=== PATIENT | female | born 1940 | race Caucasian/White ===

== ENCOUNTER → 2018-05-31 13:59 | Outpatient (REF) | payer MEDICARE, MEDICAID, SELFPAY ==
[2018-05-31 20:41] LABS: Abs Immature Grans 0.01 k/cumm (0.0-0.09); Absolute Basophil Count 0.02 k/cumm (0.0-0.2); Absolute Eosinophil Count 0.14 k/cumm (0.0-0.7); Absolute Lymphocyte Count 2.11 k/cumm (1.2-3.4); Absolute Monocyte Count 0.51 k/cumm (0.11-0.7); Absolute Neutrophil Count 3.63 k/cumm (1.2-6.7); Basophils % 0.3; Eosinophils % 2.2; HCT 39.8 % (36.0-46.0); HGB 13.5 g/dL (12.0-15.5); Immature Grans % 0.2; Lymphocytes % 32.9; Mean Corp. HGB Concentration 33.9 g/dL (32.0-36.0); Mean Corpuscular Hemoglobin 32.9 pg (27.0-33.0); Mean Corpuscular Volume 97.1 fL (80-95); Monocytes % 7.9; Neutrophils % 56.5; Platelet Count 193 x1000/uL (130-400); RBC Distribution Width 12.3 % (11.7-14.6); White Blood Cell Count 6.42 k/cumm (4.4-10.8)
[2018-05-31 20:43] LABS: Anion Gap 7.7 mmol/L (3-11); BUN 17 mg/dL (7-18); CO2 30.3 mmol/L (21.0-32.0); CREATININE 1.03 mg/dL (0.55-1.02); Calcium 9.6 mg/dL (8.5-10.1); Chloride 103 mmol/L (98-107); Estimated GFR 51.56 (mL/min/1.73m2); Glucose 108 mg/dL (70-100); Magnesium 2.5 mg/dL (1.8-2.4); Potassium 3.8 mmol/L (3.5-5.1); Sodium 141 mmol/L (136-145)
== END ==
LOC: NCHCN 13:59
PROVIDERS: Visit Provider Nurse Practitioner Family
DX: H92.03 Otalgia, bilateral (principal); R42 Dizziness and giddiness
CPT/HCPCS: 80048; 83735; 85025

== ENCOUNTER 2018-06-06 12:45 | Outpatient (RCR) | payer MEDICARE, MEDICAID, SELFPAY ==
--- NOTE | 2018-01-27 14:40 | PTIDS_ITS ---
DATE: 01/27/18 REFERRING PROVIDER: Gill Murphy MD DIAGNOSIS: R hip joint pain Patient did not return for a follow up appointment(s). Patient called to cancel remaining appointment(s). Reason: Return to physician recommended. ___X__ Patient had achieved an improvement in condition up to their prior level of function. Patient was instructed in a customized home exercise program to continue independently at home. The patient was given the option to call and schedule an appointment any time within a 3-week period if they experience a return of symptoms. Patient did not schedule follow up within this time frame. COMMENTS: ___X__ Discharge from PT at this time. ___X__ Medicare: Unable to assign G-Codes due to the lack of a formal follow up visit. Patient did not schedule further visits after their last attended appointment and therefore a final assessment could not be performed.
--- NOTE | 2018-06-06 08:33 | IE_ITS ---
Date: 06/06/18 Referring: Gill Murphy MD M.D. Diagnosis: Dizziness and ear pain P.T. Diagnosis: Difficulty changing positions SUBJECTIVE: History of Present Illness: Pt describes herself as a retired female who lives locally in the area. She states that about 2 weeks ago she started to notice some dizziness, and ear pain on the (L). The dizziness would be present any time she would roll over in bed, get out of bed or change body position such as bending over. She also feels significantly light headed most of the time , and the dizziness appears with positional changes. The pain in the (L) ear did resolve a little bit but still has a fullness quality to it. Pt denies any recent head trauma. Denies any recent congestion, however pt states that at her druze with one of her best friends, she notices that some of the people in her life do have a similar symptom quality as of (R) now. She states that she has been moving very slow to try to control her symptoms. Symptom Ratin/10 mostly dizziness but also a constant lightheadedness. Prior Level of Function: Unrestricted Current Level of Function: Difficulty with changing positions, difficulty with performing household tasks and activities. Previous Treatment: Nothing. Social: She lives in [place] with her son. Comorbidities: High BP, Hypothyroid, Breast cancer with mastectomy on the (L) Quality of Life: __X__ Good Standardized Measures: Pt failed to properly complete a Dizziness Handicap Index this will be completed at a subsequent visit. OBJECTIVE: Posture: In standing pt demonstrates an increase in her symptom rating in the standing position, but demonstrates only a mild forward head position and widened base of support. Gait: No evidence of any severe antalgia or ataxia. Palpation: She is slightly tender to palpation through the lower lateral neck on the (L) side, and somewhat more discriminatory than the other side. Vitals: BP in the sitting position 130/60 HR 81, BP in the standing position 107/56 HR of 86, In the supine position BP 111/78 and it is also worthy to note that in the supine position pt has almost a complete relief of her symptoms. ROM: Cervical extension, side bending and rotation all limited to 50% of available motion, not particularly symptom provoking. Multisegmental trunk flexion of symptom provoking, and pt only travels about 75% of the motion with a non uniform spinal curve when coming back to a standing erect position. She does have a strong symptom presentation of dizziness. Strength: Mid Delt 5/5 Biceps 5/5 Triceps 5/5 Wrist extension and flexion 5/5 Car Inspector strength is strong and symmetrical (B) Hip flexion 4+/5 (B) Quads 5/5 Hamstrings 5/5 Dorsiflexion 5/5 Plantarflexion 5/5 Neuro: Pt intact to light touch and sensation through UE/LE dermatomes, motor control appears intact through associated myotomes, and pt demonstrates appropriate proprioception and kinesthetic awareness. Special Tests: VOR visual motion sensitivity intact at 60 bpm with no sign of ocular drift. But mild symptom provocation. Smooth pursuit and saccades no sign of ocular drift and WNL. Finger to nose coordination testing, fine finger digit touching and musa to heel test WNL in terms of coordination. Supine roll test is negative, Dikes Halpike testing (B) is negative. Treatment: Tx today included the initial evaluation along with assessment of functional abilities as well as training in a formal exercise program. Pt demonstrated verbal acknowledgement and technique demonstration. IE: [id number] Direct treatment time: 60 minutes Total treatment time: 60 minutes ASSESSMENT: Patient is a 78-year-old female with a hx of good physical health, referred for PT services with the diagnosis of dizziness and ear pain. Patient presents with clinical signs and symptoms consistent with a possible mechanical vestibular issue but more likely an organic issue causing her symptoms, as demonstrated by the following impairment level findings: Negative Dikes Halpike , negative supine roll test, mild symptom provocation with positional movements of the head against gravity but a complete symptom resolution when in the supine position. Impairments are contributing to the following functional limitations: Difficulty with bending over, difficulty with positional changes, difficulty with activities around the home. Patient is assessed as: ____ Low 34007 __X__ Moderate 59321 ____ High 26199 complexity, based on the following: History: Hypothyroidism, mastectomy, hypertension Examination: Positional changes of the head and trunk increasing her symptoms , mildly positive orthostatic HTN particularly sitting from standing with increased in symptomatology. Presentation: . X Evolving Decision-Making: X Moderate complexity Based on the fact that pt has not completed her normal activities and stretching regimen. Which she prefers to do to keep her lower back and hip in check. She is also having some difficulty walking around. __X__ Patient requires skilled PT intervention to remediate the above functional limitations to return to: __X__ Premorbid level of function Prognosis: __X__ Good as evidence suggests improvement of functional abilities with compliance to a detailed HEP tailored to her dx and following through with PT intervention. G-Codes: Patient's primary functional limitation is in the category of: __X__ Changing and maintaining body position: [id number] justified by pt' s inability to perform any normal daily tasks involving positional changes of the head and neck against gravity without becoming symptomatic. Projected goal: __X__ Changing and maintaining body position: [id number] to return to premorbid level of function. STG: __2__ weeks. 1. Pt will be (I) in HEP both verbally and with ideal technique demonstration. LTG: __6__ weeks. 1. Pt will be able to maintain normal activities of daily living without any functional complaint of symptoms. PLAN: Patient to be seen 1 x per week, for 6 weeks, adjusting frequency of visits per patient symptoms and response to treatment. Treatment to include: X NRE- For vestibular habituation type training, in the event that pt experiences some remaining balance and equilibrium deficits she could use some vestibular re-training to improve her response to the vestibular stimuli. Pt must also refer back to her primary care as there is some question if this is more of a viral issue particularly involving some of her close friends having similar symptoms including ear pain and pt having a much better symptomatic response when in the supine position which is contrary to what we would expect if this was a true vestibular mechanically oriented process. Pt will be monitored for response to HEP and pt status will be updated accordingly. Plan may be modified as symptoms dictate. Thank you for this referral. Please do not hesitate to contact me with any questions or concerns regarding this patient's plan of care. Gill Murphy MD please sign below if you are in agreement with this pt's plan of care, cc: Gill Murphy MD
== END 2018-06-24 23:59 | disposition home or self-care (01) ==
LOC: PT 12:45
DX: R42 Dizziness and giddiness (principal); H92.03 Otalgia, bilateral
CPT/HCPCS: 97162

== ENCOUNTER → 2018-06-13 13:53 | Outpatient (REF) | payer MEDICARE, MEDICAID, SELFPAY ==
[2018-06-13 21:43] LABS: Magnesium 2.1 mg/dL (1.8-2.4)
== END ==
LOC: NCHCN 13:53
PROVIDERS: PCP Nurse Practitioner Family; Visit Provider Nurse Practitioner Family
DX: E83.41 Hypermagnesemia (principal)
CPT/HCPCS: 83735

== ENCOUNTER 2018-09-13 10:30 | Emergency (ER) | payer MEDICARE, MEDICAID, SELFPAY ==
[2018-09-13 10:39] VITALS: BP 149/89; PULSE 83; RESP 18; TEMP 36.7; O2SAT 96
--- NOTE | 2018-09-13 11:04 | DI.RAD_ITS ---
SYMPTOM/DIAGNOSIS: PRODUCTIVE COUGH PA AND LATERAL CHEST: The lungs are free of infiltrate. There is no pleural effusion. The heart is not enlarged. There is some unfolding and ectasia of the thoracic aorta and I could not exclude an aneurysm involving the proximal thoracic aortic segment. IMPRESSION: No evidence of acute cardiopulmonary disease.
[2018-09-13] MEDS: Doxycycline Hyclate 100 MG CAP PO (11:10)
[2018-09-13 11:14] VITALS: PULSE 75; RESP 24; RESP 4; O2SAT 99
[2018-09-13] MEDS: Albuterol/Ipratropium 3 ML UPD VIAL UPD ×2 (11:14→11:44)
--- NOTE | 2018-09-13 11:14 | ED.GENADUL_ITS ---
Discharge Plan Disposition Patient Disposition: HOME Discharge Details Chief Complaint: RespSymp Clinical Impression: Bronchitis, COPD exacerbation Primary Care Provider: Savannah Coats ED Provider: Jose C Avila Home Meds and New Rx's Prescriptions: New doxycycline hyclate 100 mg tablet 100 mg PO BID Qty: 13 RF: 0 Continue aspirin 325 MG tablet 325 mg PO DAILY RF: 0 verapamil 120 MG tablet 120 mg PO DIRECTED RF: 0 simvastatin [Zocor] 20 MG tablet 20 mg PO HS RF: 0 ginkgo biloba 60 MG tablet 60 mg PO DAILY RF: 0 acetaminophen [Tylenol Extra Strength] 500 MG tablet 500 mg PO HS RF: 0 levothyroxine [Synthroid] 100 MCG tablet 100 mcg PO DAILY RF: 0 losartan-hydrochlorothiazide 1 EACH tablet 1 tab PO DAILY RF: 0 vitamin B complex 1 EACH capsule 1 ea PO DAILY RF: 0 multivitamin [Chewable-Albert] 1 TAB tablet,chewable 1 tab PO DAILY RF: 0 Discontinued magnesium oxide 250 MG tablet 250 mg PO DAILY RF: 0 calcium carb-D3-mag ox-zinc ox [Pradeep Mag Zinc Plus D3] 1 EACH tablet 2 ea PO HS RF: 0 Discharge Instructions Instructions: COPD (Chronic Obstructive Pulmonary Disease) (ED) Additional Instructions: Please use your albuterol inhaler as prescribed: Take 2 puffs every 4 hours as needed for wheeze or shortness of breath. Please take the antibiotic as prescribed. Rest over the next few days and until feeling better. Please contact your primary care physician to arrange follow-up. Return to the ER for any worsening or new concerning symptoms. Referrals: Savannah Coats [Primary Care Provider] - Discharge Data Discharge Date/Time-TO BE ENTERED AT DEPARTURE: 09/13/18 13:31 Medical Decision Making 11:10 -- 78-year-old female former smoker with history of mild COPD, here with respiratory symptoms including sinus congestion and intermittent cough for the past 2 weeks, worsening productive cough over the past 24 hours with associated shortness of breath. Patient saturating well no respiratory distress. She does have a productive sounding cough on exam. Plan to check chest x-ray to assess for consolidation. Patient does have some mild wheezing will benefit from a DuoNeb treatment. 13:00 -- Patient reassessed: wheeze improved. cxr reviewed and interpreted by radiology: tortuous aorta, no acute cardiopulm dz. Disposition decision was made weighing the risks and benefits of hospitalization versus outpatient treatment, the risk for further decompensation , and the patient's wishes. The patient was stable and requested discharge. Prior to discharge, my usual and customary return precautions were reviewed with the patient - this included follow-up instructions and reason to return to the emergency department if condition worsens, does not improve as expected, or other new concerns arise. -- I called and spoke with PCP Dr. Sheppard about ED presentation, course and discharge plan. Will see patient in follow-up. HPI General Mode of arrival: ambulatory . Date/Time Provider Initiated Documentation: 09/13/18 10:46 . Limitations to Documentation: no limitations . Information obtained by: patient . HPI Narrative: 78-year-old female with history of mild COPD, former smoker, hypertension, hypothyroidism, hyperlipidemia, presents with chief component of cough. Patient notes for the past 2 weeks she has had upper respiratory tract infection symptoms including sinus congestion, rhinorrhea, intermittent cough. Over the past 24-48 hours she has had worsening cough. Cough was severe last night. Productive. She had associated shortness of breath that was worse when she was lying on her left side. No associated fever. Related Data Home Medications Medication Instructions Recorded Confirmed aspirin 325 mg PO DAILY tab-cap 06/14/14 09/13/18 ginkgo biloba 60 mg PO DAILY 06/14/14 09/13/18 simvastatin [Zocor] 20 mg PO HS 06/14/14 09/13/18 verapamil 120 mg PO DIRECTED 06/14/14 09/13/18 acetaminophen [Tylenol Extra 500 mg PO HS 04/06/18 09/13/18 Strength] levothyroxine [Synthroid] 100 mcg PO DAILY 04/06/18 09/13/18 losartan-hydrochlorothiazide 1 tab PO DAILY 04/06/18 09/13/18 multivitamin [Chewable-Albert] 1 tab PO DAILY 04/06/18 09/13/18 vitamin B complex 1 ea PO DAILY 04/06/18 09/13/18 doxycycline hyclate 100 mg PO BID #13 tab 09/13/18 Previous Rx's Medication Instructions Recorded doxycycline hyclate 100 mg PO BID #13 tab 09/13/18 Allergies Allergy/AdvReac Type Severity Reaction Status Date / Time anastrozole [From Arimidex] Allergy Unknown Unverified 04/11/18 08:25 tamoxifen [Tamoxifen] Allergy Unknown Unverified 04/11/18 08:25 lisinopril AdvReac COUGH Unverified 04/11/18 08:25 propoxyphene HCl AdvReac VOMITING Unverified 04/11/18 08:25 [From Darvon] General Stated Complaint: RespSymp ARJUN: 3 Review of Systems Review of Systems All systems reviewed & are unremarkable except as noted in HPI and below Cardiovascular Denies chest pain and Reports dyspnea Respiratory Reports as per HPI, Reports cough and Reports dyspnea PFSH Medical History COPD (chronic obstructive pulmonary disease) (Chronic) HTN (hypertension) (Chronic) Hyperlipemia (Chronic) Hypothyroid (Chronic) Social History Smoking/Tobacco Use Status: Former Tobacco Use Exam Const General: cooperative and no acute distress HENMT Head: normocephalic and atraumatic Mouth: moist mucous membranes Eyes Conjunctivae: normal conjunctivae Sclera: normal sclerae EOM: EOM intact bilaterally Neck Neck: no lymphadenopathy, trachea midline and supple Resp Auscultation: clear to auscultation bilaterally, no rales, rhonchi and wheezes expiratory wheezes and scattered wheezes Cardio Jugular venous pressure: no JVD Rate: regular rate and not tachycardic Rhythm: regular rhythm Heart Sounds: murmur systolic III/ GI Palpation: soft, not firm, no guarding, no masses, not rigid and nontender Skin General skin exam: no rashes or lesions noted Neuro General: alert, awake, oriented x3 and tone normal Extrem General: no edema Psych Appearance: grossly normal Mental Status: mental status grossly normal Speech and Movement: speech and movement normal Course Vital Signs Temperature 36.7 C 09/13/18 10:39 Pulse 83 09/13/18 10:39 Respiratory Rate 18 09/13/18 10:39 Blood Pressure 149/89 H 09/13/18 10:39 Pulse Oximetry 96 09/13/18 10:39 Temperature 36.7 C 09/13/18 10:39 Temperature Source Temporal Artery Scan 09/13/18 10:39 Pulse 83 09/13/18 10:39 Respiratory Rate 18 09/13/18 10:39 Respiratory Effort 09/13/18 10:46 Blood Pressure 149/89 H 09/13/18 10:39 Blood Pressure Position Sitting 09/13/18 10:39 Pulse Oximetry 96 09/13/18 10:39 Oxygen Delivery Method Room Air 09/13/18 10:39 Oxygen Flow Rate 0 09/13/18 10:39 Pain Level 3 09/13/18 10:39
[2018-09-13 11:23] VITALS: PULSE 76; RESP 24; RESP 4; RESP 5; O2SAT 100
[2018-09-13 13:30] VITALS: BP 112/80; PULSE 80; RESP 18; TEMP 36.8; O2SAT 99
== END 2018-09-13 13:31 | disposition home or self-care (01) ==
PROVIDERS: Emergency Provider Student in an Organized Health Care Education/Training Program; PCP Nurse Practitioner Family
DX: J44.0 Chronic obstructive pulmonary disease with (acute) lower respiratory infection (principal); J20.9 Acute bronchitis, unspecified; Z87.891 Personal history of nicotine dependence; I10 Essential (primary) hypertension
CPT/HCPCS: 94640; 99283; 71046; J7620

== ENCOUNTER 2018-09-18 09:32 | Inpatient (IN) | payer MEDICARE, MEDICAID, SELFPAY ==
[2018-09-18] VITALS (35 sets, daily range): BP systolic 116–166; BP diastolic 53–79; PULSE 78–94; RESP 2–29; TEMP 36.7–37.4; O2SAT 87–98
[2018-09-18] MEDS: Albuterol/Ipratropium 3 ML UPD VIAL (09:54)
--- NOTE | 2018-09-18 10:02 | W.ED.GENAD ---
Discharge Plan Disposition Patient Disposition: [facility] INPATIENT Condition: Improving Discharge Details Chief Complaint: RespSymp Clinical Impression: Community acquired pneumonia Reason For Visit: COPD PNEUMONIA Admit Date/Time: 09/18/18 12:30 Admit Provider: Hai Delgado Attending Provider: Hai Delgado Primary Care Provider: Savannah Coats ED Provider: Terry Pedroza Discharge Instructions Activity:: NO Strenuous Activity. Equipment/Supplies:: No Equipment Needed Diet:: Heart Healthy Discharge Orders Discharge Orders: Discharge Order (Routine); Ordered 09/21/18 Ordered By: Hai Delgado Discharge Data Discharge Date/Time-TO BE ENTERED AT DEPARTURE: 09/18/18 13:14 Medical Decision Making Patient presenting the emergency department for chief complaint of shortness of breath. Patient states that she has had cold-like symptoms that started 3-4 weeks ago and seems to have worsened over the past week which caused her to be seen 5 days ago in the emergency department and was evaluated and placed up on doxycycline. Patient states that she has continued to worsen even though taking antibiotics and using her inhaler and today had worsening of her shortness of breath. Physical exam shows diffuse scattered wheezing even after balance staff staker initiated protocol to give initial DuoNeb prior to my examination. Also of notation is patient is hypoxic on arrival with saturation of 88%. Patient was placed on oxygen by balance staff staker and has O2 saturation in the mid 90s and states some improvement. Physical exam is otherwise unremarkable. Patient does state fever at home but no fever is noted here. Concern for COPD exacerbation versus pneumonia so plan to check labs including blood cultures, EKG, and chest x-ray. Pending results patient given additional DuoNeb and Solu-Medrol. After review of lab which showed no leukocytosis and some decrease of renal function otherwise stable and review of chest x-ray shows findings suggestive of a right basilar ammonia patient was reassessed. Patient still shows some hypoxia on room air. Given the patient has been on antibiotics shows worsening chest x-ray and now hypoxia I do feel the patient requires admission. Pending speaking with the hospitalist patient started on Levaquin. Hospitalist was in agreement to admit the patient to inpatient services. Patient was also in agreement with plan HPI General Mode of arrival: ambulatory. Date/Time Provider Initiated Documentation: 09/18/18 09:39. Limitations to Documentation: no limitations. Information obtained by: patient, family, RN notes reviewed and old records reviewed. History of Present Illness 78 year old F presents to the emergency department with the chief complaint of Shortness of Breath, described as severe, Quality is described as other (Denies any pain), Patient started experiencing this week(s) (3, with worsening over the past couple days) and it has been constant. No relieving factors improve symptom(s), No exacerbating factors reported . Related Data Home Medications Medication Instructions Recorded Confirmed aspirin 325 mg PO DAILY tab-cap 06/14/14 09/18/18 ginkgo biloba 60 mg PO DAILY 06/14/14 09/18/18 simvastatin [Zocor] 20 mg PO HS 06/14/14 09/18/18 verapamil 120 mg PO DIRECTED 06/14/14 09/18/18 acetaminophen [Tylenol Extra 500 mg PO HS 04/06/18 09/18/18 Strength] levothyroxine [Synthroid] 100 mcg PO DAILY 04/06/18 09/18/18 multivitamin [Chewable-Albert] 1 tab PO DAILY 04/06/18 09/18/18 vitamin B complex 1 ea PO DAILY 04/06/18 09/18/18 cyanocobalamin (vitamin B-12) 1,000 mcg PO DAILY 09/18/18 09/18/18 [Vitamin B-12] losartan 50 mg PO DAILY 09/18/18 09/18/18 magnesium 250 mg PO DAILY 09/18/18 09/18/18 albuterol sulfate [ProAir HFA] 2 puff IH Q4H PRN 30 Days #8.5 gm 09/21/18 benzonatate 200 mg PO TID #21 cap 09/21/18 dextromethorphan-guaifenesin 10 ml PO Q4H PRN PRN #118 ml 09/21/18 prednisone 10 mg PO DAILY #27 tab 09/21/18 Previous Rx's Medication Instructions Recorded albuterol sulfate [ProAir HFA] 2 puff IH Q4H PRN 30 Days #8.5 gm 09/21/18 benzonatate 200 mg PO TID #21 cap 09/21/18 dextromethorphan-guaifenesin 10 ml PO Q4H PRN PRN #118 ml 09/21/18 prednisone 10 mg PO DAILY #27 tab 09/21/18 Allergies Allergy/AdvReac Type Severity Reaction Status Date / Time anastrozole [From Arimidex] Allergy Unknown Unverified 09/18/18 09:49 tamoxifen [Tamoxifen] Allergy Unknown Unverified 09/18/18 09:49 lisinopril AdvReac COUGH Unverified 09/18/18 09:49 propoxyphene HCl AdvReac VOMITING Unverified 09/18/18 09:49 [From Darvon] General Stated Complaint: RespSymp ARJUN: 3 Review of Systems Constitutional Reports fatigue, Reports fever(s) and Reports malaise ENT Denies hoarseness, Denies nasal congestion, Denies sinus pressure and Denies sore throat Cardiovascular Denies syncope, Denies rapid heart rate, Denies irregular heart rhythm, Reports dyspnea and Reports dyspnea on exertion Respiratory Reports change in phlegm color, Reports chest congestion, Reports cough, Denies hemoptysis, Reports excessive phlegm production, Reports dyspnea and Reports dyspnea on exertion Gastrointestinal Denies abdominal pain, Denies diarrhea and Denies nausea Integumentary/Breasts Denies rash Neurologic Denies syncope Endocrine Reports fatigue [facility] Medical History COPD (chronic obstructive pulmonary disease) (Chronic) HTN (hypertension) (Chronic) Hyperlipemia (Chronic) Hypothyroid (Chronic) Social History Smoking/Tobacco Use Status: Former Tobacco Use Exam Const General: cooperative, comfortable and no acute distress Orientation: alert, awake and oriented x3 HENMT Head: normal to inspection Ears: hearing grossly normal bilaterally and TM's normal bilaterally General nose exam: external nose normal Mouth: oral mucosae normal Throat: posterior oropharynx normal, tonsils normal and uvula midline Eyes General: appearance normal, both eyes and all related structures Conjunctivae: conjunctivae normal Sclera: sclerae normal Neck Neck: normal visual inspection, full ROM, no lymphadenopathy, meningismus present and no JVD Resp Effort & Inspection: normal respiratory effort, able to speak in complete sentences, no audible wheezes, cough Quality of cough: actively coughing and not labored Auscultation: lung sounds not diminished and wheezes expiratory wheezes and scattered wheezes Cardio Rate: regular rate Rhythm: regular rhythm Heart Sounds: S1 normal and S2 normal Skin General skin exam: no rashes or lesions noted and dry skin Rashes: no rashes Neuro General: alert, awake, oriented x3 and gait normal Course Vital Signs Temperature 36.7 C 09/18/18 09:47 Pulse 87 09/18/18 09:47 Respiratory Rate 24 09/18/18 09:47 Blood Pressure 138/79 09/18/18 09:47 Pulse Oximetry 88 L 09/18/18 09:47 Temperature 36.7 C 09/18/18 09:47 Temperature Source Temporal Artery Scan 09/18/18 09:47 Pulse 87 09/18/18 09:47 Respiratory Rate 24 09/18/18 09:47 Respiratory Effort Labored 09/18/18 09:52 Respiratory Depth Normal 09/18/18 09:52 Blood Pressure 138/79 09/18/18 09:47 Blood Pressure Position Sitting 09/18/18 09:47 Pulse Oximetry 88 L 09/18/18 09:54 Oxygen Delivery Method Room Air 09/18/18 09:54 Oxygen Flow Rate 0 09/18/18 09:54 Pain Level 0 09/18/18 09:47 Comment 09/18/18 09:47
--- NOTE | 2018-09-18 10:16 | DI.RAD_ITS ---
SYMPTOM/DIAGNOSIS: SOB PA AND LATERAL CHEST: Comparison is made with 13 September 2018. Heart size is normal. The aorta is again noted to be tortuous. The ascending aorta is again noted to be enlarged. The lungs appear clear. No thoracic compression fractures are identified. IMPRESSION: No acute abnormality.
[2018-09-18] MEDS: Albuterol/Ipratropium 3 ML UPD VIAL UPD (10:17)
--- NOTE | 2018-09-18 10:22 | ED.GENADUL_ITS ---
Discharge Plan Disposition Patient Disposition: [facility] INPATIENT Condition: Improving Discharge Details Chief Complaint: RespSymp Clinical Impression: Community acquired pneumonia Reason For Visit: COPD PNEUMONIA Admit Date/Time: 09/18/18 12:30 Admit Provider: Hai Delgado Attending Provider: Hai Delgado Primary Care Provider: Savannah Coats ED Provider: Terry Pedroza Discharge Instructions Activity:: NO Strenuous Activity. Equipment/Supplies:: No Equipment Needed Diet:: Heart Healthy Discharge Orders Discharge Orders: Discharge Order (Routine); Ordered 09/21/18 Ordered By: Hai Delgado Discharge Data Discharge Date/Time-TO BE ENTERED AT DEPARTURE: 09/18/18 13:14 Medical Decision Making Patient presenting the emergency department for chief complaint of shortness of breath. Patient states that she has had cold-like symptoms that started 3-4 weeks ago and seems to have worsened over the past week which caused her to be seen 5 days ago in the emergency department and was evaluated and placed up on doxycycline. Patient states that she has continued to worsen even though taking antibiotics and using her inhaler and today had worsening of her shortness of breath. Physical exam shows diffuse scattered wheezing even after clinical staff pharmacist initiated protocol to give initial DuoNeb prior to my examination. Also of notation is patient is hypoxic on arrival with saturation of 88%. Patient was placed on oxygen by clinical staff pharmacist and has O2 saturation in the mid 90s and states some improvement. Physical exam is otherwise unremarkable. Patient does state fever at home but no fever is noted here. Concern for COPD exacerbation versus pneumonia so plan to check labs including blood cultures, EKG, and chest x-ray. Pending results patient given additional DuoNeb and Solu- Medrol. After review of lab which showed no leukocytosis and some decrease of renal function otherwise stable and review of chest x-ray shows findings suggestive of a right basilar ammonia patient was reassessed. Patient still shows some hypoxia on room air. Given the patient has been on antibiotics shows worsening chest x-ray and now hypoxia I do feel the patient requires admission. Pending speaking with the hospitalist patient started on Levaquin. Hospitalist was in agreement to admit the patient to inpatient services. Patient was also in agreement with plan HPI General Mode of arrival: ambulatory . Date/Time Provider Initiated Documentation: 09/18/18 09:39 . Limitations to Documentation: no limitations . Information obtained by: patient, family, RN notes reviewed and old records reviewed . History of Present Illness 78 year old F presents to the emergency department with the chief complaint of Shortness of Breath, described as severe, Quality is described as other ( Denies any pain), Patient started experiencing this week(s) (3, with worsening over the past couple days) and it has been constant. No relieving factors improve symptom(s), No exacerbating factors reported . Related Data Home Medications Medication Instructions Recorded Confirmed aspirin 325 mg PO DAILY tab-cap 06/14/14 09/18/18 ginkgo biloba 60 mg PO DAILY 06/14/14 09/18/18 simvastatin [Zocor] 20 mg PO HS 06/14/14 09/18/18 verapamil 120 mg PO DIRECTED 06/14/14 09/18/18 acetaminophen [Tylenol Extra 500 mg PO HS 04/06/18 09/18/18 Strength] levothyroxine [Synthroid] 100 mcg PO DAILY 04/06/18 09/18/18 multivitamin [Chewable-Albert] 1 tab PO DAILY 04/06/18 09/18/18 vitamin B complex 1 ea PO DAILY 04/06/18 09/18/18 cyanocobalamin (vitamin B-12) 1,000 mcg PO DAILY 09/18/18 09/18/18 [Vitamin B-12] losartan 50 mg PO DAILY 09/18/18 09/18/18 magnesium 250 mg PO DAILY 09/18/18 09/18/18 albuterol sulfate [ProAir HFA] 2 puff IH Q4H PRN 30 Days #8.5 gm 09/21/18 benzonatate 200 mg PO TID #21 cap 09/21/18 dextromethorphan-guaifenesin 10 ml PO Q4H PRN PRN #118 ml 09/21/18 prednisone 10 mg PO DAILY #27 tab 09/21/18 Previous Rx's Medication Instructions Recorded albuterol sulfate [ProAir HFA] 2 puff IH Q4H PRN 30 Days #8.5 gm 09/21/18 benzonatate 200 mg PO TID #21 cap 09/21/18 dextromethorphan-guaifenesin 10 ml PO Q4H PRN PRN #118 ml 09/21/18 prednisone 10 mg PO DAILY #27 tab 09/21/18 Allergies Allergy/AdvReac Type Severity Reaction Status Date / Time anastrozole [From Arimidex] Allergy Unknown Unverified 09/18/18 09:49 tamoxifen [Tamoxifen] Allergy Unknown Unverified 09/18/18 09:49 lisinopril AdvReac COUGH Unverified 09/18/18 09:49 propoxyphene HCl AdvReac VOMITING Unverified 09/18/18 09:49 [From Darvon] General Stated Complaint: RespSymp ARJUN: 3 Review of Systems Constitutional Reports fatigue, Reports fever(s) and Reports malaise ENT Denies hoarseness, Denies nasal congestion, Denies sinus pressure and Denies sore throat Cardiovascular Denies syncope, Denies rapid heart rate, Denies irregular heart rhythm, Reports dyspnea and Reports dyspnea on exertion Respiratory Reports change in phlegm color, Reports chest congestion, Reports cough, Denies hemoptysis, Reports excessive phlegm production, Reports dyspnea and Reports dyspnea on exertion Gastrointestinal Denies abdominal pain, Denies diarrhea and Denies nausea Integumentary/Breasts Denies rash Neurologic Denies syncope Endocrine Reports fatigue [facility] Medical History COPD (chronic obstructive pulmonary disease) (Chronic) HTN (hypertension) (Chronic) Hyperlipemia (Chronic) Hypothyroid (Chronic) Social History Smoking/Tobacco Use Status: Former Tobacco Use Exam Const General: cooperative, comfortable and no acute distress Orientation: alert, awake and oriented x3 HENMT Head: normal to inspection Ears: hearing grossly normal bilaterally and TM's normal bilaterally General nose exam: external nose normal Mouth: oral mucosae normal Throat: posterior oropharynx normal, tonsils normal and uvula midline Eyes General: appearance normal, both eyes and all related structures Conjunctivae: conjunctivae normal Sclera: sclerae normal Neck Neck: normal visual inspection, full ROM, no lymphadenopathy, meningismus present and no JVD Resp Effort & Inspection: normal respiratory effort, able to speak in complete sentences, no audible wheezes, cough Quality of cough: actively coughing and not labored Auscultation: lung sounds not diminished and wheezes expiratory wheezes and scattered wheezes Cardio Rate: regular rate Rhythm: regular rhythm Heart Sounds: S1 normal and S2 normal Skin General skin exam: no rashes or lesions noted and dry skin Rashes: no rashes Neuro General: alert, awake, oriented x3 and gait normal Course Vital Signs Temperature 36.7 C 09/18/18 09:47 Pulse 87 09/18/18 09:47 Respiratory Rate 24 09/18/18 09:47 Blood Pressure 138/79 09/18/18 09:47 Pulse Oximetry 88 L 09/18/18 09:47 Temperature 36.7 C 09/18/18 09:47 Temperature Source Temporal Artery Scan 09/18/18 09:47 Pulse 87 09/18/18 09:47 Respiratory Rate 24 09/18/18 09:47 Respiratory Effort Labored 09/18/18 09:52 Respiratory Depth Normal 09/18/18 09:52 Blood Pressure 138/79 09/18/18 09:47 Blood Pressure Position Sitting 09/18/18 09:47 Pulse Oximetry 88 L 09/18/18 09:54 Oxygen Delivery Method Room Air 09/18/18 09:54 Oxygen Flow Rate 0 09/18/18 09:54 Pain Level 0 09/18/18 09:47 Comment 09/18/18 09:47
[2018-09-18] MEDS: methylPREDNISolone SUCC 125 MG VIAL IVP (10:35)
[2018-09-18 11:00] LABS: Abs Immature Grans 0.01 k/cumm (0.0-0.09); Absolute Basophil Count 0.04 k/cumm (0.0-0.2); Absolute Eosinophil Count 0.67 k/cumm (0.0-0.7); Absolute Lymphocyte Count 2.89 k/cumm (1.2-3.4); Absolute Monocyte Count 0.62 k/cumm (0.11-0.7); Absolute Neutrophil Count 3.89 k/cumm (1.2-6.7); Basophils % 0.5; Eosinophils % 8.3; HCT 41.3 % (36.0-46.0); HGB 13.9 g/dL (12.0-15.5); Immature Grans % 0.1; Lymphocytes % 35.6; Mean Corp. HGB Concentration 33.7 g/dL (32.0-36.0); Mean Corpuscular Hemoglobin 32.9 pg (27.0-33.0); Mean Corpuscular Volume 97.9 fL (80-95); Mean Platelet Volume 10.4 fL (8.0-11.0); Monocytes % 7.6; Neutrophils % 47.9; Platelet Count 209 x1000/uL (130-400); RBC 4.22 m/cumm (4.00-5.20); RBC Distribution Width 12.6 % (11.7-14.6); White Blood Cell Count 8.12 k/cumm (4.4-10.8)
[2018-09-18] MEDS: LEVOFLOXACIN 750 MG/150 ML BAG 150 MG IVPB (11:14)
--- NOTE | 2018-09-18 11:23 | DI.VRAD_ITS ---
EXAM: XR Chest, 2 Views EXAM DATE/TIME: 09/18/2018 10:17 AM CLINICAL HISTORY: 78 years old, female; Signs and symptoms; Cough TECHNIQUE: XR of the chest, 2 views. COMPARISON: CR XR CHEST 2V PA LATERAL 09/13/2018 12:22 PM FINDINGS: Lungs: There may be some infiltrate developing at the right base medially. The lungs are otherwise clear. Pleural space: Unremarkable. No pleural effusion. No pneumothorax. Heart/Mediastinum: The cardiomediastinal silhouette is fairly stable in appearance. Bones/joints: Degenerative changes again involve the spine and shoulders. IMPRESSION: Potential developing medial right basilar infiltrate as compared with 09/13/18. Recommend followup. Dictated and Authenticated by: Magdiel Solano MD. Ordering:YOHANA DUFFY MD
[2018-09-18 11:43] LABS: ALT 26 U/L (12-78); AST 21 U/L (15-37); Albumin 3.3 g/dL (3.4-5.0); Alkaline Phosphatase 66 U/L (46-116); Anion Gap 10.1 mmol/L (3-11); BUN 12 mg/dL (7-18); Bilirubin, Total 0.4 mg/dL (0.2-1.0); CO2 26.9 mmol/L (21.0-32.0); CREATININE 1.11 mg/dL (0.55-1.02); Calcium 9.3 mg/dL (8.5-10.1); Chloride 104 mmol/L (98-107); Estimated GFR 47.29 (mL/min/1.73m2); Glucose 116 mg/dL (70-100); Magnesium 1.9 mg/dL (1.8-2.4); Potassium 3.6 mmol/L (3.5-5.1); Sodium 141 mmol/L (136-145); Total Protein 7.2 g/dL (6.4-8.2)
[2018-09-18 11:44] LABS: Troponin I < 0.02 ng/mL (0.00-0.06)
--- NOTE | 2018-09-18 13:11 | NUR.NOTE ---
Report given to Gill on [facility].
[2018-09-18] MEDS: methylPREDNISolone SUCC 40 MG VIAL IVP ×2 (15:34→22:04)
[2018-09-18] MEDS: Heparin 5,000 UNITS/ML VIAL 5000 UNITS SC ×2 (15:34→22:04)
[2018-09-18] MEDS: Normal Saline Flush 10 ML SYR IVP ×2 (15:35→22:04)
[2018-09-18] MEDS: Normal Saline 1,000 ML 100 ML IV (15:54)
--- NOTE | 2018-09-18 16:56 | HPE_ITS ---
Date of service: 09/18/18 Time of Service: 16:51 Assessment and Plan (1) Pneumonia: Current visit: Yes Status: Acute CXR with potential infiltrate that is subtle on imaging - patient has also received a course of Doxycycline over the last 5 days. Unsure if current imaging results are of a treated pneumonia or a new process that occured despite antibiotic therapy. For now will hold off on HCAP coverage as patient is afebrile, without a leukocytosis, and non-toxic appearing, but will initiate Levofloxacin that is renally dosed. Treat concurrent COPD exacerbation with IV Steroids and standing nebs. Continue supplemental oxygen as needed, and monitor symptoms closely. (2) COPD (chronic obstructive pulmonary disease): Current visit: Yes Status: Chronic With Acute exacerbation likely on the basis of illness. Treatment as above. (3) FEMI (acute kidney injury): Current visit: Yes Status: Acute In setting of acute illness, with patient appearing dry by exam. Hydrate gently, avoid nephrotoxins, renally dose medications when appropriate, and monitor creatinine in the morning. (4) Dyslipidemia: Current visit: Yes Status: Chronic Continue statin therapy. (5) Hypertension: Current visit: Yes Status: Chronic Currently on CCB therapy with Verapamil, as well as ARB. (6) Hypothyroidism: Current visit: Yes Status: Chronic Continue replacement therapy. (7) DVT prophylaxis: Current visit: Yes Status: Acute Heparin SC given FEMI. (8) Advance directive discussed with patient: Current visit: Yes Status: Acute Full Code. History of Present Illness Chief Complaint: Dyspnea Narrative: Very pleasant 78 year old woman with a past medical history significant for COPD presents to [facility] Emergency Department with complaint of dyspnea. Mrs. Pollack has a history of COPD, mild by PFTs in 2016. She also has a prior history of HTN, Dyslipidemia, hypothyroidism, and Aortic Stenosis. The patient is and now lives with her son locally. She reports that he became ill and was diagnosed with pnemonia that was treated successfully as an outpatient. She then states onset of a 'head cold' approximately 2 weeks later, that eventually 'moved to my chest'. This prompted an initial evaluation in the emergency department on 09/13, with a CXR that was unremarkable. The patient was prescribed Doxycycline and she returned home. However, despite antibiotic therapy she states that her symptoms persisted. This morning her cough and dyspnea worsened, and she was brought in to the ED by her son. Initial work-up included a normal CBC, HR, and temperature. She was however noted to be mildly hypoxic, and repeat CXR showed a potential developing right basilar infiltrate as compared to her prior imaging. She was referred for admission for further evaluation and treatment. Review of Systems Review of Systems All systems reviewed & are unremarkable except as noted in HPI and below PFSH Medical History COPD (chronic obstructive pulmonary disease) (Chronic) HTN (hypertension) (Chronic) Hyperlipemia (Chronic) Hypothyroid (Chronic) Social History Smoking/Tobacco Use Status: Former Tobacco Use Meds Home Medications Medication Instructions Recorded Confirmed Type aspirin 325 mg PO DAILY tab-cap 06/14/14 09/18/18 History ginkgo biloba 60 mg PO DAILY 06/14/14 09/18/18 History simvastatin [Zocor] 20 mg PO HS 06/14/14 09/18/18 History verapamil 120 mg PO DIRECTED 06/14/14 09/18/18 History acetaminophen [Tylenol Extra 500 mg PO HS 04/06/18 09/18/18 History Strength] levothyroxine [Synthroid] 100 mcg PO DAILY 04/06/18 09/18/18 History multivitamin [Chewable-Albert] 1 tab PO DAILY 04/06/18 09/18/18 History vitamin B complex 1 ea PO DAILY 04/06/18 09/18/18 History doxycycline hyclate 100 mg PO BID #13 tab 09/13/18 09/18/18 Rx cyanocobalamin (vitamin B-12) 1,000 mcg PO DAILY 09/18/18 09/18/18 History [Vitamin B-12] losartan 50 mg PO DAILY 09/18/18 09/18/18 History magnesium 250 mg PO DAILY 09/18/18 09/18/18 History Allergies Allergy/AdvReac Type Severity Reaction Status Date / Time anastrozole [From Arimidex] Allergy Unknown Unverified 09/18/18 09:49 tamoxifen [Tamoxifen] Allergy Unknown Unverified 09/18/18 09:49 lisinopril AdvReac COUGH Unverified 09/18/18 09:49 propoxyphene HCl AdvReac VOMITING Unverified 09/18/18 09:49 [From [facility]] Exam Narrative Exam Narrative: General: Patient appears comfortable, AAOX3, NAD Neck: Supple CV: Regular, nontachycardic, S1S2, No rubs, murmurs, or gallops. Pulmonary: Mild diffuse wheezing Abdomen: + Bowel Sounds, soft, nontender, nondistended Vascular: No lower extremity edema Neurologic: CN II-XII grossly intact. No focal deficits. Psych: Normal mood and affect. Results Imaging Chest x-ray: report reviewed Additional studies: EXAM: XR Chest, 2 Views EXAM DATE/TIME: 09/18/2018 10:17 AM CLINICAL HISTORY: 78 years old, female; Signs and symptoms; Cough TECHNIQUE: XR of the chest, 2 views. COMPARISON: CR XR CHEST 2V PA LATERAL 09/13/2018 12:22 PM FINDINGS: Lungs: There may be some infiltrate developing at the right base medially. The lungs are otherwise clear. Pleural space: Unremarkable. No pleural effusion. No pneumothorax. Heart/Mediastinum: The cardiomediastinal silhouette is fairly stable in appearance. Bones/joints: Degenerative changes again involve the spine and shoulders. IMPRESSION: Potential developing medial right basilar infiltrate as compared with 09/13/18. Recommend followup. Labs : 09/18/18 10:35 09/18/18 11:15 Laboratory Results - last 24 hr 09/18/18 09/18/18 09/18/18 10:35 10:35 11:15 WBC 8.12 RBC 4.22 Hgb 13.9 Hct 41.3 MCV 97.9 H MCH 32.9 MCHC 33.7 RDW 12.6 Plt Count 209 MPV 10.4 Immature Gran % 0.1 Neutrophils % 47.9 Lymphocytes % 35.6 Monocytes % 7.6 Eosinophils % 8.3 Basophils % 0.5 Absolute Neutrophils 3.89 Absolute Lymphocytes 2.89 Absolute Monocytes 0.62 Absolute Eosinophils 0.67 Absolute Basophils 0.04 Sodium Cancelled 141 Potassium Cancelled 3.6 Chloride Cancelled 104 Carbon Dioxide Cancelled 26.9 Anion Gap Cancelled 10.1 BUN Cancelled 12 Creatinine Cancelled 1.11 H Estimated GFR/1.73 m2 Cancelled 47.29 Glucose Cancelled 116 H Calcium Cancelled 9.3 Magnesium Cancelled 1.9 Total Bilirubin Cancelled 0.4 AST Cancelled 21 ALT Cancelled 26 Alkaline Phosphatase Cancelled 66 Troponin I Cancelled < 0.02 Total Protein Cancelled 7.2 Albumin Cancelled 3.3 L Last Vital Signs Temp 37.2 C 09/18/18 15:52 Pulse 92 H 09/18/18 15:52 Resp 20 09/18/18 15:52 BP 116/74 09/18/18 15:52 Pulse Ox 93 L 09/18/18 15:52
[2018-09-18] MEDS: Verapamil 80 MG TAB 120 MG PO (20:43)
[2018-09-18] MEDS: Simvastatin 20 MG TAB PO (22:05)
[2018-09-19] VITALS (9 sets, daily range): BP systolic 123–145; BP diastolic 69–87; PULSE 73–91; RESP 18–21; TEMP 36.4–37; O2SAT 88–94
[2018-09-19] MEDS: Normal Saline 1,000 ML 100 ML IV ×3 (01:33→21:15)
[2018-09-19] MEDS: Levothyroxine 100 MCG TAB PO (05:35)
[2018-09-19] MEDS: Heparin 5,000 UNITS/ML VIAL 5000 UNITS SC ×3 (05:36→21:15)
[2018-09-19] MEDS: methylPREDNISolone SUCC 40 MG VIAL IVP ×3 (05:36→21:15)
[2018-09-19 07:23] LABS: Abs Immature Grans 0.04 k/cumm (0.0-0.09); Absolute Basophil Count 0.01 k/cumm (0.0-0.2); Absolute Lymphocyte Count 1.06 k/cumm (1.2-3.4); Absolute Neutrophil Count 12.68 k/cumm (1.2-6.7); Basophils % 0.1; HCT 37.1 % (36.0-46.0); HGB 12.5 g/dL (12.0-15.5); Immature Grans % 0.3; Lymphocytes % 7.5; Mean Corp. HGB Concentration 33.7 g/dL (32.0-36.0); Mean Corpuscular Hemoglobin 32.8 pg (27.0-33.0); Mean Corpuscular Volume 97.4 fL (80-95); Mean Platelet Volume 10.9 fL (8.0-11.0); Monocytes % 2.3; Neutrophils % 89.8; Platelet Count 210 x1000/uL (130-400); RBC 3.81 m/cumm (4.00-5.20); RBC Distribution Width 12.4 % (11.7-14.6); White Blood Cell Count 14.12 k/cumm (4.4-10.8)
[2018-09-19 07:24] LABS: Absolute Monocyte Count 0.32 k/cumm (0.11-0.7)
[2018-09-19 07:44] LABS: Anion Gap 8.9 mmol/L (3-11); BUN 19 mg/dL (7-18); CO2 24.1 mmol/L (21.0-32.0); CREATININE 1.05 mg/dL (0.55-1.02); Calcium 8.8 mg/dL (8.5-10.1); Chloride 107 mmol/L (98-107); Estimated GFR 50.43 (mL/min/1.73m2); Glucose 138 mg/dL (70-100); Magnesium 1.9 mg/dL (1.8-2.4); Potassium 4.1 mmol/L (3.5-5.1); Sodium 140 mmol/L (136-145)
[2018-09-19] MEDS: Multivitamin TAB 1 TAB PO (08:00)
[2018-09-19] MEDS: Aspirin 325 MG TAB PO (08:00)
[2018-09-19] MEDS: Cyanocobalamin 500 MCG TAB 1000 MCG PO (08:00)
[2018-09-19] MEDS: Verapamil 80 MG TAB 240 MG PO (11:28)
--- NOTE | 2018-09-19 13:54 | PGE_ITS ---
Date of Service Date of service: 09/19/18 Time of Service: 13:47 Assessment and Plan (1) Pneumonia: Current visit: Yes Status: Acute CXR with potential infiltrate that is subtle on imaging - patient has also received a course of Doxycycline over the the 5 days prior to her admission. Unsure if current imaging results are of a treated pneumonia or a new process that occured despite antibiotic therapy. For now will hold off on HCAP coverage as patient is afebrile, without a leukocytosis, and non-toxic appearing, and continue renally dosed Levofloxacin day #2. Treat concurrent COPD exacerbation with IV Steroids and standing nebs. Continue supplemental oxygen as needed, and monitor symptoms closely. (2) COPD (chronic obstructive pulmonary disease): Current visit: Yes Status: Chronic With Acute exacerbation likely on the basis of illness. Treatment as above. Appears to be improving. (3) FEMI (acute kidney injury): Current visit: Yes Status: Acute In setting of acute illness, with patient appearing dry by exam. Continue gentle hydration, avoid nephrotoxins, renally dose medications when appropriate , and monitor creatinine. (4) Dyslipidemia: Current visit: Yes Status: Chronic Continue statin therapy. (5) Hypertension: Current visit: Yes Status: Chronic Currently on CCB therapy with Verapamil, as well as ARB. (6) Hypothyroidism: Current visit: Yes Status: Chronic Continue replacement therapy. (7) DVT prophylaxis: Current visit: Yes Status: Acute Heparin SC given FEMI. (8) Advance directive discussed with patient: Current visit: Yes Status: Acute Full Code. Subjective Interval history since last seen: Very pleasant 78 year old woman with a past medical history significant for COPD admitted on 09/18 from [facility] Emergency Department with complaint of dyspnea. Mrs. Pollack has a history of COPD, mild by PFTs in 2016. She also has a prior history of HTN, Dyslipidemia, hypothyroidism, and Aortic Stenosis. The patient is and now lives with her son locally. She reported that he became ill and was diagnosed with pnemonia that was treated successfully as an outpatient. She then reported onset of a 'head cold' approximately 2 weeks later that eventually 'moved to my chest'. This prompted an initial evaluation in the emergency department on 09/13, with a CXR that was unremarkable. The patient was prescribed Doxycycline and she returned home. However, despite antibiotic therapy she stated that her symptoms persisted. On the morning of admission her cough and dyspnea worsened, and she was brought in to the ED by her son. Initial work-up included a normal CBC, HR, and temperature. She was however noted to be mildly hypoxic, and repeat CXR showed a potential developing right basilar infiltrate as compared to her prior imaging. She was referred for admission for further evaluation and treatment. Following admission her antibiotic regimen was changed, and she was initiated on IV Steroids and nebs. This morning she reports improvement in her symptoms overall, and is now not requiring oxygen at rest. No overnight events reported. She remains afebrile. Exam Narrative Exam Narrative: General: Patient appears comfortable, AAOX3, NAD Neck: Supple CV: Regular, nontachycardic, S1S2, 3/6 RUSB murmur Pulmonary: Mild diffuse wheezing on previous exam now resolved Abdomen: + Bowel Sounds, soft, nontender, nondistended Vascular: No lower extremity edema Psych: Normal mood and affect. Objective Objective Clinical Data: Abnormal lab results 09/19/18 09/19/18 Range/Units 06:32 06:32 WBC 14.12 H D (4.4-10.8) k/cumm RBC 3.81 L (4.00-5.20) m/cumm MCV 97.4 H (80-95) fL Absolute Neutrophils 12.68 H (1.2-6.7) k/cumm Absolute Lymphocytes 1.06 L (1.2-3.4) k/cumm BUN 19 H D (7-18) mg/dL Creatinine 1.05 H (0.55-1.02) mg/dL Glucose 138 H (70-100) mg/dL Vital Signs Temperature 37.0 C 09/19/18 11:25 Temperature Source Tympanic 09/19/18 11:25 Pulse 90 09/19/18 11:25 Pulse Rhythm Regular 09/19/18 07:55 Pulse 83 09/18/18 13:01 Respiratory Rate 20 09/19/18 11:30 Respiratory Effort 09/19/18 07:55 Respiratory Depth Normal 09/19/18 07:55 Respiratory Pattern Normal 09/19/18 07:55 Blood Pressure 142/87 H 09/19/18 11:25 Blood Pressure Mean 74 09/18/18 13:01 Blood Pressure Position Sitting 09/18/18 09:47 Pulse Oximetry 93 L 09/19/18 11:30 Oxygen Delivery Method Nasal Cannula 09/19/18 11:30 Oxygen Flow Rate 2 09/19/18 11:30 Pain Level 0 09/19/18 11:25 Comment 09/19/18 11:30 Intake & Output 09/18/18 09/19/18 09/19/18 23:59 11:59 23:59 Intake Total 710 / 710 1665 / 1665 250 / 250 Output Total 300 / 300 1350 / 1350 Balance 410 / 410 315 / 315 250 / 250 Weight 71.6 kg Intake: IV 160 / 160 965 / 965 Oral 550 / 550 700 / 700 250 / 250 Output: Urine 300 / 300 1350 / 1350 Other: Urine Color Yellow Light Mindy Urine Appearance Clear Clear Urine Odor None Comment pt voided in the tiolet Voiding Methods Toilet Toilet Laboratory Results WBC 14.12 k/cumm (4.4-10.8) H D 09/19/18 06:32 RBC 3.81 m/cumm (4.00-5.20) L 09/19/18 06:32 Hgb 12.5 g/dL (12.0-15.5) 09/19/18 06:32 Hct 37.1 % (36.0-46.0) 09/19/18 06:32 MCV 97.4 fL (80-95) H 09/19/18 06:32 MCH 32.8 pg (27.0-33.0) 09/19/18 06:32 MCHC 33.7 g/dL (32.0-36.0) 09/19/18 06:32 RDW 12.4 % (11.7-14.6) 09/19/18 06:32 Plt Count 210 x1000/uL (130-400) 09/19/18 06:32 MPV 10.9 fL (8.0-11.0) 09/19/18 06:32 Immature Gran % 0.3 09/19/18 06:32 Neutrophils % 89.8 09/19/18 06:32 Lymphocytes % 7.5 09/19/18 06:32 Monocytes % 2.3 09/19/18 06:32 Eosinophils % 0.0 09/19/18 06:32 Basophils % 0.1 09/19/18 06:32 Absolute Neutrophils 12.68 k/cumm (1.2-6.7) H 09/19/18 06:32 Absolute Lymphocytes 1.06 k/cumm (1.2-3.4) L 09/19/18 06:32 Absolute Monocytes 0.32 k/cumm (0.11-0.7) 09/19/18 06:32 Absolute Eosinophils 0.00 k/cumm (0.0-0.7) 09/19/18 06:32 Absolute Basophils 0.01 k/cumm (0.0-0.2) 09/19/18 06:32 Sodium 140 mmol/L (136-145) 09/19/18 06:32 Potassium 4.1 mmol/L (3.5-5.1) 09/19/18 06:32 Chloride 107 mmol/L (98-107) 09/19/18 06:32 Carbon Dioxide 24.1 mmol/L (21.0-32.0) 09/19/18 06:32 Anion Gap 8.9 mmol/L (3-11) 09/19/18 06:32 BUN 19 mg/dL (7-18) H D 09/19/18 06:32 Creatinine 1.05 mg/dL (0.55-1.02) H 09/19/18 06:32 Estimated GFR/1.73 m2 50.43 (mL/min/1.73m2) 09/19/18 06:32 Glucose 138 mg/dL (70-100) H 09/19/18 06:32 Calcium 8.8 mg/dL (8.5-10.1) 09/19/18 06:32 Magnesium 1.9 mg/dL (1.8-2.4) 09/19/18 06:32 Total Bilirubin 0.4 mg/dL (0.2-1.0) 09/18/18 11:15 AST 21 U/L (15-37) 09/18/18 11:15 ALT 26 U/L (12-78) 09/18/18 11:15 Alkaline Phosphatase 66 U/L (46-116) 09/18/18 11:15 Troponin I < 0.02 ng/mL (0.00-0.06) 09/18/18 11:15 Total Protein 7.2 g/dL (6.4-8.2) 09/18/18 11:15 Albumin 3.3 g/dL (3.4-5.0) L 09/18/18 11:15
--- NOTE | 2018-09-19 14:47 | PDOC.CMIN ---
- If Service Date Differs Date of service: 09/19/18 Time of Service: 14:47 Care Management Initial Assess REASON FOR HOSPITALIZATION:: COPD, Pneumonia PAST MEDICAL HISTORY/PAST SURGICAL HISTORY:: COPD (chronic obstructive pulmonary disease) (Chronic). HTN (hypertension) (Chronic). Hyperlipemia (Chronic). Hypothyroid (Chronic) PREVIOUS FUNCTIONAL STATUS/SOCIAL/FAMILY SUPPORTS:: Roxanne resides with her son Lopez and his family in [place], she previously resided with her whom . After her Roxanne resided alone for some time and then moved in with her son. Roxanne is independent at baseline, and is able to manage ADL's. CURRENT FUNCTIONAL STATUS:: Currently Roxanne is lying in bed this morning, pleasant and open to discussion. ADVANCE DIRECTIVES:: On file - Lopez Pollack is agent, Aleja Gomez is alternate Has patient been provided with information about the portal?: Yes Did the patient sign up for the portal?: No CODE STATUS:: Full Code INSURANCE COVERAGE / FINANCIAL ISSUES:: Medicare, Medicaid CURRENT HOME/COMMUNITY SERVICES/EQUIPMENT:: NO services or medical equipment currently used in the home. PRIMARY CARE PHYSICIAN:: Savannah Coats POTENTIAL DISCHARGE NEEDS:: F/U appointment with PCP PATIENT/FAMILY EDUCATION NEEDS:: Review DC instructions, any limitations, and ongoing DC planning discussion. Discuss 'Ask Me Three' ANTICIPATED BARRIERS TO DISCHARGE:: None identified at this time. TRANSPORTATION:: Via private vehicle with family PLAN:: Roxanne will return home with no anticipated services. She will F/U with PCP and plan of care as prescribed. Family to transport when ready.
[2018-09-19] MEDS: Normal Saline Flush 10 ML SYR IVP ×2 (14:56→21:13)
--- NOTE | 2018-09-19 15:25 | CHAPLAIN ---
Roxanne was sitting up in her chair when I visited. She is a member of the [employer] in [place], and her camp guard is aware that she is here. (He is currently doing research in [facility], but was informed by email that Roxanne was here.) Her bahai seems to be very supportive of her.
[2018-09-19] MEDS: Verapamil 80 MG TAB 120 MG PO (19:48)
[2018-09-19] MEDS: Simvastatin 20 MG TAB PO (21:24)
[2018-09-20] VITALS (7 sets, daily range): BP systolic 143–159; BP diastolic 73–87; PULSE 66–72; RESP 1–20; TEMP 36.5–37; O2SAT 89–96
[2018-09-20] MEDS: Levothyroxine 100 MCG TAB PO (05:20)
[2018-09-20] MEDS: Normal Saline Flush 10 ML SYR IVP ×2 (05:20→19:36)
[2018-09-20] MEDS: Heparin 5,000 UNITS/ML VIAL 5000 UNITS SC ×3 (05:21→21:41)
[2018-09-20] MEDS: methylPREDNISolone SUCC 40 MG VIAL IVP (05:26)
[2018-09-20] MEDS: Normal Saline 1,000 ML 100 ML IV (05:26)
[2018-09-20 07:22] LABS: Abs Immature Grans 0.05 k/cumm (0.0-0.09); Absolute Lymphocyte Count 1.03 k/cumm (1.2-3.4); Basophils % 0.1; HCT 35.9 % (36.0-46.0); HGB 11.8 g/dL (12.0-15.5); Immature Grans % 0.3; Lymphocytes % 5.7; Mean Corp. HGB Concentration 32.9 g/dL (32.0-36.0); Mean Corpuscular Hemoglobin 32.6 pg (27.0-33.0); Mean Corpuscular Volume 99.2 fL (80-95); Mean Platelet Volume 10.6 fL (8.0-11.0); Monocytes % 2.8; Neutrophils % 91.1; Platelet Count 186 x1000/uL (130-400); RBC 3.62 m/cumm (4.00-5.20); RBC Distribution Width 12.8 % (11.7-14.6); White Blood Cell Count 18.13 k/cumm (4.4-10.8)
[2018-09-20 07:25] LABS: Absolute Basophil Count 0.02 k/cumm (0.0-0.2); Absolute Monocyte Count 0.51 k/cumm (0.11-0.7); Absolute Neutrophil Count 16.52 k/cumm (1.2-6.7)
[2018-09-20 07:33] LABS: Anion Gap 8.3 mmol/L (3-11); BUN 22 mg/dL (7-18); CO2 24.7 mmol/L (21.0-32.0); CREATININE 0.98 mg/dL (0.55-1.02); Calcium 8.8 mg/dL (8.5-10.1); Chloride 108 mmol/L (98-107); Estimated GFR 54.61 (mL/min/1.73m2); Glucose 131 mg/dL (70-100); Sodium 141 mmol/L (136-145)
[2018-09-20] MEDS: Multivitamin TAB 1 TAB PO (08:22)
[2018-09-20] MEDS: Aspirin 325 MG TAB PO (08:22)
[2018-09-20] MEDS: Cyanocobalamin 500 MCG TAB 1000 MCG PO (08:22)
[2018-09-20] MEDS: Albuterol/Ipratropium 3 ML UPD VIAL UPD (10:53)
[2018-09-20] MEDS: Verapamil 80 MG TAB 240 MG PO (12:33)
[2018-09-20] MEDS: LEVOFLOXACIN 750 MG/150 ML BAG 150 MG IVPB (12:34)
--- NOTE | 2018-09-20 13:12 | DI.RAD_ITS ---
SYMPTOMS/DIAGNOSIS: WORSENING COUGH, RECENT DIAGNOSIS OF PNEUMONIA PA AND LATERAL CHEST: Comparison is made with August,. The heart size is normal. The aorta is tortuous. Mitral valve calcifications are seen. The lungs appear clear. No infiltrate is identified. IMPRESSION: No acute abnormality.
--- NOTE | 2018-09-20 14:33 | CMPROGNOTE_ITS ---
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 Roxanne reports that she slept well overnight, though is hopeful to return home in the next 1-2 days. Roxanne required oxygen overnight, and RT is working with her to wean her off from this. No change in current plan. A: 78 y/o female admitted 09/18/18 for COPD, Pneumonia P: Roxanne will return home with no anticipated services. She will F/U with PCP and plan of care as prescribed.
[2018-09-20] MEDS: Benzonatate 200 MG CAP PO ×2 (14:41→19:35)
--- NOTE | 2018-09-20 16:03 | W.PM.PROGNOT ---
Date of Service Date of service: 09/20/18 Time of Service: 16:03 Assessment and Plan (1) Pneumonia: Current visit: Yes Status: Acute CXR with potential infiltrate that is subtle on imaging as per [facility], not confirmed by local radiology read - patient has also received a course of Doxycycline over the the 5 days prior to her admission. Patient was afebrile, without a leukocytosis, and non-toxic appearing, and her CXR was officially read as without abnormality, again on repeat today. Leukocytosis in the setting of IV Steroids. Will discontinue renally dosed Levofloxacin day #3. Treat concurrent COPD exacerbation with weaning Steroids and standing nebs. Continue supplemental oxygen as needed, and monitor symptoms closely. Rapid flu checked and negative. (2) COPD (chronic obstructive pulmonary disease): Current visit: Yes Status: Chronic With Acute exacerbation likely on the basis of illness. Treatment as above. Appears to be improving. (3) FEMI (acute kidney injury): Current visit: Yes Status: Acute In setting of acute illness, with patient appeared dry by exam. Creatinine normalized this morning - IVF's will be discontinued. (4) Dyslipidemia: Current visit: Yes Status: Chronic Continue statin therapy. (5) Hypertension: Current visit: Yes Status: Chronic Currently on CCB therapy with Verapamil, as well as ARB. (6) Hypothyroidism: Current visit: Yes Status: Chronic Continue replacement therapy. (7) DVT prophylaxis: Current visit: Yes Status: Acute Heparin SC given FEMI. (8) Advance directive discussed with patient: Current visit: Yes Status: Acute Full Code. Subjective Interval history since last seen: Very pleasant 78 year old woman with a past medical history significant for COPD admitted on 09/18 from [facility] Emergency Department with complaint of dyspnea. Mrs. Pollack has a history of COPD, mild by PFTs in 2016. She also has a prior history of HTN, Dyslipidemia, hypothyroidism, and Aortic Stenosis. The patient is and now lives with her son locally. She reported that he became ill and was diagnosed with pnemonia that was treated successfully as an outpatient. She then reported onset of a 'head cold' approximately 2 weeks later that eventually 'moved to my chest'. This prompted an initial evaluation in the emergency department on 09/13, with a CXR that was unremarkable. The patient was prescribed Doxycycline and she returned home. However, despite antibiotic therapy she stated that her symptoms persisted. On the morning of admission her cough and dyspnea worsened, and she was brought in to the ED by her son. Initial work-up included a normal CBC, HR, and temperature. She was however noted to be mildly hypoxic, and repeat CXR showed a potential developing right basilar infiltrate as compared to her prior imaging. She was referred for admission for further evaluation and treatment. Following admission her antibiotic regimen was changed, and she was initiated on IV Steroids and nebs. Yesterday morning she reported improvement in her symptoms overall, and was not requiring oxygen at rest. However, this morning she remarks that her cough has worsened acutely causing her to subjectively feel worse from a respiratory standpoint. Her exam was reassuring, and a repeat CXR showed no infiltrates or acute abnormalities. No overnight events reported. She remains afebrile. Exam Narrative Exam Narrative: General: Patient appears comfortable, AAOX3, NAD Neck: Supple CV: Regular, nontachycardic, S1S2, 3/6 RUSB murmur Pulmonary: Mild diffuse wheezing on previous exam now resolved. No crackles or rhonchi. Abdomen: + Bowel Sounds, soft, nontender, nondistended Vascular: No lower extremity edema Psych: Normal mood and affect. Objective Objective Clinical Data: Abnormal lab results 09/20/18 09/20/18 Range/Units 06:40 06:40 WBC 18.13 H (4.4-10.8) k/cumm RBC 3.62 L (4.00-5.20) m/cumm Hgb 11.8 L (12.0-15.5) g/dL Hct 35.9 L (36.0-46.0) % MCV 99.2 H (80-95) fL Absolute Neutrophils 16.52 H (1.2-6.7) k/cumm Absolute Lymphocytes 1.03 L (1.2-3.4) k/cumm Chloride 108 H (98-107) mmol/L BUN 22 H (7-18) mg/dL Glucose 131 H (70-100) mg/dL Vital Signs Temperature 36.5 C 09/20/18 15:46 Temperature Source Tympanic 09/20/18 15:46 Pulse 72 09/20/18 15:46 Pulse Rhythm Regular 09/20/18 07:50 Pulse 83 09/18/18 13:01 Respiratory Rate 18 09/20/18 15:46 Respiratory Effort 09/20/18 07:50 Respiratory Depth Normal 09/20/18 07:50 Respiratory Pattern Normal 09/20/18 07:50 Blood Pressure 143/77 H 09/20/18 15:46 Blood Pressure Mean 74 09/18/18 13:01 Blood Pressure Position Sitting 09/18/18 09:47 Pulse Oximetry 93 L 09/20/18 15:46 Oxygen Delivery Method Room Air 09/20/18 15:46 Oxygen Flow Rate 0 09/20/18 15:46 Pain Level 0 09/20/18 08:22 Comment 09/19/18 11:30 Intake & Output 09/19/18 09/20/18 09/20/18 23:59 11:59 23:59 Intake Total 2370.000 / 2370.000 1300 / 1300 865 / 865 Output Total 2074 400 / 400 Balance 2370.000 / 2370.000 -775 / -775 465 / 465 Intake: IV 2000.000 / 2000.000 1000 / 1000 865 / 865 Oral 370 / 370 300 / 300 Output: Urine 2074 400 / 400 Other: Urine Color Pale Yellow Yellow Urine Appearance Clear Clear Clear Urine Odor Normal Voiding Methods Toilet Toilet Laboratory Results WBC 18.13 k/cumm (4.4-10.8) H 09/20/18 06:40 RBC 3.62 m/cumm (4.00-5.20) L 09/20/18 06:40 Hgb 11.8 g/dL (12.0-15.5) L 09/20/18 06:40 Hct 35.9 % (36.0-46.0) L 09/20/18 06:40 MCV 99.2 fL (80-95) H 09/20/18 06:40 MCH 32.6 pg (27.0-33.0) 09/20/18 06:40 MCHC 32.9 g/dL (32.0-36.0) 09/20/18 06:40 RDW 12.8 % (11.7-14.6) 09/20/18 06:40 Plt Count 186 x1000/uL (130-400) 09/20/18 06:40 MPV 10.6 fL (8.0-11.0) 09/20/18 06:40 Immature Gran % 0.3 09/20/18 06:40 Neutrophils % 91.1 09/20/18 06:40 Lymphocytes % 5.7 09/20/18 06:40 Monocytes % 2.8 09/20/18 06:40 Eosinophils % 0.0 09/20/18 06:40 Basophils % 0.1 09/20/18 06:40 Absolute Neutrophils 16.52 k/cumm (1.2-6.7) H 09/20/18 06:40 Absolute Lymphocytes 1.03 k/cumm (1.2-3.4) L 09/20/18 06:40 Absolute Monocytes 0.51 k/cumm (0.11-0.7) 09/20/18 06:40 Absolute Eosinophils 0.00 k/cumm (0.0-0.7) 09/20/18 06:40 Absolute Basophils 0.02 k/cumm (0.0-0.2) 09/20/18 06:40 Sodium 141 mmol/L (136-145) 09/20/18 06:40 Potassium 4.0 mmol/L (3.5-5.1) 09/20/18 06:40 Chloride 108 mmol/L (98-107) H 09/20/18 06:40 Carbon Dioxide 24.7 mmol/L (21.0-32.0) 09/20/18 06:40 Anion Gap 8.3 mmol/L (3-11) 09/20/18 06:40 BUN 22 mg/dL (7-18) H 09/20/18 06:40 Creatinine 0.98 mg/dL (0.55-1.02) 09/20/18 06:40 Estimated GFR/1.73 m2 54.61 (mL/min/1.73m2) 09/20/18 06:40 Glucose 131 mg/dL (70-100) H 09/20/18 06:40 Calcium 8.8 mg/dL (8.5-10.1) 09/20/18 06:40 Magnesium 2.0 mg/dL (1.8-2.4) 09/20/18 06:40 Total Bilirubin 0.4 mg/dL (0.2-1.0) 09/18/18 11:15 AST 21 U/L (15-37) 09/18/18 11:15 ALT 26 U/L (12-78) 09/18/18 11:15 Alkaline Phosphatase 66 U/L (46-116) 09/18/18 11:15 Troponin I < 0.02 ng/mL (0.00-0.06) 09/18/18 11:15 Total Protein 7.2 g/dL (6.4-8.2) 09/18/18 11:15 Albumin 3.3 g/dL (3.4-5.0) L 09/18/18 11:15
--- NOTE | 2018-09-20 16:46 | PHARADMIT ---
Admission Pharmacy Clinical Review COPD PNEUMONIA Code Status Full Code Current Weight Wgt-71.6 kg Renally Cleared and Narrow Therapeutic Index Meds CrCl~ 34.5 mL/min Meds-OK QTc Value / Action Taken QTc-454 na BP Control, Fever BP-143/77 TMax-37C Electrolytes reviewed Na-141 K+4.0 Mag-2.0 DVT Prophylaxis Heparin,ASA Opiate Usage / Scheduled Bowel Regimen Ordered No Yes Plt/SCr for Heparin / Enoxaparin Plts-186 SCr-0.98 INR for Warfarin na H/H stable, WBC/Bands H&H- 11.8/35.9 WBC- 18.13 Antibiotic appropriateness Levaquin, DCd Cultures and Sensitivities Flu-neg Blod-No Growth Surgical ABX d/c within 24 hr NA DM control / Insulin Dosing BG-131 Heart Failure (Check EF%) (ISAAC's, B-Block, Diuretics) Verapamil IV to PO Switch No Home Meds Reviewed Yes Home Meds Not Ordered Doxycycline, Losartan, Comments
[2018-09-20] MEDS: predniSONE 20 MG TAB 40 MG PO (19:35)
[2018-09-20] MEDS: Verapamil 80 MG TAB 120 MG PO (19:36)
[2018-09-20] MEDS: Simvastatin 20 MG TAB PO (21:41)
[2018-09-20] MEDS: Acetaminophen 325 MG TAB PO (22:01)
[2018-09-20] MEDS: Mylanta Suspension 30 ML CUP PO (22:01)
--- NOTE | 2018-09-20 22:43 | NUR.NOTE ---
Pt stated she started having a tight pain around her chest and her lower back. Described the pain as if an elastic band around her chest. The sort supervisor was informed advised to give PRN tylenol and mylanta. Same given patient was advised to use bed alarm if same occured again. RN will round on patient as per protocol
[2018-09-21] MEDS: Levothyroxine 100 MCG TAB PO (06:16)
[2018-09-21] MEDS: Heparin 5,000 UNITS/ML VIAL 5000 UNITS SC ×2 (06:16→13:16)
[2018-09-21 07:18] LABS: Absolute Lymphocyte Count 0.94 k/cumm (1.2-3.4); HGB 12.2 g/dL (12.0-15.5); Immature Grans % 0.7; Lymphocytes % 6.8; Mean Corpuscular Hemoglobin 32.8 pg (27.0-33.0); Mean Corpuscular Volume 99.5 fL (80-95); Mean Platelet Volume 10.6 fL (8.0-11.0); Monocytes % 5.1; Neutrophils % 87.4; Platelet Count 189 x1000/uL (130-400); RBC 3.72 m/cumm (4.00-5.20); RBC Distribution Width 12.9 % (11.7-14.6); White Blood Cell Count 13.76 k/cumm (4.4-10.8)
[2018-09-21 07:24] LABS: Absolute Neutrophil Count 12.03 k/cumm (1.2-6.7)
[2018-09-21 07:28] LABS: Anion Gap 7.2 mmol/L (3-11); BUN 19 mg/dL (7-18); CO2 27.8 mmol/L (21.0-32.0); CREATININE 0.88 mg/dL (0.55-1.02); Calcium 8.6 mg/dL (8.5-10.1); Chloride 107 mmol/L (98-107); Glucose 109 mg/dL (70-100); Magnesium 2.5 mg/dL (1.8-2.4); Sodium 142 mmol/L (136-145)
[2018-09-21 07:30] VITALS: O2SAT 92
[2018-09-21 07:34] VITALS: BP 175/90; PULSE 69; RESP 20; TEMP 37.2; O2SAT 91
[2018-09-21] MEDS: Multivitamin TAB 1 TAB PO (07:41)
[2018-09-21] MEDS: Benzonatate 200 MG CAP PO ×2 (07:42→13:09)
[2018-09-21] MEDS: predniSONE 20 MG TAB 40 MG PO (07:42)
[2018-09-21] MEDS: Cyanocobalamin 500 MCG TAB 1000 MCG PO (07:42)
[2018-09-21] MEDS: Aspirin 325 MG TAB PO (07:42)
[2018-09-21 11:00] VITALS: O2SAT 92
--- NOTE | 2018-09-21 11:33 | DSE_ITS ---
Date of service: 09/21/18 Time of Service: 11:23 DS: Diagnosis Discharge Diagnosis (1) COPD (chronic obstructive pulmonary disease): Status: Chronic (2) FEMI (acute kidney injury): Status: Acute Discharge Plan Disposition Patient Disposition: HOME Condition: Improving Discharge Details Reason For Visit: COPD PNEUMONIA Admit Date/Time: 09/18/18 12:30 Admit Provider: Hai Delgado Attending Provider: Hai Delgado Primary Care Provider: Savannah Coats Hospital Course Hospital Course: CC: Dyspnea, Cough HPI: Very pleasant 78 year old woman with a past medical history significant for COPD admitted on 09/18 from [facility] Emergency Department with complaint of dyspnea. Mrs. Pollack has a history of COPD, mild by PFTs in 2016. She also has a prior history of HTN, Dyslipidemia, hypothyroidism, and Aortic Stenosis. The patient is and now lives with her son locally. She reported that he became ill and was diagnosed with pnemonia that was treated successfully as an outpatient. She then reported onset of a 'head cold' approximately 2 weeks later that eventually 'moved to my chest'. This prompted an initial evaluation in the emergency department on 09/13 with a CXR that was unremarkable. The patient was prescribed Doxycycline and she returned home. However, despite antibiotic therapy she stated that her symptoms persisted. On the morning of admission her cough and dyspnea worsened, and she was brought in to the ED by her son. Initial work-up included a normal CBC, HR, and temperature. She was however noted to be mildly hypoxic, and repeat CXR showed a potential developing right basilar infiltrate as compared to her prior imaging. She was referred for admission for further evaluation and treatment. Following admission her antibiotic regimen was changed, and she was initiated on IV Steroids and nebs. Her initial CXR that was at first read by [facility] with potential infiltrate was then over read by local radiology as without acute abnormality, and a repeat CXR yesterday based on worsening cough revealed no infiltrate or acute changes as well. Her antibiotics were discontinued, and today she continues to report improvement overall. She is now not requiring oxygen at rest or with ambulation as tested this morning. No overnight events reported. She remains afebrile. Hospital Course: (1) Dyspnea: Initial read on admission CXR by [facility] with potential infiltrate that was subtle on imaging, not confirmed by local radiology read or by repeat CXR the day prior to discharge. The patient had also received a course of Doxycycline over the the 5 days prior to her admission, as well as 3 days of levofloxacin. Antibiotics were discontinued yesterday. Patient was afebrile, without a leukocytosis, and non-toxic appearing. Leukocytosis in the setting of Steroids, improved with weaning. Symptoms of dyspnea likely on basis of Mild COPD Exacerbation. Rapid flu also checked and negative. (2) COPD (chronic obstructive pulmonary disease): With Acute exacerbation likely on the basis of illness. Treatment as above. Improved. Will be discharged with a prednisone taper and rescue inhaler. (3) FEMI (acute kidney injury): In setting of acute illness and dehydration. Creatinine normalized with gentle hydration. (4) Dyslipidemia: Maintained on statin therapy. (5) Hypertension: Currently on CCB therapy with Verapamil. Has been hypertensive with ARB on hold (secondary to FEMI). This will be reinitiated at time of discharge. (6) Hypothyroidism: Continue replacement therapy. (7) Advance directive: Full Code. Home Meds and New Rx's Prescriptions: New benzonatate 200 mg Capsule 200 mg PO TID Qty: 21 RF: 0 dextromethorphan-guaifenesin 10-100 mg/5 mL Syrup 10 ml PO Q4H PRN PRN (Reason: cough) Qty: 118 RF: 0 prednisone 10 mg tablet 10 mg PO DAILY Qty: 27 RF: 0 albuterol sulfate [ProAir HFA] 90 mcg/actuation HFA aerosol inhaler 2 puff IH Q4H PRN (Reason: shortness of breath) 30 Days Qty: 8.5 RF: 0 Continue aspirin 325 MG tablet 325 mg PO DAILY RF: 0 verapamil 120 MG tablet 120 mg PO DIRECTED RF: 0 simvastatin [Zocor] 20 MG tablet 20 mg PO HS RF: 0 ginkgo biloba 60 MG tablet 60 mg PO DAILY RF: 0 acetaminophen [Tylenol Extra Strength] 500 MG tablet 500 mg PO HS RF: 0 levothyroxine [Synthroid] 100 MCG tablet 100 mcg PO DAILY RF: 0 vitamin B complex 1 EACH capsule 1 ea PO DAILY RF: 0 multivitamin [Chewable-Albert] 1 TAB tablet,chewable 1 tab PO DAILY RF: 0 losartan 50 mg Tablet 50 mg PO DAILY RF: 0 magnesium 250 mg Tablet 250 mg PO DAILY RF: 0 cyanocobalamin (vitamin B-12) [Vitamin B-12] 1,000 mcg Tablet 1,000 mcg PO DAILY RF: 0 Discontinued doxycycline hyclate 100 mg tablet 100 mg PO BID Qty: 13 RF: 0 Discharge Instructions Instructions: COPD (Chronic Obstructive Pulmonary Disease) (DC) Additional Instructions: Please see your primary care provider as scheduled tomorrow. Please finish your medications, especially the prednisone. Use the prescribed inhaler liberally. Stand Alone Forms: Nursing Discharge Form Referrals: Cherelle Dewey [ NON-[facility] STAFF PHYSICIAN] - 10/05/18 2:45 pm Activity:: NO Strenuous Activity. Equipment/Supplies:: No Equipment Needed Diet:: Heart Healthy Discharge Orders Discharge Orders: Discharge Order (Routine); Ordered 09/21/18 Ordered By: Hai Delgado Exam Narrative Exam Narrative: General: Patient appears comfortable, AAOX3, NAD Neck: Supple CV: Regular, nontachycardic, S1S2, 3/6 RUSB murmur Pulmonary: Mild diffuse wheezing on previous exam now resolved. No crackles or rhonchi. Abdomen: + Bowel Sounds, soft, nontender, nondistended Vascular: No lower extremity edema Psych: Normal mood and affect. DS: Data Vitals/I&O Vitals and I&O: Vital Signs Temperature 37.2 C 09/21/18 07:34 Temperature Source Tympanic 09/21/18 07:34 Pulse 69 09/21/18 07:34 Pulse Rhythm Regular 09/21/18 07:40 Pulse 83 09/18/18 13:01 Respiratory Rate 20 09/21/18 07:34 Respiratory Effort 09/21/18 07:40 Respiratory Depth Normal 09/21/18 07:40 Respiratory Pattern Normal 09/21/18 07:40 Blood Pressure 175/90 H 09/21/18 07:34 Blood Pressure Mean 74 09/18/18 13:01 Blood Pressure Position Sitting 09/18/18 09:47 Pulse Oximetry 91 L 09/21/18 07:34 Oxygen Delivery Method Room Air 09/21/18 07:34 Oxygen Flow Rate 0 09/21/18 07:34 Pain Level 3 09/21/18 07:42 Comment 09/19/18 11:30 Intake & Output 09/20/18 09/20/18 09/21/18 11:59 23:59 11:59 Intake Total 1300 / 1300 1115 / 1115 700 / 700 Output Total 2074 1100 / 1100 1525 / 1525 Balance -775 / -775 15 / 15 -825 / -825 Intake: IV 1000 / 1000 875 / 875 Oral 300 / 300 240 / 240 700 / 700 Output: Urine 2074 1100 / 1100 1525 / 1525 Other: Urine Color Pale Yellow Yellow Yellow Urine Appearance Clear Clear Clear Urine Odor Normal Normal Normal Stool Size Moderate Stool Characteristics Hard Voiding Methods Toilet Toilet Toilet Completed studies during hospitalization [Text1]: Exam(s) 09/18/18 a RAD:XR chest 2V PA & lateral SYMPTOM/DIAGNOSIS: PRODUCTIVE COUGH PA AND LATERAL CHEST: The lungs are free of infiltrate. There is no pleural effusion. The heart is not enlarged. There is some unfolding and ectasia of the thoracic aorta and I could not exclude an aneurysm involving the proximal thoracic aortic segment. IMPRESSION: No evidence of acute cardiopulmonary disease. Exam(s) 09/18/18 a RAD:XR chest 2V PA & lateral SYMPTOM/DIAGNOSIS: SOB PA AND LATERAL CHEST: Comparison is made with 13 September 2018. Heart size is normal. The aorta is again noted to be tortuous. The ascending aorta is again noted to be enlarged. The lungs appear clear. No thoracic compression fractures are identified. IMPRESSION: No acute abnormality. Exam(s) 09/20/18 a RAD:XR chest 2V PA & lateral SYMPTOMS/DIAGNOSIS: WORSENING COUGH, RECENT DIAGNOSIS OF PNEUMONIA PA AND LATERAL CHEST: Comparison is made with August,. The heart size is normal. The aorta is tortuous. Mitral valve calcifications are seen. The lungs appear clear. No infiltrate is identified. IMPRESSION: No acute abnormality. Labs on day of discharge: Labs from last 24 hours 09/21/18 09/21/18 06:55 06:55 WBC 13.76 H RBC 3.72 L Hgb 12.2 Hct 37.0 MCV 99.5 H MCH 32.8 MCHC 33.0 RDW 12.9 Plt Count 189 MPV 10.6 Immature Gran % 0.7 Neutrophils % 87.4 Lymphocytes % 6.8 Monocytes % 5.1 Eosinophils % 0.0 Basophils % 0.0 Absolute Neutrophils 12.03 H Absolute Lymphocytes 0.94 L Absolute Monocytes 0.70 Absolute Eosinophils 0.00 Absolute Basophils 0.00 Sodium 142 Potassium 4.0 Chloride 107 Carbon Dioxide 27.8 Anion Gap 7.2 BUN 19 H Creatinine 0.88 Estimated GFR/1.73 m2 >= 60.00 Glucose 109 H Calcium 8.6 Magnesium 2.5 H Preliminary micro results at discharge 09/18/18 10:35 Blood Culture - Preliminary Blood NO GROWTH 48 HOURS 09/18/18 10:43 Blood Culture - Preliminary Blood NO GROWTH 48 HOURS [facility] Medical History COPD (chronic obstructive pulmonary disease) (Chronic) HTN (hypertension) (Chronic) Hyperlipemia (Chronic) Hypothyroid (Chronic) Social History Smoking/Tobacco Use Status: Former Tobacco Use
[2018-09-21] MEDS: Verapamil 80 MG TAB 240 MG PO (13:09)
--- NOTE | 2018-09-21 13:42 | PDOC.CMDIS ---
- If Service Date Differs Date of service: 09/21/18 Time of Service: 13:42 LACE Index Scoring Tool - Questions: Length of Stay (in days): 3 Acuity (Admit via E.D.?): Yes Comorbidities: Chronic Pulmonary Disease E.D. Visits: 2 - Answers: Total Score: 10 Risk of Readmission: High Risk Care Management Discharge Reason for Hospitalization: COPD, Pneumonia Discharge Plan: Roxanne will return home with no services. She will F/U with PCP and plan of care as prescribed. Family to transport. Patient/Family Education Needs: Review DC instructions, any limitations, and discuss 'Ask Me Three'
== END 2018-09-21 15:03 | disposition home or self-care (01) | DRG 191 ==
LOC: ER 12:54 → MS 13:15
PROVIDERS: Admitting Provider Internal Medicine; Emergency Provider Nurse Practitioner Family; PCP Nurse Practitioner Family; Visit Provider Internal Medicine
DX: J44.9 Chronic obstructive pulmonary disease, unspecified (principal); J44.0 Chronic obstructive pulmonary disease with (acute) lower respiratory infection; N17.9 Acute kidney failure, unspecified; J18.9 Pneumonia, unspecified organism; R09.02 Hypoxemia; I10 Essential (primary) hypertension; E03.9 Hypothyroidism, unspecified; E78.5 Hyperlipidemia, unspecified
CPT/HCPCS: 36415; 80048; 80053; 87040; 87449; 93005; 94640; 96365; 96366; 96375; 99223; 99232; 99239; 99285; 71046; 83735; 84484; 85025; 93010; 99284; J1644; J1956; J2930; J7512; J7620

== ENCOUNTER 2018-10-14 11:56 | Outpatient (CLI) | payer MEDICARE, MEDICAID, SELFPAY ==
--- NOTE | 2018-10-14 12:28 | DI.RAD_ITS ---
SYMPTOMS/DIAGNOSIS: PNEUMONIA, J18.9 PA AND LATERAL CHEST: Comparison is made with August,. The heart size is normal. Mitral valve calcification is noted. The aorta is tortuous. The lungs appear clear. IMPRESSION: No acute abnormality.
== END 2018-10-14 12:16 ==
PROVIDERS: PCP Nurse Practitioner Family; Visit Provider Nurse Practitioner
DX: J18.9 Pneumonia, unspecified organism (principal)
CPT/HCPCS: 71046

== ENCOUNTER 2018-11-04 01:11 | Outpatient (CLI) | payer MEDICARE, MEDICAID, SELFPAY ==
--- NOTE | 2018-11-04 | PFT_ITS ---
PULMONARY FUNCTION TEST REPORT Patient identification - Roxanne Pollack DATE OF - 36 DATE OF SERVICE - November 04, 2018 REQUESTING PROVIDER - Flash Sheppard M.D. INTERPRETATION OF STUDY Spirometry shows mild obstructive airways disease with almost significant bronchodilator response. LUNG VOLUMES - Lung volumes show no evidence of restriction. DIFFUSION CAPACITY- Normal. AIRWAY RESISTANCE - Elevated. IMPRESSION Mild obstructive airways disease with significant bronchodilator response barely meeting criteria for ATS. Clinical correlation recommended. Addendum - For comparison purposes, this study was compared to previous one from 02/05/16 and the patient has insignificant and total of 90 cc decline in FVC. FEV1 has declined by 120 cc. Lulu Mcwilliams M.D. GRANT/kinza T - 11/07/2018
[2018-11-04] MEDS: Inhaler, Assist Device 1 EACH MC (08:43)
[2018-11-04] MEDS: Albuterol HFA 18 GM 200 PUFF INH IH (08:47)
== END 2018-11-04 01:31 ==
PROVIDERS: PCP Nurse Practitioner Family; Visit Provider Nurse Practitioner
DX: J44.9 Chronic obstructive pulmonary disease, unspecified (principal)
CPT/HCPCS: 94060; 94150; 94726; 94729

== ENCOUNTER 2019-02-14 11:30 | Outpatient (REF) | payer MEDICARE, MEDICAID, SELFPAY ==
[2019-02-14 21:30] LABS: HCT 40.3 % (36.0-46.0); HGB 13.4 g/dL (12.0-15.5); Mean Corp. HGB Concentration 33.3 g/dL (32.0-36.0); Mean Corpuscular Hemoglobin 31.8 pg (27.0-33.0); Mean Corpuscular Volume 95.5 fL (80-95); Mean Platelet Volume 11.7 fL (8.0-11.0); Platelet Count 131 x1000/uL (130-400); RBC 4.22 m/cumm (4.00-5.20); RBC Distribution Width 13.2 % (11.7-14.6); White Blood Cell Count 5.19 k/cumm (4.4-10.8)
[2019-02-14 21:59] LABS: ALT 28 U/L (12-78); AST 24 U/L (15-37); Albumin 3.6 g/dL (3.4-5.0); Alkaline Phosphatase 53 U/L (46-116); Anion Gap 7.8 mmol/L (3-11); BUN 16 mg/dL (7-18); Bilirubin, Total 0.3 mg/dL (0.2-1.0); CO2 27.2 mmol/L (21.0-32.0); CREATININE 0.92 mg/dL (0.55-1.02); Calcium 9.6 mg/dL (8.5-10.1); Chloride 105 mmol/L (98-107); Estimated GFR 58.59 (mL/min/1.73m2); Glucose 83 mg/dL (70-100); NT-proBNP 284 pg/mL; Potassium 4.2 mmol/L (3.5-5.1); Sodium 140 mmol/L (136-145); TSH 2.76 uIU/mL (0.358-3.74); Total Protein 6.7 g/dL (6.4-8.2)
[2019-02-14 23:06] LABS: Vitamin B12 > 2000 pg/mL (193-986)
== END 2019-02-14 11:50 ==
LOC: NCHCN 11:30
PROVIDERS: PCP Nurse Practitioner Family; Visit Provider Internal Medicine
DX: R06.02 Shortness of breath (principal); J44.9 Chronic obstructive pulmonary disease, unspecified; R51 Headache; R60.0 Localized edema; I10 Essential (primary) hypertension; E03.9 Hypothyroidism, unspecified; M17.9 Osteoarthritis of knee, unspecified
CPT/HCPCS: 80053; 85027; 82607; 83880; 84443

== ENCOUNTER 2019-02-16 01:38 | Outpatient (CLI) | payer MEDICARE, MEDICAID, SELFPAY ==
--- NOTE | 2019-02-16 10:52 | DI.CT_ITS ---
SYMPTOMS/DIAGNOSIS: HEADACHE, R51, MEMORY IMPAIRMENT, R41.[address]: A noncontrast enhanced examination was performed. Atrophic changes consistent with age are demonstrated. There is no evidence of an intra or extra-axial hemorrhage or mass. The toussaint/white matter differentiation is maintained. There is a small radiolucency in the right basilar ganglia raising the possibility of an old lacunar infarct. The ventricles are unremarkable. There is no evidence of a skull fracture. The sinuses are normal. There is no evidence of a mastoid effusion. There is some sclerosis of the left mastoid air cells possibly representing the residua of mastoiditis. SUMMARY: No acute intracranial abnormality is demonstrated. There is evidence of atrophy and small vessel disease with a question regarding an old right basal ganglia lacunar infarct.
== END 2019-02-16 01:58 ==
PROVIDERS: PCP Nurse Practitioner Family; Visit Provider Internal Medicine
DX: R51 Headache (principal); R41.3 Other amnesia; G31.1 Senile degeneration of brain, not elsewhere classified
CPT/HCPCS: 70450

== ENCOUNTER 2019-10-03 01:06 | Outpatient (CLI) | payer MEDICARE, MEDICAID, SELFPAY ==
--- NOTE | 2019-10-03 14:25 | DI.CT_ITS ---
EXAM: CT HEAD WO CLINICAL HISTORY: PERSISTENT FRONTAL HEADACHE, R51, H/O HEAD INJURY 2 MOS AGO, Z87.828 TECHNIQUE: noncontrast COMPARISON: CT HEAD WO from 02/16/2019 FINDINGS: No intracranial hemorrhage, mass or acute infarct is seen. Atrophy and white matter changes of small vessel disease are again noted. 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 The orbits, sinu ses and mastoid air cells are unremarkable. IMPRESSION: Stable atrophy and white matter changes of small vessel disease. No acute abnormality.
== END 2019-10-03 01:26 ==
PROVIDERS: PCP Internal Medicine; Visit Provider Internal Medicine
DX: R51 Headache (principal); G31.89 Other specified degenerative diseases of nervous system; R90.82 White matter disease, unspecified
CPT/HCPCS: 70450

== ENCOUNTER 2019-11-13 13:12 | Outpatient (REF) | payer MEDICARE, MEDICAID, SELFPAY ==
[2019-11-13 22:14] LABS: Abs Immature Grans 0.02 k/cumm (0.0-0.09); Absolute Basophil Count 0.02 k/cumm (0.0-0.2); Absolute Eosinophil Count 0.24 k/cumm (0.0-0.7); Absolute Lymphocyte Count 1.76 k/cumm (1.2-3.4); Absolute Monocyte Count 0.42 k/cumm (0.11-0.7); Absolute Neutrophil Count 3.18 k/cumm (1.2-6.7); Basophils % 0.4; Eosinophils % 4.3; HCT 41.2 % (36.0-46.0); HGB 13.8 g/dL (12.0-15.5); Immature Grans % 0.4 %; Lymphocytes % 31.2; Mean Corp. HGB Concentration 33.5 g/dL (32.0-36.0); Mean Corpuscular Hemoglobin 33.4 pg (27.0-33.0); Mean Corpuscular Volume 99.8 fL (80-95); Mean Platelet Volume 10.8 fL (8.0-11.0); Monocytes % 7.4; Neutrophils % 56.3; Platelet Count 245 x1000/uL (130-400); RBC 4.13 m/cumm (4.00-5.20); RBC Distribution Width 12.6 % (11.7-14.6); White Blood Cell Count 5.64 k/cumm (4.4-10.8)
[2019-11-13 22:37] LABS: ALT 25 U/L (14-59); AST 19 U/L (15-37); Albumin 3.6 g/dL (3.4-5.0); Alkaline Phosphatase 60 U/L (46-116); Anion Gap 10.7 mmol/L (3-11); BUN 13 mg/dL (7-18); Bilirubin, Total 0.5 mg/dL (0.2-1.0); CO2 28.3 mmol/L (21.0-32.0); CREATININE 0.97 mg/dL (0.55-1.02); Calcium 9.5 mg/dL (8.5-10.1); Chloride 104 mmol/L (98-107); Estimated GFR 55.12 (mL/min/1.73m2); Glucose 93 mg/dL (74-106); Potassium 4.3 mmol/L (3.5-5.1); Sodium 143 mmol/L (136-145); TSH 3.55 uIU/mL (0.36-3.74); Total Protein 6.8 g/dL (6.4-8.2)
== END 2019-11-13 13:32 ==
LOC: NCHCN 13:12
PROVIDERS: PCP Internal Medicine; Visit Provider Internal Medicine
DX: R42 Dizziness and giddiness (principal); E03.9 Hypothyroidism, unspecified; I10 Essential (primary) hypertension
CPT/HCPCS: 80053; 84443; 85025

== ENCOUNTER → 2019-11-21 13:16 | Outpatient (BNVA) | payer MEDICARE, MEDICAID, SELFPAY | PROVIDERS: PCP Internal Medicine; Referring Provider Internal Medicine; Visit Provider Nurse Practitioner Adult Health | DX: R51 Headache (principal); R41.89 Other symptoms and signs involving cognitive functions and awareness; R42 Dizziness and giddiness; I10 Essential (primary) hypertension; J44.9 Chronic obstructive pulmonary disease, unspecified | CPT/HCPCS: 99205; 99215 ==

== ENCOUNTER 2019-11-24 01:32 | Outpatient (CLI) | payer MEDICARE, MEDICAID, SELFPAY ==
--- NOTE | 2019-11-24 09:35 | DI.MRI_ITS ---
EXAM: MR BRAIN WO CLINICAL HISTORY: new onset headaches, memory problems R51 HEADACHE, R41.89 SYMPTOMS INVOLVINg cogni tive functions TECHNIQUE: Multiplanar multisequence MRI was performed. COMPARISON: No exams were available for comparison FINDINGS: There is moderate generalized cerebral atrophy and there are areas of abnormal signal seen in periven tricular white matter on T2 weighted and FLAIR imaging consistent with microvascular ischemic changes . Minimal bilateral lacunar infarcts noted. No other significant signal abnormality identified in t he brain. The orbital and temporal bone structures appear intact as does the pituitary. There is no rmal flow void in the [id number] vasculature. Diffusion-weighted imaging shows no evidence of infarction. Susceptibility weighted imaging shows no evidence of intracranial hemorrhage. IMPRESSION: No evidence of acute intracranial process.
== END 2019-11-24 01:52 ==
PROVIDERS: PCP Internal Medicine; Visit Provider Nurse Practitioner Adult Health
DX: R51 Headache (principal); R41.89 Other symptoms and signs involving cognitive functions and awareness; G31.89 Other specified degenerative diseases of nervous system
CPT/HCPCS: 70551

== ENCOUNTER → 2019-12-18 10:43 | Outpatient (BNVA) | payer MEDICARE, MEDICAID, SELFPAY | PROVIDERS: PCP Internal Medicine; Referring Provider Internal Medicine; Visit Provider Nurse Practitioner Adult Health | DX: R51 Headache (principal); R42 Dizziness and giddiness; R41.89 Other symptoms and signs involving cognitive functions and awareness | CPT/HCPCS: 99213 ==

== ENCOUNTER 2020-01-08 12:57 | Outpatient (REF) | payer MEDICARE, MEDICAID, SELFPAY ==
[2020-01-08 21:10] LABS: Hemoglobin A1C 5.8 % (3.8-5.6)
[2020-01-10 13:13] LABS: Albumin 58.2 % (55.8-66.1); Total Protein 6.7 g/dL (6.3-8.2)
== END 2020-01-08 13:17 ==
LOC: NCHCN 12:57
PROVIDERS: PCP Internal Medicine; Visit Provider Internal Medicine
DX: R11.2 Nausea with vomiting, unspecified (principal); I35.0 Nonrheumatic aortic (valve) stenosis; R42 Dizziness and giddiness; G62.9 Polyneuropathy, unspecified; R73.09 Other abnormal glucose
CPT/HCPCS: 83036; 84165

== ENCOUNTER 2020-01-18 01:03 | Outpatient (CLI) | payer MEDICARE, MEDICAID, SELFPAY ==
--- NOTE | 2020-01-18 13:26 | DI.US_ITS ---
APPROVED REPORT EXAM: Comprehensive 2D, Doppler, and color-flow Echocardiogram Patient Location: Out-Patient Migration Specialist: Soledad Bourne RDCS (AE) Indications: Aortic Stenosis Conclusion Concentric left ventricular hypertrophy. Estimated ejection fraction is 60%. There are no segmental wall motion abnormalities Left atrium is mildly dilated. Right atrium is normal size. The right ventricle is normal in size a nd systolic function The aortic valve is calcified. There is moderate to severe aortic stenosis with a peak gradient of 5 2, mean of 28 and a calculated aortic valve area of 0.94 to 1.1 cm???. There is mild aortic regurgit ation There is mitral annular calcification. Mitral leaflets are thickened. There is trace mitral regurgi tation There is mild tricuspid regurgitation. Estimated right ventricular systolic pressure is normal Wall motion Left Ventricle The left ventricle is normal size. The left ventricular systolic function is normal. The left ventric ular ejection fraction is within the normal range. Borderline concentric left ventricular hypertrophy . There is normal LV segmental wall motion. Transmitral Doppler flow pattern suggests impaired LV rel axation. There is no ventricular septal defect visualized. LVEF is 60%. Right Ventricle The right ventricle is normal size. The right ventricular systolic function is normal. Atria Left atrium is mildly dilated. The right atrium size is normal. The interatrial septum is intact with no evidence for an atrial septal defect. Aortic Valve Aortic valve leaflets are moderately thickened. Aortic valve is calcified. Aortic valve is probably t rileaflet. Moderate to severe aortic stenosis. Peak gradient is 52, mean 28 mmHg. Calculated aortic v alve area is 0.94 to 1.1 cm??? Mild aortic regurgitation. Mitral Valve There is mitral annular calcification. Mitral valve leaflets are thickened. No evidence of mitral trell ve stenosis. Trace to mild mitral regurgitation. Tricuspid Valve The tricuspid valve is normal in structure. There is no tricuspid valve stenosis. Mild tricuspid regu rgitation. Pulmonic Valve Pulmonic valve is not well visualized. There is no pulmonic valvular stenosis. There is no pulmonic v alvular regurgitation. Great Vessels The aortic root is normal in size. The ascending aorta is normal in size. IVC is normal in size and c ollapses >50% with inspiration. Pericardium There is no pericardial effusion. There is no pleural effusion. 2D Dimensions IVSD d PLAX 1.08 cm F: 0.6-1.0 LV Vol A2C d MOD 62.0 mL LVPW d PLAX 1.08 cm F: 0.6 - 1.0 LV Vol A4C d MOD 76.7 mL LVID d PLAX 4.33 cm F: 3.8 - 5.2 LA vol/ BSA A2C s A-L 33.7 mL/m2 LVDs 3.20 cm F: 2.2 - 3.5 LA vol/ BSA A4C s A-L 38.6 mL/m2 Ao Root d 3.17 cm F: 2.7 - 3.3 LA Vol/ BSA Biplane s A-L 36.6 mL/m2 Ao Asc Diam d 3.54 cm F: 2.3 - 3.1 LA Area A4C s MOD 22.02 cm2 LV EF Teichholz 50.2 % LA Area A2C s MOD 20.28 cm2 LVEF (Peck's) 59.59 % F: 54 - 74 LV EF A4C MOD 60.0 % LV Volume 55.45 mL F: 46 - 106 LV EF A2C MOD 61.0 % LV Volume Index 31.50 mL/m2 F: 29 - 61 LV EF Biplane MOD 59.6 % LV Vol Biplane MOD 70.8 mL FS 25.30 % LV Diastology MV E' medial 0.051 (>0.07 m/s) E/A Ratio 0.8 LV E/e MED 25.95 (<14) MV E Vmax 1.32 (0.4-1.3 m/s) MV E' lateral 0.066 (>0.1 m/s) MV A Vmax 1.70 (0.4-1.3 m/s) LV E/e LAT 20.10 (<14) MV E/A Ratio 0.77 MV E/E' medial 25.96 MV E/E' lateral 20.15 Aortic Valve LVOT Area 2.50 cm2 AoV Area Vmax 0.90 cm2 LVOT Vmax 1.35 m/s AoV Area/ BSA (Vmax) 0.51 cm2/m2 LVOT Mean Simone. 0.90 m/s GINA Mean Simone. 0.79 cm2 LVOT Peak Grad 7.3 mmHg GINA Mean Simone. Index 0.45 cm2/m2 LVOT Mean Grad 3.7 mmHg AR DT 1468 msec LVOT VTI 0.319 m AR PHT 426 msec LVOT Diam s 1.75 cm (M/F) 1.5-2.5 AoV Vmax 3.78 (0.5-1.3 m/s) Velocity Ratio 0.35 AoV Mean Simone. 2.85 m/s AoV Peak Grad 57.1 mmHg LVOT SV 79.98 mL AoV Mean Grad 35.3 (<5 mmHg) AoV VTI 0.791 (0.18-0.25 m) AoV Area VTI 1.01 (2.5-4.5 cm2) AoV Area/ BSA (VTI) 0.57 cm/m2 Mitral Valve MV DT 482 (160-240 msec) MV PHT 140 msec MV Area PHT 1.57 cm2 Pulmonary Valve PV Vmax 1.81 (0.5-1.5 m/s) RVOT Peak Gr. 2.23 mmHg PV Peak Grad 13.1 mmHg RVOT Mean Gr. 1.05 mmHg PV Mean Grad 8.7 mmHg RVOT VTI 0.142 m PV VTI 0.406 m RVOT Vmax 0.75 m/s Tricuspid Valve TR Peak Grad 27.6 mmHg TR Vmax 2.63 m/s RA Pressure 3.00 mmHg RVSP (TR) 30.6 mmHg
== END 2020-01-18 01:23 ==
PROVIDERS: PCP Internal Medicine; Visit Provider Internal Medicine
DX: I35.0 Nonrheumatic aortic (valve) stenosis (principal); I51.7 Cardiomegaly; I10 Essential (primary) hypertension
CPT/HCPCS: 93306

== ENCOUNTER → 2020-07-23 09:21 | Outpatient (BNVA) | payer MEDICARE, MEDICAID, SELFPAY | PROVIDERS: PCP Internal Medicine; Referring Provider Internal Medicine; Visit Provider Orthopaedic Surgery | DX: M65.312 Trigger thumb, left thumb (principal); M65.332 Trigger finger, left middle finger; I10 Essential (primary) hypertension; J44.9 Chronic obstructive pulmonary disease, unspecified; Z87.891 Personal history of nicotine dependence | CPT/HCPCS: 99203; 99214 ==

== ENCOUNTER → 2020-08-20 10:47 | Outpatient (BNVA) | payer MEDICARE, MEDICAID, SELFPAY | PROVIDERS: PCP Internal Medicine; Referring Provider Internal Medicine; Visit Provider Orthopaedic Surgery | DX: M65.332 Trigger finger, left middle finger (principal); J44.9 Chronic obstructive pulmonary disease, unspecified; I10 Essential (primary) hypertension; Z87.891 Personal history of nicotine dependence | CPT/HCPCS: 99203; 99214 ==

== ENCOUNTER 2020-09-02 10:27 | Day surgery (SDC) | payer MEDICARE, MEDICAID, SELFPAY ==
[2020-09-02 10:25] VITALS: BP 133/65; PULSE 75; RESP 20; TEMP 36.3; O2SAT 96
== END 2020-09-02 10:47 ==
PROVIDERS: PCP Internal Medicine; Visit Provider Orthopaedic Surgery
DX: Z53.9 Procedure and treatment not carried out, unspecified reason (principal)

== ENCOUNTER 2020-09-05 11:26 | Outpatient (REF) | payer MEDICARE, MEDICAID, SELFPAY ==
[2020-09-05 21:18] LABS: HGB 12.6 g/dL (11.2-15.7); MCH 33.7 pg (27.0-33.0); MCHC 34.1 % (32.0-36.0); MCV 98.9 fL (80-95); MPV 11.3 fL (8.0-11.0); Platelet Count 194 10^3/uL (130-400); RBC 3.74 10^6/uL (3.93-5.22); RDW 12.7 % (11.7-14.6); RDW-SD 45.7 fL; WBC 5.02 10^3/uL (4.4-10.8)
[2020-09-05 21:37] LABS: ALT 23 U/L (14-59); AST 20 U/L (15-37); Albumin 3.5 g/dL (3.4-5.0); Alkaline Phosphatase 51 U/L (46-116); Anion Gap 8.1 mmol/L (3-11); BUN 10 mg/dL (7-18); Bilirubin, Total 0.4 mg/dL (0.2-1.0); CO2 26.9 mmol/L (21.0-32.0); CREATININE 1.09 mg/dL (0.55-1.02); Calcium 9.1 mg/dL (8.5-10.1); Chloride 106 mmol/L (98-107); Estimated GFR 48.06 (mL/min/1.73m2); Glucose 98 mg/dL (74-106); NT-proBNP 394 pg/mL (<300); Potassium 4.1 mmol/L (3.5-5.1); Sodium 141 mmol/L (136-145); TSH 2.78 uIU/mL (0.36-3.74); Total Protein 6.4 g/dL (6.4-8.2)
== END 2020-09-05 11:46 ==
LOC: NCHCN 11:26
PROVIDERS: PCP Internal Medicine; Visit Provider Internal Medicine
DX: I10 Essential (primary) hypertension (principal); R06.09 Other forms of dyspnea; I35.0 Nonrheumatic aortic (valve) stenosis; R63.5 Abnormal weight gain
CPT/HCPCS: 80053; 85027; U0003; 83735; 83880; 84443

== ENCOUNTER 2020-09-06 09:50 | Day surgery (SDC) | payer MEDICARE, MEDICAID, SELFPAY ==
[2020-09-06 10:06] VITALS: BP 156/84; PULSE 75; RESP 16; TEMP 36.1; O2SAT 97
[2020-09-06] MEDS: Bupivacaine 0.5% Pres-Free 30 ML VIAL (11:01)
[2020-09-06] MEDS: Lidocaine 2% Multi-Dose 50 ML VIAL (11:01)
--- NOTE | 2020-09-06 11:12 | PDOC.DSDIS_ITS ---
Discharge Plan Disposition Patient Disposition: HOME Condition: Good Discharge Details Reason For Visit: L MIDDLE FINGER TRIGGER RELEASE Attending Provider: Marvin Vidal Primary Care Provider: Flash Sheppard Home Meds and New Rx's Prescriptions: Continued [id number] [id number] mg tablet 2 tab PO DAILY RF: 0 pyridoxine (vitamin B6) [Vitamin B-6] 100 mg tablet 100 mg PO BID RF: 0 aspirin 325 MG tablet 325 mg PO DAILY RF: 0 verapamil 120 MG tablet 120 mg PO DIRECTED RF: 0 simvastatin [Zocor] 20 MG tablet 20 mg PO HS RF: 0 Incruse Ellipta 62.5 mcg/actuation blister with device 1 inh IH DAILY RF: 0 ginkgo biloba 60 MG tablet 60 mg PO DAILY RF: 0 acetaminophen [Tylenol Extra Strength] 500 MG tablet 500 mg PO HS RF: 0 levothyroxine [Synthroid] 100 MCG tablet 100 mcg PO DAILY RF: 0 vitamin B complex 1 EACH capsule 1 ea PO DAILY RF: 0 Chewable-Albert 1 TAB tablet,chewable 1 tab PO DAILY RF: 0 losartan 50 mg Tablet 50 mg PO DAILY RF: 0 cyanocobalamin (vitamin B-12) [Vitamin B-12] 1,000 mcg Tablet 1,000 mcg PO DAILY RF: 0 Discharge Instructions Additional Instructions: Keep dressings dry and in place for 48 hours. After 48 hours, remove dressings, shower or bathe and get incision wet. Leave incision uncovered when it is dry and sealed. Bend and straighten fingers L hand 10 times/hour when awake to prevent swelling. Take tylenol or ibuprofen for pain. Follow up with on 09/17 or 09/18/20 for removal of stitches. Use L hand as much as your discomfort allows. Referrals: Marvin Vidal MD [ [facility] STAFF PHYSICIAN] - (f/u 09/17 or 09/18/20) Activity:: Activity as Tolerated Remove Dressings/Wound Care:: 48 hours Shower/Bathe:: 48 hours Diet:: As Tolerated Discharge Orders Discharge Orders: Discharge Order (Routine); Ordered 09/06/20 Ordered By: Marvin Vidal DS: Diagnosis Discharge Diagnosis (1) Trigger middle finger of left hand: Status: Acute
--- NOTE | 2020-09-07 10:32 | ROE_ITS ---
Date of service: 09/06/20 Time of Service: 11:04 Operative Note Operative Note DATE OF PROCEDURE: 09/06/20 PRE-OP DIAGNOSIS: Trigger left middle finger POST-OP DIAGNOSIS: same PROCEDURE: Tendon sheath incision left middle finger for trigger finger SURGEON: Marvin Vidal ANESTHESIA: local COMPLICATIONS: None Patient was transported to: same day Patient's condition: stable Indications: Is an 80-year-old white female with 3-month history of painful locking of her left middle finger. This is not responded to nonsteroidal anti- inflammatory medications nor prednisone. It sometimes is waking her up at night. She is tending not to use her left hand because of the frequency of locking. Trigger finger release was recommended to alleviate her pain and restore the use of her left hand. Risk on case of procedure explained patient detail preop. Procedure Description: Patient taken the operating room on 09/06/2020 and placed supine the operative table. The left hand was prepped and draped free in the usual sterile fashion. Infiltrated over the flexor sheath of the left middle finger parallel to the distal flexion crease of the palm and about 5 mm distal to it. Once good anesthesia was obtained I made a transverse incision parallel to the distal palmar flexion crease and about 5 mm distal to it. The incision was centered over the flexor sheath of the middle finger is approximately 2-1/2 cm in length. The incision was carried down to the skin and subcu. Blunt tipped Littler scissors were then used to mobilize the soft tissue away from the flexor sheath. Under direct vision I incised the proximal arnaldo of the flexor sheath in the midline. I used Littler scissors to complete the incision of the proximal arnaldo proximal and distal. I asked the patient to flex and extend her left middle finger. She can actively flex and extend her left middle finger fully without locking or catching. The wounds irrigated with saline solution. The wound margins were infiltrated with point 5% Marcaine solution. The skin is approximated with 3 interrupted 4 nylon sutures. Wound was dressed with Xeroform gauze sterile gauze 4 x 4's and wrapped with a 2 inch Josee bandage. Patient was discharged to the surge unit in good condition. Patient was discharged from day surgery unit with instructions to keep her dressings dry and intact for 48 hours. She is instructed to flex and extend her left middle finger 10 times an hour while awake to prevent stiffness and swelling. After 48 hours she may remove her dressings shower bathe and get her incision wet. She can leave the incision uncovered when it is dry and sealed. She can use her left hand as much as discomfort allows. Should take Tylenol or ibuprofen for pain. She should follow-up with Dr. Vidal on 09/17/2020 for suture removal.
== END 2020-09-06 11:37 | disposition home or self-care (01) ==
PROVIDERS: PCP Internal Medicine; Visit Provider Orthopaedic Surgery
PROC: (CPT 26055; principal; 2020-09-06 11:15)
DX: M65.332 Trigger finger, left middle finger (principal)
CPT/HCPCS: 26055

== ENCOUNTER 2020-09-17 01:47 | Outpatient (CLI) | payer MEDICARE, MEDICAID, SELFPAY ==
--- NOTE | 2020-09-17 14:56 | DI.US_ITS ---
APPROVED REPORT EXAM: Comprehensive 2D, Doppler, and color-flow Echocardiogram Patient Location: Out-Patient Department Editor: Soledad Bourne RDCS (AE) Indications: Dyspnea on Exertion, Moderate Aortic Stenosis Other Information Study Quality: Adequate Conclusion Mild concentric left ventricular hypertrophy with an estimated ejection fraction of 60 to 65%. There are no segmental wall motion abnormalities Normal right ventricular size and systolic function Borderline dilated left atrium. Normal right atrial size The aortic valve is sclerotic and trileaflet with moderate to severe aortic stenosis. Peak gradient is 50 mmHg, mean 30 mmHg. Calculated aortic valve area is 1.12 cm???. There is mild to moderate aor tic regurgitation Severe mitral annular calcification with mild regurgitation The tricuspid valve is structurally normal with mild regurgitation. Estimated right ventricular syst olic pressure is 31 mmHg The pulmonic valve is not well visualized. Trace pulmonic regurgitation Moderately dilated ascending aorta Compared to echo December 2019, degree of aortic stenosis is similar. Aortic regurgitation now mild to moderate, previously mild Wall motion Left Ventricle The left ventricle is normal size. The left ventricular systolic function is normal. The left ventric ular ejection fraction is within the normal range. Mild concentric left ventricular hypertrophy. Ther e is normal LV segmental wall motion. There is no ventricular septal defect visualized. LVEF is 60-65 %. Right Ventricle The right ventricle is normal size. The right ventricular systolic function is normal. The RVSP is 30 .9 mmHg. Atria Left atrium is borderline dilated. The right atrium size is normal. The interatrial septum is intact with no evidence for an atrial septal defect. Aortic Valve Aortic valve is calcified. Aortic valve is probably trileaflet. Moderate to severe aortic stenosis. P eak aortic valve gradient is 50.5mmHg. Highest mean aortic valve gradient is 30.0mmHg. Calculated GINA by the continuity equation is .98cm2. Mild to moderate aortic regurgitation. Mitral Valve Severe mitral annular calcification. No evidence of mitral valve stenosis. Mild mitral regurgitation. Tricuspid Valve The tricuspid valve is normal in structure. There is no tricuspid valve stenosis. Mild tricuspid regu rgitation. Pulmonic Valve Pulmonic valve is not well visualized. There is no pulmonic valvular stenosis. Trace pulmonic regurgi tation. Great Vessels The aortic root is normal in size. The ascending aorta is moderately dilated. IVC is normal in size a nd collapses >50% with inspiration. Pericardium There is no pericardial effusion. 2D Dimensions IVSD d PLAX 1.14 cm F: 0.6-1.0 LV Vol A2C d MOD 87.5 mL LVPW d PLAX 1.17 cm F: 0.6 - 1.0 LV Vol A4C d MOD 79.1 mL LVID d PLAX 4.73 cm F: 3.8 - 5.2 LA vol/ BSA A4C s A-L 21.6 mL/m2 LVDs 3.35 cm F: 2.2 - 3.5 LA Area A4C s MOD 15.59 cm2 Ao Root d 3.13 cm F: 2.7 - 3.3 LV EF A4C MOD 58.8 % RA Area A4C 19.39 cm2 LV EF A2C MOD 58.5 % RA Vol/ BSA A4C s A-L 30.2 mL/m2 LV EF Biplane MOD 58.2 % Ao Asc Diam d 4.45 cm F: 2.3 - 3.1 SV 49.41 mL LV EF Teichholz 54.8 % SV Index 27.35 mL/m2 LVEF (Peck's) 58.21 % F: 54 - 74 LV Volume 65.93 mL F: 46 - 106 LV Volume Index 36.62 mL/m2 F: 29 - 61 LV Vol Biplane MOD 84.9 mL FS 28.40 % M-Mode TAPSE 2.55 cm (M/F) >1.7 LV Diastology MV E' medial 0.059 (>0.07 m/s) E/A Ratio 0.9 LV E/e MED 24.40 (<14) MV E Vmax 1.43 (0.4-1.3 m/s) MV E' lateral 0.066 (>0.1 m/s) MV A Vmax 1.55 (0.4-1.3 m/s) LV E/e LAT 21.65 (<14) MV E/A Ratio 0.91 MV E/E' medial 24.40 MV E/E' lateral 21.69 Aortic Valve LVOT Area 3.03 cm2 AoV Area Vmax 0.98 cm2 LVOT Vmax 1.14 m/s AoV Area/ BSA (Vmax) 0.54 cm2/m2 LVOT Mean Simone. 0.77 m/s GINA Mean Simone. 0.90 cm2 LVOT Peak Grad 5.2 mmHg GINA Mean Simone. Index 0.50 cm2/m2 LVOT Mean Grad 2.8 mmHg AR DT 2106 msec LVOT VTI 0.301 m AR PHT 611 msec LVOT Diam s 1.95 cm AoV Vmax 3.55 m/s Velocity Ratio 0.32 AoV Mean Simone. 2.58 m/s AoV Peak Grad 50.5 mmHg LVOT SV 91.37 mL AoV Mean Grad 30.0 mmHg AoV VTI 0.814 m AoV Area VTI 1.12 cm2 AoV Area/ BSA (VTI) 0.62 cm/m2 Mitral Valve MV DT 488 (160-240 msec) MV PHT 141 msec MV Area PHT 1.56 cm2 MV VTI 0.576 m MV VTI Annulus 0.585 m MV Area VTI 1.61 (4.0-6.0 cm2) Pulmonary Valve PV Vmax 1.61 (0.5-1.5 m/s) RVOT Peak Gr. 1.22 mmHg PV Peak Grad 10.4 mmHg RVOT Mean Gr. 0.65 mmHg PV Mean Grad 6.6 mmHg RVOT VTI 0.139 m PV VTI 0.382 m RVOT Vmax 0.55 m/s Tricuspid Valve TR Peak Grad 27.8 mmHg TR Vmax 2.64 m/s RA Pressure 3.00 mmHg RVSP (TR) 30.9 mmHg
== END 2020-09-17 02:07 ==
PROVIDERS: PCP Internal Medicine; Visit Provider Internal Medicine
DX: R06.09 Other forms of dyspnea (principal); I08.3 Combined rheumatic disorders of mitral, aortic and tricuspid valves
CPT/HCPCS: 93306

== ENCOUNTER → 2020-09-18 09:17 | Outpatient (BNVA) | payer MEDICARE, MEDICAID, SELFPAY | PROVIDERS: PCP Internal Medicine; Referring Provider Internal Medicine; Visit Provider Orthopaedic Surgery | DX: Z47.89 Encounter for other orthopedic aftercare (principal); M65.312 Trigger thumb, left thumb ==

== ENCOUNTER 2021-03-11 13:10 | Outpatient (REF) | payer MEDICARE, MEDICAID, SELFPAY ==
[2021-03-11 20:11] LABS: HCT 39.1 % (36.0-46.0); HGB 13.2 g/dL (11.2-15.7); MCH 33.4 pg (27.0-33.0); MCHC 33.8 % (32.0-36.0); MPV 10.6 fL (8.0-11.0); Platelet Count 218 10^3/uL (130-400); RBC 3.95 10^6/uL (3.93-5.22); RDW 12.4 % (11.7-14.6); WBC 6.96 10^3/uL (4.4-10.8)
[2021-03-11 20:42] LABS: ALT 38 U/L (14-59); AST 15 U/L (15-37); Albumin 3.7 g/dL (3.4-5.0); Alkaline Phosphatase 65 U/L (46-116); Anion Gap 8.6 mmol/L (3-11); BUN 16 mg/dL (7-18); Bilirubin, Total 0.3 mg/dL (0.2-1.0); CO2 29.4 mmol/L (21.0-32.0); CREATININE 1.1 mg/dL (0.55-1.02); Calcium 9.5 mg/dL (8.5-10.1); Calculated LDL 82 mg/dL (<100); Chloride 106 mmol/L (98-107); Cholesterol 174 mg/dL (<200); Estimated GFR 47.43 (mL/min/1.73m2); Glucose 71 mg/dL (74-106); HDL Cholesterol 59 mg/dL (40-60); Potassium 4.2 mmol/L (3.5-5.1); Sodium 144 mmol/L (136-145); Total Protein 6.8 g/dL (6.4-8.2); Triglyceride 169 mg/dL (<150)
[2021-03-11 21:13] LABS: FREE T4 1.06 ng/dL (0.76-1.46)
[2021-03-11 21:29] LABS: Creatine Kinase 115 U/L (26-192)
== END 2021-03-11 13:11 | disposition home or self-care (01) ==
LOC: NCHCN 13:10
PROVIDERS: PCP Internal Medicine; Visit Provider Internal Medicine
DX: E03.9 Hypothyroidism, unspecified (principal); R06.09 Other forms of dyspnea; I35.0 Nonrheumatic aortic (valve) stenosis; J44.9 Chronic obstructive pulmonary disease, unspecified
CPT/HCPCS: 80053; 80061; 82550; 85027; 84439; 84443

== ENCOUNTER 2021-03-19 01:48 | Outpatient (CLI) | payer MEDICARE, MEDICAID, SELFPAY ==
--- NOTE | 2021-03-19 14:20 | DI.MAMMO_ITS ---
Exam(s) MAMMO DIAGNOSTIC UNI EXAM: MAMMO DIAGNOSTIC UNI-RIGHT CLINICAL HISTORY: DIAGNOSTIC, RT BREAST SORENESS,H/O LT MASTECTOMY FOR BREAST CA,. TECHNIQUE: Both CC and MLO views of the right breast images were obtained with 3D [employer] ique and utilizing computer aided detection (CAD). COMPARISON: Prior mammograms dating back to 2010, the most recent being October 2016. This patient has had prior left mastectomy. FINDINGS: There has been no significant change in the appearance and distribution of the fibroglandular tissue of the right breast. No new findings in the immediate vicinity of biopsy marker clip in the upper outer quadrant No new spiculated masses nor malignant-appearing microcalcification groups in the right breast. No n ew architectural distortion or skin thickening-traction. IMPRESSION: No radiographic evidence of malignancy in the right breast From previous left mastectomy. BI-RADS Category 1 - Negative Breast Density - Category B - Scattered areas of fibroglandular density Breast density Category C or D implies that the patient has dense breast tissue. Dense breast tissue can make it harder to find cancer on a mammogram. Dense breast tissue is also associated with an incr eased risk of breast cancer. This information about the result of the mammogram report was provided to the patient to raise their awareness. Use this report when you speak with the patient about their risks for breast cancer, which includes their family history. At that time, you may recommend additional screening tests (Ultrasoun d or MRI) as these tests may add significant information. A negative radiographic report should not delay biopsy if a dominant or clinically suspicious mass is present. Up to ten percent of cancers are not identified on mammography. A negative report may reinforce clinical impression. Adenosis and dense breasts may obscure an underlying neoplasm. False positive reports average 6 to 10%. Patient will receive a letter notifying them of these results.
== END 2021-03-19 02:08 ==
PROVIDERS: PCP Internal Medicine; Visit Provider Internal Medicine
DX: N64.4 Mastodynia (principal); Z85.3 Personal history of malignant neoplasm of breast; Z90.12 Acquired absence of left breast and nipple
CPT/HCPCS: 77061; 77065; G0279

== ENCOUNTER 2021-06-06 13:13 | Outpatient (REF) | payer MEDICARE, MEDICAID, SELFPAY ==
[2021-06-06 21:08] LABS: TSH 0.34 uIU/mL (0.36-3.74)
== END 2021-06-06 13:14 | disposition home or self-care (01) ==
LOC: NCHCN 13:13
PROVIDERS: PCP Internal Medicine; Visit Provider Family Medicine
DX: E03.9 Hypothyroidism, unspecified (principal)
CPT/HCPCS: 84443

== ENCOUNTER 2021-06-10 02:08 | Outpatient (CLI) | payer MEDICARE, MEDICAID, SELFPAY ==
--- NOTE | 2021-06-10 | DI.CT_ITS ---
Exam(s) CT LUMBAR SPINE WO EXAM: CT LUMBAR SPINE WO CLINICAL HISTORY: BILAT LEG PAIN,M79.606 TECHNIQUE: COMPARISON: No exams were available for comparison FINDINGS: CT examination of the lumbosacral spine was performed according usual protocol. The visualized soft tissues of the pelvis and lower abdomen are unremarkable, no evidence of hydronephrosis. No abdomina l aortic aneurysm. There are mild degenerative changes of the SI joints bilaterally. There are moderate hypertrophic de generative changes of the facet joints throughout the lumbar region, particularly at L4-5 and L5-S1. At L4-5, there is a large broad-based disc herniation which extends across the spinal canal anteriorl y and narrows the spinal canal. This has a calcified margin and is presumably chronic. There appear s to be mild neural foraminal narrowing on the right at L4-5, there may be mild left-sided neural for aminal narrowing as well. At L5-S1, there is a mild disc bulge without evidence of disc herniation. There is probable mild leonel ateral neural foraminal narrowing at L5-S1. There is no central spinal stenosis. No other evidence of disc herniation, central canal spinal stenosis, or neural foraminal stenosis in the lumbar region. 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 There is narrowing of the spinal canal in the AP diameter at the L4-5 level and there is mild bilateral neural foraminal n arrowing at L4-5 and L5-S1. RADIATION DOSE DELIVERED: 683.62mGy.cm Total DLP 20.02mGy CTDIvol RADIATION OPTIMIZATION: All CT scans at this facility use at least one of these dose optimization te chniques: automated exposure control; mA and/or kV adjustment per patient size (includes targeted exa ms where dose is matched to clinical indication); or iterative reconstruction.
== END 2021-06-10 02:28 ==
PROVIDERS: PCP Internal Medicine; Visit Provider Family Medicine
DX: M79.604 Pain in right leg (principal); M79.605 Pain in left leg; M48.07 Spinal stenosis, lumbosacral region
CPT/HCPCS: 72131

== ENCOUNTER 2021-08-18 09:53 | Emergency (ER) | payer MEDICARE, MEDICAID, SELFPAY ==
[2021-08-18] VITALS (46 sets, daily range): BP systolic 112–153; BP diastolic 53–87; PULSE 50–72; RESP 10–23; TEMP 37.3; O2SAT 86–98
--- NOTE | 2021-08-18 09:45 | RT.EKG_ITS ---
APPROVED REPORT Exam: Resting ECG Reason for Exam: dizziness Patient Location: E HR:63 bpm ECG Measurements Heart Rate 63 AXIS OR 156 P 51 QRSd 98 QRS 16 QT 430 T -5 QTc 442 Conclusion Sinus rhythm...normal P axis, V-rate 60- 99 Probable left atrial enlargement...P >50mS, <-0.10mV V1 Low voltage, extremity leads...all extremity leads <0.5mV no STEMI, non-diagnostic EKG I have reviewed and interpreted ECG and agree with software generated interpretation.
--- NOTE | 2021-08-18 10:05 | ED.GENADUL_ITS ---
Discharge Plan Disposition Patient Disposition: HOME Condition: Stable Discharge Details Clinical Impression: Vertigo, Nausea & vomiting, COPD (chronic obstructive pulmonary disease) Primary Care Provider: Flash Sheppard ED Provider: Mary Avila Home Meds and New Rx's Prescriptions: New meclizine 25 mg tablet 25 mg PO BID PRN (Reason: dizziness) Qty: 8 RF: 0 Continued bgzxmdq-aobvwsdhd-endf [id number] mg tablet 2 tab PO DAILY RF: 0 pyridoxine (vitamin B6) [Vitamin B-6] 100 mg tablet 100 mg PO BID RF: 0 aspirin 325 MG tablet 325 mg PO DAILY RF: 0 verapamil 120 MG tablet 120 mg PO DIRECTED RF: 0 simvastatin [Zocor] 20 MG tablet 20 mg PO HS RF: 0 ginkgo biloba 60 MG tablet 120 mg PO DAILY RF: 0 acetaminophen [Tylenol Extra Strength] 500 MG tablet 500 mg PO HS RF: 0 levothyroxine [Synthroid] 100 MCG tablet 100 mcg PO DAILY RF: 0 vitamin B complex 1 EACH capsule 1 ea PO DAILY RF: 0 Chewable-Albert 1 TAB tablet,chewable 1 tab PO DAILY RF: 0 ondansetron 4 mg Tablet,Disintegrating 4 mg PO Q6H PRNRF: 0 losartan 50 mg Tablet 50 mg PO DAILY RF: 0 cyanocobalamin (vitamin B-12) [Vitamin B-12] 1,000 mcg Tablet 1,000 mcg PO DAILY RF: 0 Discharge Instructions Instructions: Vertigo (ED), COPD (Chronic Obstructive Pulmonary Disease) (ED), Acute Nausea and Vomiting (ED) Additional Instructions: Please return immediately to the emergency department if you develop any new or worsening symptoms, if your condition does not improve as expected, or if you become otherwise concerned. It is extremely important that you call soon as possible to make an appointment to be seen in follow-up for this visit by your primary care doctor and pulmonology as we discussed. Referrals: Marti Lawton MD [ [facility] STAFF PHYSICIAN] - Flash Sheppard MD [Primary Care Provider] - Discharge Data Discharge Date/Time-TO BE ENTERED AT DEPARTURE: 08/18/21 17:17 Medical Decision Making Roxanne Pollack is an 81 y/o woman who presented to the ED with several days of vertigo, nausea and vomiting, similar to episode 2 years ago. On exam Pt is well and non-toxic appearing. Benign cardiopulmonary exam. Benign abd exam. Benign neuro exam. Concern for peripheral vertigo, dehydration, electrolyte derangement, other. Less likely central etiology. Exam/hx at this time not c/w sepsis, acute coronary syndrome, acute aortic process, meningitis, subarachnoid hemorrhage. Plan for IV placement, EKG, screening labs, CT head, telemetry, IV fluid hydration, meclizine. Will monitor and reassess. Patient eating Jell-O and drink radhames jason in the ED without issue. Patient reports some continued mild spinning sensation after meclizine, but reports that her symptoms seem improved. Patient got up to walk to the bathroom. Patient was able to walk on her own, however she repeated that her head feels very weird, as if it is a balloon that's about to lift off. Patient with question of CVA/TIA approximately 6 months ago, has risk factors, unclear etiology of symptoms at this time, plan for MRI/MRA for rule out central etiology. Imaging neg for acute process per radiology. Pt reports symptoms resolved, reports that she feels at baseline. Pt with known COPD, has no O2 at home. Pt with sats intermittently low (70s) on pulze oximeter while in bed throughout encouter, improves to 93-96% with probe re-positioning, no hypoxia at rest with probe in good condition. LCTA, no complaint of SOB. Ambulatory pulse ox performed, with low of 89% and no tachyardiac and no report from Pt of dyspnea. Unclear what Pt's baseline O2 sats are. Exam/hx not c/w pulmonary embolism, acute coronary syndrome, PNA. No indication for admission at this time. Plan for close outpt f/u with PCP, pulmonology for further eval. Pt placed on care management list for outpt pulmonology consult, PCP. Pt states that she feels, vertigo resolved at this point, no vomiting in ED, states that she would like to go home. I had a lengthy discussion with Patient regarding return to emergency department precautions, home care, and importance of outpatient follow-up. Pt verbalizes understanding of the plan and is amenable. Patient discharged to home with clear plan for outpatient follow-up. All questions were answered. Disposition decision was made weighing the risks and benefits of hospitalization versus outpatient treatment, the risk for further decompensation, and the patient's wishes. Medical Records Medical records reviewed: Yes I reviewed the patient's medical records. Imaging Data Radiologic Study: Attestation: I personally reviewed and interpreted this imaging study as follows: Radiologist's impression: CT HEAD WO EXAM: CT HEAD WO CLINICAL HISTORY: vertigo, [place]. TECHNIQUE: Imaging Protocol: Axial computed tomography images with coronal and sagittal reformatted images were created and reviewed COMPARISON: CT CT HEAD WO from 10/03/2019 FINDINGS: There are no skull fractures nor fluid in the visualized paranasal sinuses. There is no evidence of intracranial hemorrhage, mass effect, or shift of midline structures. There are no extra-axial fluid collections. The ventricles are not enlarged or shifted and there is no blood within the ventricular system nor within the basal cisterns. Again noted is abundant bilateral periventricular white matter hypodensity consistent with chronic small vessel disease, unchanged from September 2019. No obvious new territorial infarction. IMPRESSION: There is abundant bilateral periventricular hypodensity consistent with chronic small vessel disease, unchanged from 10/03/2019. No obvious acute infarct evident on this noninfused study. No evidence of intracranial hemorrhage. MR ANGIO BRAIN WO EXAM: MR ANGIO BRAIN WO CLINICAL HISTORY: vertigo, lossof balance TECHNIQUE: Noninfused study. Inep-ap-fkezha sequence used. COMPARISON: MR MR BRAIN WO from 11/24/2019 FINDINGS: ANTERIOR CIRCULATION: both internal carotid arteries are patent in the skull base-carotid canals as well as within the cavernous sinuses. supraclinoid aspects are patent. a1 segments are patent bilaterally. both anterior cerebral arteries are patent. no evidence of aneurysm the level of the anterior communicating artery. Both middle cerebral arteries are patent. POSTERIOR CIRCULATION: Basilar artery a sends in midline after being formed by both vertebral arteries the skull base. Distally the basilar artery gives off superior cerebellar arteries. Above this level terminates as patent right posterior cerebral artery. The left posterior cerebral artery is fed by a posterior communicating artery on the left side of the lsrply-dp-Tklejy. IMPRESSION: 1. Patent intracranial arteries. 2. No obvious aneurysms. MR BRAIN WO EXAM: MR BRAIN WO CLINICAL HISTORY: vertigo, loss of balance TECHNIQUE: Multiplanar multisequence MRI of the brain was performed. COMPARISON: MR MR BRAIN WO from 11/24/[address] HEAD WO from 08/18/[address] HEAD WO from 08/18/2021 FINDINGS: CEREBRAL PARENCHYMA: There is no evidence of intracranial hemorrhage, mass effect, or shift of midline structures. There are no extra-axial fluid collections. Ventricles are not enlarged or shifted. There is no significant focal signal abnormality in the cerebellar hemispheres nor within the jose, midbrain, and thalami. There is again noted abundant bilateral periventricular signal abnormality consistent with chronic small vessel disease. No evidence of microhemorrhages. On DWI there are no areas of restricted diffusion to suggest acute infarct. There is no significant focal signal abnormality evident on diffusion imaging to suggest acute ischemic event. PITUITARY GLAND: No mass nor parasellar abnormality. No obvious abnormality in the cavernous sinuses. FLOW VOIDS: The expected flow void are noted. No evidence of obvious aneurysm nor obvious vascular malformation. PARANASAL SINUSES: The visualized paranasal sinuses appear unremarkable. No obvious finding ORBITS: No obvious findings. IMPRESSION: No significant acute intracranial findings on this noninfused MRI scan of the brain. Again noted is abundant bilateral white matter ischemic changes, similar to the prior MRI scan of 11/24/2019. No abnormal signal on diffusion imaging. MR ANGIO NECK WO CLINICAL HISTORY: vertigo, loss of balance. TECHNIQUE: Performed vaoh-au-avbddt sequence. COMPARISON: None. FINDINGS: Origin of the carotid arteries not able to be assessed on this study. Mid upper common carotid arteries are patent and without significant stenosis at the carotid bulbs and carotid bifurcations. Internal carotid arteries are patent in the neck. Origins of the vertebral arteries are not included in the field of view of this study. Both vertebral arteries are patent in the foramen transverse area with equal luminal diameters and both vertebral arteries contribute to the formation of the basilar artery at the skull base. No evidence of vertebral artery dissection. IMPRESSION: Limited study due to lack of adequate visualization of the origins of the great vessels. No evidence of significant stenosis at the carotid bifurcations and proximal internal carotid arteries in the neck. No evidence of vertebral artery thrombosis nor vertebral artery dissection. Lab Data Lab results reviewed: Yes I reviewed the patient's lab results. Labs: Laboratory Tests Range/Units 08/18/21 08/18/21 10:10 10:10 WBC (4.4-10.8) 10^3/uL 7.72 RBC (3.93-5.22) 10^6/uL 4.01 Hgb (11.2-15.7) g/dL 13.1 Hct (36.0-46.0) % 39.8 MCV (80-95) fL 99.3 H MCH (27.0-33.0) pg 32.7 MCHC (32.0-36.0) % 32.9 RDW (11.7-14.6) % 12.5 Plt Count (130-400) 10^3/uL 197 MPV (8.0-11.0) fL 10.9 Immature Gran % 0.1 Neutrophils % 72.3 Lymphocytes % 20.3 Monocytes % 5.6 Eosinophils % 1.2 Basophils % 0.5 Nucleated RBC % % 0 Absolute Neutrophils (1.2-6.7) 10^3/uL 5.58 Absolute Lymphocytes (1.2-3.4) 10^3/uL 1.57 Absolute Monocytes (0.1-0.8) 10^3/uL 0.43 Absolute Eosinophils (0.0-0.7) 10^3/uL 0.09 Absolute Basophils (0.0-0.2) 10^3/uL 0.04 Sodium (136-145) mmol/L 142 Potassium (3.5-5.1) mmol/L 4.2 Chloride (98-107) mmol/L 104 Carbon Dioxide (21.0-32.0) mmol/L 33.0 H Anion Gap (3-11) mmol/L 5.0 BUN (7-18) mg/dL 11 Creatinine (0.55-1.02) mg/dL 1.0 Estimated GFR/1.73 m2 (mL/min/1.73m2) 52.95 Glucose (74-106) mg/dL 91 Calcium (8.5-10.1) mg/dL 9.6 Magnesium (1.8-2.4) mg/dL 2.2 Total Bilirubin (0.2-1.0) mg/dL 0.5 AST (15-37) U/L 31 ALT (14-59) U/L 20 Alkaline Phosphatase (46-116) U/L 46 Troponin I (<0.06) ng/mL < 0.05 Total Protein (6.4-8.2) g/dL 6.9 Albumin (3.4-5.0) g/dL 3.6 TSH (0.36-3.74) uIU/mL 0.58 ECG Data Attestation: I personally reviewed and interpreted this ECG (s) as follows: Interpretation: EKG shows sinus rhythm 63, normal axis, low voltage extremity leads, no STEMI, nondiagnostic EKG HPI General Mode of arrival: ambulatory . Date/Time Provider Initiated Documentation: 08/18/21 09:59 . Limitations to Documentation: no limitations . Information obtained by: patient, RN notes reviewed and old records reviewed . HPI Narrative: Roxanne Pollack is an 81-year-old woman with history of aortic stenosis, hyperlipidemia, hypertension, hypothyroidism, COPD, vertigo, persistent headaches, breast cancer in the past presenting to the emergency department with vertigo. Patient reports that 2 days ago she ate breakfast and had a normal morning. Patient reports that while walking to the bathroom, she had sudden onset vertigo and nausea. Patient reports that she vomited several times. Patient reports that she developed a headache that was gradual in onset after vomiting. Her headache has persisted, as has her vertigo. Patient reports that vertigo has been waxing and waning since onset, is worse with sitting up and standing and mild or not present while lying down. She reports that vertigo is not present at this time while she is lying in bed in the exam room. Patient reports that she has had no new difficulties with speech, no new numbness or weakness. Patient reports that she typically uses a cane when she needs to walk significant distances, but around the house she walks without assistance. Patient reports that she has felt off balance with walking since developing vertigo. She states that she has not been taking any medications for this since onset. Patient reports that she had a similar episode 2 years ago that took approximately 1 month to resolve. She states that she feels more off balance now than she did with prior episode. Per record review, patient had MRI of the brain and was seen by neurology at that time, there was no apparent etiology of her symptoms. Patient reports that she has been drinking radhames jason and water since onset of vertigo and vomiting, but has not had solid food. She reports that last episode of vomiting was sometime yesterday. Related Data Home Medications Medication Instructions Recorded Confirmed aspirin 325 mg PO DAILY tab-cap 06/14/14 08/18/21 ginkgo biloba 120 mg PO DAILY 06/14/14 09/18/20 simvastatin [Zocor] 20 mg PO HS 06/14/14 08/18/21 verapamil 120 mg PO DIRECTED 06/14/14 08/18/21 Chewable-Albert 1 tab PO DAILY 04/06/18 08/18/21 acetaminophen [Tylenol Extra 500 mg PO HS 04/06/18 08/18/21 Strength] levothyroxine [Synthroid] 100 mcg PO DAILY 04/06/18 08/18/21 vitamin B complex 1 ea PO DAILY 04/06/18 08/18/21 cyanocobalamin (vitamin B-12) 1,000 mcg PO DAILY 09/18/18 08/18/21 [Vitamin B-12] losartan 50 mg PO DAILY 09/18/18 08/18/21 uaeteuw-sdgabadze-buwp 333 mg-133 2 tab PO DAILY tab 11/21/19 08/18/21 mg-8.3 mg tablet pyridoxine (vitamin B6) 100 mg 100 mg PO BID tab 07/23/20 08/18/21 tablet meclizine 25 mg PO BID PRN #8 tab 08/18/21 ondansetron 4 mg PO Q6H PRN 08/18/21 08/18/21 Previous Rx's Medication Instructions Recorded meclizine 25 mg PO BID PRN #8 tab 08/18/21 Allergies Allergy/AdvReac Type Severity Reaction Status Date / Time anastrozole [From Arimidex] Allergy Unknown Unverified 09/18/20 09:31 tamoxifen [Tamoxifen] Allergy Unknown Unverified 09/18/20 09:31 umeclidinium AdvReac Intermediate Other (See Unverified 08/18/21 10:06 [From Incmeekse Ellipta] Comment) lisinopril AdvReac COUGH Unverified 09/18/20 09:31 propoxyphene HCl AdvReac VOMITING Unverified 09/18/20 09:31 [From Darvon] General Stated Complaint: Dizzy/Sync ARJUN: 2 Review of Systems Narrative: Constitutional: denies fevers Eyes: denies eye pain, visual changes ENT: denies ear pain, hearing changes, dental pain, sore throat Cardiovascular: denies chest pain Respiratory: denies SOB, cough GI: denies abdominal pain, vomiting, diarrhea : denies flank pain MSK: denies back pain, neck pain, arthralgias, myalgias Skin: denies rash Neuro: denies numbness, weakness, speech changes, reports vertigo, headache PFSH Medical History Aortic stenosis Cataract Cognitive impairment Constipation COPD (chronic obstructive pulmonary disease) Dilated aortic root Dizziness Dyslipidemia Edema Generalized psoriasis Headache Hip joint pain History of alcoholism History of breast cancer HTN (hypertension) Hx of head injury Hyperlipemia Hypermagnesemia Hypertension Hypothyroidism Memory impairment Nausea and vomiting Obesity Osteoarthritis of knee Osteoporosis Peripheral neuropathy Persistent headaches Trigger finger Trigger middle finger of left hand (~05/2020) Trigger thumb of left hand (~05/2020) Trochanteric bursitis Urinary incontinence Vertigo Surgical History H/O mastectomy History of cholecystectomy Social History Smoking/Tobacco Use Status: Former Tobacco Use Smoking risk assessment performed?: Yes Alcohol Intake: former Year quit: 1974 Drug use: Never Substance use type: does not use Current gender identity: female Do you feel safe at home: Yes Do you feel safe in your relationship?: Yes Exam Narrative Exam Narrative: Constitutional: well and gzt-chbka-wkxgvvgfl, pleasant, conversing normally HENT: head atraumatic/normocephalic/normal inspection, mucous membranes moist Eyes: conjunctiva normal, sclera normal, pupils 3mm b/l, ERRLA, EOMI, no nystagmus Neck: no stridor, normal ROM, trachea midline Chest: normal inspection Resp: normal work of breathing, LCTAB Cardio: normal rate, normal rhythm GI: abdomen soft, non-tender, non-distended Back: normal inspection, no rash Skin: warm, dry, normal color, no rash Neuro: alert, not altered, data report analyst 2-12 intact, motor 5/5 throughout, normal tone Ext: no edema, no posterior calf TTP Psych: normal mood, normal affect, normal behavior Course Vital Signs Vital signs: Vital Signs Temperature 37.3 C 08/18/21 10:01 Pulse 63 08/18/21 10:01 Respiratory Rate 15 08/18/21 10:01 Blood Pressure 151/70 H 08/18/21 10:01 Pulse Oximetry 94 08/18/21 10:01 Temperature 37.3 C 08/18/21 10:01 Temperature Source Temporal Artery Scan 08/18/21 10:01 Pulse 63 08/18/21 10:01 Respiratory Rate 15 08/18/21 10:01 Blood Pressure 151/70 H 08/18/21 10:01 Blood Pressure Position Supine 08/18/21 10:01 Pulse Oximetry 94 08/18/21 10:01 Oxygen Delivery Method Room Air 08/18/21 10:01 Oxygen Flow Rate 0 08/18/21 10:01 Pain Level 5 08/18/21 10:01
[2021-08-18 10:56] LABS: Abs Immature Grans 0.01 10^3/uL (0.0-0.06); Absolute Basophil Count 0.04 10^3/uL (0.0-0.2); Absolute Eosinophil Count 0.09 10^3/uL (0.0-0.7); Absolute Lymphocyte Count 1.57 10^3/uL (1.2-3.4); Absolute Monocyte Count 0.43 10^3/uL (0.1-0.8); Absolute Neutrophil Count 5.58 10^3/uL (1.2-6.7); Basophils % 0.5; Eosinophils % 1.2; HCT 39.8 % (36.0-46.0); HGB 13.1 g/dL (11.2-15.7); Immature Grans % 0.1; Lymphocytes % 20.3; MCH 32.7 pg (27.0-33.0); MCHC 32.9 % (32.0-36.0); MCV 99.3 fL (80-95); MPV 10.9 fL (8.0-11.0); Monocytes % 5.6; Neutrophils % 72.3; Nucleated RBC 0 %; Platelet Count 197 10^3/uL (130-400); RBC 4.01 10^6/uL (3.93-5.22); RDW 12.5 % (11.7-14.6); RDW-SD 45.4 fL; WBC 7.72 10^3/uL (4.4-10.8)
[2021-08-18] MEDS: Meclizine 25 MG TAB PO (10:59)
[2021-08-18] MEDS: Normal Saline 500 ML IV ×2 (11:00→13:30)
[2021-08-18 11:19] LABS: ALT 20 U/L (14-59); AST 31 U/L (15-37); Albumin 3.6 g/dL (3.4-5.0); Alkaline Phosphatase 46 U/L (46-116); BUN 11 mg/dL (7-18); Bilirubin, Total 0.5 mg/dL (0.2-1.0); Calcium 9.6 mg/dL (8.5-10.1); Chloride 104 mmol/L (98-107); Estimated GFR 52.95 (mL/min/1.73m2); Glucose 91 mg/dL (74-106); Magnesium 2.2 mg/dL (1.8-2.4); Potassium 4.2 mmol/L (3.5-5.1); Sodium 142 mmol/L (136-145); TSH (W/Ref FT4) 0.58 uIU/mL (0.36-3.74); Total Protein 6.9 g/dL (6.4-8.2); Troponin I < 0.05 ng/mL (<0.06)
--- NOTE | 2021-08-18 11:20 | DI.CT_ITS ---
Exam(s) CT HEAD WO EXAM: CT HEAD WO CLINICAL HISTORY: vertigo, [place]. TECHNIQUE: Imaging Protocol: Axial computed tomography images with coronal and sagittal reformatted images were created and reviewed COMPARISON: CT CT HEAD WO from 10/03/2019 FINDINGS: There are no skull fractures nor fluid in the visualized paranasal sinuses. There is no evidence of intracranial hemorrhage, mass effect, or shift of midline structures. There are no extra-axial fluid collections. The ventricles are not enlarged or shifted and there is no blo od within the ventricular system nor within the basal cisterns. Again noted is abundant bilateral periventricular white matter hypodensity consistent with chronic sm all vessel disease, unchanged from September 2019. No obvious new territorial infarction. IMPRESSION: There is abundant bilateral periventricular hypodensity consistent with chronic small vessel disease, unchanged from 10/03/2019. No obvious acute infarct evident on this noninfused study. No evidence of intracranial hemorrhage. RADIATION DOSE DELIVERED: 740.64mGy.cm Total DLP DATA REPOSITORY: All CT scans at this facility are submitted to the National Radiology Data Registry (NRDR) Dose Index Registry (DIR) with the [employer] (A[employer]). RADIATION OPTIMIZATION: All CT scans at this facility use at least one of these dose optimization te chniques: automated exposure control; mA and/or kV adjustment per patient size (includes targeted exa ms where dose is matched to clinical indication); or iterative reconstruction.
[2021-08-18] MEDS: Verapamil 80 MG TAB 240 MG PO (12:17)
[2021-08-18] MEDS: Ondansetron 4 MG/2 ML VIAL IVP (13:31)
--- NOTE | 2021-08-18 13:32 | NUR.NOTE ---
1325: pt ambulated to bathroom and back without assist felt nauseas and lightheaded MD aware Nursing Note:
--- NOTE | 2021-08-18 13:46 | NUR.NOTE ---
pt ate full cup of jell-o drinking radhames-jason Nursing Note:
--- NOTE | 2021-08-18 14:00 | DI.MRI_ITS ---
Exam(s) MR ANGIO BRAIN WO EXAM: MR ANGIO BRAIN WO CLINICAL HISTORY: vertigo, lossof balance TECHNIQUE: Noninfused study. Iepw-hk-ozacmm sequence used. COMPARISON: MR MR BRAIN WO from 11/24/2019 FINDINGS: ANTERIOR CIRCULATION: both internal carotid arteries are patent in the skull base-carotid canals as well as within the cave rnous sinuses. supraclinoid aspects are patent. a1 segments are patent bilaterally. both anterior cerebral arteries are patent. no evidence of aneurysm the level of the anterior communicating artery . Both middle cerebral arteries are patent. POSTERIOR CIRCULATION: Basilar artery a sends in midline after being formed by both vertebral arteries the skull base. Dist ally the basilar artery gives off superior cerebellar arteries. Above this level terminates as paten t right posterior cerebral artery. The left posterior cerebral artery is fed by a posterior communic ating artery on the left side of the wvyfss-iq-Lnrnpw. IMPRESSION: 1. Patent intracranial arteries. 2. No obvious aneurysms. DATA REPOSITORY:
--- NOTE | 2021-08-18 14:00 | DI.MRI_ITS ---
Exam(s) MR ANGIO NECK WO CLINICAL HISTORY: vertigo, loss of balance. TECHNIQUE: Performed mzyd-jw-atlzqk sequence. COMPARISON: None. FINDINGS: Origin of the carotid arteries not able to be assessed on this study. Mid upper common carotid arter ies are patent and without significant stenosis at the carotid bulbs and carotid bifurcations. Inter nal carotid arteries are patent in the neck. Origins of the vertebral arteries are not included in the field of view of this study. Both vertebra l arteries are patent in the foramen transverse area with equal luminal diameters and both vertebral arteries contribute to the formation of the basilar artery at the skull base. No evidence of vertebr al artery dissection. IMPRESSION: Limited study due to lack of adequate visualization of the origins of the great vessels. No evidence of significant stenosis at the carotid bifurcations and proximal internal carotid arterie s in the neck. No evidence of vertebral artery thrombosis nor vertebral artery dissection. DATA REPOSITORY:
--- NOTE | 2021-08-18 14:00 | DI.MRI_ITS ---
Exam(s) MR BRAIN WO EXAM: MR BRAIN WO CLINICAL HISTORY: vertigo, loss of balance TECHNIQUE: Multiplanar multisequence MRI of the brain was performed. COMPARISON: MR MR BRAIN WO from 11/24/[address] HEAD WO from 08/18/[address] HEAD WO from 08/18/2021 FINDINGS: CEREBRAL PARENCHYMA: There is no evidence of intracranial hemorrhage, mass effect, or shift of midline structures. There are no extra-axial fluid collections. Ventricles are not enlarged or shifted. There is no significant focal signal abnormality in the cerebellar hemispheres nor within the jose, m idbrain, and thalami. There is again noted abundant bilateral periventricular signal abnormality consistent with chronic sm all vessel disease. No evidence of microhemorrhages. On DWI there are no areas of restricted diffus ion to suggest acute infarct. There is no significant focal signal abnormality evident on diffusion imaging to suggest acute ischem ic event. PITUITARY GLAND: No mass nor parasellar abnormality. No obvious abnormality in the cavernous sinuses. FLOW VOIDS: The expected flow void are noted. No evidence of obvious aneurysm nor obvious vascular ma lformation. PARANASAL SINUSES: The visualized paranasal sinuses appear unremarkable. No obvious finding ORBITS: No obvious findings. IMPRESSION: No significant acute intracranial findings on this noninfused MRI scan of the brain. Again noted is abundant bilateral white matter ischemic changes, similar to the prior MRI scan of . No abnormal signal on diffusion imaging. See separate MRA report DATA REPOSITORY:
--- NOTE | 2021-08-18 17:18 | NUR.NOTE ---
Nursing Note: Referral faxed to [facility] Pulmonology for COPD, borderline hypoxia, KEVIN, Cassia Cardenas
== END 2021-08-18 17:17 | disposition home or self-care (01) ==
PROVIDERS: Emergency Provider Student in an Organized Health Care Education/Training Program; PCP Internal Medicine
DX: R42 Dizziness and giddiness (principal); R11.2 Nausea with vomiting, unspecified; R51.9 Headache, unspecified; E03.9 Hypothyroidism, unspecified
CPT/HCPCS: 36415; 70544; 70547; 80053; 93005; 96361; 96374; 99285; 70450; 70551; 83735; 84443; 84484; 85025; 93010; J2405

== ENCOUNTER 2021-10-10 03:54 | Outpatient (CLI) | payer MEDICARE, MEDICAID, SELFPAY ==
[2021-10-10] MEDS: Albuterol HFA 18 GM 200 PUFF INH IH (16:27)
[2021-10-10] MEDS: Inhaler, Assist Device 1 EACH MC (16:28)
--- NOTE | 2021-10-13 09:37 | W.PFT ---
Date of service: 10/10/21 Time of Service: 15:27 Pulmonary Function Test Result Requesting Provider Duchene Indications: Dyspnea Interpretation Spirometry: There is no airflow limitation. No significant bronchodilator effect. Lung Volumes: Lung volumes are normal Diffusion Capacity: The diffusion is normal Airway Pressure: Airways resistance is elevated Impression Normal pulmonary function testing with the exception of increases airways resistance. Note: When compared to 09/04/19, the FEV1 has improved and the FVC remains stable. Lung volumes and diffusion remain stable. Clinical Correlation therefore is recommended.
--- NOTE | 2021-10-13 09:42 | W.PFT ---
Date of service: 10/10/21 Time of Service: 15:06 Pulmonary Function Test Result Indications: Reported hypoxia 6MWT Distance: 800 feet Lowest SaO2: 93% Impression: Normal walk distance, no significant desaturations.
== END 2021-10-10 03:55 | disposition home or self-care (01) ==
LOC: RT 03:54
PROVIDERS: PCP Internal Medicine; Visit Provider Student in an Organized Health Care Education/Training Program
DX: R06.09 Other forms of dyspnea (principal); J44.9 Chronic obstructive pulmonary disease, unspecified; Z87.891 Personal history of nicotine dependence
CPT/HCPCS: 94060; 94618; 94726; 94729; 94762

== ENCOUNTER → 2021-12-24 10:32 | Outpatient (BNVA) | payer MEDICARE, MEDICAID, SELFPAY | PROVIDERS: PCP Internal Medicine; Referring Provider Internal Medicine; Visit Provider Nurse Practitioner Gerontology | DX: N39.46 Mixed incontinence (principal) | CPT/HCPCS: 81003; 99215 ==

== ENCOUNTER → 2022-01-19 13:12 | Outpatient (BNVA) | payer MEDICARE, MEDICAID, SELFPAY | PROVIDERS: PCP Family Medicine; Referring Provider Internal Medicine; Visit Provider Nurse Practitioner Gerontology | DX: N39.46 Mixed incontinence (principal) | CPT/HCPCS: 99214 ==

== ENCOUNTER → 2022-04-24 01:02 | Outpatient (CLI) | payer MEDICARE, MEDICAID, SELFPAY ==
--- OUTSIDE RECORDS SUMMARY | 2022-04-24 01:21 | XMS_ITS ---
:1940 Author Care Team Providers Name Role Phone Igor Daigle Primary Care Provider Unavailable Allergies None recorded. Medications None recorded. Problems None recorded. Procedures None recorded. Results Lab Results None recorded. Past Encounters None recorded. Social History None recorded. Vaccine List None recorded. Plan of Care Reminders Provider Appointments None recorded. ? ? Lab None recorded. ? ? Referral None recorded. ? ? Procedures None recorded. ? ? Surgeries None recorded. ? ? Imaging None recorded. ? ? Vitals None recorded.
--- NOTE | 2022-04-24 13:50 | DI.US_ITS ---
APPROVED REPORT EXAM: Comprehensive 2D, Doppler, and color-flow Echocardiogram Patient Location: Out-Patient Rubber Flap Cutter: Soledad Bourne RDCS (AE) Indications: Aortic Stenosis Other Information Study Quality: Adequate Conclusion Mild concentric left ventricular hypertrophy. Estimated ejection fraction is 60%. Wall motion is no rmal Normal right ventricular size and systolic function Left atrium is borderline dilated. Right atrium is normal in size The aortic valve is sclerotic. Number of aortic valve leaflets could not be determined. There is mo derate to severe aortic stenosis. Peak gradient is 60, mean is 37, calculated aortic valve area of 1 cm??. There is mild aortic regurgitation Severe mitral annular calcification. Mild mitral regurgitation Normal tricuspid valve with mild regurgitation. Estimated right ventricular systolic pressure is 29 mmHg Wall motion Left Ventricle The left ventricle is normal size. The left ventricular systolic function is normal. The left ventric ular ejection fraction is within the normal range. Mild concentric left ventricular hypertrophy. Ther e is normal LV segmental wall motion. There is no ventricular septal defect visualized. LVEF is 60%. Right Ventricle The right ventricle is normal size. The right ventricular systolic function is normal. The RVSP is 28 .9mmHg. Atria Left atrium is borderline dilated. The right atrium size is normal. The interatrial septum is intact with no evidence for an atrial septal defect. Aortic Valve Aortic valve is calcified. Number of aortic valve leaflets could not be assessed. Moderate to severe aortic stenosis. Peak aortic valve gradient is 60.1mmHg. Highest mean aortic valve gradient is 36.7mm Hg. Calculated GINA by the continuity equation is 1.0cm2. Mild aortic regurgitation. Mitral Valve Severe mitral annular calcification. No evidence of mitral valve stenosis. Mild mitral regurgitation. Tricuspid Valve The tricuspid valve is normal in structure. There is no tricuspid valve stenosis. Mild tricuspid regu rgitation. Pulmonic Valve Pulmonic valve is not well visualized. There is no pulmonic valvular stenosis. Trace pulmonic regurgi tation. Great Vessels The aortic root is normal in size. Ascending aorta is not well visualized. IVC is normal in size and collapses >50% with inspiration. Pericardium There is no pericardial effusion. 2D Dimensions IVSD d PLAX 1.21 cm F: 0.6-1.0 LV Vol A2C d MOD 69.2 mL LVPW d PLAX 1.20 cm F: 0.6 - 1.0 LV Vol A4C d MOD 71.2 mL LVID d PLAX 4.70 cm F: 3.8 - 5.2 LA vol/ BSA A2C s A-L 25.0 mL/m2 LVDs 3.25 cm F: 2.2 - 3.5 LA vol/ BSA A4C s A-L 36.6 mL/m2 Ao Root d 3.01 cm F: 2.7 - 3.3 LA Vol/ BSA Biplane s A-L 31.4 mL/m2 RA Area A4C 15.31 cm2 LA Area A4C s MOD 20.52 cm2 RA Vol/ BSA A4C s A-L 21.5 mL/m2 LA Area A2C s MOD 16.34 cm2 LV EF Teichholz 58.0 % LV EF A4C MOD 60.0 % LVEF (Peck's) 59.44 % F: 54 - 74 LV EF A2C MOD 60.3 % LV Volume 56.62 mL F: 46 - 106 LV EF Biplane MOD 59.4 % LV Volume Index 33.50 mL/m2 F: 29 - 61 SV 42.30 mL LV Vol Biplane MOD 71.2 mL SV Index 25.02 mL/m2 FS 30.50 % M-Mode TAPSE 2.24 cm (M/F) >1.7 LV Diastology MV E' medial 0.056 (>0.07 m/s) E/A Ratio 0.7 LV E/e MED 20.25 (<14) MV E Vmax 1.14 (0.4-1.3 m/s) MV E' lateral 0.075 (>0.1 m/s) MV A Vmax 1.70 (0.4-1.3 m/s) LV E/e LAT 15.30 (<14) MV E/A Ratio 0.65 MV E/E' medial 20.29 MV E/E' lateral 15.30 Aortic Valve LVOT Area 3.02 cm2 AoV Area Vmax 1.04 cm2 LVOT Vmax 1.33 m/s AoV Area/ BSA (Vmax) 0.61 cm2/m2 LVOT Mean Simone. 0.97 m/s GINA Mean Simone. 1.01 cm2 LVOT Peak Grad 7.1 mmHg GINA Mean Simone. Index 0.60 cm2/m2 LVOT Mean Grad 4.2 mmHg AR DT 1877 msec LVOT VTI 0.301 m AR PHT 544 msec LVOT Diam s 1.95 cm AoV Vmax 3.88 m/s Velocity Ratio 0.34 AoV Mean Simone. 2.88 m/s AoV Peak Grad 60.1 mmHg LVOT SV 90.93 mL AoV Mean Grad 36.7 mmHg AoV VTI 0.833 m AoV Area VTI 1.09 cm2 AoV Area/ BSA (VTI) 0.65 cm/m2 Mitral Valve MV DT 512 (160-240 msec) MV PHT 149 msec MV Area PHT 1.48 cm2 MV VTI 0.630 m MV Area VTI 1.44 (4.0-6.0 cm2) Pulmonary Valve PV Vmax 1.11 (0.5-1.5 m/s) RVOT Peak Gr. 2.70 mmHg PV Peak Grad 4.9 mmHg RVOT Mean Gr. 1.45 mmHg PV Mean Grad 3.6 mmHg RVOT VTI 0.184 m PV VTI 0.280 m RVOT Vmax 0.82 m/s Tricuspid Valve TR Peak Grad 25.8 mmHg TR Vmax 2.54 m/s RA Pressure 3.00 mmHg RVSP (TR) 28.9 mmHg
== END ==
PROVIDERS: PCP Family Medicine; Visit Provider Family Medicine
DX: I35.0 Nonrheumatic aortic (valve) stenosis (principal)
CPT/HCPCS: 93306

== ENCOUNTER → 2022-04-28 15:23 | Outpatient (BNVA) | payer MEDICARE, MEDICAID, SELFPAY | PROVIDERS: PCP Family Medicine; Referring Provider Family Medicine; Visit Provider Nurse Practitioner Gerontology | DX: N39.46 Mixed incontinence (principal) | CPT/HCPCS: 51798; 99214 ==

== ENCOUNTER 2022-09-14 14:58 | Outpatient (REF) | payer MEDICARE, MEDICAID, SELFPAY ==
[2022-09-14 21:48] LABS: Abs Immature Grans 0.02 10^3/uL (0.0-0.06); Absolute Basophil Count 0.05 10^3/uL (0.0-0.2); Absolute Eosinophil Count 0.21 10^3/uL (0.0-0.7); Absolute Lymphocyte Count 1.94 10^3/uL (1.2-3.4); Absolute Monocyte Count 0.58 10^3/uL (0.1-0.8); Absolute Neutrophil Count 4.37 10^3/uL (1.2-6.7); Basophils % 0.7; Eosinophils % 2.9; HCT 41.7 % (36.0-46.0); HGB 13.9 g/dL (11.2-15.7); Immature Grans % 0.3; Lymphocytes % 27.1; MCH 33.2 pg (27.0-33.0); MCHC 33.3 % (32.0-36.0); MCV 100 fL (80-95); MPV 10.8 fL (8.0-11.0); Monocytes % 8.1; Neutrophils % 60.9; Platelet Count 181 10^3/uL (130-400); RBC 4.19 10^6/uL (3.93-5.22); RDW 12.3 % (11.7-14.6); RDW-SD 45.1 fL; WBC 7.17 10^3/uL (4.4-10.8)
[2022-09-14 22:42] LABS: ALT 20 U/L (14-59); AST 18 U/L (15-37); Albumin 3.9 g/dL (3.4-5.0); Alkaline Phosphatase 58 U/L (46-116); Anion Gap 7.4 mmol/L (3-11); BUN 18 mg/dL (7-18); Bilirubin, Total 0.3 mg/dL (0.2-1.0); CO2 31.6 mmol/L (21.0-32.0); Chloride 102 mmol/L (98-107); Estimated GFR 55.55 (mL/min/1.73m2); Ferritin 57 ng/mL (8-252); Glucose 83 mg/dL (74-106); Potassium 4.1 mmol/L (3.5-5.1); Sodium 141 mmol/L (136-145); TSH 1.23 uIU/mL (0.36-3.74); Total Protein 7.2 g/dL (6.4-8.2); Vitamin B12 1737 pg/mL (193-986)
== END 2022-09-14 14:59 | disposition home or self-care (01) ==
LOC: NCHCN 14:58
PROVIDERS: PCP Family Medicine; Visit Provider Family Medicine
DX: I10 Essential (primary) hypertension (principal); I35.0 Nonrheumatic aortic (valve) stenosis; J44.9 Chronic obstructive pulmonary disease, unspecified; E03.9 Hypothyroidism, unspecified
CPT/HCPCS: 80053; 82607; 82728; 84207; 84443; 85025

== ENCOUNTER 2022-09-22 12:39 | Outpatient (CLI) | payer MEDICARE, MEDICAID, SELFPAY ==
[2022-09-23 14:29] LABS: Zinc, S 85 mcg/dL (60-106)
[2022-09-25 14:39] LABS: Pyridoxal 5-Phosphate (PLP), P 22 mcg/L (5-50)
== END 2022-09-22 12:40 | disposition home or self-care (01) ==
LOC: LBO 12:39
PROVIDERS: PCP Family Medicine; Visit Provider Family Medicine
DX: R41.3 Other amnesia (principal); E78.5 Hyperlipidemia, unspecified; E03.9 Hypothyroidism, unspecified; I10 Essential (primary) hypertension; J44.9 Chronic obstructive pulmonary disease, unspecified; I35.0 Nonrheumatic aortic (valve) stenosis; N19 Unspecified kidney failure
CPT/HCPCS: 36415; 84630; 84207

== ENCOUNTER → 2022-11-10 13:45 | Outpatient (BNVA) | payer MEDICARE, MEDICAID, SELFPAY | PROVIDERS: PCP Family Medicine; Referring Provider Family Medicine; Visit Provider Nurse Practitioner Gerontology | DX: N39.46 Mixed incontinence (principal) | CPT/HCPCS: 51798; 99213 ==

== ENCOUNTER 2023-02-04 00:29 | Outpatient (CLI) | payer MEDICARE, MEDICAID, SELFPAY ==
--- NOTE | 2023-02-04 13:38 | DI.MRI_ITS ---
Exam(s) MR LUMBAR SPINE WO EXAM: MR LUMBAR SPINE WO CLINICAL HISTORY: suspected spinal stenosis, M48.00. TECHNIQUE: Multiplanar multisequence MRI of the Lumbar spine was performed. COMPARISON: CR XR CHEST 2V PA LATERAL from 02/04/2023 FINDINGS: Bones: The last intervertebral disc space is designated the L5/S1 level for the numbering purpose of this examination. The vertebral body heights are well maintained. Alignment is satisfactory. The ma rrow signal characteristics are unremarkable. Cord: The conus tip ends at the T12 level. It is of normal size and signal intensity. T12-L1: No disc herniations or bulges are present. No central spinal canal or neural foraminal stenos is. L1-2: No disc herniations or bulges are present. No central spinal canal or neural foraminal stenosis . L2-3: Mild disc bulging. No central spinal canal or neural foraminal stenosis. L3-4: Minimal disc bulging. No central spinal canal or neural foraminal stenosis. L4-5: Moderate concentric disc bulging. Facet degenerative changes and ligamentous hypertrophy. Mil d central canal stenosis. Moderate neural foraminal narrowing on the right. Mild neural foraminal n arrowing on the left. L5-S1: No disc herniations or bulges are present. No central spinal canal or neural foraminal stenosi s. The visualized SI joints and sacrum are well maintained. Soft tissues: The paraspinal soft tissues are unremarkable. Prominent sigmoid diverticulosis noted. Abdominal aorta normal in diameter. IMPRESSION: Disc bulging and facet degenerative changes as well as ligamentous hypertrophy combine to produce mil d central canal stenosis and neural foraminal narrowing at L4-5. DATA REPOSITORY:
--- NOTE | 2023-02-04 13:38 | DI.RAD_ITS ---
Exam(s) XR CHEST 2V PA LATERAL EXAM: XR CHEST 2V PA LATERAL CLINICAL HISTORY: increased SOB, hx breast ca, COPD, Z85.3, J44.9 TECHNIQUE: 2D digital imaging was performed. COMPARISON: CR XR CHEST 2V PA LATERAL from 10/14/2018 FINDINGS: HEART: Normal size. Mitral annular calcifications. Aorta: Tortuous PULMONARY VASCULATURE: Normal. LUNGS: Clear. PLEURAL SPACE: No pleural effusion or pneumothorax. BONE:Unremarkable for age. IMPRESSION: No acute abnormality. DATA REPOSITORY: RADIATION DOSE DELIVERED:
== END 2023-02-04 00:49 ==
LOC: DI 00:29
PROVIDERS: PCP Family Medicine; Visit Provider Physician Assistant Surgical
DX: M51.36 Other intervertebral disc degeneration, lumbar region (principal); M47.816 Spondylosis without myelopathy or radiculopathy, lumbar region; M48.061 Spinal stenosis, lumbar region without neurogenic claudication; R06.02 Shortness of breath; J44.9 Chronic obstructive pulmonary disease, unspecified; Z85.3 Personal history of malignant neoplasm of breast
CPT/HCPCS: 71046; 72148

== ENCOUNTER 2023-03-15 16:50 | Outpatient (REF) | payer MEDICARE, MEDICAID, SELFPAY ==
[2023-03-15 21:21] LABS: Abs Immature Grans 0.01 10^3/uL (0.0-0.06); Absolute Basophil Count 0.03 10^3/uL (0.0-0.2); Absolute Eosinophil Count 0.16 10^3/uL (0.0-0.7); Absolute Lymphocyte Count 1.81 10^3/uL (1.2-3.4); Absolute Monocyte Count 0.64 10^3/uL (0.1-0.8); Absolute Neutrophil Count 3.71 10^3/uL (1.2-6.7); Basophils % 0.5; Eosinophils % 2.5; HCT 38.6 % (36.0-46.0); Immature Grans % 0.2; Lymphocytes % 28.5; MCH 32.7 pg (27.0-33.0); MCHC 33.7 % (32.0-36.0); MCV 97 fL (80-95); MPV 11.5 fL (8.0-11.0); Monocytes % 10.1; Neutrophils % 58.2; Platelet Count 174 10^3/uL (130-400); RBC 3.98 10^6/uL (3.93-5.22); RDW 12.1 % (11.7-14.6); RDW-SD 43.1 fL; WBC 6.36 10^3/uL (4.4-10.8)
[2023-03-15 21:53] LABS: ALT 24 U/L (14-59); AST 21 U/L (15-37); Albumin 3.7 g/dL (3.4-5.0); Alkaline Phosphatase 62 U/L (46-116); Anion Gap 7.4 mmol/L (3-11); BUN 15 mg/dL (7-18); Bilirubin, Total 0.4 mg/dL (0.2-1.0); CO2 27.6 mmol/L (21.0-32.0); Calcium 9.3 mg/dL (8.5-10.1); Chloride 105 mmol/L (98-107); Estimated GFR 55.21 (mL/min/1.73m2); Glucose 96 mg/dL (74-106); NT-proBNP 484 pg/mL (<300); Potassium 4.2 mmol/L (3.5-5.1); Sodium 140 mmol/L (136-145); Total Protein 7.3 g/dL (6.4-8.2)
[2023-03-16 11:38] LABS: Hemoglobin A1C 5.4 % (<5.7)
== END 2023-03-15 16:51 | disposition home or self-care (01) ==
LOC: NCHCN 16:50
PROVIDERS: PCP Family Medicine; Visit Provider Family Medicine
DX: R73.03 Prediabetes (principal); R06.02 Shortness of breath; G47.33 Obstructive sleep apnea (adult) (pediatric)
CPT/HCPCS: 80053; 83036; 83880; 85025

== ENCOUNTER 2023-03-25 01:40 | Outpatient (CLI) | payer MEDICARE, MEDICAID, SELFPAY ==
--- NOTE | 2023-03-25 07:30 | DI.US_ITS ---
APPROVED REPORT EXAM: Comprehensive 2D, Doppler, and color-flow Echocardiogram Patient Location: Out-Patient Bight Maker: Moses Monterroso RDMS, RVT Indications: worsening SOB, Other Information Study Quality: Fair. Technically limited study due to body habitus. Conclusion Normal left ventricular wall thickness and chamber size. Estimated ejection fraction is 50 to 55%. No segmental wall motion abnormalities are identified Normal right ventricular size and systolic function Left atrium is mildly dilated. Right atrial size is normal Aortic valve is calcified. Number of aortic valve leaflets cannot be accurately determined. There i s severe aortic stenosis. Peak gradient 66, mean is 40 mmHg, calculated aortic valve area is 1.1 cm? ?. There is mild aortic regurgitation Severe mitral annular calcification. Trace mitral regurgitation Mildly dilated ascending aorta measuring 3.73 cm Estimated right ventricular systolic pressure is 28 mmHg Wall motion Left Ventricle Technically limited parasternal imaging. The overall left ventricular systolic function appears borde rline No segmental wall motion abnormalities. There is no ventricular septal defect visualized. LVEF is 50-55% Right Ventricle Right ventricle is grossly normal in size. Right ventricular systolic function is grossly normal. The RVSP is 28.1mmHg. Atria Left atrium is mildly dilated. Right atrium is normal in size The interatrial septum is intact with n o evidence for an atrial septal defect. Aortic Valve Aortic valve is calcified. Number of aortic valve leaflets could not be assessed. Severe aortic steno sis. Peak aortic valve gradient is 66.2 mmHg. Highest mean aortic valve gradient is 39.5 mmHg. Calcul ated aortic valve area is 1.14 centimeters squared. Mild aortic regurgitation. Mitral Valve Severe mitral annular calcification. No evidence of mitral valve stenosis. Trace mitral regurgitatio n. Tricuspid Valve The tricuspid valve is normal in structure. There is no tricuspid valve stenosis. Trace to mild tricu spid regurgitation. Pulmonic Valve Pulmonic valve is not well visualized. There is no pulmonic valvular stenosis. There is no pulmonic valvular regurgitation. Great Vessels The aortic root is normal in size. The ascending aorta is mildly dilated. Aortic arch is not well vis ualized. IVC is normal in size and collapses >50% with inspiration. Pericardium There is no pericardial effusion. Prominent anterior epicardial fat pad is present. 2D Dimensions Ao Root d 2.96 cm F: 2.7 - 3.3 LV Vol A2C d MOD 28.2 mL Ao Asc Diam d 3.73 cm F: 2.3 - 3.1 LV Vol A4C d MOD 80.0 mL LVEF (Peck's) 49.71 % F: 54 - 74 LA vol/ BSA A4C s A-L 37.8 mL/m2 LV Volume 41.80 mL F: 46 - 106 LA Area A4C s MOD 22.21 cm2 LV Volume Index 23.48 mL/m2 F: 29 - 61 LV EF A4C MOD 49.7 % LV Vol Biplane MOD 53.5 mL LV EF A2C MOD 45.1 % LV EF Biplane MOD 49.7 % SV 26.61 mL SV Index 14.95 mL/m2 M-Mode TAPSE 1.81 cm (M/F) >1.7 LV Diastology MV E' medial 0.040 (>0.07 m/s) E/A Ratio 0.6 LV E/e MED 24.45 (<14) MV E Vmax 0.98 (0.4-1.3 m/s) MV E' lateral 0.048 (>0.1 m/s) MV A Vmax 1.65 (0.4-1.3 m/s) LV E/e LAT 20.30 (<14) MV E/A Ratio 0.59 MV E/E' medial 24.49 MV E/E' lateral 20.34 Aortic Valve LVOT Area 3.16 cm2 AoV Area Vmax 1.14 cm2 LVOT Vmax 1.46 m/s AoV Area/ BSA (Vmax) 0.64 cm2/m2 LVOT Mean Simone. 1.01 m/s GINA Mean Simone. 1.07 cm2 LVOT Peak Grad 8.6 mmHg GINA Mean Simone. Index 0.60 cm2/m2 LVOT Mean Grad 4.7 mmHg AR DT 2241 msec LVOT VTI 0.316 m AR PHT 650 msec LVOT Diam s 2.00 cm AoV Vmax 4.07 m/s Velocity Ratio 0.36 AoV Mean Simone. 3.01 m/s AoV Peak Grad 66.2 mmHg LVOT SV 100.03 mL AoV Mean Grad 39.5 mmHg AoV VTI 0.886 m AoV Area VTI 1.13 cm2 AoV Area/ BSA (VTI) 0.63 cm/m2 Mitral Valve MV DT 420 (160-240 msec) MV PHT 122 msec MV Area PHT 1.81 cm2 MV VTI 0.539 m MV Area VTI 1.86 (4.0-6.0 cm2) Pulmonary Valve PV Vmax 1.30 (0.5-1.5 m/s) RVOT Peak Gr. 0.90 mmHg PV Peak Grad 6.7 mmHg RVOT Mean Gr. 0.45 mmHg PV Mean Grad 3.7 mmHg RVOT VTI 0.085 m PV VTI 0.278 m RVOT Vmax 0.47 m/s Tricuspid Valve TR Peak Grad 25.1 mmHg TR Vmax 2.51 m/s RA Pressure 3.00 mmHg RVSP (TR) 28.1 mmHg
== END 2023-03-25 02:00 ==
LOC: DI 01:40
PROVIDERS: PCP Family Medicine; Visit Provider Physician Assistant Surgical
DX: I35.0 Nonrheumatic aortic (valve) stenosis (principal)
CPT/HCPCS: 93306

== ENCOUNTER → 2023-05-11 14:55 | Outpatient (BNVA) | payer MEDICARE, MEDICAID, SELFPAY | PROVIDERS: PCP Family Medicine; Referring Provider Family Medicine; Visit Provider Nurse Practitioner Gerontology | DX: N39.46 Mixed incontinence (principal); R42 Dizziness and giddiness; I10 Essential (primary) hypertension; J44.9 Chronic obstructive pulmonary disease, unspecified | CPT/HCPCS: 51798; 99213 ==

== ENCOUNTER → 2023-06-11 17:14 | Outpatient (CLI) | payer MEDICARE, MEDICAID, SELFPAY ==
--- NOTE | 2023-06-11 | DI.US_ITS ---
Exam(s) US LOWER EXTREMITY VENOUS RT EXAM: US LOWER EXTREMITY VENOUS RT CLINICAL HISTORY: PULMONARY EMBOLISM, I26.99 TECHNIQUE: Grayscale, color, and doppler imaging of the deep venous system of the right lower extrem ity was performed. COMPARISON: US US ECHOCARDIOGRAM from 03/25/2023 FINDINGS: There is no evidence of intraluminal thrombus and there is normal compression and augmentation demons trated within the common femoral vein, femoral vein, and popliteal vein. In the ipsilateral calf the interrogated veins also exhibit normal compression/ augmentation properti es. The ipsilateral saphenofemoral junction is patent. IMPRESSION: 1. No evidence of DVT in the right lower extremity. DATA REPOSITORY:
== END ==
PROVIDERS: PCP Family Medicine; Visit Provider Family Medicine
DX: I26.99 Other pulmonary embolism without acute cor pulmonale (principal)
CPT/HCPCS: 93971

== ENCOUNTER → 2023-06-18 00:45 | Outpatient (CLI) | payer MEDICARE, MEDICAID, SELFPAY ==
--- NOTE | 2023-06-18 | DI.US_ITS ---
Exam(s) US LOWER EXTREMITY VENOUS LT EXAM: US LOWER EXTREMITY VENOUS LT CLINICAL HISTORY: PE, I26.99, PREOP TECHNIQUE: Left lower extremity venous ultrasound performed using grayscale, color-flow, and spectra l Doppler analysis. COMPARISON: There are no priors for comparison. FINDINGS: The left common femoral, femoral and popliteal veins demonstrate normal compressibility, augmentation , and color Doppler. The posterior tibial and peroneal veins are patent. The saphenofemoral junction is unremarkable. There is no evidence of a Handy cyst. The soft tissues are unremarkable. IMPRESSION: No evidence of a left lower extremity DVT. DATA REPOSITORY:
== END ==
PROVIDERS: PCP Family Medicine; Visit Provider Family Medicine
DX: I26.99 Other pulmonary embolism without acute cor pulmonale (principal)
CPT/HCPCS: 93971

== ENCOUNTER 2023-08-19 13:23 | Outpatient (REF) | payer MEDICARE, MEDICAID, SELFPAY ==
[2023-08-19 14:33] LABS: HCT 36.7 % (36.0-46.0); HGB 12.2 g/dL (11.2-15.7); MCH 32.1 pg (27.0-33.0); MCHC 33.2 % (32.0-36.0); MCV 97 fL (80-95); MPV 10.3 fL (8.0-11.0); Platelet Count 151 10^3/uL (130-400); RDW 12.8 % (11.7-14.6); RDW-SD 45.4 fL; WBC 6.14 10^3/uL (4.4-10.8)
[2023-08-19 15:10] LABS: Hemoglobin A1C 5.3 % (<5.7)
[2023-08-19 15:22] LABS: BUN 14 mg/dL (7-18); Calcium 9.5 mg/dL (8.5-10.1); Chloride 106 mmol/L (98-107); Estimated GFR 55.21 (mL/min/1.73m2); Glucose 98 mg/dL (74-106); Potassium 4.1 mmol/L (3.5-5.1); Sodium 143 mmol/L (136-145)
== END 2023-08-19 13:24 | disposition home or self-care (01) ==
LOC: NCHCN 13:23
PROVIDERS: PCP Family Medicine; Visit Provider Family Medicine
DX: R73.03 Prediabetes (principal); Z95.2 Presence of prosthetic heart valve; R42 Dizziness and giddiness
CPT/HCPCS: 80048; 85027; 83036

== ENCOUNTER 2023-09-30 08:40 | Outpatient (CLI) | payer MEDICARE, MEDICAID, SELFPAY ==
--- NOTE | 2023-09-30 08:30 | RT.EKG_ITS ---
APPROVED REPORT Exam: Resting ECG Reason for Exam: HTN Patient Location: O HR:75 bpm ECG Measurements Heart Rate 75 AXIS AZ 165 P -1 QRSd 101 QRS -5 QT 413 T -14 QTc 462 Conclusion Sinus rhythm...normal P axis, V-rate 50- 99 Borderline low voltage, extremity leads...all extremity leads <0.6mV Poor R wave progression
== END 2023-09-30 08:41 | disposition home or self-care (01) ==
LOC: DI.CARD 08:41
PROVIDERS: PCP Family Medicine; Visit Provider Internal Medicine Cardiovascular Disease
DX: I10 Essential (primary) hypertension (principal); I35.0 Nonrheumatic aortic (valve) stenosis
CPT/HCPCS: 93010

== ENCOUNTER → 2023-09-30 09:17 | Outpatient (BNVA) | payer MEDICARE, MEDICAID, SELFPAY | PROVIDERS: PCP Family Medicine; Referring Provider Family Medicine; Visit Provider Internal Medicine Cardiovascular Disease | DX: I73.9 Peripheral vascular disease, unspecified (principal); Z95.2 Presence of prosthetic heart valve; G47.33 Obstructive sleep apnea (adult) (pediatric); J44.9 Chronic obstructive pulmonary disease, unspecified | CPT/HCPCS: 93005; 99213 ==

== ENCOUNTER → 2023-11-16 13:53 | Outpatient (BNVA) | payer MEDICARE, MEDICAID, SELFPAY | PROVIDERS: PCP Family Medicine; Visit Provider Nurse Practitioner Gerontology | DX: N39.46 Mixed incontinence (principal) | CPT/HCPCS: 51798; 99214 ==

== ENCOUNTER → 2023-12-31 09:58 | Outpatient (BNVA) | payer MEDICARE, MEDICAID, SELFPAY | PROVIDERS: PCP Family Medicine; Referring Provider Family Medicine; Visit Provider Internal Medicine Cardiovascular Disease | DX: Z95.2 Presence of prosthetic heart valve (principal); R32 Unspecified urinary incontinence; G47.33 Obstructive sleep apnea (adult) (pediatric) | CPT/HCPCS: 99213 ==

== ENCOUNTER → 2024-01-11 15:19 | Outpatient (BNVA) | payer MEDICARE, MEDICAID, SELFPAY | PROVIDERS: PCP Family Medicine; Referring Provider Family Medicine; Visit Provider Nurse Practitioner Gerontology | DX: N39.46 Mixed incontinence (principal) | CPT/HCPCS: 51798; 81003; 99213 ==

== ENCOUNTER 2024-01-19 15:44 | Outpatient (CLI) | payer MEDICARE, MEDICAID, SELFPAY ==
--- NOTE | 2024-01-19 06:00 | DI.RAD_ITS ---
Exam(s) XR PAIN CLINIC LUMBAR SP 2V EXAM: XR PAIN CLINIC LUMBAR SP 2V CLINICAL HISTORY: DX: Lumbar radiculopathy. TECHNIQUE: Fluoroscopy was provided for the referring physician for guidance with performing pain cl inic injection procedure. COMPARISON: No exams were available for comparison FINDINGS: Please see procedure note for details. Fluoro time: 15.4 seconds RADIATION DOSE DELIVERED: Ka,r=6.84 mGy
[2024-01-19 15:53] VITALS: BP 140/86; PULSE 71; RESP 20; TEMP 36.8; O2SAT 96
--- NOTE | 2024-01-19 16:23 | PDOC.PAIN_ITS ---
Date of service: 01/19/24 Time of Service: 16:23 Pain Managment Procedure Note Procedure Note Procedure Note: PROCEDURE NOTE LUMBAR EPIDURAL STEROID INJECTION Date of Service: January 19, 2024 Patient:Roxanne Khan? Provider: Luis Carlos Carrington DO, MPH Roxanne Pollack has been referred to the [facility] for a lumbar epidural steroid injection. Pre-operative diagnosis: Lumbosacral Radiculopathy Post-operative diagnosis: Same Pre-Procedure Pain: VAS= 7/10 Comments: I previously evaluated her in the office. Her symptoms are the same. Roxanne was interviewed and the medical record was reviewed.? There were no medical, pharmacologic, radiographic or other structural contraindications to attempting fluoroscopically guided Lumbar epidural steroid injection.? Risks, potential side effects, indications, and potential benefits of the procedure were reviewed with Roxanne.? Questions and concerns were addressed.? After it was clear that Roxanne was fully informed about the procedure, the printed consent form was signed by the patient and myself.? Roxanne was placed in the prone position on the fluoroscopy table and automated blood pressure cuff and pulse oximeter applied. The skin entry point for entering/approaching the epidural space for the lumbar epidural steroid injection was marked. Following thorough chlorhexadine preparation of the skin and draping and 1% lidocaine infiltration of the skin entry point and subcutaneous tissues, an 18 gauge Touhy needle was placed and advanced under fluoroscopic guidance and with loss of resistance technique into the L5-S1 epidural space. Needle tip placement and depth were aided and confirmed by fluoroscopy. There was no paresthesia or return of blood or CSF through the needle. 1 mls of Omnipaque 240 was injected with clear epidural spread confirmed with fluoroscopy. 80 mg of Depo-Medrol was? injected. This was followed by 1 ml of preservative-free normal saline to flush the steroid out of the needle. There was no unusual discomfort expressed by Roxanne. The needle was withdrawn without difficulty. (49 mls of Omnipaque was wasted) Roxanne was observed and was without hemodynamic, neurologic, or allergic reactions.? Fluoroscopic images were digitally archived. Roxanne's vital signs were stable throughout the procedure and were as recorded in nursing records. Follow up plans and appointments were discussed with Roxanne. Post procedure instruction was given as documented in nursing records and having met discharge criteria Roxanne was discharged from the [facility]. COMMENTS: No apparent complications. Post-procedure pain: VAS= 0/10. Roxanne to contact [facility] as needed. If at least 50% improvement in pain and/or function for at least 3 months is achieved, this procedure can be repeated. I personally performed this entire procedure. LUIS CARLOS CARRINGTON DO, MPH ABPMR-subspecialty board certification in Pain Medicine [facility]
[2024-01-19 16:35] VITALS: BP 160/97; PULSE 86; RESP 22; O2SAT 90
[2024-01-19] MEDS: Epidural Tray 1 EACH MC (16:37)
[2024-01-19] MEDS: methylPREDNISolone ACETATE 80 MG/ML VIAL IJ (16:37)
[2024-01-19] MEDS: Omnipaque 240 MG/ML 50 ML BTL IJ (16:38)
== END 2024-01-19 15:45 | disposition home or self-care (01) ==
LOC: PC 15:45
PROVIDERS: PCP Family Medicine; Visit Provider Preventive Medicine Occupational Medicine
DX: M54.50 Low back pain, unspecified (principal); M54.17 Radiculopathy, lumbosacral region
CPT/HCPCS: 00123; 62323; 72100; J1040; Q9967

== ENCOUNTER 2024-02-29 13:40 | Outpatient (REF) | payer MEDICARE, MEDICAID, SELFPAY ==
[2024-02-29 14:49] LABS: HCT 39.2 % (36.0-46.0); HGB 13.1 g/dL (11.2-15.7); MCH 32.3 pg (27.0-33.0); MCHC 33.4 % (32.0-36.0); MCV 97 fL (80-95); MPV 10.4 fL (8.0-11.0); Platelet Count 210 10^3/uL (130-400); RBC 4.05 10^6/uL (3.93-5.22); RDW 12.4 % (11.7-14.6); RDW-SD 43.5 fL; WBC 8.85 10^3/uL (4.4-10.8)
[2024-02-29 15:14] LABS: ALT 27 U/L (14-59); AST 25 U/L (15-37); Albumin 3.7 g/dL (3.4-5.0); Alkaline Phosphatase 73 U/L (46-116); Anion Gap 9.6 mmol/L (3-11); BUN 14 mg/dL (7-18); Bilirubin, Total 0.5 mg/dL (0.2-1.0); CO2 27.4 mmol/L (21.0-32.0); CREATININE 1.1 mg/dL (0.55-1.02); Calcium 9.4 mg/dL (8.5-10.1); Chloride 106 mmol/L (98-107); Estimated GFR 48.94 (mL/min/1.73m2); Glucose 95 mg/dL (74-106); Potassium 3.8 mmol/L (3.5-5.1); Sodium 143 mmol/L (136-145); TSH (W/Ref FT4) 0.15 uIU/mL (0.36-3.74); Total Protein 7.1 g/dL (6.4-8.2)
[2024-02-29 15:33] LABS: FREE T4 1.52 ng/dL (0.76-1.46)
== END 2024-02-29 13:41 | disposition home or self-care (01) ==
LOC: NCHCN 13:40
PROVIDERS: PCP Family Medicine; Visit Provider Family Medicine
DX: I10 Essential (primary) hypertension (principal); E03.9 Hypothyroidism, unspecified
CPT/HCPCS: 80053; 85027; 84439; 84443

== ENCOUNTER → 2024-05-01 09:14 | Outpatient (BNVA) | payer MEDICARE, MEDICAID, SELFPAY | PROVIDERS: PCP Family Medicine; Visit Provider Internal Medicine Cardiovascular Disease | DX: Z95.2 Presence of prosthetic heart valve (principal); J44.9 Chronic obstructive pulmonary disease, unspecified; M48.061 Spinal stenosis, lumbar region without neurogenic claudication | CPT/HCPCS: 99213 ==

== ENCOUNTER → 2024-05-16 14:25 | Outpatient (BNVA) | payer MEDICARE, MEDICAID, SELFPAY | PROVIDERS: PCP Family Medicine; Visit Provider Nurse Practitioner Gerontology | DX: N39.46 Mixed incontinence (principal) | CPT/HCPCS: 51798; 99213 ==

== ENCOUNTER 2024-06-23 15:13 | Emergency (ER) | payer MEDICARE, MEDICAID, SELFPAY ==
[2024-06-23] VITALS (29 sets, daily range): BP systolic 176–229; BP diastolic 79–108; PULSE 69–86; RESP 2–28; TEMP 36.6; O2SAT 87–98
--- NOTE | 2024-06-23 15:00 | RT.EKG_ITS ---
APPROVED REPORT Exam: Resting ECG Reason for Exam: BP problem? Patient Location: E HR:77 bpm ECG Measurements Heart Rate 77 AXIS UT 178 P 43 QRSd 104 QRS -6 QT 401 T 5 QTc 455 Conclusion Sinus rhythm...normal P axis, V-rate 60- 99
--- NOTE | 2024-06-23 15:30 | DI.RAD_ITS ---
Exam(s) XR PORTABLE CHEST AP EXAM: XR PORTABLE CHEST AP CLINICAL HISTORY: CP, SOB TECHNIQUE: 2D digital imaging was performed. COMPARISON: No exams were available for comparison FINDINGS: Exam limited by under penetration and overlying monitoring leads. LUNGS: Clear. No pleural abnormality seen. HEART: Normal size. Mitral annulus is heavily calcified. AORTA: Normal diameter. Tortuous, calcification at arch. BONES: Unremarkable for age. Soft tissues: Unremarkable. IMPRESSION: No acute findings. DATA REPOSITORY: RADIATION DOSE DELIVERED:
--- NOTE | 2024-06-23 15:49 | W.ED.GENAD ---
Discharge Plan Disposition Patient Disposition: Home Condition: Stable Discharge Details Clinical Impression: Fatigue, Dyspnea Primary Care Provider: Gideon Becerra ED Provider: Radha Moise Home Meds and New Rx's Prescriptions: Continued albuterol sulfate 90 mcg/actuation HFA aerosol inhaler 2 puff inhalation Q6H PRN magnesium 250 mg tablet 250 mg PO DAILY vitamin B complex Tablet 1 tab PO DAILY losartan-hydrochlorothiazide 100-12.5 mg tablet 0.5 tab PO DAILY simvastatin [Zocor] 20 MG tablet 20 mg PO HS levothyroxine 112 mcg capsule 112 mcg PO DAILY aspirin 81 mg tablet,delayed release (DR/EC) 81 mg PO DAILY mirabegron [Myrbetriq] 25 mg tablet extended release 24 hr 25 mg PO DAILY Qty: 90 3RF acetaminophen [Tylenol Extra Strength] 500 MG tablet 500 mg PO HS Chewable-Albert 1 TAB tablet,chewable 1 tab PO DAILY ondansetron 4 mg Tablet,Disintegrating 4 mg PO Q6H PRN meclizine 25 mg tablet 25 mg PO BID PRN (Reason: dizziness) Qty: 8 0RF Discharge Instructions Instructions: Shortness of Breath, Adult ED, Fatigue ED Additional Instructions: Please Take a whole tablet of the Losarten over the weekend and discuss this with your PCP on Wednesday or Wednesday. No evidence of heart attack or UTI today. No signs of pneumonia or infection. Follow up with primary care provider in 3-5 days. Return to ED sooner if any worsening or concerns. Please check your blood pressure daily at the same time every day. Continue with your other previously prescribed medications. Referrals: Gideon Becerra MD [Primary Care Provider] - 3 days HPI General Mode of arrival: ambulatory. Date/Time Provider Initiated Documentation: 06/23/24 15:40. Limitations to Documentation: no limitations. Information obtained by: patient, RN notes reviewed and old records reviewed. HPI Narrative: 84 year old female presents with her friend with a cc of generalized fatigue x 1 month, increased SOB up to the point of having a hard time performing ADL's, Leg cramps, and headache. Also c/o Right breast pain similar to when they found breast cancer in her left breast. PMHX includes PE, Obesity, HTN, Hyperlipidemia, HTN, Left side Breast CA. Denies any n/v/d, dysuria, or other associated symptoms. Related Data Home Medications ?Medication ?Instructions ?Recorded ?Confirmed simvastatin 20 mg tablet (Zocor) 20 mg PO HS 06/14/14 06/23/24 acetaminophen 500 mg tablet 500 mg PO HS 04/06/18 06/23/24 (Tylenol Extra Strength) multivitamin (Chewable-Albert tablet) 1 tab PO DAILY 04/06/18 06/23/24 meclizine 25 mg tablet 25 mg PO BID PRN dizziness #8 tabs 08/18/21 06/23/24 ondansetron 4 mg disintegrating 4 mg PO Q6H PRN 08/18/21 06/23/24 tablet levothyroxine 112 mcg capsule 112 mcg PO DAILY 09/10/21 06/23/24 albuterol sulfate 90 mcg/actuation 2 puff inhalation Q6H PRN 10/06/21 06/23/24 aerosol inhaler magnesium 250 mg tablet 250 mg PO DAILY 11/10/22 06/23/24 vitamin B complex 1 tab PO DAILY 11/10/22 06/23/24 aspirin 81 mg tablet,delayed 81 mg PO DAILY 08/27/23 06/23/24 release losartan 100 0.5 tab PO DAILY 01/11/24 06/23/24 mg-hydrochlorothiazide 12.5 mg tablet mirabegron 25 mg tablet,extended 25 mg PO DAILY #90 tabs 03/28/24 06/23/24 release 24 hr (Myrbetriq) Previous Rx's ?Medication ?Instructions ?Recorded meclizine 25 mg tablet 25 mg PO BID PRN dizziness #8 tabs 08/18/21 mirabegron 25 mg tablet,extended 25 mg PO DAILY #90 tabs 03/28/24 release 24 hr (Myrbetriq) Allergies Allergy/AdvReac Type Severity Reaction Status Date / Time anastrozole (From Arimidex) Allergy Unknown Other (See Verified 05/16/24 14:36 Comment) tamoxifen (Tamoxifen) Allergy Unknown Other (See Verified 05/16/24 14:36 Comment) umeclidinium (From Incruse AdvReac Intermediate body aches Verified 05/16/24 14:36 Ellipta) lisinopril AdvReac COUGH Verified 05/16/24 14:36 propoxyphene HCl (From AdvReac VOMITING Verified 05/16/24 14:36 Darvoquita) General Stated Complaint: GenMedical ARJUN: 3 Review of Systems All systems reviewed & are unremarkable except as noted in HPI and below Constitutional Constitutional: Reports as per HPI, Reports fatigue, Reports headache(s) and Reports lethargy ENT Ears, Nose, Mouth, and Throat: Reports headache(s) Cardiovascular Cardiovascular: Reports dyspnea and Reports dyspnea on exertion Respiratory Respiratory: Reports dyspnea and Reports dyspnea on exertion Gastrointestinal Gastrointestinal: Denies diarrhea, Denies nausea and Denies vomiting Neurologic Neurologic: Reports headache(s) Endocrine Endocrine: Reports fatigue Exam Narrative Exam Narrative: Constitutional: Alert and oriented x3. Appears stated age. Normal body habitus. Head: Normocephalic, no trauma. Eyes: Pupils PERRL, Red reflex noted, EOM's intact. Eyelids symmetrical without lesions, discharge, or swelling. ENT: Bilateral TM's WNL, External ear normal to inspection, no mastoid TTP, swelling, or erythema, Nasal turbinates WNL, no nasal discharge. Normal dentition, Posterior pharynx WNL, no exudate. Chest: RRR, Normal S1, S2, distal pulses intact. Resp: Lungs clear to auscultation bilaterally, no wheezes, rales, or rhonchi. Abdomen: Soft, non-distended, Normoactive bowel sounds all 4 quads. Musculoskeletal: Normal gait, Moves all 4 extremities without difficulty. Skin: No suspicious rashes or lesions. Capillary refill less than 2 sec. Neurologic: Cranial nerves II-XII intact. Alert and oriented x 3. Motor: No deficits noted. Sensory: Intact bilaterally all 4 extremities. Hematologic/Lymphatic: No ecchymosis, no lymphadenopathy. Course Vital Signs Vital signs: Vital Signs Temperature 36.6 C 06/23/24 15:14 Pulse 86 06/23/24 15:14 Respiratory Rate 18 06/23/24 15:14 Blood Pressure 195/91 H 06/23/24 15:14 Pulse Oximetry 98 06/23/24 15:14 Temperature 36.6 C 06/23/24 15:14 Temperature Source Temporal Artery Scan 06/23/24 15:14 Pulse 75 06/23/24 15:39 Pulse 74 06/23/24 15:40 Respiratory Rate 26 H 06/23/24 15:40 Respiratory Effort Normal, Non-Labored 06/23/24 15:39 Respiratory Depth Normal 06/23/24 15:39 Respiratory Pattern Normal 06/23/24 15:39 Blood Pressure 195/91 H 06/23/24 15:14 Blood Pressure Position Sitting 06/23/24 15:14 Pulse Oximetry 91 L 06/23/24 15:40 Oxygen Delivery Method Room Air 06/23/24 15:39 Oxygen Flow Rate 0 06/23/24 15:14 Pain Level 6 06/23/24 15:39 Medical Decision Making 84 year old female presents with her friend with a cc of generalized fatigue x 1 month, increased SOB up to the point of having a hard time performing ADL's, Leg cramps, and headache. Also c/o Right breast pain similar to when they found breast cancer in her left breast. PMHX includes PE, Obesity, HTN, Hyperlipidemia, HTN, Left side Breast CA. Denies any n/v/d, dysuria, or other associated symptoms. Workup ordered including CBC, cmp, troponins, CXR, Pro BNP. No leukocytosis, RBCs 3.91, CMP within normal limits, proBNP 468, troponin less than 50 urinalysis shows no evidence of UTI, negative for COVID flu RSV. Chest x-ray within normal limits. I did instruct patient to double up on her blood pressure medication as this may be the cause for her shortness of breath. Patient received a DuoNeb here. O2 sat is borderline around 92 to 94% on room air. I did encourage follow-up with primary care provider they verbalized understanding. Patient discharged in hemodynamically stable condition. This text was generated using [employer] dictation system, please disregard any oddities of phrase or misspellings. Medical Records Medical records reviewed: Yes I reviewed the patient's medical records. Lab Data Lab results reviewed: Yes I reviewed the patient's lab results. Labs: Laboratory Tests Range/Units 06/23/24 06/23/24 06/23/24 16:14 16:42 18:15 WBC (4.4-10.8) 10^3/uL 6.34 RBC (3.93-5.22) 10^6/uL 3.91 L Hgb (11.2-15.7) g/dL 12.9 Hct (36.0-46.0) % 38.1 MCV (80-95) fL 97 H MCH (27.0-33.0) pg 33.0 MCHC (32.0-36.0) % 33.9 RDW (11.7-14.6) % 12.5 Plt Count (130-400) 10^3/uL 141 MPV (8.0-11.0) fL 10.0 Immature Gran % % 0.3 Neutrophils % % 58.1 Lymphocytes % % 30.4 Monocytes % % 8.2 Eosinophils % % 2.5 Basophils % % 0.5 Nucleated RBC % (0.0-0.3) % 0.0 Absolute Neutrophils (1.2-6.7) 10^3/uL 3.68 Absolute Lymphocytes (1.2-3.4) 10^3/uL 1.93 Absolute Monocytes (0.1-0.8) 10^3/uL 0.52 Absolute Eosinophils (0.0-0.7) 10^3/uL 0.16 Absolute Basophils (0.0-0.2) 10^3/uL 0.03 Sodium (136-145) mmol/L 139 Potassium (3.5-5.1) mmol/L 3.7 Chloride (98-107) mmol/L 102 Carbon Dioxide (21.0-32.0) mmol/L 29.7 Anion Gap (3-11) mmol/L 7.3 BUN (7-18) mg/dL 13 Creatinine (0.55-1.02) mg/dL 1.0 Est GFR (CKD-EPI 2020) (mL/min/1.73m2) 54.87 Glucose (74-106) mg/dL 92 Calcium (8.5-10.1) mg/dL 9.9 Magnesium (1.8-2.4) mg/dL 2.1 Total Bilirubin (0.2-1.0) mg/dL 0.46 AST (15-37) U/L 19 ALT (14-59) U/L 19 Alkaline Phosphatase (46-116) U/L 60 Troponin I (< or =60) ng/L < 50 NT-Pro-B Natriuret Pep (<300) pg/mL 468 H Total Protein (6.4-8.2) g/dL 6.9 Albumin (3.4-5.0) g/dL 3.5 Urine Color (Yellow) Yellow Urine Clarity (Clear) Clear Urine pH (5-8) 7.0 Ur Specific [place] (1.005-1.025) 1.015 Urine Protein (Neg-Trace) mg/dL Negative Urine Ketones (Negative) mg/dL Negative Urine Blood (Negative) Negative Urine Nitrite (Negative) Negative Urine Bilirubin (Negative) Negative Urine Urobilinogen (Up to 0.2) mg/dL 0.2 Ur Leukocyte Esterase (Negative) Negative Urine Glucose (Negative) mg/dL Negative COVID-19 Source Nasopharynx SARS-CoV-2 (PCR) (Negative) Negative Influenza Type A (PCR) (Negative) Negative Influenza Type B (PCR) (Negative) Negative RSV (PCR) (Negative) Negative Quality:SDOH Health Related Social Needs: No Data to Display PFSH All Active Problems (Updated 06/23/24 @ 18:33 by Radha Moise NP) Dyspnea (Acute) Fatigue (Acute) OPAL (obstructive sleep apnea) (Chronic) Severe aortic stenosis (Acute) Lumbar spondylosis (Acute) Spinal stenosis at L4-L5 level (Acute) Nocturnal hypoxia (Acute) Mixed stress and urge urinary incontinence (Acute) Vertigo (Acute) Nausea & vomiting (Acute) Trigger middle finger of left hand (Acute ~05/2020) Trigger thumb of left hand (Acute ~05/2020) Cognitive impairment (Acute) Vertigo (Acute) Persistent headaches (Acute) FEMI (acute kidney injury) (Acute) Advance directive discussed with patient (Acute) DVT prophylaxis (Acute) Osteoporosis (Chronic) Urinary incontinence (Chronic) History of breast cancer (Chronic) Peripheral neuropathy (Chronic) Aortic stenosis (Chronic) Cataract (Chronic) Dyslipidemia (Chronic) Hypertension (Chronic) Hypothyroidism (Chronic) COPD (chronic obstructive pulmonary disease) (Chronic) Medical History Pulmonary embolism Cataracts, bilateral Breast cancer, left History of alcoholism Dilated aortic root Trigger finger Generalized psoriasis Trochanteric bursitis Hip joint pain Obesity Hypermagnesemia Constipation Memory impairment Headache Edema Osteoarthritis of knee Hx of head injury Dizziness Nausea and vomiting Hyperlipemia HTN (hypertension) Surgical History S/P TAVR (transcatheter aortic valve 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
--- OUTSIDE RECORDS SUMMARY | 2024-06-23 16:23 | XMS_ITS | Referral Summary ---
Author Organization [facility] Address [address] [place] [address] Care Team Providers Care Can Intake Worker Name Role Phone Gill Murphy MD Primary Care Provider [phone] Social History Tobacco Use Types Packs/Day Years Used Date Smoking Tobacco: Never Assessed Sex and Gender Information Value Date Recorded Sex Assigned at Not on file Gender Identity Not on file Sexual Orientation Not on file Plan of Treatment Not on file Care Teams Can Intake Worker Relationship Specialty Start Date End Date Gill Murphy MD [address] [place] [phone] PCP - General 09/10/15
--- OUTSIDE RECORDS SUMMARY | 2024-06-23 16:23 | XMS_ITS | Encounter Summary ---
Author Organization [facility] Address [address] [place] [address] Care Team Providers Care Staffing Mgr Name Role Phone Unavailable Primary Care Provider Unavailabl e Encounter Details Date Type Department Care Team (Late st Contact Info) Description 09/09/2006 Results Only [facility] [address] [place] [address] Phan Onofre MD [address] [place] [id number] Social History Tobacco Use Types Packs/Day Years Used Date Smoking Tobacco: Never Assessed Sex and Gender Information Value Date Recorded Sex Assigned at Not on file Gender Identity Not on file Sexual Orientation Not on file documented as of this encounter Plan of Treatment Not on file documented as of this encounter Procedures Procedure Name Priority Date/Time Associated Diagnosis Comments SURGICAL PATHOLOGY Routine 09/09/2006 0:00 EST documented in this encounter Results * SURGICAL PATHOLOGY (09/09/2006 0:00 EST) Pathology Report: SURGICAL PATHOLOGY REPORT Reports generated via electronic interface contain original data; however they are lacking the format of the original report. Caution should be taken when reading/interpreting unformatted reports. Name: ? YVES POLLACK ? Accession #: ? [id number] ? : ? 1940 (Age: 66) ??F ? Collect Date: ? 09/09/2006 ? Location: ? [facility] ? Receive Date: ? 09/10/2006 ? Provider: PHAN ONOFRE MD Copy to: SOFIA WARNER MD ? Final Pathologic Diagnosis: ? Gallbladder, cholecystectomy: 1. ?Subacute and chronic transmural cholecystitis with granulation tissue and organizing serositis. ??See comment. 2. ? Cholelithiasis. Comment: ? This case was reviewed at intradepartmental consultation conference. ??(Dr. Lopes)/[facility] Document reviewed and electronically signed by: Faloln Lopes MD Report ??Date: 09/14/2006 17:33 By the signature above, the attending physician certifies that he/she has personally conducted a gross and/or microscopic examination of the described specimens and rendered or confirmed the above diagnosis. Specimen(s) Received: ? Gallbladder Clinical History: ? Acute cholecystitis Gross Description: ? Received in formalin labelled Ranjeet and gallbladder is an 8.5 cm in length and 3.5 cm in diameter gallbladder. ??The serosa is diffusely toussaint and dusky and there is a 2.0 x 1.5 cm jagged defect located 2.0 cm from the cystic duct. ??There is also a 0.5 cm in diameter jagged defect at the base of the gallbladder. ??The mucosa is toussaint-white and focally covered with fibrinous exudate. ??The wall averages 0.2 cm in thickness. ??Within the gallbladder, there is a 2.5 x 2.0 x 1.5 cm flat, granular, ovoid cholelith. ??The cystic duct is 1.0 cm in length and 0.7 cm in diameter and no cystic duct lymph node is noted. ??Two customer engagement representative sections of the gallbladder wall and one cross section of the cystic duct margin are submitted in one cassette. (Dr. Rivera-GUILLERMO)/mpl End of Report [facility] 09/09/2006 09/10/2006 7:1 4 EST Phan Onofre MD PATHOLOGY ORDERABLE S Performing Organization Address City/State/[facility] Co de Phone Number [id number] [address] documented in this encounter Visit Diagnoses Not on filedocumented in this encounter
--- OUTSIDE RECORDS SUMMARY | 2024-06-23 16:23 | XMS_ITS | Encounter Summary ---
Author Organization [facility] Address [address] [place] [address] Care Team Providers Care Administrative Assistant Front Desk Name Role Phone Gill Murphy MD Primary Care Provider [phone] Encounter Details Date Type Department Care Team (Late st Contact Info) Description 07/30/2022 Lab Requisition [facility] Pathology & Laboratory Medicine - [facility] [address] [place] [address] Outr Resulting Lab, Provider Social History Tobacco Use Types Packs/Day Years Used Date Smoking Tobacco: Never Assessed Sex and Gender Information Value Date Recorded Sex Assigned at Not on file Gender Identity Not on file Sexual Orientation Not on file documented as of this encounter Plan of Treatment Not on file documented as of this encounter Procedures Procedure Name Priority Date/Time Associated Diagnosis Comments VITAMIN D (25,OH) Routine 07/30/2022 13: 52 EDT documented in this encounter Results * VITAMIN D (25,OH) (07/30/2022 13:52 EDT) 25OH Vitamin D Tot 43 30 - 100 ng/mL 07/31/2022 10:28 EDT [facility] Comment: Vitamin D 25,OH Interpretive Ranges: Deficiency: ??<10.0 ng/mL Insufficiency: ??10.0 - 30.0 ng/mL Sufficiency: ??30.0 - 100.0 ng/mL Toxicity: ??>100.0 ng/mL Blood VENOUS BLOOD / Unknown 07/30/2022 13:52 EDT 07/30/2022 20:41 EDT Provider Outr Resulting Lab CHEMISTRY & BLOOD GAS ORDERABLES [facility] [address] [place] [address] documented in this encounter Visit Diagnoses Not on filedocumented in this encounter Care Teams Administrative Assistant Front Desk Relationship Specialty Start Date End Date Gill Murphy MD [address] [place] [phone] PCP - General 09/10/15 documented as of this encounter
--- OUTSIDE RECORDS SUMMARY | 2024-06-23 16:23 | XMS_ITS | Encounter Summary ---
Author Organization [facility] Address [address] [place] [address] Care Team Providers Care Fuel Injection Servicer Name Role Phone Unavailable Primary Care Provider Unavailabl e Encounter Details Date Type Department Care Team (Late st Contact Info) Description 07/05/2002 Results Only [facility] Medicine - [address] [address] Gill Murphy MD [address] [place] [phone] Social History Tobacco Use Types Packs/Day Years Used Date Smoking Tobacco: Never Assessed Sex and Gender Information Value Date Recorded Sex Assigned at Not on file Gender Identity Not on file Sexual Orientation Not on file documented as of this encounter Plan of Treatment Not on file documented as of this encounter Procedures Procedure Name Priority Date/Time Associated Diagnosis Comments CYTOPATHOLOGY Routine 07/05/2002 0:00 EDT documented in this encounter Results * CYTOPATHOLOGY (07/05/2002 0:00 EDT) Pathology Report: CYTOPATHOLOGY REPORT Reports generated via electronic interface contain original data; however they are lacking the format of the original report. Caution should be taken when reading/interpreti ng unformatted reports. Name: ? YVES POLLACK ? Accession #: ? [id number] : ? 1940 (Age: 62) ??F ?Collect Date: ? 07/05/2002 Location: ? [facility] ? Receive Date: ? 07/07/2002 Provider: ?GILL MURPHY MD Copy to: ? Specimen/Source: ?ThinPrep Pap Test, Endocervix Last Menstrual Period: ? Other: ? Additional clinical information: Small endocervical polyp HPVL - HPV testing requested if LSIL/ASCUS/SLIME on the current ThinPrep Pap test. ? SPECIMEN ADEQUACY ? Satisfactory for Evaluation - transformation zone component present - scant squamous epithelial component GENERAL CATEGORIZATION ? Negative for Intraepithelial Lesion or Malignancy ? Document reviewed and electronically signed by: ? DARCIE Carvalho(ASCP) ? Report Date: ??07/10/2002 11:49 End of Report [facility] 07/05/2002 07/07/2002 Gill Murphy MD PATHOLOGY ORDERABLES [facility] [address] [place] [address] documented in this encounter Visit Diagnoses Not on filedocumented in this encounter
--- OUTSIDE RECORDS SUMMARY | 2024-06-23 16:23 | XMS_ITS | Clinical Summary ---
Author Organization [facility] Address [address] [place] [address] Care Team Providers Care Lead Blender Name Role Phone Gill Murphy MD Primary Care Provider [phone] Social History Tobacco Use Types Packs/Day Years Used Date Smoking Tobacco: Never Assessed Sex and Gender Information Value Date Recorded Sex Assigned at Not on file Gender Identity Not on file Sexual Orientation Not on file Plan of Treatment Health Maintenance Due Date Last Done Comments RSV Immunization ( o r 60+ Years) (1 - 1-dose 60+ series) 1998 Fall Risk Screening 2003 COVID-19 Vaccine (2022-24 season) 2023 Care Teams Lead Blender Relationship Specialty Start Date End Date Gill Murphy MD [address] [place] [phone] PCP - General 09/10/15
--- OUTSIDE RECORDS SUMMARY | 2024-06-23 16:23 | XMS_ITS | Encounter Summary ---
Author Organization [facility] Address [address] [place] [address] Care Team Providers Care Resourcing Consultant Name Role Phone Unavailable Primary Care Provider Unavailabl e Encounter Details Date Type Department Care Team (Late st Contact Info) Description 07/15/2004 Results Only [facility] Medicine - [address] [address] Gill Murphy MD [address] [place] [phone] Social History Tobacco Use Types Packs/Day Years Used Date Smoking Tobacco: Never Assessed Sex and Gender Information Value Date Recorded Sex Assigned at Not on file Gender Identity Not on file Sexual Orientation Not on file documented as of this encounter Plan of Treatment Not on file documented as of this encounter Procedures Procedure Name Priority Date/Time Associated Diagnosis Comments CYTOPATHOLOGY Routine 07/15/2004 0:00 EDT documented in this encounter Results * CYTOPATHOLOGY (07/15/2004 0:00 EDT) Pathology Report: CYTOPATHOLOGY REPORT Reports generated via electronic interface contain original data; however they are lacking the format of the original report. Caution should be taken when reading/interpreti ng unformatted reports. Name: ? YVES POLLACK ? Accession #: ? [id number] : ? 1940 (Age: 64) ??F ?Collect Date: ? 07/15/2004 Location: ? [facility] ? Receive Date: ? 07/17/2004 Provider: ?GILL MURPHY MD Copy to: ? Specimen/Source: ?ThinPrep Pap Test, Endocervix Last Menstrual Period: ? Menstrual/Pregnanc y Status: ? Menopausal Other: ? Additional clinical information: Small endocervical polyp ? SPECIMEN ADEQUACY ? Satisfactory for Evaluation - assessment of transformation zone component not applicable ( e.g. atrophy, vaginal sample, hysterectomy) GENERAL CATEGORIZATION ? Negative for Intraepithelial Lesion or Malignancy ? Document reviewed and electronically signed by: ? BLANCHE Hansen(ASCP) ? Report Date: ??07/22/2004 15:07 End of Report [facility] 07/15/2004 07/17/2004 Gill Murphy MD PATHOLOGY ORDERABLES [facility] [address] [place] [address] documented in this encounter Visit Diagnoses Not on filedocumented in this encounter
--- OUTSIDE RECORDS SUMMARY | 2024-06-23 16:23 | XMS_ITS | Encounter Summary ---
Author Organization [facility] Address [address] [place] [address] Care Team Providers Care Jig Operator Name Role Phone Gill Murphy MD Primary Care Provider Encounter Details Date Type Department Care Team (Late st Contact Info) Description 01/09/2020 Lab Requisition [facility] Pathology & Laboratory Medicine - [facility] [address] [place] [address] Unknown, Provider, Social History Tobacco Use Types Packs/Day Years Used Date Smoking Tobacco: Never Assessed Sex and Gender Information Value Date Recorded Sex Assigned at Not on file Gender Identity Not on file Sexual Orientation Not on file documented as of this encounter Plan of Treatment Not on file documented as of this encounter Procedures Procedure Name Priority Date/Time Associated Diagnosis Comments SPEP, INCLUDES QUANTITATION OF MONOCLONAL SPIKE Routine 01/08/2020 11:30 EDT documented in this encounter Results * SPEP, INCLUDES QUANTITATION OF MONOCLONAL SPIKE (01/08/2020 11:30 EDT) Total Protein 6.7 6.3 - 8.2 g/dL 01/10/2020 13:09 [facility] Albumin % 58.2 55.8 - 66.1 % 01/10/2020 13:09 [facility] Alpha-1 % 4.0 2.9 - 4.9 % 01/10/2020 13:09 [facility] Alpha-2 % 10.7 7.1 - 11.8 % 01/10/2020 13:09 [facility] Beta % 12.1 8.4 - 13.1 % 01/10/2020 13:09 [facility] Gamma % 15.0 11.1 - 18.8 % 01/10/2020 13:09 EDT [facility] SPEP Comment No apparent monoclonal protein seen on serum electrophoresis 01/10/2020 13:09 EDT [facility] Comment:See scanned/suppleme ntary report. Blood VENOUS BLOOD / Unknown 01/08/2020 11:30 EDT 01/09/2020 15:34 EDT Provider Unknown CHEMISTRY & BLOOD GA S ORDERABLES [facility] [address] [place] [address] documented in this encounter Visit Diagnoses Not on filedocumented in this encounter Care Teams Jig Operator Relationship Specialty Start Date End Date Gill Murphy MD [address] [place] [address] PCP - General 09/10/15 documented as of this encounter
--- OUTSIDE RECORDS SUMMARY | 2024-06-23 16:24 | XMS_ITS | Encounter Summary ---
Author Organization [facility] [place] [address] Care Team Providers Care Lead Engineer Name Role Phone Gideon Becerra MD Primary Care Provider [phone] Encounter Details Date Type Department Care Team (Latest Contact Info) Description 08/13/2023 9:45 AM EDT Laboratory Appointment Lab [address] [place] [id number] S/P TAVR (transcatheter aortic valve replacement) Social History Tobacco Use Types Packs/Day Years Used Date Smoking Tobacco: Former Cigarettes Q uit: 1974 Smokeless Tobacco: Never Alcohol Use Standard Drinks/Week Comments No 0 (1 standard drink = 0.6 oz pur e alcohol) Not since 1974 [facility] Inpatient Questions Answer Date Recorded Does Anyone Try to Keep You From Having Contact with Others or Doing Things Outside Your Home? no 07/01/2023 Feels Threatened by Someone no 04/2023 Feels Unsafe at Home or Work/School no 07/01/2023 Physical Signs of Abuse Present no 07/01/2023 Sex and Gender Information Value Date Recorded Sex Assigned at Not on file Gender Identity Not on file Sexual Orientation Not on file documented as of this encounter Plan of Treatment Not on file documented as of this encounter Procedures Procedure Name Priority Date/Time Associated Diagnosis Comments HEMOGRAM Routine 08/13/2023 9:34 AM EDT S/P TAVR (transcatheter aortic valve replacement) DIFFERENTIAL, AUTOMATED Routine 08/13/2023 9:34 AM EDT S/P TAVR (transcatheter aortic valve replacement) CBC (WITH DIFF) Routine 08/13/2023 9:34 AM EDT S/P TAVR (transcatheter aortic valve replacement) COMPREHENSIVE METABOLIC PANEL Routine 08/13/2023 9:34 AM EDT S/P TAVR (transcatheter aortic valve replacement) documented in this encounter Results * Differential, Automated (08/13/2023 9:34 AM EDT) Neutrophil % 61.0 % [facility] Neutrophil Absolute 4.26 1.70 - 6.10 x10(3)/[facility] Lymph % 28.3 % [facility] Lymphocytes Abs 2.0 0.9 - 3.2 x10(3)/[facility] Monocyte % 7.2 % [facility] Monocyte Abs 0.5 0.3 - 0.9 x10(3)/[facility] Eos % 2.6 % [facility] Eosinophils Abs 0.2 0.0 - 0.4 x10(3)/[facility] Basophil % 0.6 % [facility] Baso Absolute 0.0 0.0 - 0.1 x10(3)/[facility] Immature Gran % 0.30 % [facility] Comment: Immature granulocytes(IG's)percentage and absolute count will include metamyelocytes, myelocytes, and promyelocytes. Blood smears from CBCs yielding IG's will be scanned manually for concordance. If this scan disagrees with the automated IG or if promyelocytes are noted, a manual differential will be performed. Immature Gran Absolute 0.02 0.00 - 0.04 x10(3)/[facility] Blood 08/13/2023 9:34 AM EDT 08/13/2023 9:50 AM EDT Narrative Resulting Agency Comment Spec In Lab Pat Jaime BUSINESS RECORDS MANAGER HEMATOLOGY ORDERAB LES [facility] [place] [address] * (ABNORMAL) Hemogram (08/13/2023 9:34 AM EDT) Pathologist [facility] White Blood Cell 7.0 4.0 - 9.5 x10(3)/mc L [facility] Red Blood Cell 3.91(L) 4.00 - 5.21 x10(6)/mc L [facility] Hemoglobin 12.6 11.7 - 15.5 g/dL [facility] Hematocrit 38.5 35.7 - 45.8 % [facility] Mean Cell Volume 98.5(H) 82.6 - 94.4 fL [facility] Mean Cell Hemoglobin 32.2(H) 27.1 - 32.0 pg [facility] Mean Cell Hemoglobin Concentration 32.7 31.7 - 35.0 g/dL [facility] Platelet 154 145 - 357 x10(3)/mc L [facility] RDW Standard Deviation 48.5(H) 37.0 - 46.0 fL [facility] RDW coefficient of variation 13.4 11.5 - 14.1 % [facility] Mean Platelet Volume 10.1 7.6 - 12.9 fL [facility] NRBC% auto 0.0 % [facility] NRBC Absolute 0.000 0.000 - 0.000 x10(3)/ L [facility] Blood 08/13/2023 9:34 AM EDT 08/13/2023 9:50 AM EDT Narrative Resulting Agency Comment Spec In Lab Pat [place] BUSINESS RECORDS MANAGER HEMATOLOGY ORDERAB LES Performing Organization Address City/State/[facility] Co de Phone Number [facility] [place] [address] * (ABNORMAL) Comprehensive metabolic panel (non-fasting) (08/13/2023 9:34 AM EDT) Pathologist [facility] Glucose 105 65 - 199 mg/dL [facility] Comment:Diabetes: >=200 mg/d L plus symptoms Blood Urea Nitrogen 13 8 - 18 mg/dL [facility] Creatinine 1.00 0.70 - 1.20 mg/dL [facility] Sodium 142 135 - 145 mmol/L [facility] Potassium 4.2 3.5 - 5.0 mmol/L [facility] Comment: Please note: ??Patients with WBC >100,000 may have falsely elevated Potassium levels. ??For accurate Potassium quantification in these patients send serum separator tube (gold top) for subsequent determinations. ??Contact the Clinical Chemistry Laboratory if there are any questions. Chloride 102 98 - 107 mmol/L [facility] Carbon Dioxide 29 22 - 31 mmol/L [facility] Anion Gap 11 5 - 15 mmol/L [facility] Calcium 10.0 8.5 - 10.5 mg/dL [facility] Protein, Total 6.7 6.1 - 8.0 g/dL [facility] Albumin 3.9 3.2 - 5.2 g/dL [facility] Aspartate Aminotransferase 20 0 - 30 unit/L [facility] Alanine Aminotransferase 15 0 - 30 unit/L [facility] Alkaline Phosphatase 69 35 - 105 unit/L [facility] Bilirubin, Total 0.3 0.2 - 1.3 mg/dL [facility] Est Glomerular Filtration Rate 55(L) >=60 mL/min/1. 73 m?? [facility] Comment: This patient's estimated GFR was calculated using the 2020 CKD-EPI equation. The estimated GFR can vary from the measured GFR by up to 30% in the absence of rapidly changing kidney function. Assessment of the estimated GFR is not appropriate when creatinine concentrations are rapidly changing. For clinical situations in which a more precise estimate of GFR is necessary, consider alternative methods of GFR estimation such as a 24-hour urine creatinine clearance. Assignment of CKD stage 1-5 for patients with an eGFR near the transition point between stages may be based on clinical assessment of muscle mass and symptoms in addition to eGFR. Blood 08/13/2023 9:34 AM EDT 08/13/2023 9:50 AM EDT Narrative Resulting Agency Comment Spec In Lab Pat Sandoval BUSINESS RECORDS MANAGER CHEMISTRY ORDERABL ES [facility] [place] [address] documented in this encounter Visit Diagnoses Diagnosis S/P TAVR (transcatheter aortic valve replacement) documented in this encounter Care Teams Lead Engineer Relationship Specialty Start Date End Date Gideon Becerra MD [address] [place] [address] PCP - General Family Medicine 03/31/23 documented as of this encounter
--- OUTSIDE RECORDS SUMMARY | 2024-06-23 16:24 | XMS_ITS | Encounter Summary ---
Author Organization [facility] Address [facility] [place] [address] Care Team Providers Care Gear Repair Supervisor Name Role Phone Gideon Becerra MD Primary Care Provider [phone] Encounter Details Date Type Department Care Team (Latest Contact Info) Description 08/13/2023 Travel Social History Tobacco Use Types Packs/Day Years Used Date Smoking Tobacco: Former Cigarettes Q uit: 1975 Smokeless Tobacco: Never Alcohol Use Standard Drinks/Week Comments No 0 (1 standard drink = 0.6 oz pur e alcohol) Not since 1974 IP[facility] Inpatient Questions Answer Date Recorded Does Anyone [...] on file documented as of this encounter Visit Diagnoses Not on filedocumented in this encounter Care Teams Gear Repair Supervisor Relationship Specialty Start Date End Date Gideon Becerra MD [address] [place] [address] PCP - General Family Medicine 03/31/23 documented as of this encounter
--- OUTSIDE RECORDS SUMMARY | 2024-06-23 16:24 | XMS_ITS | Encounter Summary ---
Author Organization [facility] Address [address] [place] [address] Care Team Providers Care Acquisition Advisor Name Role Phone Unavailable Primary Care Provider Unavailabl e Encounter Details Date Type Department Care Team (Late st Contact Info) Description 12/17/1999 Results Only [facility] conversion [address] [place] [address] Phan Onofre MD [address] [place] [id number] Social History Tobacco Use Types Packs/Day Years Used Date Smoking Tobacco: Never Assessed Sex and Gender Information Value Date Recorded Sex Assigned at Not on file Gender Identity Not on file Sexual Orientation Not on file documented as of this encounter Plan of Treatment Not on file documented as of this encounter Procedures Procedure Name Priority Date/Time Associated Diagnosis Comments SURGICAL PATHOLOGY Routine 12/17/1999 8:49 EST documented in this encounter Results * SURGICAL PATHOLOGY (12/17/1999 8:49 EST) Pathology Report: SURGICAL PATHOLOGY REPORT Reports generated via electronic interface contain original data; however they are lacking the format of the original report. Caution should be taken when reading/interpreti ng unformatted reports. Name: ? YVES POLLACK ? Accession #: ? [id number] ? : ? 1940 (Age: 59) ??F ? Collect Date: ? 12/17/1999 ? Location: ?Receive Date: ? 12/17/1999 ? Provider: PHAN ONOFRE MD Copy to: PHAN NELSONONFA TIMMY CARRASCO MD TUMOR REGISTRY ? Final Pathologic Diagnosis: MICROSCOPIC DIAGNOSIS: ? Breast, left, total mastectomy and level II axillary dissection: ? 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 ??See comment. ? - Maximum tumor dimension 6.2 cm (AJCC: T3). ? - Focal colonization of ductal epithelium identified. ? - No lymphovascular invasion identified. ? - Surgical resection margins negative for invasive ? adenocarcinoma. ? - Tumor present: ? - Greater than 1.0 cm from all surgical resection margins. ? - No involvement of skin, nipple, or lactiferous sinus. ? - Twelve lymph nodes negative for metastatic adenocarcinoma ? (0/12) (AJCC: N0). ? - Fibrocystic changes including: ? - Moderate epithelial hyperplasia. ? - Microcysts. ? - Adenosis. ? - Interlobular fibrosis. ? - Sclerosing adenosis. ? - Skin with dermal scar, consistent with previous biopsy site. ? Comment: COMMENT: ? The sections show a moderately differentiated invasive ? adenocarcinoma of the lobular type. ??The tumor is characterized ? by less than 10% tubule formation (score 3), moderate nuclear ? pleomorphism (score 2), and less than 1 mitosis per 10 high power ? saha (score 1) (HPF = 0.54 mm). ??This corresponds to a ? moderately differentiated carcinoma (MSBR score of 6). ??There are ? total of twelve lymph nodes negative for metastatic ? adenocarcinoma (0/12). ??Immunoperoxidase stains for estrogen and ? progesterone receptors were previously performed on the core ? biopsies ([id number]). ??(Dr. Aguilar)/ljn Document reviewed and electronically signed by: Conversion for EDWARD STARR Report ??Date: 12/19/1999 00:00 By the signature above, the attending physician certifies that he/she has personally conducted a gross and/or microscopic examination of the described specimens and rendered or confirmed the above diagnosis. Specimen(s) Received: TISSUE SUBMITTED: ? 1. L breast - sut @ level II axillary dissection CLINICAL DATA: ? CA L br- see [id number] Gross Description: GROSS: ? Received in formalin labelled Ranjeet and Lt breast is a 1650.0 ? gram breast and axillary tail. ??The breast measures 19.5 cm from ? superior to inferior, 22.0 cm from medial to lateral, and 6.5 ? from anterior to posterior. ??The attached axillary tail measures ? approximately 8.0 x 7.5 x 3.0 cm. ??The attached skin measures ? 27.0 x 17.5 cm in diameter. ??It is martin-pink and remarkable for a ? 0.7 x 0.7 cm in diameter slightly raised martin-red excoriation in ? the upper outer quadrant at approximately 6.0 cm from the tip of ? the nipple. ??The nipple is erect and surrounded by a 5.0 x 5.0 cm ? wrinkled brown areola. ??The resection margin is inked black and ? the specimen is serially sectioned revealing a hard white poorly ? delineated stellate 6.2 x 5.5 x 4.0 cm mass coursing through the ? center of the medial half of the specimen but extending to no ? less than 2.0 cm from all resection margins. ??The remainder of ? the breast consists of patches and streaks of white fibrous ? breast tissue admixed with variably sized yellow fat globules. ? The attached axillary tail contains multiple possible lymph ? nodes ranging from 3.7 x 0.8 x 0.6 cm to 0.4 x 0.3 x 0.3 cm ? BLOCK ESCOBEDO ? A ? Serially sectioned distal tip of nipple ? B ? Lactiferous sinus ? C ? Induction Machine Setter section of skin demonstrating the area of ? red-martin excoriation ? D-K ?? Induction Machine Setter sections of tumor beginning laterally and ? moving progressively medially ? L ? Superior resection margin ? M ? Deep resection margin ? N ? Inferior resection margin ? O ? Induction Machine Setter sections of fibrous breast tissue from the ? upper inner quadrant ? P ? Induction Machine Setter sections of fibrous breast tissue from the ? lower inner quadrant ? Q ? Induction Machine Setter sections from the upper outer quadrant ? R ? Induction Machine Setter sections from the lower outer quadrant ? S,T ?? One bisected lymph node ? U ? One bisected lymph node ? V-Y ?? Intact lymph node ? (Dr. Aguilar)/[facility] End of Report [facility] 12/17/1999 8:49 EST 12/17/1999 8:50 EST Phan Onofre MD PATHOLOGY ORDERABLE S [facility] [address] [place] [address] documented in this encounter Visit Diagnoses Not on filedocumented in this encounter
--- OUTSIDE RECORDS SUMMARY | 2024-06-23 16:24 | XMS_ITS | Encounter Summary ---
Author Organization [facility] [place] [address] Care Team Providers Care Machine Feed Operator Name Role Phone Gideon Becerra MD Primary Care Provider [phone] Reason for Referral * Diagnostic Test (Routine) - Closed Specialty Diagnoses / Procedures Referred By Contac t Referred To Contact Cardiology Diagnoses S/P TAVR (transcatheter aortic valve replacement) Procedures Echocardiogram Transthoracic Janae Davies APRN [facility] [place] [address] [facility] [place] [address] Referral ID Status Reason Start Date Expiration Date V isits Requested Visits Authorized [id number] Closed Specialty Service Requested 07/02/2023 07/01/2024 1 1 Reason for Visit * Diagnostic Test (Routine) - Closed Specialty Diagnoses / Procedures Referred By Contac t Referred To Contact Cardiology Diagnoses S/P TAVR (transcatheter aortic valve replacement) Procedures Echocardiogram Transthoracic Janae Davies BRAKE REPA[employer] [facility] [place] [address] [facility] [place] [address] Referral ID Status Reason Start Date Expiration Date V isits Requested Visits Authorized [id number] Closed Specialty Service Requested 07/02/2023 07/01/2024 1 1 Encounter Details Date Type Department Care Team (Latest Contact Info) Description 08/13/2023 10:05 AM EDT - 08/13/2023 11:59 PM EDT Hospital Encounter Non[place] [address] S/P TAVR (transcatheter aortic valve replacement) Discharge Disposition: Home Social History Tobacco Use Types Packs/Day Years Used Date Smoking Tobacco: Former Cigarettes Q uit: 1975 Smokeless Tobacco: Never Alcohol Use Standard Drinks/Week Comments No 0 (1 standard drink = 0.6 oz pur e alcohol) Not since 1974 [facility] IPV Inpatient Questions Answer Date Recorded Does [...] on file documented as of this encounter Medications at Time of Discharge Medication Sig Dispensed Refills Start Date End Date losartan (Cozaar) 50 mg tabletIndications:Hyperte nsion, unspecified type Take 1.5 tablets by mouth daily. 90 tablet 2 08/13/2023 rivaroxaban (Xarelto) 20 mg tablet Take 1 tablet by mouth daily. Starting 07/06 30 tablet 3 07/06/2023 aspirin 81 mg chewable tablet Take 81 mg by mouth daily. 30 tablet 3 07/03/2023 rivaroxaban (Xarelto) 15 mg tablet Take 1 tablet by mouth 2 times daily. Until 07/06 then switch to 20mg po daily 07/02/2023 amoxicillin (Amoxil) 500 mg tablet Take 4 tablets by mouth once as needed (one hour prior to dental procedure) for up to 1 dose. 4 tablet 07/02/2023 acetaminophen (Tylenol) 500 mg tablet Take 500 mg by mouth every 6 hours as needed. 04/06/2018 albuteroL 90 mcg/actuation HFA Aerosol Inhaler Inhale 2 puffs into the lungs every 4 hours as needed for Shortness of Breath or Wheezing. 10/06/2021 ginkgo biloba leaf extract 60 mg Tablet Take 60 mg by mouth daily. 06/14/2014 meclizine (Antivert) 25 mg tablet Take 25 mg by mouth 3 times daily as needed for Dizziness. 08/18/2021 mirabegron ER (Myrbetriq) 25 mg ER 24 hr tablet Take 25 mg by mouth daily. 05/06/2022 ondansetron ODT (Zofran-ODT) 4 mg disintegrating tablet Take 4 mg by mouth every 8 hours as needed for Nausea. 08/18/2021 Spiriva Respimat 2.5 mcg/actuation Mist Inhale 2 puffs into the lungs daily. Biotin 5 mg capsule Take 5 mg by mouth daily. JOTVBYA-TRBXPFJDO-IZQM ORAL Take 2 capsules by mouth daily. peg 400-propylene glycol 0.4-0.3 % Drops, Gel Apply 1 drop to eye daily. levothyroxine (SYNTHROID) 112 mcg tablet Take 112 mcg by mouth daily. simvastatin (ZOCOR) 20 mg tablet Take 20 mg by mouth nightly. Magnesium 500 mg Tab Take 600 mg by mouth. multivitamin (THERAGRAN) tablet Take 1 tablet by mouth daily. b complex vitamins (VITAMIN B COMPLEX) tablet 03/06/2010 documented as of this encounter Plan of Treatment Not on file documented as of this encounter Procedures Procedure Name Priority Date/Time Associated Diagnosis Comments ECHO LMTD W/O CONTRAST W LMTD SPEC DOPP COLOR DOPP Routine 08/13/2023 11:10 AM EDT S/P TAVR (transcatheter aortic valve replacement) documented in this encounter Results * ECHO LMTD W/O CONTRAST W LMTD SPEC DOPP COLOR DOPP (08/13/2023 11:10 AM EDT) EF 75 HEARTLAB SYSTEM Anatomical Region Laterality Modality Cardiac Other 08/13/2023 10:2 0 AM EDT Narrative 08/13/2023 1:08 PM EDT ? Echocardiogram Report Name: YVES POLLACK ?Study Date: 08/13/2023 10:20 AMBP: 182/76 mmHg ? Patient Location: : 1940 ? Height: 155 cm ? Account: [id number] Age: 83 yrs ? Weight: 77 kg Gender: Female ?BSA: 1.8 m2 Ordering Physician: JANAE DAVIES Referring Physician: JANAE DAVIES Performed By: TA Crawford Reason For Study: s/p TAVR Exam Location: [facility]. Interpretation Summary Left ventricle is of normal size. Left ventricular systolic function is hyperdynamic. Left ventricular ejection fraction is estimated visually at 75%. There are no segmental wall motion abnormalities. The right ventricle is of normal size. Right ventricular systolic function is normal. The peak right ventricular systolic pressure is 27 mmHg + RA presssure. The left atrium is mildly dilated. There is a transcatheter valve in the aortic position (23mm Hernandez Resilia) and is functioning normally. The date or year of insertion is 06/30/2023. The peak gradient across the prosthesis is 25 mmHg. The mean gradient across the prosthesis is 13 mmHg, DOI 0.62, GINA 1.9 cm2.There appears to be no paravalvular regurgitation. There appears to be no intravalvular regurgitation. There is probably moderate calcific mitral valve stenosis. The estimated mean gradient across the mitral valve is 6.8 mmHg. Heart rate: 73 beats per minute. There is trace mitral regurgitation. Procedure Limited - 11918. Satisfactory quality. There is normal sinus rhythm. Left Ventricle Left ventricle is of normal size. Left ventricular systolic function is hyperdynamic. Left ventricular ejection fraction is estimated visually at 75%. There are no segmental wall motion abnormalities. Right Ventricle The right ventricle is of normal size. Right ventricular systolic function is normal. Left Atrium The left atrium is mildly dilated. There is no evidence for a patent foramen ovale. Right Atrium The right atrium is normal. Aortic Valve There is a transcatheter valve in the aortic position. There is a 23 mm aortic prosthesis. The date or year of insertion is 06/30/2023. The prosthetic valve leaflets are not well visualized. The peak gradient across the prosthesis is 25 mmHg. The mean gradient across the prosthesis is 13 mmHg. The highest gradient is obtained from the apical window. There appears to be no paravalvular regurgitation. There appears to be no intravalvular regurgitation. Mitral Valve The mitral valve leaflets are calcified. There is mitral annular calcification. There is moderate mitral stenosis. The estimated mean gradient across the mitral valve is 6.8 mmHg. The mitral valve pressure half-time is 370 ms. Heart rate: 73 beats per minute. There is trace mitral regurgitation. Tricuspid Valve The tricuspid valve is structurally normal. There is no tricuspid stenosis. There is trace tricuspid regurgitation. Pulmonic Valve The pulmonic valve is not well visualized. There is no valvular pulmonic stenosis. There is no pulmonic valve regurgitation. Venous Inferior vena cava is not well visualized. Pericardium/Pleural There is no pericardial effusion. A pericardial fat pad is present. Hemodynamics The peak right ventricular systolic pressure is 27 mmHg. Plus RA presssure. Left ventricular filling pressure is indeterminate due to the presence of mitral stenosis. ? 2D Measurements ? Volumes ?IVSd: 1.3 cm ? LAV(MOD-bp) Indexed: ?LVIDd: 4.3 cm ?36.5 ml/m2 ?LVIDs: 2.7 cm ?LVPWd: 0.65 cm ? RA A4Cs_phl: 15.4 cm2 ?LV mass(C)d: 138.8 grams ? SV(LVOT): 82.7 ml ? SI(LVOT): 46.9 ml/m2 ?LV mass(C)dI: 78.8 grams/m2 ?LVOT diam: 2.0 cm Doppler TR max fredi: 260.3 cm/sec LV V1 VTI: 27.6 cm Ao V2 VTI: 44.4 cm Ao Max: 249.4 cm/sec Ao valve max: 24.9 mmHg Ao valve mean: 12.5 mmHg GINA(I,D): 1.9 cm2 Dimensionless index Aov: 0.62 MV mean P.8 mmHg I ?WMSI = 1.00 ? % Normal = 100 ?Segments ??Size X - Cannot ?2 - ?4 - ?1-2 ? small Interpret ?1 - Normal ?? Hypokinetic 3 - Akinetic Dyskinetic ?? 3-5 ? moderate 5 - ? 6-14 ?large Aneurysmal ?15-16 ?? diffuse Procedure Note Anselmo Payne MD - 08/13/2023 Echocardiogram Report Name: REGINALDO YVES Roberto Study Date: 0:20 AMBP: 182/76 mmHg Patient Location: : 1940 Height: 155 cm Account: [id number] Age: 83 yrs Weight: 77 kg Gender: Female BSA: 1.8 m2 Ordering Physician: JANAE DAVIES Referring Physician: JANAE DAVIES Performed By: TA Crawford Reason For Study: s/p TAVR Exam Location: [facility]. Interpretation Summary Left ventricle is of normal size. Left ventricular systolic function is hyperdynamic. Left ventricular ejection fraction is estimated visually at75%. There are no segmental wall motion abnormalities. The right ventricle is of normal size. Right ventricular systolic functionis normal. The peak right ventricular systolic pressure is 27 mmHg + RApresssure. The left atrium is mildly dilated. There is a transcatheter valve in the aortic position (23mm EdwardsResilia) and is functioning normally. The date or year of insertion is 06/30/2023. Thepeak gradient across the prosthesis is 25 mmHg. The mean gradient across theprosthesis is 13 mmHg, DOI 0.62, GINA 1.9 cm2.There appears to be no paravalvular regurgitation. There appears to be no intravalvular regurgitation. There is probably moderate calcific mitral valve stenosis. The estimatedmean gradient across the mitral valve is 6.8 mmHg. Heart rate: 73 beats perminute. There is trace mitral regurgitation. Procedure Limited - 80389. Satisfactory quality. There is normal sinus rhythm. Left Ventricle Left ventricle is of normal size. Left ventricular systolic function is hyperdynamic. Left ventricular ejection fraction is estimated visually at75%. There are no segmental wall motion abnormalities. Right Ventricle The right ventricle is of normal size. Right ventricular systolic functionis normal. Left Atrium The left atrium is mildly dilated. There is no evidence for a patentforamen ovale. Right Atrium The right atrium is normal. Aortic Valve There is a transcatheter valve in the aortic position. There is a 23 mmaortic prosthesis. The date or year of insertion is 06/30/2023. The prostheticvalve leaflets are not well visualized. The peak gradient across the prosthesisis 25 mmHg. The mean gradient across the prosthesis is 13 mmHg. The highestgradient is obtained from the apical window. There appears to be no paravalvular regurgitation. There appears to be no intravalvular regurgitation. Mitral Valve The mitral valve leaflets are calcified. There is mitral annularcalcification. There is moderate mitral stenosis. The estimated mean gradient across themitral valve is 6.8 mmHg. The mitral valve pressure half-time is 370 ms. Heartrate: 73 beats per minute. There is trace mitral regurgitation. Tricuspid Valve The tricuspid valve is structurally normal. There is no tricuspidstenosis. There is trace tricuspid regurgitation. Pulmonic Valve The pulmonic valve is not well visualized. There is no valvular pulmonicstenosis. There is no pulmonic valve regurgitation. Venous Inferior vena cava is not well visualized. Pericardium/Pleural There is no pericardial effusion. A pericardial fat pad is present. Hemodynamics The peak right ventricular systolic pressure is 27 mmHg. Plus RApresssure. Left ventricular filling pressure is indeterminate due to the presence ofmitral stenosis. 2D Measurements Volumes IVSd: 1.3 cm LAV(MOD-bp)Indexed: LVIDd: 4.3 cm 36.5 ml/m2 LVIDs: 2.7 cm LVPWd: 0.65 cm RA A4Cs_phl: 15.4cm2 LV mass(C)d: 138.8 grams SV(LVOT): 82.7ml SI(LVOT): 46.9ml/m2 LV mass(C)dI: 78.8 grams/m2 LVOT diam: 2.0 cm Doppler TR max fredi: 260.3 cm/sec LV V1 VTI: 27.6 cm Ao V2 VTI: 44.4 cm Ao Max: 249.4 cm/sec Ao valve max: 24.9 mmHg Ao valve mean: 12.5 mmHg GINA(I,D): 1.9 cm2 Dimensionless index Aov: 0.62 MV mean P.8 mmHg I WMSI = 1.00 % Normal = 100 SegmentsSize X - Cannot 2 - 4 - 1-2small Interpret 1 - Normal Hypokinetic 3 - Akinetic Dyskinetic 3-5moderate 5 - 6-14large Aneurysmal 15-16diffuse Janae Davies APRN ECHO ORDERABLES documented in this encounter Visit Diagnoses Diagnosis S/P TAVR (transcatheter aortic valve replacement) documented in this encounter Care Teams Machine Feed Operator Relationship Specialty Start Date End Date Gideon Becerra MD [address] [place] [address] PCP - General Family Medicine 03/31/23 documented as of this encounter
--- OUTSIDE RECORDS SUMMARY | 2024-06-23 16:24 | XMS_ITS | Encounter Summary ---
Author Organization [facility] Address [facility] [place] [address] Care Team Providers Care Software Tools Engineer Name Role Phone Gideon Becerra MD Primary Care Provider [phone] Reason for Referral * Home Health Care (Routine) - Closed Specialty Diagnoses / Procedures Referred By Contac t Referred To Contact Diagnoses S/P TAVR (transcatheter aortic valve replacement) Pat Sandoval APRN [facility] [place] [address] Referral ID Status Reason Start Date Expiration Date V isits Requested Visits Authorized [id number] Closed Consult, Test & Treat 07/05/2023 01/01/2024 999 999 * Diagnostic Test (Routine) - Closed Specialty Diagnoses / Procedures Referred By Contac t Referred To Contact Cardiology Diagnoses S/P TAVR (transcatheter aortic valve replacement) Procedures Echocardiogram Transthoracic Pat Sandoval APRN [facility] [address] [facility] [place] [address] Referral ID Status Reason Start Date Expiration Date V isits Requested Visits Authorized [id number] Closed Specialty Service Requested 07/02/2023 07/01/2024 1 1 Reason for Visit * Auth/Cert (Routine) Specialty Diagnoses / Procedures Referred By Contac t Referred To Contact Diagnoses Aortic valve stenosis, etiology of cardiac valve disease unspecified [I35.0] Procedures PRG COMBINED RIGHT & LEFT HEART CATH W/INJ L VENTRICULOGRAPHY, IMG S&I PRO REPLACE AORTIC VALVE (TAVR/ILIANA)PERC FEMORAL ARTERY APPROACH CARDIAC CATHETERIZATION COMBINED RIGHT & LEFT HEART CATH,INC INJ FOR L VENTRICULOGRAPHY (WRVU 5.99) @TRANSCATHETER AORTIC VALVE REPLACEMENT (TAVR), PERCUTANEOUS FEMORAL (WRVU 22.47) TRANSESOPHAGEAL ECHO DURING CATH/EP PROCEDURE Jair Gomez MD [facility] [place] [address] [facility] Referral ID Status Reason Start Date Expiration Date Visits Re quested Visits Authorized [id number] 1 1 Encounter Details Date Type Department Care Team (Latest Contact Info) Description 06/30/2023 6:09 AM EDT - 07/05/2023 3:13 PM EDT [place] [address] Jari Gomez MD [facility] [place] [address] Hector Machuca MD Aortic valve stenosis, etiology of cardiac valve disease unspecified; S/P TAVR (transcatheter aortic valve replacement) Discharge Disposition: Home with VNA Social History Tobacco Use Types Packs/Day Years [...] on file documented as of this encounter Last Filed Vital Signs Vital Sign Reading Time Taken Comments Blood Pressure 133/65 07/05/2023 10:00 AM EDT Pulse 85 07/05/2023 12:00 PM EDT Temperature 36.6 ??C (97.8 ??F) 07/05/2023 8:00 AM ED T Respiratory Rate 23 07/05/2023 12:00 PM EDT Oxygen Saturation 97% 07/05/2023 12:00 PM EDT Inhaled Oxygen Concentration - - Weight 77.3 kg (170 lb 6.7 oz) 07/05/2023 6:00 A M EDT Height 154.9 cm (5' 1) 06/30/2023 4:26 PM EDT Body Mass Index 32.2 06/30/2023 4:26 PM EDT documented in this encounter Discharge Summaries * Pat Sandoval APRN - 07/05/2023 12:16 PM EDT Images from the original note were not included. Inpatient - Discharge Summary Patient Name: Roxanne Pollack Patient Age: 83 y.o. Birthdate: 1940 Language: Irish Race: White Ethnicity: Not nor Admit Date: 06/30/2023 Discharge Date: 07/05/2023 Attending Physician: Hector Machuca MD Follow-up Recommendations for Providers: Please continue routine management of cardiovascular risk factors including blood pressure, lipids,glucose, etc. Please note any medication changes. Patient to follow up with PCP, Gideon Becerra MD,in ~ 7-10 days. Patient to follow up with Chargeback Analyst, Dr. Jair Gomez, in 1 month with an EKG, Echo, CBC, and CMP. [id number] interval: After initial 30 day follow-up appointment , all TAVR patients will follow-up again in one year with an echo. Inpatient Provider Contact Information: [facility] Section of Cardiac Surgery [facility] [address] FAX [phone] Discharge Diagnoses (Hospital Problems) Primary Diagnoses: Aortic stenosis, s/p left TF TAVR Secondary Diagnoses: Active Hospital Problems Diagnosis Aortic stenosis Resolved Hospital Problems No resolved problems to display. Other Diagnoses (Chronic Problems): Active Non-Hospital Problems Diagnosis Severe calcific aortic valve stenosis Psoriasis Macular pucker, left eye Nuclear sclerosis Blepharitis Discharged to: Patient discharged to home Past Medical History: Diagnosis Date Arthritis Cancer 1999 Breast Cancer Cataract Hyperlipidemia Hypertension Hypothyroidism Psoriasis 10/11/2017 Severe calcific aortic valve stenosis 06/08/2023 Thyroid disease Past Surgical History: Procedure Laterality Date CATARACT REMOVAL Left Dr. Villarreal PRO VITRECTOMY PARS PLANA REMOVE PRERETINAL MEMBRANE 08/28/2013 VITRECTOMY, W/ MEMBRANE STRIPPING performed by Mitch Rios MD at [facility] MAIN OR PRO VITRECTOMY,MECHANICAL 08/28/2013 VITRECTOMY, MECHANICAL PARS PLANA APPROACH performed by Mitch Rios MD at [facility] MAIN OR RETINOPATHY SURGERY Prior To Admission Medications Medications Prior to Admission Medication Sig Dispense Refill Last Dose acetaminophen (Tylenol) 500 mg tablet Take 500 mg by mouth every 6 hours as needed. 06/29/2023 ginkgo biloba leaf extract 60 mg Tablet Take 60 mg by mouth daily. 06/29/2023 mirabegron ER (Myrbetriq) 25 mg ER 24 hr tablet Take 25 mg by mouth daily. 06/29/2023 Spiriva Respimat 2.5 mcg/actuation Mist Inhale 2 puffs into the lungs daily. 06/29/2023 Biotin 5 mg capsule Take 5 mg by mouth daily. 06/29/2023 XJNQNTI-GZHQNGTLF-EYOZ ORAL Take 2 capsules by mouth daily. 06/29/2023 peg 400-propylene glycol 0.4-0.3 % Drops, Gel Apply 1 drop to eye daily. Past Week levothyroxine (SYNTHROID) 112 mcg tablet Take 112 mcg by mouth daily. 06/30/2023 simvastatin (ZOCOR) 20 mg tablet Take 20 mg by mouth nightly. 06/29/2023 losartan (COZAAR) 50 mg tablet Take 50 mg by mouth daily. 06/29/2023 Magnesium 500 mg Tab Take 600 mg by mouth. 06/29/2023 multivitamin (THERAGRAN) tablet Take 1 tablet by mouth daily. 06/29/2023 b complex vitamins (VITAMIN B COMPLEX) tablet 06/29/2023 verapamil (CALAN) 120 mg tablet 06/29/2023 [DISCONTINUED] rivaroxaban (Xarelto) 15 mg tablet Take 15 mg by mouth 2 times daily. 06/27/2023 albuteroL 90 mcg/actuation HFA Aerosol Inhaler Inhale 2 puffs into the lungs every 4 hours as needed for Shortness of Breath or Wheezing. More than a month meclizine (Antivert) 25 mg tablet Take 25 mg by mouth 3 times daily as needed for Dizziness. More than a month ondansetron ODT (Zofran-ODT) 4 mg disintegrating tablet Take 4 mg by mouth every 8 hours as needed for Nausea. More than a month aspirin 325 mg tablet More than a month Updated Allergies/ADRs: Allergies Allergen Reactions Anastrozole Other (See Comments) Pt doesn't remember reaction. Oncology marked allergy. Tamoxifen Other (See Comments) Pt doesn't remember reaction. Oncology marked allergy. Umeclidinium Other Reaction(s): body aches Lisinopril Other (See Comments) Cough Propoxyphene Hcl Nausea And Vomiting CIS - Nausea/Vomiting Demerol [Meperidine] Other (See Comments) Sleepy for 16 hours Gabapentin Other (See Comments) Pt felt drunk. When they were taking it. History of Presentation: Roxanne Pollack is a 83 y.o. female with a history significant for COPD, HTN, HLD, CPAP nightly, hypothyroidism who is presenting to clinic for structural heart team recommendations regarding management of severe . Patient has been having worsening dyspnea for the past year . Initially presumed to be COPD but further work up suggested severe . At nights sleeps on her side, uses a CPAP , has orthopnea ( feels chest pressure on mild inclination) Denies syncope but has had multiple episode of mechanical fall Lives on the second floor and it has been having problem climbing one flight of stairs that has been getting worse. Is minimally active in general. COPD : well controlled, no O2 at home Major Procedures/Operations: 06/30/23: left TF TAVR 23mm S3 ultra Hospital Course: Severe s/p TF TAVR Roxanne Pollack was admitted to [facility] on 06/30/2023 via the Same Day Program. She was brought to the slabber light where Drs. Hector Machuca and Jair Gomez and their teams performed a transfemoral TAVR. She tolerated the procedure and was brought to the CV for recovery. She was extuabted on day of surgery. Routine postoperative and home medications were started and a diet was advanced. her groins were soft without hematoma. PE present prior to admission Xarelto was held periprocedurally, this was resumed at 15mg BID on postop day 2, dose will be reduced to 20mg daily on 07/06 (21 days of therapy) LBBB Following TAVR, EKG showed a new LBBB this resolved by pod 2. She was seen by Cardiac Rehabilitation. Her discharge plan at this time is to home. The remainder of her hospital course was uneventful and by postoperative day #5 she had met all criteria for discharge. Anticoagulation Plan: ASA/Xarelto Vital Signs at Discharge: Last set of vitals: BP 133/65 Pulse 85 Temp 36.6 ??C (97.8 ??F) (Oral) Resp 23 Ht 154.9 cm (5' 1) Wt 77.3 kg (170 lb 6.7 oz) LMP (LMP Unknown) SpO2 97% BMI 32.20 kg/m?? Patient Vitals for the past 168 hrs: Weight 07/05/23 0600 77.3 kg (170 lb 6.7 oz) 07/04/23 0600 76.6 kg (168 lb 14 oz) 07/03/23 0600 76.8 kg (169 lb 5 oz) 07/02/23 0400 76.9 kg (169 lb 8.5 oz) 07/01/23 0600 76.7 kg (169 lb 1.6 oz) 06/30/23 1500 79 kg (174 lb 2.6 oz) Current weight: 76.9 kg Admit/Preop weight: 77.3 kg Pertinent physical exam findings prior to discharge: General: sitting up in chair Neuro: A&Ox3, NFD. Moving all ext Lungs: LS clear dim bibasilar Heart: rrr, s1s2 no mrg Abdomen: soft nt hypoactive bs Ext: wwp, no edema Incisions: CDI groins intact Tubes/Lines/Drains: PIV Important Studies and Lab Data: Lab Results Component Value Date WBC 9.4 07/02/2023 RBC 2.68 (L) 07/02/2023 HGB 8.9 (L) 07/02/2023 HCT 26.4 (L) 07/02/2023 PLATELET 80 (L) 07/02/2023 No results for input(s): INR in the last 168 hours. Lab Results Component Value Date NA 142 07/01/2023 K 4.3 07/01/2023 CL 106 07/01/2023 CO2 24 07/01/2023 BUN 16 07/01/2023 CREATININE 1.04 07/01/2023 Pending Studies and Lab Data: Cbc, cmp Immunizations Given this Hospitalization: There is no immunization history on file for this patient. Smoking Status at Discharge: Social History Tobacco Use Smoking Status Former Types: Cigarettes Quit date: 1974 Years since quittin.7 Smokeless Tobacco Never Discharge Medications: Your Medications New Medications Dose Details amoxicillin 500 mg tablet Commonly known as: Amoxil Take 4 tablets by mouth once as needed (one hour prior to dental procedure) for up to 1 dose. 2,000 mg Quantity: 4 tablet Refills: 0 aspirin 81 mg chewable tablet Take 81 mg by mouth daily. Replaces: aspirin 325 mg tablet 81 mg Quantity: 30 tablet Refills: 3 Continued medications with new dosing Dose Details * rivaroxaban 15 mg tablet Commonly known as: Xarelto Take 1 tablet by mouth 2 times daily. Until 07/06 then switch to 20mg po daily What changed: additional instructions 15 mg Refills: 0 * rivaroxaban 20 mg tablet Commonly known as: Xarelto Take 1 tablet by mouth daily. Starting 07/06 Start taking on: July 06, 2023 What changed: You were already taking a medication with the same name, and this prescription was added. Make sure you understand how and when to take each. 20 mg Quantity: 30 tablet Refills: 3 * This list has 2 medication(s) that are the same as other medications prescribed for you. Read thedirections carefully, and ask your doctor or other care provider to review them with you. Continued medications, unchanged Dose Details acetaminophen 500 mg tablet Commonly known as: Tylenol Take 500 mg by mouth every 6 hours as needed. 500 mg Refills: 0 albuteroL 90 mcg/actuation HFA Aerosol Inhaler Inhale 2 puffs into the lungs every 4 hours as needed for Shortness of Breath or Wheezing. 2 puff Refills: 0 Biotin 5 mg capsule Take 5 mg by mouth daily. 5 mg Refills: 0 [id number]-[id number]-XFRW ORAL Take 2 capsules by mouth daily. 2 capsule Refills: 0 ginkgo biloba leaf extract 60 mg Tablet Take 60 mg by mouth daily. 60 mg Refills: 0 levothyroxine 112 mcg tablet Commonly known as: Synthroid Take 112 mcg by mouth daily. 112 mcg Refills: 0 losartan 50 mg tablet Commonly known as: Cozaar Take 50 mg by mouth daily. 50 mg Refills: 0 Magnesium 500 mg Tablet Take 600 mg by mouth. 600 mg Refills: 0 meclizine 25 mg tablet Commonly known as: Antivert Take 25 mg by mouth 3 times daily as needed for Dizziness. 25 mg Refills: 0 mirabegron ER 25 mg ER 24 hr tablet Commonly known as: Myrbetriq Take 25 mg by mouth daily. 25 mg Refills: 0 multivitamin Tablet Commonly known as: THERAGRAN Take 1 tablet by mouth daily. 1 tablet Refills: 0 ondansetron ODT 4 mg disintegrating tablet Commonly known as: Zofran-ODT Take 4 mg by mouth every 8 hours as needed for Nausea. 4 mg Refills: 0 peg 400-propylene glycol 0.4-0.3 % Drops, Gel Apply 1 drop to eye daily. 1 drop Refills: 0 simvastatin 20 mg tablet Commonly known as: Zocor Take 20 mg by mouth nightly. 20 mg Refills: 0 Spiriva Respimat 2.5 mcg/actuation Mist Inhale 2 puffs into the lungs daily. Generic drug: tiotropium bromide 2 puff Refills: 0 Vitamins B Complex Tablet Generic drug: b complex vitamins Refills: 0 STOPPED Medications aspirin 325 mg tablet Replaced by: aspirin 81 mg chewable tablet verapamiL 120 mg tablet Commonly known as: Calan Instructions Given to Patient at Discharge: General Instructions None TAVR Discharge Instructions: Call your doctor if: You have a fever of greater than 101 degrees, shaking chills, if you develop redness or drainage from your procedure sites, or if you have questions. Please call your Chargeback Analyst's office if you have any discharge or drainage from your procedural sites. Your Chargeback Analyst, Dr. Jair Gomez and/or the Cutter Operator may be reached at . Antibiotic prophylaxis: You will need to take antibiotics prior to many invasive tests and treatments, such as dental cleaning, which should be done every 6 months. Your primary care physician or your dentist can prescribe this medication. Any future refills should go through your PCP or Dentist. Please refer to the card with the [place] [employer] Guidelines for more information. You have been provided with a copy of this card. Please refer to the [place] [employer] Guidelines for more information. Good dental care is important for your overall health. We recommend waiting ~3months before returning to your dentist except in cases of emergency. Activity level: Walk three times a day. You should continue to increase your walks by 1-2 minutes each day. It is expected that you will be walking 20-30 minutes twice a day within 3-4 weeks after discharge to home. Rest between activities and after meals. Use common sense, don't exhaust yourself. Home activities: You may resume your usual home activities such as housekeeping and chores; allowing time to rest as needed. Sexual activity: You may engage in sexual activity when you feel ready. Stairs: There are no restrictions on stair climbing. Use common sense. Don't exhaust yourself. Activities outside the home: After the first week home you may go out to dinner, visit friends, go to a movie, go to jewish, etc. Heavy activities: No hunting, skiing, jogging, snow shoveling, snowmobiling, lawn mowing, swimming,golf or tennis for 1 week after your procedure. Smoking: It is very important that you not smoke after your procedure. Smoking cessation education was provided as appropriate. If you need further assistance with this please call and you will be referred to a smoking cessation specialist. Medications: Take only those medications listed on your discharge information. Keep your pain undercontrol so you can be active, do your coughing and breathing exercises and sleep. Contact us if thepain medication isn't working for you. Do not take any herbal preparations until after your follow up appointment. Diet: You should follow a regular diet until your appetite returns to normal. At that point in timeyou should resume a low fat, low cholesterol, [place] [employer] Diet Driving: No driving for 3 days. Shower/Bath: You may shower daily. No baths, soaking, or swimming for the first week. Wound care: Please remove your dressings 48 hours after your procedure. Wash the sites daily with soap and rinse well, pat dry. Assess for any signs of infection such as increased redness, pain, warmth or drainage. Please call your events specialist's office if you have any discharge or drainage from your procedural sites. If there is a lot of swelling, apply guanako wraps during the day and remove at bedtime. Elevate your legs when you are sitting. Home oxygen therapy: N/A Follow up appointments: Please schedule a follow-up appointment with your PCP, Gideon Becerra MD, in ~ 7-10 days. \You have a follow-up appointment with your Chargeback Analyst, Dr. Jair Gomez, in 1 month with an EKG, Echo, and labs prior to your appointment. Ckim-Tjrbtb-[id number] interval: After initial 30 day follow-up appointment , all TAVR patients will follow-up again in one year with an echo. Cardiac Rehabilitation: you will be contacted Future Appointments and Orders Future Appointments and Orders Future Appointments Provider Department Dept Phone 08/13/2023 9:45 AM LAB, THREE L Lab [address] [place] [address] Arrive at: Real Estate Legal Assistant Area [phone] 08/13/2023 10:30 AM ECHO REGULAR 2; ECHO REGULAR Non-Invasive Cardiology Lab [facility] Arrive at: Real Estate Legal Assistant Area [phone] [facility] Real Estate Legal Assistant Area 08/13/2023 12:30 PM NURSE, CARDIOLOGY Cardiology at [facility] Arrive at: Real Estate Legal Assistant Area [phone] 08/13/2023 1:00 PM Pierce Allen APRN Cardiology at [facility] Arrive at: Real Estate Legal Assistant Area [phone] Future Orders Complete By Expires CBC (with Diff) [UFQ497 Custom] 07/02/2023 09/30/2023 Process Instructions: INCLUDES: WBC, RBC, Hgb, Hct, Platelets, RBC Indices and Differential Scheduling Instructions: Comments: Questions: Comprehensive metabolic panel (non-fasting) [LAB17 Custom] 07/02/2023 09/30/2023 Process Instructions: INCLUDES: Calcium, T Protein, Albumin, AST, ALT, Alk Phos, T Bili, BUN, Creat, GFR, Glucose, Lytes. Scheduling Instructions: Comments: Questions: Echocardiogram Transthoracic [40602 CPT(R)] 07/03/2023 07/02/2024 Process Instructions: Scheduling Instructions: Comments: Questions: Where will study be performed?: [facility] Clinics Does the patient have Congenital Heart Disease?: Does patient require sedation?: GA rationale: EKG 12 Lead [73010 CPT(R)] 07/03/2023 07/02/2024 Process Instructions: Scheduling Instructions: Questions: Which location will this be performed?: [place] Is a rhythm strip needed?: No XR Chest PA & Lateral (Generic) [35874 41164 Custom] 07/03/2023 07/02/2024 Process Instructions: Scheduling Instructions: Questions: Where will study be performed?: [facility] Radiology Portable exam?: Reason for exam and clinical history: s/p tf tavr Clinical information / recinos questions for radiologist: Stat read required?: Date of injury if applicable: Requested Time: [employer] [EQ161 Custom] As directed Process Instructions: Scheduling Instructions: Comments: FWW Questions: Device Needed: WALKER (E0143) Patient Height (cm): 154.9 cm (5' 1) Patient Weight: 77.3 kg (170 lb 6.7 oz) Diagnosis: Unsteady gait Referral to Home Health [REF34 Custom] As directed Process Instructions: If no progress note charted, please enter Clinical details in comments. Scheduling Instructions: Comments: Please evaluate Roxanne Pollack for admission to Home Health. [address] [address] Phone Number: [phone] (home) Date of : 1940 Inpatient DOCUMENTATION FOR VNA SERVICES (INCLUDING THOSE PATIENTS WITH MEDICARE COVERAGE REQUIRING HOME VNA SERVICES AND/OR HOSPICE SERVICES) PATIENT'S LOCATION: Roxanne Pollack [address] [facility] [address] [phone] (home) Telephone Information: Clinic Nurse's Name: self In discussion with the attending physician, it is certified that this patient is under their care and that they, or a Nurse Practitioner, or Physician Assessment Expert who is working directly with them, hada face to face encounter that meets the physician face to face encounter requirements with this patient on 07/05/2023 The encounter with the patient was in whole, or in part, for the following medical condition, whichis the primary reason for home health care services: s/p tf tavr In discussion with the provider, it is certified that, based on their findings, the following services are medically necessary for home health services. To provide the following care/treatments with the clinical findings supporting the need for services as follows: HOME HEALTH AGENCY: [facility] [address] [place] [address] PT ORDERS: Continue rehab for endurance, gait stability and strength with mobility and transfers. Home safety evaluation. Home exercise program if appropriate. OT ORDERS: Assess and continue rehab for managing ADLs. Start of Care Date: 24-48 hours of discharge for start of care SPECIAL INSTRUCTIONS: For any follow up questions, needs, or issues please call the Cardiology Office at [phone] FOR MEDICARE ONLY: (please delete this section if not Medicare) In discussion with the attending physician, it is certified that the clinical findings support thatthis patient is homebound i.e. absences from home require considerable and taxing effort due to: Restricted mobility and poor activity tolerance due to recent cardiac surgery. Patient requires assistance of another person to leave the home. Home Health agencies which cover the area of patient's residence have been reviewed, either verbally or in writing, and patient/family have chosen the agency as noted. Questions: Disciplines Requested: Physical Therapy Occupational Therapy Discharge References/Attachments None Signed: PAT SANDOVAL APRN [facility] Section of Cardiac Surgery Date: 07/05/2023 CC: MD Lydia Lane Sarah Allison, [place] [address] documented in this encounter Discharge Instructions * Patient Instructions* Pat Sandoval APRN - 07/02/2023 9:07 AM EDT TAVR Discharge Instructions: Call your doctor if: You have a fever of greater than 101 degrees, shaking chills, if you develop redness or drainage from your procedure sites, or if you have questions. Please call your Chargeback Analyst's office if you have any discharge or drainage from your procedural sites. Your Chargeback Analyst, Dr. Jair Gomez and/or the Cutter Operator may be reached at . Antibiotic prophylaxis: You will need to take antibiotics prior to many invasive tests and treatments, such as dental cleaning, which should be done every 6 months. Your primary care physician or your dentist can prescribe this medication. Any future refills should go through your PCP or Dentist. Please refer to the card with the [place] [employer] Guidelines for more information. You have been provided with a copy of this card. Please refer to the [place] [employer] Guidelines for more information. Good dental care is important for your overall health. We recommend waiting ~3months before returning to your dentist except in cases of emergency. Activity level: Walk three times a day. You should continue to increase your walks by 1-2 minutes each day. It is expected that you will be walking 20-30 minutes twice a day within 3-4 weeks after discharge to home. Rest between activities and after meals. Use common sense, don't exhaust yourself. Home activities: You may resume your usual home activities such as housekeeping and chores; allowing time to rest as needed. Sexual activity: You may engage in sexual activity when you feel ready. Stairs: There are no restrictions on stair climbing. Use common sense. Don't exhaust yourself. Activities outside the home: After the first week home you may go out to dinner, visit friends, go to a movie, go to jewish, etc. Heavy activities: No hunting, skiing, jogging, snow shoveling, snowmobiling, lawn mowing, swimming,golf or tennis for 1 week after your procedure. Smoking: It is very important that you not smoke after your procedure. Smoking cessation education was provided as appropriate. If you need further assistance with this please call and you will be referred to a smoking cessation specialist. Medications: Take only those medications listed on your discharge information. Keep your pain undercontrol so you can be active, do your coughing and breathing exercises and sleep. Contact us if thepain medication isn't working for you. Do not take any herbal preparations until after your follow up appointment. Diet: You should follow a regular diet until your appetite returns to normal. At that point in timeyou should resume a low fat, low cholesterol, [place] [employer] Diet Driving: No driving for 3 days. Shower/Bath: You may shower daily. No baths, soaking, or swimming for the first week. Wound care: Please remove your dressings 48 hours after your procedure. Wash the sites daily with soap and rinse well, pat dry. Assess for any signs of infection such as increased redness, pain, warmth or drainage. Please call your events specialist's office if you have any discharge or drainage from your procedural sites. If there is a lot of swelling, apply guanako wraps during the day and remove at bedtime. Elevate your legs when you are sitting. Home oxygen therapy: N/A Follow up appointments: Please schedule a follow-up appointment with your PCP, Gideon Becerra MD, in ~ 7-10 days. \You have a follow-up appointment with your Chargeback Analyst, Dr. Jair Gomez, in 1 month with an EKG, Echo, and labs prior to your appointment. Yvxk-Bdutsq-yo interval: After initial 30 day follow-up appointment , all TAVR patients will follow-up again in one year with an echo. Cardiac Rehabilitation: you will be contacted documented in this encounter Medications at Time of Discharge Medication Sig Dispensed Refills Start Date End Date rivaroxaban (Xarelto) 20 mg tablet Take 1 [...] capsule Take 5 mg by mouth daily. TAUMYOI-GYJSEKSBX-VOUX ORAL Take 2 capsules by mouth daily. [...] complex vitamins (VITAMIN B COMPLEX) tablet 03/06/2010 losartan (COZAAR) 50 mg tablet Take 50 mg by mouth daily. 08/13/2023 documented as of this encounter Progress Notes * Jolanta Matthews, PT - 07/05/2023 3:12 PM EDT Physical Therapy Note Treatment Number PT: 2 Patient profile: Roxanne Pollack is a 83 y.o. female who is 4 Days Post-Op TF TAVR PMH of COPD, HTN, HLD, CPAP nightly, hypothyroidism, , h/o breast cancer, acute subsegmenta PE Interval Events: Ambulating with staff Getting stronger Social History: Pt lives alone in [facility]. Pt reports her apartment is on the second floor and she has a flight of stairs to manage to enter/exit. 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 She was indep with her ADL's, meals, housework per pt report. She has a friend, Dee who assists with rides and groceries. Precautions/Special Considerations: At risk to fall; Groin incisions Mobility and Positioning Recommendations: Ambulate 3-4x/daily with nursing with rolling walker and supervision with close chair follow OOB in chair for all meals Subjective: I am doing better. Objective: Patient seen for physical therapy and demonstrated the following: Pain: denies pain at this time Mental Status: alert, oriented , appropriate, little delay with answering questions, but appropriate and accurate Vital Signs: SpO2: 97-99% HR: 87-89 BP: 120/63 rest, 151/77 post walk Pt sitting in chair when PT arrived. Pt alert, willing to mobilize. Pt stood from CC and transferred to bed with supervision, no device. Pt able to get in and out of bed with HOB flat without difficulty. Pt ambulating to stairs in nursing station and was able to go and down 3 with rail twice in a row without difficulty ( no LOB, dizziness or strain. Pt ambulated with ease around unit with FWW and supervision; last 50 ft without walker (decreased step length compared to use of FWW and B arms elevated 1/3 range in guard. No LOB, but less confident. Pt left in bedside recliner chair. Education: reviewed importance of using FWW for confidence and safety so that she would mobilize more and get stronger more quickly. Assessment: Roxanne Pollack was seen today for physical therapy treatment session for continuation of POC. Pt has progressed well post TAVR and now has someone to stay with her upon d/c. She is mobilizing with ease in and out of bed and ambulating in hallway with supervision with FWW. She is getting a FWW for home and should use it until she feels consistently confident without. ; VN PT can help with this. Ready for d/c from [facility] from a PT standpoint. Anticipated Discharge Disposition (PT): home with home health (has someone staying with her) Consult Recommendations: No other consults recommended at this time. Anticipated Equipment Needs at Discharge (PT): walker, front wheeled Goals to be achieved by 07/09/23. Goals achieved today 07/05. Pt will perform supine to sit transfers independently. Pt will perform sit><stand transfers with supervision with least restrictive device Pt will perform bed to chair transfers with supervision with least restrictive device Pt will ambulate at least 160' with supervision with least restrictive device. Pt will perform a flight of stairs with rail, LRAD and supervision. Plan: Therapy Frequency (PT): Monitor until d/c inc case further PT needs arise. Time IN / OUT: 3833-5188 Total Minutes, Physical Therapy: 23 Billing Code: [id number] JOLANTA MATTHEWS PT Pager: [phone] Physical Therapy Inpatient Rehabilitation Department * Reynold Malhotra RN - 07/05/2023 11:15 AM EDT I have met with the patient to: discuss discharge planning needs. provide the [facility], Office of Care Management letter from the Publicity Expert pertaining to rehab referrals. provide a letter describing our affiliations within the [facility] and educate about their right to choose where referrals are sent. provide a list of Home Health Agencies / Durable Medical Equipment vendors which serve their preferred geographic area. provided patient with [facility] Star Quality Rating handout. They have [facility] to: [facility] [address] [place] [address] Ortho Care Located @ [facility] Center [place], [place] Note routed to a Wildlife Biostation Research Ecologist who will communicate referrals to facilities and provide any required information. * She Ramirez OT - 07/05/2023 10:00 AM EDT Occupational Therapy Evaluation Patient profile: Roxanne Pollack is a 83 y.o. female with h/o of COPD, HTN, HLD, CPAP nightly, hypothyroidism, , h/o breast cancer, acute subsegmental PE, admitted on 06/30/2023 for TF TAVR. Past Medical History: Diagnosis Date Arthritis Cancer 2000 Breast Cancer Cataract Hyperlipidemia Hypertension Hypothyroidism Psoriasis 10/11/2017 Severe calcific aortic valve stenosis 06/08/2023 Thyroid disease Past Surgical History: Procedure Laterality Date CATARACT REMOVAL Left Dr. Villarreal PRO VITRECTOMY PARS PLANA REMOVE PRERETINAL MEMBRANE 08/28/2013 VITRECTOMY, W/ MEMBRANE STRIPPING performed by Mitch Rios MD at [facility] OR PRO VITRECTOMY,MECHANICAL 08/28/2013 VITRECTOMY, MECHANICAL PARS PLANA APPROACH performed by Mitch Rios MD at [facility] OR RETINOPATHY SURGERY Social History: Patient lives alone in an apartment in [place], [place], but reports her son plans to stay with her for 1week. Home Setup: 2nd floor apartment (FOS to enter). She has a tub shower with no seat but grab bars. DME: long shoe horn Baseline ADL/Mobility: Pt was independent w/ ADL's (uses a long shoe horn to don shoes). She ambulates w/o a device at baseline. Her son assists with organizing her medications and she sets an alarm at 8:30 and 12pm every day to remember to take them (though admits they may be different now). She has pull cords in the bathroom that call the ambulance. She reports she had an episode of dizziness an d speech change in 2019 and her speech has been affected since then. Her friend Dee assists with rides and groceries. She reports having supportive friends across the street who also help with things sometimes. Precautions/Special Considerations: at risk to fall, groin incsion Subjective: My speech has been affected since an episode in 2020. Objective: Seen today for OT evaluation. Cognitive Status/Behavior: Behavior / Mood: alert and cooperative Alert and oriented to: person, place, date, month, year, day of week, and situation Follows commands: 1 step, 100% of the time, and requires increased time, sometimes pauses when asked a question or doesn't answer it Attention: grossly WFL Safety awareness: cues for technique w/ FWW Vision & Perception: corrective lenses multimedia educational specialist-bifocals Some difficulty with reading a line of print on handout, though reports more r/t her speech Communication: effortful, stuttering speech-reports affected since 2020 ; wears hearing aids but only 1 works right now Range of motion, strength, coordination: Hand dominance: right UE status: ROM is grossly WFL, strength grossly 4/5, coordination mostly intact LE limitations: unable to draw LE's up to reach her feet Sensation: denies numbness/tingling Activities of Daily Living: Self-feeding: seated w/ setup Grooming: stood at the sink to clean and apply her dentures and wash her hands Dressing: Difficulty donning socks Issued sockaid and airport operations duty manager and educated in use Reports she has a long shoe horn at home Bathing: recommend assistance w/ transfer; would benefit from a shower seat Toileting: Transfer: supervision, reports she has a grab bar next to her toilet at home Hygiene: supervision seated Functional Mobility Sit to stand: SBA w/ FWW Ambulation: pt ambulated ~170' with FWW and SBA, slow pace, cues for positioning w/ walker Stand to sit: SBA Balance: Sitting balance: good Standing balance: SBA w/ FWW Vitals: HR: 80's, Sp02: 98% on RA, BP: 133/65 (85) at rest Pain: 0/10 Skin: groin incision, not assessed Education: Patient was educated on Role of occupational therapy/rehabilitation, Transfers, ADL, Exercise, Positioning, Safety, Precautions/Protocol, Functional Mobility, Home Management, Balance, Recommendations, and Discharge planning and verbalizes understanding. Patient status, treatment, and mobility recommendations discussed with nursing. Assessment: Pt was seen for occupational therapy evaluation. Roxanne Pollack presents with the following performance skill deficits and client factors: decreased activity tolerance, decreased strength, decreased standing balance benefiting from a FWW, communication deficits (reports present [id number]), and compromised mobility status. Dee is demonstrating the ability to manage her basic ADL's with supervision to min A and mobilize with a FWW. She reports her son will be home with her for at least one week. Recommend assist in the shower and use of a shower chair. Provided with adaptive equipment for LB dressing. She will need a walker. Recommend VNA OT and PT at d/c. Anticipate that ptwill return home with assistance once medically ready. Do not anticipate further OT needs while hospitalized. Equipment Recommendations: Equipment Needs Upon Discharge (OT): walker, front wheeled Anticipated Discharge Disposition (OT): home with home health (home PT and OT) EPM Level 5: Ambulate, Participate in self care Other Recommendations: Ambulate as tolerated with FWW Encourage participation in ADL's by providing set up A on tray table and physical assist only as needed. Other Recommendations: No other consults recommended at this time Plan: OT: Therapy Frequency (OT): Monitor Total Minutes, Occupational Therapy: 35 (initial evaluation) OT Evaluation Code Rationale: Diagnosis & Pertinent Co-Morbidities affecting Plan of Care: see PMHx Occupational Profile & Client History: Brief Expanded Extensive x Assessment of Occupational Performance: 1-3 performance deficits 3-5 performance deficits x 5 + performance deficits Clinical Decision Making: Low Moderate High x Clinical decision making of moderate complexity using standardized patient assessment instrument and measurable assessment of functional outcome. Pager: [phone] SHE RAMIREZ OT 07/05/2023 Occupational Therapy Rehabilitation Department * Pat Sandoval, BREAD AND PASTRY BAKER - 07/04/2023 7:56 AM EDT Cardiac Surgery Progress Note Roxanne Pollack is a 83 y.o. female who is 4 Days Post-Op TF TAVR PMH of COPD, HTN, HLD, CPAP nightly, hypothyroidism, , h/o breast cancer, acute subsegmenta PE Interval Events: Ambulating with staff Getting stronger S: Feeling good today, pain controlled and no shortness of breath, nausea or vomiting. O: Temp: [36.6 ??C (97.9 ??F)-37.1 ??C (98.8 ??F)] Heart Rate: [81-99] Resp: [16-24] BP: (137-159)/(65-87) SpO2: [92 %-99 %] Heart Rate from SpO2: [82 bpm-90 bpm] 07/03 0701 - 07/04 0700 In: 600 [P.O.:600] Out: 950 [Urine:950] Admit weight: 79 kg Current weight: Weight: 76.6 kg (168 lb 14 oz) Physical Exam: General: NAD Neuro: A&Ox3, grossly non focal Lungs: Normal work of breathing on nasal cannula ls clear dim t/o Heart: Regular, SR on monitor Abdomen: Soft, NT ND Ext: wwp, no edema Incisions: Left groin without palpable hematoma, some ecchymosis Tubes/Lines/Drains: PIV Assessment/Plan: 83 y.o. female 4 Days Post-Op TF TAVR #TF TAVR Aspirin and Apixaban Still quite weak, will need rehab or swing bed, medically ready for discharge Home statin Home losratan Holding home verapamil #new LBBB - resolved #acute post op blood loss anemia - stabilized Dispo: full code, Floor status Discussed with attending surgeon on rounds this morning. PAT SANDOVALDELPHINE 07/04/2023 Between the hours of 1800 - 0600 and on the weekends please page [phone]. * Juliocesar Fuentes MD - 07/03/2023 9:22 AM EDT Cardiac Surgery Progress Note Roxanne Pollack is a 83 y.o. female who is 3 Days Post-Op TF TAVR PMH of COPD, HTN, HLD, CPAP nightly, hypothyroidism, , h/o breast cancer, acute subsegmenta PE Interval Events: Nearly fell yesterday, feeling quite weak. Kept inpatient instead of being discharged. Rehab consults and referrals placed. S: Feeling tired and weak, but pain controlled and no shortness of breath, nausea or vomiting. O: Temp: [36.6 ??C (97.9 ??F)-37.2 ??C (99 ??F)] Heart Rate: [77-97] Resp: [21-26] BP: (118-150)/(58-83) SpO2: [92 %-100 %] Heart Rate from SpO2: [77 bpm-97 bpm] 07/02 0701 - 07/03 0700 In: 0 Out: 1000 [Urine:1000] Admit weight: 79 kg Current weight: Weight: 76.8 kg (169 lb 5 oz) Physical Exam: General: NAD Neuro: A&Ox3, grossly non focal Lungs: Normal work of breathing on nasal cannula Heart: Regular, SR on monitor Abdomen: Soft, NT ND Ext: wwp, no edema Incisions: Left groin without palpable hematoma, some ecchymosis Tubes/Lines/Drains: PIV Assessment/Plan: 83 y.o. female 3 Days Post-Op TF TAVR #TF TAVR Aspirin and Apixaban Still quite weak, will need rehab or swing bed, medically ready for discharge Home statin Home losratan #new LBBB - resolved #acute post op blood loss anemia - stabilized Dispo: full code, cvcc status Discussed with attending surgeon on rounds this morning. Juliocesar Fuentes MD 07/03/2023 Between the hours of 1800 - 0600 and on the weekends please page [phone]. * Espinoza Gomez, PT - 07/02/2023 2:23 PM EDT Physical Therapy Evaluation Patient profile: Roxanne Pollack is a 83 y.o. female w/ PMH of COPD, HTN, HLD, CPAP nightly, hypothyroidism, PE of RLL (incidental finding for TAVR CT work up 06/08/23), severe aortic stenosis now status post right transfemoral TAVR with a 23 mm Sarah 3 THV 06/30/[address] Gomez. Successful shockwave balloon lithotripsy of heavily calcified left common femoral and left externaliliac arteries with a 7 mm balloon Successful Successful right transfemoral TAVR with a 23 mm Sarah 3 THV 24 Hour Events/Subjective: - Intubated during case for acces concerns (L iliac required shockwave) - Unable to perclose LFA so manual pressor and angioseal utilized - Transferred to [facility] 06/30 post-TAVR - Extubated 1630 on 06/30 - LL Artierial Duplex negative for PSA, stenosis, AV fistula, or hematoma - Remains HDS off pressors - New LBBB post-TAVR, resolved on EKG - Continue Xarelto (Incidental PE on CT-TAVR) - Hgb 7.4 -> 9.7 -> 8.9; likely previously dilutional - Losartan 50 restarted Social History: Pt lives alone in [facility]. Pt reports her apartment is on the second floor and she has a flight of stairs to manage to enter/exit. 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 She was indep with her ADL's, meals, housework per pt report. She has a friend, Dee who assists with rides and groceries. Precautions/Special Considerations: At risk to fall; Groin incisions Mobility and Positioning Recommendations: Ambulate 3-4x/daily with nursing with rolling walker and Cg assist x 1 with close chair follow OOB in chair for all meals Subjective: I don't use a walker. I don't fall. Objective: Pt seen in the [facility] for initial evaluation. Pt in chair at start of session; in at end of session with call chang in reach. Vital Signs: HR: 95 BP: 118/67 SpO2: 95% on RA Pain: none expressed Mental Status: Alert. Oriented x 3. Increased time to respond. Skin: incision sites intact Musculoskeletal: ROM: WFL Strength: B LE's 4-/5 knee ext; 4-/5 knee flex; hip flex 3/5 Intact but slowed ROM B UE and LEs Bed Mobility: not assessed; up in chair at start of session Transfers: Sit to Stand: cg-min assist x 1 to stand to rolling walker; cues for hand placement Stand to Sit: cg assist; cues Gait: Ambulated 150 ft with 1 seated rest; cg-min assist with rolling walker and close chair follow. Decreased step height and step length. Cues to keep walker close Balance: poor without walker; fair with rolling walker; cg assist for safety with walker Stairs: not assessed; has a flight to enter Education: Reviewed safety, pacing and importance of mobility. Assessment: Pt is now POD # 2 s/p TAVR presenting with impaired activity tolerance post-op. Pt up with nursing this AM to toilet with LOB. Asked by team to assess for safety for d/c home today . Pt lives alone. Dee presents today with impaired functional strength, impaired gait, impaired balance,impaired activity tolerance from her baseline. Dee is indep at baseline without a device. Improved balance today with rolling walker vs without device. Recommend she use the walker at this time forbalance and energy conservation. At current level of function, she is not safe to return home aloneto her apartment. She will benefit from continued PT in a rehab setting. Continued PT in this setting 2-4x/week for strength, transfer, gait, balance, and d/c planning. Plan/D/c Recommendation: Swing rehab stay prior to d/c home alone. Supportive friend Dee to assist upon d/c. Equipment needs for home at d/c: TBD; at this time anticipate she may benefit from a rolling walker; TBD at rehab Goals to be achieved by 07/09/23. Pt will perform supine to sit transfers independently. Pt will perform sit><stand transfers with supervision with least restrictive device Pt will perform bed to chair transfers with supervision with least restrictive device Pt will ambulate at least 160' with supervision with least restrictive device. Pt will perform a flight of stairs with rail, LRAD and supervision. Patient status, treatment, and mobility recommendations have been discussed with nursing, Care management and Medical team. 2017 PT Evaluation Code Rationale: Diagnosis & Pertinent Co-Morbidities, personal factors, and present illness affecting Plan of Care: (see above); Additional personal factors or co- morbidities that impact plan: Total # of Factors: 0 1-2 3+ x Examination of body system impairments, functional limitations and behaviors, and/or participation restrictions. Addressing 1-2 elements Addressing 3 + elements Addressing 4 + elements x Clinical presentation: See assessment above. Stable/Uncomplicated Evolving/Fluctuating Symptoms Unstable/Unpredictable x Clinical decision making of moderate complexity based on pt's functional performance as outlined inthis evaluation. ESPINOZA GOMEZ, PT Pager: [phone] Physical Therapy Inpatient Rehabilitation Department Time IN / OUT: 150-215 Total time: 25 ( eval) * Jair Gomez MD - 07/02/2023 7:56 AM EDT Images from the original note were not included. Structural Heart Progress Note Patient info: Name: Roxanne Pollack : 1940 Date of Admission: 06/30/2023 ( Hospital Day 2 days ) Attending:Hector Machuca MD ID: Roxanne Pollack is a 83 y.o. female w/ PMH of COPD, HTN, HLD, CPAP nightly, hypothyroidism, PE of RLL (incidental finding for TAVR CT work up 06/08/23), severe aortic stenosis now status post right transfemoral TAVR with a 23 mm Sarah 3 THV 06/30/[address] Gomez. Preliminary findings: Successful shockwave balloon lithotripsy of heavily calcified left common femoral and left externaliliac arteries with a 7 mm balloon Successful Successful right transfemoral TAVR with a 23 mm Sarah 3 THV Active Problem List Status post TAVR 23 mm with shockwave 24 Hour Events/Subjective: - Intubated during case for acces concerns (L iliac required shockwave) - Unable to perclose LFA so manual pressor and angioseal utilized - Transferred to [facility] 06/30 post-TAVR - Extubated 1630 on 06/30 - LL Artierial Duplex negative for PSA, stenosis, AV fistula, or hematoma - Remains HDS off pressors - New LBBB post-TAVR, resolved on EKG - Continue Xarelto (Incidental PE on CT-TAVR) - Hgb 7.4 -> 9.7 -> 8.9; likely previously dilutional - Losartan 50 restarted Patient Active Problem List Diagnosis ','Aortic stenosis Severe calcific aortic valve stenosis Psoriasis Macular pucker, left eye Nuclear sclerosis Blepharitis Objective Vasoactive & Sedating Medications: Infusions: Continuous Infusions: fentaNYL Stopped (06/30/23 1506) NORepinephrine Stopped (06/30/23 1117) niCARdipine Stopped (06/30/23 1845) Ventilator Settings: Mode: Servo U Ventilator Mode: PS/CPAP, SET RR: TV: PEEP: FiO2: VARIABLES Tidal Volume Set: 380 Set PEEP (cm H2O): 5 Set FiO2: 40 % PATIENT RR: PIP: Pplateau: SpO2: OUTPUT Resp: 21 Peak Inspiratory Pressure: 11 SpO2: 93 % ABG (Arterial Blood Gas) Recent Labs 06/30/23 1617 06/30/23 1256 06/30/23 1125 PHART 7.36 7.39 7.33* [id number] 43 38 50* PO2ART 107* 84* 285* [id number] 23.9 22.8 25.6 LACTATEVEN 0.9 1.2 1.4 [id number] 40 40 100 PFRATIOART2 268 210 285 VBG (Venous Blood Gas) Recent Labs 06/30/23 1617 06/30/23 1256 06/30/23 1125 LACTATEVEN 0.9 1.2 1.4 Mixed Venous Sat No results for input(s): [id number] in the last 168 hours. Vitals Last value Range last 24 hrs Temperature Temp: 36.6 ??C (97.9 ??F) Temp: [36.5 ??C (97.7 ??F)-37 ??C (98.6 ??F)] Heart Rate Heart Rate: 90 Heart Rate: [80-90] Blood Pressure BP: 140/67 BP: (106-154)/(44-88) Art Line BP BP (Arterial Line): 78/68 BP (Arterial Line): -- MAP (NBP): [64 mmHg-97 mmHg] Respiratory Rate Resp: 21 Resp: [18-34] SpO2 SpO2: 93 % SpO2: [87 %-98 %] Oxygen Delivery Oxygen Therapy O2 Device: None (Room air) O2 Flow Rate (L/min): 1 L/min FiO2 (%): 40 % Intake/Output Summary (Last 24 hours) at 07/02/2023 0930 Last data filed at 07/02/2023 0600 Gross per 24 hour Intake 890 ml Output 300 ml Net 590 ml Patient Vitals for the past 168 hrs: Weight 07/02/23 0400 76.9 kg (169 lb 8.5 oz) 07/01/23 0600 76.7 kg (169 lb 1.6 oz) 06/30/23 1500 79 kg (174 lb 2.6 oz) Physical Exam: General: Pleasant female , no acute distress HEENT: Normocephalic, atraumatic, benign NECK: Supple, no masses, FROM CV: Normal rate, regular rhythm no m/r/g, no ventricular heaves RESP: CTAB, moving air well, symmetric chest excursion GI: Soft, nd, nttp EXT: No edema, access sites nttp,+ left femoral ecchymosis NEURO: No gross focal deficits PSYC: Appropriate mood and affect, alert and oriented DERM: No rash, wwp Lines/Drains/Airways Lines: LDA Cath/EP Sheath 06/30/23 Right Femoral (Active) Peripheral IV Line - Single Lumen 06/30/23 0737 dorsal arch vein (top of hand), right 22 gauge (Active) Arterial Line 06/30/23 1033 14 gauge (Active) Labs: Recent Labs 07/02/23 0215 07/01/23 1415 07/01/23 0545 06/30/23 1445 06/30/23 0752 WBC 9.4 10.9* 8.9 -- 6.2 HGB 8.9* 9.7* 7.4* 10.7* 12.7 HCT 26.4* 28.8* 21.9* -- 37.8 PLATELET 80* 102* 110* -- 163 MCV 98.5* 99.0* 98.6* -- 96.4* Recent Labs 07/01/23 0420 06/30/23 1445 06/30/23 0752 NA 142 -- 143 CL 106 -- 107 CO2 24 -- 26 K 4.3 4.3 4.2 CALCIUM 8.5 -- 10.0 BUN 16 -- 14 CREATININE 1.04 -- 1.01 Recent Labs 06/30/23 0755 POCGLU 97 No results for input(s): LDH, HAPTOGLOBIN, URICACID in the last 168 hours. ABG (Arterial Blood Gas) Recent Labs 06/30/23 1617 06/30/23 1256 06/30/23 1125 PHART 7.36 7.39 7.33* [id number] 43 38 50* PO2ART 107* 84* 285* VUN4RLB 23.9 22.8 25.6 LACTATEVEN 0.9 1.2 1.4 [id number] 40 40 100 PFRATIOART2 268 210 285 VBG (Venous Blood Gas) Recent Labs 06/30/23 1617 06/30/23 1256 06/30/23 1125 LACTATEVEN 0.9 1.2 1.4 Mixed Venous Sat No results for input(s): [id number] in the last 168 hours. Diagnostics: Echocardiogram: 06/30/2023 Interpretation Summary Pre TAVR: trivial pericardial effusion, severe calcific , at least moderate calcific mitral stenosis with severely calcified mitral annulus. Post TAVR: There is a transcatheter valve in the aortic position (23mm Hernandez Resilia) and is functioning normally. The peak gradient across the prosthesis is 14 mmHg. The mean gradient across the prosthesis is 9 mmHg. Left ventricle is of normal size. Wall thickness is moderately increased. Left ventricular systolic function is normal. Left ventricular ejection fraction is estimated visually at 70%. Left Femoral Arterial US 07/01/2023 Interpretation: LEFT: Patent common femoral, proximal superficial femoral, and proximal profunda artery with no evidence of hemodynamically significant stenosis. No evidence of pseudoaneurysm, AV fistula or hematoma in the left groin. Medications Scheduled Meds: rivaroxaban 15 mg Oral 2 times per day Followed by [START ON 07/06/2023] rivaroxaban 20 mg Oral Daily with dinner levothyroxine 112 mcg Oral Daily pravastatin 40 mg Oral QPM sodium chloride 0.9 % (flush) 5 mL Intravenous BID aspirin 81 mg Oral Daily Or aspirin 300 mg Rectal Daily chlorhexidine 15 mL Oral 2 times per day pantoprazole EC 40 mg Oral Daily Or pantoprazole 40 mg Intravenous Daily senna-docusate 2 tablet Oral Daily shift total and Settings verification Intravenous 2 Times Daily - Shift Total mirabegron ER 25 mg Oral Daily tiotropium bromide 2 puff Inhalation Daily losartan 50 mg Oral Daily Continuous Infusions: fentaNYL Stopped (06/30/23 1506) NORepinephrine Stopped (06/30/23 1117) niCARdipine Stopped (06/30/23 1845) PRN Meds:.sodium chloride 0.9 % (flush), lidocaine, sodium chloride 0.9%, sodium chloride 0.9%, ondansetron, [START ON 07/03/2023] bisacodyL, acetaminophen, magnesium hydroxide, albuteroL, hydrALAZINE Assessment & Plan: Roxanne Pollack is a 83 y.o. female w/ PMH of w/ PMH of COPD, HTN, HLD, CPAP nightly, hypothyroidism, severe aortic stenosis now status post right transfemoral TAVR with a 23 mm Sarah 3 THV 06/30/[address] Gomez. NYHA FC II - slight limitation of activity Feeling well in her chair, denying heart failure or anginal symptoms. She notes her light-headedness with ambulation is improved. Post-TAVR LBBB resolved on EKG today. Hgb 8.9 this AM, likely dilutional yesterday. Left Iliac needed shockwave. Unable to perclose LFA so manual pressure and angioseal.Femoral access sites without hematoma, pulsatile mass, drainage, or significant ecchymosis. Additionally, LL arterial duplex on 07/01 negative for PSA, stenosis, AV fistula, or hematoma. Will continue with ASA 81 daily. Considering incidental suspected RLL subsegmental PE of unknown cause found on TAVR CT imaging, will continue Xarelto 15 mg bid (initiated ~ 06/08/23) and transition to 20 mg daily on 07/07/23. OAC duration > 3 months for PE to be considered at future intervals. Follow up in 30 days with [facility] team with echo and labs. Plan - Continue aspirin 81 mg - Continue Xarelto (PE -- incidental finding 06/08/23) - Appreciate medication and hemodynamic optimization per primary team - Plan for discharge home today - 30 day structural heart follow up with CBC, BMP and echo Pierce Allen APRN Structural Heart Team Pager [phone] I have seen the patient in person and reviewed Pierce Allen APRN's above history and I agree with the details as written. The assessment and plan were formulated in discussion with me and I agree with them as documented. Jair Gomez MD Pager [phone] * Rosita Hood RCP - 07/01/2023 3:58 PM EDT 07/01/23 1400 Oxygen Therapy O2 Device NC O2 Flow Rate (L/min) 1 L/min SpO2 95 % Resp 21 Pt on 1L faiza well Pt has a Home NIV in room for at nite Pt has orders for 2p Albuterol prn q4 Spiriva q am B/S diminished Treatments faiza well Will continue to monitor pt * Fasutino Brown MD - 07/01/2023 2:50 PM EDT CARDIAC CRITICAL CARE ATTENDING STAFF PROGRESS NOTE Patient seen and examined. Roxanne Pollack is a 83 y.o. female with: Active Hospital Problems Diagnosis Aortic stenosis Resolved Hospital Problems No resolved problems to display. ASSESSMENT, MANAGEMENT, and DECISION MAKING: Neuro: Pain controlled, neuro intact. CV: HDs off pressors. New intermittent LBBB. Recheck EKG in am. Restart home ARB. Resp: Oxygenation adequate on NC. GI: Diet per cardiac surgery, PPI Renal: Monitor UOP, replete lytes as appropriate Heme: ASA, xarelto if duplex normal, recheck H/H later today to monitor for ongoing losses though clinical suspicion low. ID: Periop abx x 24 hours completed EXAM: Patient Vitals for the past 168 hrs: Weight 07/01/23 0600 76.7 kg (169 lb 1.6 oz) 06/30/23 1500 79 kg (174 lb 2.6 oz) Temp: [36.4 ??C (97.5 ??F)-36.8 ??C (98.2 ??F)] Heart Rate: [53-85] Resp: [12-26] BP: (96-167)/(52-85) SpO2: [94 %-100 %] Heart Rate from SpO2: [53 bpm-85 bpm] Physical Exam Awake and alert RRR no m CTAB anteriorly S/NT, + BSs WWP, groin sites soft Recent Results (from the past 24 hour(s)) BLOOD GAS 2 ARTERIAL Result Value Ref Range pH Art 7.36 7.35 - 7.45 pCO2 Art 43 35 - 45 mmHg pO2 Art 107 (H) 85 - 104 mmHg HCO3 Art 23.9 20.0 - 26.0 mmol/L BE Art -1.5 -3.0 - 3.0 mmol/L Hgb Blood Gas 12.7 11.7 - 15.5 g/dL O2HB Art 96.2 94.0 - 97.0 % COHB Art 0.3 % METHB Art 0.6 <=1.5 % Na Whole Blood 142 135 - 145 mmol/L K Whole Blood 3.9 3.5 - 5.0 mmol/L ICa Whole Blood 1.23 1.15 - 1.33 mmol/L CL Whole Blood 108 (H) 98 - 107 mmol/L Gluc Whole Bld 121 65 - 199 mg/dL Lactate WB 0.9 0.5 - 2.2 mmol/L FIO2 Art 40 % PF Ratio Art 268 Basic Metabolic Panel (non-fasting) Result Value Ref Range Glucose Lvl 103 65 - 199 mg/dL BUN 16 8 - 18 mg/dL Creatinine 1.04 0.70 - 1.20 mg/dL Sodium 142 135 - 145 mmol/L Potassium 4.3 3.5 - 5.0 mmol/L Chloride 106 98 - 107 mmol/L CO2 24 22 - 31 mmol/L Anion Gap 12 5 - 15 mmol/L Calcium 8.5 8.5 - 10.5 mg/dL Estimated GFR 53 (L) >=60 mL/min/1.73 m?? Hemogram Result Value Ref Range WBC 8.9 4.0 - 9.5 x10(3)/mcL RBC 2.22 (L) 4.00 - 5.21 x10(6)/mcL Hemoglobin 7.4 (L) 11.7 - 15.5 g/dL Hematocrit 21.9 (L) 35.7 - 45.8 % MCV 98.6 (H) 82.6 - 94.4 fL MCH 33.3 (H) 27.1 - 32.0 pg MCHC 33.8 31.7 - 35.0 g/dL Platelets 110 (L) 145 - 357 x10(3)/mcL RDWSD 46.2 (H) 37.0 - 46.0 fL RDWCV 13.0 11.5 - 14.1 % MPV 11.5 7.6 - 12.9 fL nRBC % Auto 0.0 % nRBC Abs Auto 0.000 0.000 - 0.000 x10(3)/mcL Differential, Automated Result Value Ref Range Neutrophils % 76.2 % Neutr Abs (ANC) 6.78 (H) 1.70 - 6.10 x10(3)/mcL Lymphocytes % 14.1 % Lymphocytes Abs 1.3 0.9 - 3.2 x10(3)/mcL Monocytes % 9.1 % Monocyte Abs 0.8 0.3 - 0.9 x10(3)/mcL Eosinophils % 0.1 % Eosinophils Abs 0.0 0.0 - 0.4 x10(3)/mcL Basophils % 0.2 % Basophils Abs 0.0 0.0 - 0.1 x10(3)/mcL Immature Gran % 0.30 % Cathy Gran Abs 0.03 0.00 - 0.04 x10(3)/mcL Hemogram Result Value Ref Range WBC 10.9 (H) 4.0 - 9.5 x10(3)/mcL RBC 2.91 (L) 4.00 - 5.21 x10(6)/mcL Hemoglobin 9.7 (L) 11.7 - 15.5 g/dL Hematocrit 28.8 (L) 35.7 - 45.8 % MCV 99.0 (H) 82.6 - 94.4 fL MCH 33.3 (H) 27.1 - 32.0 pg MCHC 33.7 31.7 - 35.0 g/dL Platelets 102 (L) 145 - 357 x10(3)/mcL RDWSD 45.6 37.0 - 46.0 fL RDWCV 12.6 11.5 - 14.1 % MPV 10.3 7.6 - 12.9 fL nRBC % Auto 0.0 % nRBC Abs Auto 0.000 0.000 - 0.000 x10(3)/mcL Differential, Automated Result Value Ref Range Neutrophils % 72.4 % Neutr Abs (ANC) 7.88 (H) 1.70 - 6.10 x10(3)/mcL Lymphocytes % 18.2 % Lymphocytes Abs 2.0 0.9 - 3.2 x10(3)/mcL Monocytes % 8.9 % Monocyte Abs 1.0 (H) 0.3 - 0.9 x10(3)/mcL Eosinophils % 0.1 % Eosinophils Abs 0.0 0.0 - 0.4 x10(3)/mcL Basophils % 0.2 % Basophils Abs 0.0 0.0 - 0.1 x10(3)/mcL Immature Gran % 0.20 % Cathy Gran Abs 0.02 0.00 - 0.04 x10(3)/mcL IS PATIENT CRITICALLY ILL ? Is there a high potential of sudden, clinically significant, or life threatening deterioration? No Is there a need for direct personal assessment and management to treat/prevent multiple vital organfailure/deterioration? No * Pat Sandoval, [employer] - 07/01/2023 9:37 AM EDT Cardiac Surgery Progress Note Roxanne Pollack is a 83 y.o. female who is 1 Day Post-Op TF TAVR PMH of COPD, HTN, HLD, CPAP nightly, hypothyroidism, , h/o breast cancer, acute subsegmenta PE 24h Events: Tx to cvcc post op intubated, ext in afternoon Left groin with slow ooze over night Hgb drop from 10 to 7.4 S: pt tired, weak otherwise ok. Denies n/v/dyspnea O: Temp: [36.2 ??C (97.2 ??F)-36.8 ??C (98.2 ??F)] Heart Rate: [52-85] Resp: [12-26] BP: (96-167)/(52-85) SpO2: [94 %-100 %] Heart Rate from SpO2: [52 bpm-85 bpm] 06/30 701 - 09/07 0700 In: 1910.8 [P.O.:600; I.V.:1310.8] Out: 1745 [Urine:1545] Admit weight: 79 kg Current weight: Weight: 76.7 kg (169 lb 1.6 oz) Physical Exam: General: sitting up in chair Neuro: A&Ox3, NFD. Moving all ext Lungs: LS clear dim bibasilar Heart: rrr, s1s2 no mrg Abdomen: soft nt hypoactive bs Ext: wwp, no edema Incisions: left groin soft with small amount of ss drainage on dsg, right groin intact no hematoma or drainage Tubes/Lines/Drains: PIV Assessment/Plan: 83 y.o. female 1 Day Post-Op TF TAVR #TF TAVR #new LBBB #acute post op blood loss anemia Concern for left psa will send for duplex Restart home losartan, hold verapamil for now Hold xarelto till duplex completed Asa continue New LBBB continues this am though intermittently resolves. Will repeat EKG in the am Repeat labs tomorrow, trend hgb Dispo: full code, cvcc status Discussed with attending surgeon on rounds this morning. PAT SANDOVAL APRN 07/01/2023 Between the hours of 1800 - 0600 and on the weekends please page [phone]. * Jair Gomez MD - 07/01/2023 7:10 AM EDT Images from the original note were not included. Structural Heart Progress Note Patient info: Name: Roxanne Pollack : 1940 Date of Admission: 06/30/2023 ( Hospital Day 1 day ) Attending:Hector Machuca MD ID: Roxanne Pollack is a 83 y.o. female w/ PMH of COPD, HTN, HLD, CPAP nightly, hypothyroidism, PE of RLL (incidental finding for TAVR CT work up 06/08/23), severe aortic stenosis now status post right transfemoral TAVR with a 23 mm Sarah 3 THV 06/30/[address] Gomez. Preliminary findings: Successful shockwave balloon lithotripsy of heavily calcified left common femoral and left externaliliac arteries with a 7 mm balloon Successful Successful right transfemoral TAVR with a 23 mm Sarah 3 THV Active Problem List Status post TAVR 23 mm with shockwave 24 Hour Events/Subjective: - Intubated during case for acces concerns (L iliac required shockwave) - Unable to perclose LFA so manual pressor and angioseal utilized - Transferred to [facility] 06/30 post-TAVR - Extubated 1630 on 06/30 - Remains HDS off pressors - New LBBB post-TAVR (transient on tele) - Salazar to be removed this AM - Continue Xarelto pending groin stability this AM - Hgb 7.4 from 10.7 this morning - Losartan 50 restarted Patient Active Problem List Diagnosis ','Aortic stenosis Severe calcific aortic valve stenosis Psoriasis Macular pucker, left eye Nuclear sclerosis Blepharitis Objective Vasoactive & Sedating Medications: Infusions: Continuous Infusions: fentaNYL Stopped (06/30/23 1506) NORepinephrine Stopped (06/30/23 1117) niCARdipine Stopped (06/30/23 1845) Ventilator Settings: Mode: Servo U Ventilator Mode: PS/CPAP, SET RR: TV: PEEP: FiO2: VARIABLES Tidal Volume Set: 380 Set PEEP (cm H2O): 5 Set FiO2: 40 % PATIENT RR: PIP: Pplateau: SpO2: OUTPUT Resp: 26 Peak Inspiratory Pressure: 11 SpO2: 96 % ABG (Arterial Blood Gas) Recent Labs 06/30/23 1617 06/30/23 1256 06/30/23 1125 PHART 7.36 7.39 7.33* [id number] 43 38 50* PO2ART 107* 84* 285* [id number] 23.9 22.8 25.6 LACTATEVEN 0.9 1.2 1.4 [id number] 40 40 100 PFRATIOART2 268 210 285 VBG (Venous Blood Gas) Recent Labs 06/30/23 1617 06/30/23 1256 06/30/23 1125 LACTATEVEN 0.9 1.2 1.4 Mixed Venous Sat No results for input(s): [id number] in the last 168 hours. Vitals Last value Range last 24 hrs Temperature Temp: 36.7 ??C (98 ??F) Temp: [36.2 ??C (97.2 ??F)-36.8 ??C (98.2 ??F)] Heart Rate Heart Rate: 80 Heart Rate: [52-85] Blood Pressure BP: 123/64 BP: (96-167)/(52-85) Art Line BP BP (Arterial Line): 78/68 BP (Arterial Line): (78-141)/(49-83) MAP (NBP): [65 mmHg-90 mmHg] Respiratory Rate Resp: 26 Resp: [12-] SpO2 SpO2: 96 % SpO2: [94 %-100 %] Oxygen Delivery Oxygen Therapy O2 Device: Nasal cannula O2 Flow Rate (L/min): 1 L/min FiO2 (%): 40 % Intake/Output Summary (Last 24 hours) at 07/01/2023 0748 Last data filed at 07/01/2023 0600 Gross per 24 hour Intake 1910.75 ml Output 1745 ml Net 165.75 ml Patient Vitals for the past 168 hrs: Weight 07/01/23 0600 76.7 kg (169 lb 1.6 oz) 06/30/23 1500 79 kg (174 lb 2.6 oz) Physical Exam: General: Pleasant female , no acute distress HEENT: Normocephalic, atraumatic, benign NECK: Supple, no masses, FROM CV: Normal rate, regular rhythm no m/r/g, no ventricular heaves RESP: CTAB, moving air well, symmetric chest excursion GI: Soft, nd, nttp EXT: No edema, access sites nttp,+ left femoral ecchymosis NEURO: No gross focal deficits PSYC: Appropriate mood and affect, alert and oriented DERM: No rash, wwp Lines/Drains/Airways Lines: LDA Cath/EP Sheath 06/30/23 Right Femoral (Active) Peripheral IV Line - Single Lumen 06/30/23 0737 dorsal arch vein (top of hand), right 22 gauge (Active) Arterial Line 06/30/23 1033 14 gauge (Active) Labs: Recent Labs 07/01/23 0545 06/30/23 1445 06/30/23 0752 WBC 8.9 -- 6.2 HGB 7.4* 10.7* 12.7 HCT 21.9* -- 37.8 PLATELET 110* -- 163 MCV 98.6* -- 96.4* Recent Labs 07/01/23 0420 06/30/23 1445 06/30/23 0752 NA 142 -- 143 CL 106 -- 107 CO2 24 -- 26 K 4.3 4.3 4.2 CALCIUM 8.5 -- 10.0 BUN 16 -- 14 CREATININE 1.04 -- 1.01 Recent Labs 06/30/23 0755 POCGLU 97 No results for input(s): LDH, HAPTOGLOBIN, URICACID in the last 168 hours. ABG (Arterial Blood Gas) Recent Labs 06/30/23 1617 06/30/23 1256 06/30/23 1125 PHART 7.36 7.39 7.33* [id number] 43 38 50* PO2ART 107* 84* 285* STF4UEC 23.9 22.8 25.6 LACTATEVEN 0.9 1.2 1.4 [id number] 40 40 100 PFRATIOART2 268 210 285 VBG (Venous Blood Gas) Recent Labs 06/30/23 1617 06/30/23 1256 06/30/23 1125 LACTATEVEN 0.9 1.2 1.4 Mixed Venous Sat No results for input(s): [id number] in the last 168 hours. Diagnostics: Echocardiogram: 06/30/2023 Interpretation Summary Pre TAVR: trivial pericardial effusion, severe calcific , at least moderate calcific mitral stenosis with severely calcified mitral annulus. Post TAVR: There is a transcatheter valve in the aortic position (23mm Hernandez Resilia) and is functioning normally. The peak gradient across the prosthesis is 14 mmHg. The mean gradient across the prosthesis is 9 mmHg. Left ventricle is of normal size. Wall thickness is moderately increased. Left ventricular systolic function is normal. Left ventricular ejection fraction is estimated visually at 70%. Medications Scheduled Meds: levothyroxine 112 mcg Oral Daily pravastatin 40 mg Oral QPM sodium chloride 0.9 % (flush) 5 mL Intravenous BID aspirin 81 mg Oral Daily Or aspirin 300 mg Rectal Daily chlorhexidine 15 mL Oral 2 times per day pantoprazole EC 40 mg Oral Daily Or pantoprazole 40 mg Intravenous Daily senna-docusate 2 tablet Oral Daily shift total and Settings verification Intravenous 2 Times Daily - Shift Total mirabegron ER 25 mg Oral Daily tiotropium bromide 2 puff Inhalation Daily losartan 50 mg Oral Daily Continuous Infusions: fentaNYL Stopped (06/30/23 1506) NORepinephrine Stopped (06/30/23 1117) niCARdipine Stopped (06/30/23 1845) PRN Meds:.sodium chloride 0.9 % (flush), lidocaine, sodium chloride 0.9%, sodium chloride 0.9%, ondansetron, [START ON 07/03/2023] bisacodyL, acetaminophen, magnesium hydroxide, albuteroL, hydrALAZINE Assessment & Plan: Roxanne Pollack is a 83 y.o. female w/ PMH of w/ PMH of COPD, HTN, HLD, CPAP nightly, hypothyroidism, severe aortic stenosis now status post right transfemoral TAVR with a 23 mm Sarah 3 THV 06/30/[address] Gomez. NYHA FC II - slight limitation of activity The patient has remained on bedrest overnight. Feeling well in her chair, denying heart failure or anginal symptoms. She notes minimal light-headedness with ambulation. Left Iliac needed shockwave. Unable to perclose LFA so manual pressure and angioseal. Femoral access sites without hematoma, pulsatile mass, drainage, or significant ecchymosis. Considering challenging access during case, plan forArterial duplex today. Will continue with ASA 81 daily. Considering incidental suspected RLL subsegmental PE of unknown cause found on TAVR CT imaging, will continue Xarelto 15 mg bid (initiated ~ 06/08/23) and transition to 20 mg daily on 07/07/23 once groin access stable. OAC duration > 3 monthsfor PE to be considered at future intervals. Follow up in 30 days with [facility] team with echo and labs. Plan - Continue aspirin 81 mg - Continue Xarelto (PE -- incidental finding 06/08/23) (hold until groin access stable) - Continue following Hgb - Arterial duplex today - Appreciate medication and hemodynamic optimization per primary team - Remain IP for additional night - Continue Daily EKGs - 30 day structural heart follow up with CBC, BMP and echo Pierce Allen APRN Structural Heart Team Pager [phone] I have seen the patient in person and reviewed Pierce Allen APRN's above history and I agree with the details as written. The assessment and plan were formulated in discussion with me and I agree with them as documented. Jair Gomez MD Pager [phone] * Rosita Hood RCP - 06/30/2023 4:27 PM EDT 06/30/23 1626 Oxygen Therapy O2 Device (S) NC O2 Flow Rate (L/min) 4 L/min SpO2 100 % Resp 19 Pt passed SBT Pt extubated per DR order Faiza well No Stridor and able to talk Pt has albuterol treatments ordered and Home NIV Will continue to monitor pt documented in this encounter H&P Notes * Agustin Lee MD - 06/30/2023 6:47 AM EDT Patient Name: Roxanne Pollack Patient Age: 83 y.o. Birthdate: 1940 Admit date: 06/30/2023 Attending Physician: Jair Gomez MD Pre-TAVR Procedure History & Physical. Primary Care Provider: Gideon Becerra MD Referring Provider: Sophie Freeman Roxanne Pollack is a 83 y.o. female referred for cardiac catheterization for severe symptomatic aortic stenosis with implantation of TAVR valve. There have not been any changes in health status since last seen in clinic. No fevers, no chills, no bleeding. Xarelto last taken 48 hours ago. Please see recent outpatient clinic note for comprehensive physical and history documentation. Outpatient Medications Marked as Taking for the 06/30/23 encounter (Hospital Encounter) Medication Sig Dispense Refill acetaminophen (Tylenol) 500 mg tablet Take 500 mg by mouth every 6 hours as needed. ginkgo biloba leaf extract 60 mg Tablet Take 60 mg by mouth daily. mirabegron ER (Myrbetriq) 25 mg ER 24 hr tablet Take 25 mg by mouth daily. Spiriva Respimat 2.5 mcg/actuation Mist Inhale 2 puffs into the lungs daily. Biotin 5 mg capsule Take 5 mg by mouth daily. [id number] ORAL Take 2 capsules by mouth daily. peg 400-propylene glycol 0.4-0.3 % Drops, Gel Apply 1 drop to eye daily. levothyroxine (SYNTHROID) 112 mcg tablet Take 112 mcg by mouth daily. simvastatin (ZOCOR) 20 mg tablet Take 20 mg by mouth nightly. losartan (COZAAR) 50 mg tablet Take 50 mg by mouth daily. Magnesium 500 mg Tab Take 600 mg by mouth. multivitamin (THERAGRAN) tablet Take 1 tablet by mouth daily. b complex vitamins (VITAMIN B COMPLEX) tablet verapamil (CALAN) 120 mg tablet BP 178/80 (BP Location (NBP): Right arm) Pulse 65 Temp 36.8 ??C (98.2 ??F) (Temporal) Resp 18 LMP (LMP Unknown) SpO2 94% Gen: Alert, comfortable appearing, not in NAD CV: RRR, III/ BERNABE appreciated, Resp: CTAB, Abd: Soft, NT/ND, +BS Ext: No edema, clubbing, or cyanosis. Warm and well perfused. Neuro: CN grossly intact, moving all extremities Psych: Appropriate affect Pulses: 2+ bilateral femoral pulses, no femoral bruit appreciated, Labs reviewed and notable for: No results found for: WBC, HGB, HCT, MCV, PLATELET No results found for: CREATININE, BUN, NA, K, CL, CO2 Assessment/Plan: 83 y.o. female here for TAVR procedure for management of severe aortic stenosis. ASA category: 4 Mallampati score: 2 - Proceed with procedure as planned. - Consent signed. - FULL code. - 12-Lead ECG reviewed. - Labs reviewed The risks of a transcatheter aortic valve replacement (TAVR) were discussed in detail with the patient and their family who were available at the bedside. These include but are not limited to vascular injury, bleeding, the need for blood transfusion, stroke, valve malpositioning and leak, need for emergent surgery for vascular or cardiac issues, and . We also discussed the inherent nature ofhow a TAVR valve is secured and the concomitant risk for heart block including left bundle branch block and complete heart block requiring permanent pacemaker placement. After all of these risks werereviewed, the patient and their family members had a chance to ask questions. After the questions were answered to their satisfaction, and informed consent document was provided and signed. Agustin Lee MD Interventional and Structural cardiology 06/30/23 6:47 AM documented in this encounter Miscellaneous Notes * Plan of Care - Danette Boyce RN - 07/05/2023 3:08 PM EDT Pt d/c home with belongings. PIV removed. AVS provided and pt educated on new medication and discharge instructions. Problem: Activity Intolerance (Cardiovascular Surgery) Goal: Improved Activity Tolerance Outcome: Outcome (s) achieved Problem: Adjustment to Surgery (Cardiovascular Surgery) Goal: Optimal Coping with Heart Surgery Outcome: Outcome (s) achieved Problem: Bleeding (Cardiovascular Surgery) Goal: Absence of Bleeding Outcome: Outcome (s) achieved Problem: Bowel Elimination Impaired (Cardiovascular Surgery) Goal: Effective Bowel Elimination Outcome: Outcome (s) achieved * Care Management Discharge - Reynold Malhotra RN - 07/05/2023 1:05 PM EDT CARE MANAGEMENT FINAL DISCHARGE NOTE Chart reviewed, care reviewed with primary team and at interdisciplinary rounds. Patient is medically ready for discharge to home. Needs for Transition of Care: per discharge instructions Plan for discharge is: Home w/ Services Outpatient Agency/Support Group Needs: None Agency Referrals & Follow-up Care: Contact information for follow-up [facility], [facility] [address] [place] [phone] This CM confirmed with [facility] that they will see the patient within 24-48 hours of discharge for SOC. Transportation: family or friend will provide (patient's son will provide transportation home) Wheelchair van/Ambulance? No Functional status prior to admission: independent Home Environment: . Current Living Arrangements: home/apartment/condo. Accessibility Concerns: . Current Functional Ability: assistive equipment DME used at home: N/A DME Needed at Discharge: FWW through [facility] (to be delivered to patient room prior to discharge) Patient is insured through: Primary Insurance: MEDICARE Payor: MEDICARE / Plan: MEDICARE PART A & B / Product Type: *No Product type* / Secondary Insurance: MEDICAID [place] Prescription Coverage: This plan was formulated with input from patient and team. All are in agreement with plan. * Plan of Care - Richard Ashford RN - 07/04/2023 2:49 PM EDT Pt ambulated x 2 around unit, once with a walker and once without. Pt needed assist of 1 without a walker. Son and friend both called and updated on plan of care. Pt sitting up in chair in good spirits. Requires 2L O2 via NC when sleeping. * Consult Note - Kamila Tran RN - 07/02/2023 2:13 PM EDT [facility] Roxanne Pollack was seen today regarding participation in an outpatient Phase 2 Cardiac Rehabilitation. The patient is not an appropriate candidate for CR at this time. Discharge is on hold pending PT eval. This referral can be reconsidered in the future. * Initial Assessments - Reynold Malhotra RN - 07/02/2023 10:52 AM EDT Office of Care Management Initial Assessment Medical record reviewed. Plan of care and patient status discussed with direct care Registered Nurse and/or Care Team in multidisciplinary rounds. Reason for Hospitalization: TAVR Present on Admission: Aortic stenosis Hospitalizations Within the Past 30 Days: N/A Patient receiving hospital care under Inpatient status. Admission order reviewed. Health/Prescription Coverage: Primary Insurance: MEDICARE Payor: MEDICARE / Plan: MEDICARE PART A & B / Product Type: *No Product type* / Secondary Insurance: MEDICAID [place] ; Prescription Coverage: Preferred Pharmacy: No Pharmacies Listed Advance Care Planning: Attempt Cardiopulmonary Resuscitation - Inpatient <no information> - Current Functional Ability: independent Functional Status Prior to Admission: independent Home Environment: . Current Living Arrangements: home/apartment/condo. Accessibility Concerns: . Current DME: N/A [address] [place] [address] Social & Family Supports: All names listed below confirmed with patient as current and correct Extended Emergency Contact Information Primary Emergency Contact: Wally Pollack Relation: Parent Secondary Emergency Contact: Sabrina Bolaños Mobile Relation: Sibling Current Care Provided by: self Transportation: friend or family will provide transportation home via private vehicle Transportation Anticipated: private vehicle Assessment: Per team and PT, the patient will now require swing/SNFrehab at discharge. Agency Referrals: Based on discussions with the multi-disciplinary healthcare team, the patient would benefit from SNF / Swing level of care at discharge. I have met with the patient to: discuss discharge planning needs. provide the [facility], Office of Care Management letter from the Publicity Expert pertaining to rehab referrals. provide a letter describing our affiliations within the [facility] and educate about their right to choose where referrals are sent. provide the [facility] Star Quality Rating handout. review the different levels of rehab including SNF, swing, and acute. provide a list of facilities within their preferred geographic area. request that they provide at least three choices for referral. They have requested referrals to: [facility] ([facility]) [address] [place] [address] [facility] ([facility]) [address] [place] [address] Does patient have COVID vaccine card: Yes; Copy obtained: No Note routed to a Wildlife Biostation Research Ecologist who will communicate referrals to facilities and provide any required information. Plan: Patient to discharge to rehab pending placement and bed availability. Registered Nurse Dental Billing Specialist / Surveillance Specialist will continue to follow patient???s progress and remain available if situation changes for coordination of care, psychosocial support and/or discharge planning. Office of Care Management * OR Attestation - Hector Machuca MD - 06/30/2023 3:13 PM EDT Attestation: Case Date: 06/30/2023 I performed this procedure without the involvement of a resident. Hector Machuca MD 07/05/2023 * Brief Op Note - Hector Machuca MD - 06/30/2023 3:04 PM EDT Brief Operative Note Patient Name: Roxanne Pollack : [id number] MR#: [id number] Case Date: 06/30/2023 Surgeon: Surgeon(s) and Role: Panel 1: * Jair Gomez MD - Primary * Hector Machuca MD Panel 2: * Nelson Holm MD - Primary Panel 3: * Agueda Delcid MD - Primary Preoperative diagnosis: Aortic valve stenosis, etiology of cardiac valve disease unspecified [I35.0] Postoperative diagnosis: * No post-op diagnosis entered * Procedure(s) (LRB): CARDIAC CATHETERIZATION (N/A) COMBINED RIGHT & LEFT HEART CATH,INC INJ FOR L VENTRICULOGRAPHY (WRVU 5.99) (N/A) @TRANSCATHETER AORTIC VALVE REPLACEMENT (TAVR), PERCUTANEOUS FEMORAL (WRVU 22.47) TRANSESOPHAGEAL ECHO DURING CATH/EP PROCEDURE (N/A) Anesthesia: General Local Findings: severely calcified femoral vessels with R side occluded Complications: none Estimated Blood Loss: * No values recorded between 06/30/2023 7:40 AM and 06/30/2023 10:45 AM * Specimens removed during surgery: None Fluids: Intraprocedure Crystalloid Total Intake Sodium Chloride 0.9% 1000.00 mL Total Intake 1000 mL Output Blood Loss 200 mL Total Output 200 mL Net Net Volume 800 mL PRBCs: none (See Anesthesia Record/Report for Other Blood Products) Urine Output: (no urine output recorded) Drains: none Disposition: taken directly to the ICU, intubated and in a critical condition. Condition: doing well without problems (Please see the Surgical Encounter Summary for any Implant and Specimen details pertinent to this patient.) Surgical Infection Prevention Bundle Used? No * Brief Op Note - Agustin Lee MD - 06/30/2023 10:17 AM EDT Brief post procedure Note: Patient Name: Roxanne Pollack : [id number] MR#: [id number] Case Date: 06/30/2023 Operators Surgeon: Surgeon(s) and Role: Panel 1: * Jair Gomez MD - Primary * Hector Machuca MD Panel 2: * Nelson Holm MD - Primary Panel 3: * Agueda Delcid MD - Primary Preoperative diagnosis: Aortic valve stenosis, severe [I35.0] Postoperative diagnosis: Aortic valve stenosis, severe [I35.0] Procedure(s) performed: Transcatheter aortic valve replacement, 23 mm Hernandez Resilia Ultrasound-guided LFA access Ultrasound-guided Right femoral vein access, 6F Right and left radial arteries access Lithotripsy of heavily calcified left common femoral and left external iliac arteries using shockwave balloon Left-ileofemoral angiography Temporary transvenous pacing wire Aortic root angiography Left heart catheterization Manual pressure LFV TR bands left and right radial hemostasis Access Sites and Closure: Left femoral artery - Hemostasis with attempted 8Fr Angio-Seal and manual compression Right femoral vein - Sheath in place for central access Left radial arteriotomy hemostasis- TR band Right radial arteriotomy- being used as arterial line for HD monitoring Preliminary findings: Successful shockwave balloon lithotripsy of heavily calcified left common femoral and left externaliliac arteries with a 7 mm balloon Successful Successful right transfemoral TAVR with a 23 mm Sarah 3 THV Recommendation: Aspirin 81 mg daily Continue Xarelto for PE per The patient tolerated the procedures smoothly and was transferred from the cardiac catheterization lab to the next level of care in stable condition. No evident early complications. Full report to follow. Agustin Lee MD, M.Sc. Structural Heart Disease Fellow Pager :[phone] * Op Note - Hector Machuca MD - 06/30/2023 7:40 AM EDT Preop Diagnosis: Severe aortic stenosis, symptomatic. Postop Diagnosis: Same. Procedure: Transfemoral TAVR procedure with 23mm S3 valve. Surgeon: Hector Machuca M.D. Cardiology: Jason NEWMAN Procedure: The patient was taken to the slabber light. The patient had monitored anesthesia care. After a time-out was performed, he was prepped and draped in the normal fashion. Both groins were exposed and the L femoral artery was cannulated using a Seldinger technique and was checked angiographicaly. This was a technical challenge that involved tremendous manipulation and multiple wire and catheter exchanged. The right femoral vein was used for a temporary pacer. The root pig tail was placed through the L radial artery. Once a root shot was complete, the pacer was tested. Gantry angles were established. Perclose devices failed in the L fem artery for. The eSheath was placed in L femoral artery and heparin was given, allowing for difficult delivery of the valve, which was aligned within his descending aorta,and the valve was put in place. A short rapid pacing run allowed deployment of the valve. Once the valve was deployed, echocardiography images were taken, and we were satisfied with the placement. The sheath was removed. The angioseal that had a moderate successful deployment gained hemostasis of his artery. On the contralateral side manual pressure was used on the vein. There was no further bleeding. During the procedure, I was readily available for consultation regarding placement and access to this patient. I was present for the critical portions, which did not necessarily include closure. All counts were correct. The estimated blood loss was minimal, and fluid was minimal. documented in this encounter Plan of Treatment Scheduled Orders Name Type Priority Associated Diagnoses Orde r Schedule XR Chest PA & Lateral (Generic) Imaging Routine S/P TAVR (transcatheter aortic valve replacement) Expected: 07/03/2023, Expires: 07/02/2024 Scheduled Referrals Name Type Priority Associated Diagnoses Orde r Schedule Referral to Home Health Outpatient Referral Routine S/P TAVR (transcatheter aortic valve replacement) Ordered: 07/05/2023 documented as of this encounter Procedures Procedure Name Priority Date/Time Associated Diagnosis Comments EKG 12-LEAD STAT 07/02/2023 6:34 AM EDT Aortic valve stenosis, etiology of cardiac valve disease unspecified S/P TAVR (transcatheter aortic valve replacement) HEMOGRAM Routine 07/02/2023 2:15 AM EDT HEMOGRAM Routine 07/01/2023 2:15 PM EDT DIFFERENTIAL, AUTOMATED Routine 07/01/20 2:15 PM EDT CBC (WITH DIFF) Routine 07/01/2023 2:15 PM EDT ARTERIAL DUPLEX LEG UNILA Routine 07/01/2023 7:46 AM EDT Aortic valve stenosis, etiology of cardiac valve disease unspecified HEMOGRAM Routine 07/01/2023 5:45 AM EDT DIFFERENTIAL, AUTOMATED Routine 07/01/20 5:45 AM EDT CBC (WITH DIFF) Routine 07/01/2023 5:45 AM EDT EKG 12-LEAD Routine 07/01/2023 5:18 AM EDT S/P TAVR (transcatheter aortic valve replacement) BASIC METABOLIC PANEL Routine 07/01/2023 4:20 AM EDT EXTUBATE Routine 06/30/2023 4:25 PM EDT BLOOD GAS ARTERIAL POC Routine 4:17 PM EDT HEMOGLOBIN Routine 06/30/2023 2:45 PM EDT POTASSIUM Routine 06/30/2023 2:45 PM EDT BLOOD GAS ARTERIAL POC Routine 12:56 PM EDT XR CHEST ONE VIEW STAT 06/30/2023 11: 54 AM EDT BLOOD GAS ARTERIAL POC Routine 11:25 AM EDT EKG 12-LEAD STAT 06/30/2023 11:24 AM EDT S/P TAVR (transcatheter aortic valve replacement) ECHO LMTD W/O CONTRAST W LMTD SPEC DOPP COLOR DOPP Routine 06/30/2023 10:49 AM EDT Aortic valve stenosis, etiology of cardiac valve disease unspecified CARDIAC CATHETERIZATION Routine 06/30/20 10:45 AM EDT Aortic valve stenosis, etiology of cardiac valve disease unspecified POINT OF CARE BLOOD GAS HISTORICAL Routine 06/30/2023 8:00 AM EDT POCT GLUCOSE Routine 06/30/2023 7:55 AM EDT TYPE AND SCREEN VALIDITY Routine 06/30/2023 7:52 AM EDT ABORH RECHECK STATUS Routine 06/30/2023 7:52 AM EDT HEMOGRAM Routine 06/30/2023 7:52 AM EDT Aortic valve stenosis, etiology of cardiac valve disease unspecified DIFFERENTIAL, AUTOMATED Routine 06/30/20 7:52 AM EDT Aortic valve stenosis, etiology of cardiac valve disease unspecified TYPE AND SCREEN, SDP (FUTURE SURGERY, [facility] SAME DAY PROGRAM ONLY) Routine 06/30/2023 7:52 AM EDT Aortic valve stenosis, etiology of cardiac valve disease unspecified ABO/RH TYPING Routine 06/30/2023 7:52 AM EDT Aortic valve stenosis, etiology of cardiac valve disease unspecified CBC (WITH DIFF) Routine 06/30/2023 7:52 AM EDT Aortic valve stenosis, etiology of cardiac valve disease unspecified ANTIBODY SCREEN Routine 06/30/2023 7:52 AM EDT Aortic valve stenosis, etiology of cardiac valve disease unspecified BASIC METABOLIC PANEL Routine 06/30/2023 7:52 AM EDT Aortic valve stenosis, etiology of cardiac valve disease unspecified TRANSESOPHAGEAL ECHO DURING CATH/EP PROCEDURE 06/30/2023 7:40 AM EDT Aortic valve stenosis, etiology of cardiac valve disease unspecified Combined Right & Left Heart Cath W/Inj L Ventriculography, Img S&I (10116) 06/30/2023 7:40 AM EDT Aortic valve stenosis, etiology of cardiac valve disease unspecified PREPARE RBC STAT 06/30/2023 7:40 AM EDT @TRANSCATHETER AORTIC VALVE REPLACEMENT (TAVR), PERCUTANEOUS FEMORAL Routine 06/16/2023 9:09 AM EDT Aortic valve stenosis, etiology of cardiac valve disease unspecified documented in this encounter Results * EKG 12 Lead (08/13/2023 1:06 PM EDT) Ventricular rate 75 BPM MUSE SYSTEM Atrial Rate 75 BPM MUSE SYSTEM P-R Interval 182 ms MUSE SYSTEM QRS Duration 88 ms MUSE SYSTEM Q-T Interval 396 ms MUSE SYSTEM QTC Calculated (Bezet) 442 ms MUSE SYSTEM Calculated P [place] 53 degrees MUSE SYSTEM Calculated R [place] -12 degrees MUSE SYSTEM Calculated T [place] 38 degrees MUSE SYSTEM INTERPRETATION Normal sinus rhythm Inferior infarct , age undetermined Anteroseptal infarct , age undetermined Abnormal ECG When compared with ECG of 02-JUL-2023 06:34, Inferior infarct is now Present Confirmed by MD Ni, Isha ([id number]) on 08/14/2023 9:27:06 AM MUSE SYSTEM 08/13/2023 1:06 PM EDT 08/14/2023 9:27 AM EDT Pat Buckfield AKERS ECG ORDERABLES MUSE SYSTEM * ECHO LMTD W/O CONTRAST W LMTD SPEC DOPP COLOR DOPP (08/13/2023 11:10 AM EDT) EF 75 HEARTLAB SYSTEM Anatomical Region Laterality Modality Cardiac Other 08/13/2023 10:2 0 AM EDT Narrative 08/13/2023 1:08 PM EDT ? Echocardiogram Report Name: ROXANNE POLLACK ?Study Date: 08/13/2023 10:20 AMBP: 182/76 mmHg ? Patient Location: : 1940 ? Height: 155 cm ? Account: [id number] Age: 83 yrs ? Weight: 77 kg Gender: Female ?BSA: 1.8 m2 Ordering Physician: PAT SANDOVAL Referring Physician: PAT SANDOVAL Performed By: TA Crawford Reason For Study: s/p TAVR Exam Location: [facility]. Interpretation Summary Left ventricle is of normal [...] is trace mitral regurgitation. Procedure Limited - 28495. Satisfactory quality. There is normal sinus rhythm. [...] Payne MD - 08/13/2023 Echocardiogram Report Name: ROXANNE POLLACK Study Date: 0:20 AMBP: 182/76 mmHg Patient Location: : 1940 Height: 155 cm Account: [id number] Age: 83 yrs Weight: 77 kg Gender: Female BSA: 1.8 m2 Ordering Physician: PAT SANDOVAL Referring Physician: PAT SANDOVAL Performed By: TA Crawford Reason For Study: s/p TAVR Exam Location: [facility]. Interpretation Summary Left ventricle is of normal [...] is trace mitral regurgitation. Procedure Limited - 80921. Satisfactory quality. There is normal sinus rhythm. [...] Dyskinetic 3-5moderate 5 - 6-14large Aneurysmal 15-16diffuse [facility] ECHO ORDERABLES * (ABNORMAL) Comprehensive metabolic panel (non-fasting) (08/13/2023 9:34 AM EDT) Glucose 105 65 - 199 mg/dL [facility] Comment:Diabetes: >=200 mg/d L plus symptoms Blood Urea Nitrogen 13 8 - 18 mg/dL [facility] Creatinine 1.00 0.70 - 1.20 mg/dL [facility] Sodium 142 135 - 145 mmol/L [facility] Potassium 4.2 3.5 - 5.0 mmol/L [facility] Comment: Please note: ??Patients with WBC >100,000 may have falsely elevated Potassium levels. ??For accurate Potassium quantification in these patients send serum separator tube (gold top) for subsequent determinations. ??Contact the Clinical Chemistry Laboratory if there are any questions. Chloride 102 98 - 107 mmol/L [facility] Carbon Dioxide 29 22 - 31 mmol/L [facility] Anion Gap 11 5 - 15 mmol/L [facility] Calcium 10.0 8.5 - 10.5 mg/dL [facility] Protein, Total 6.7 6.1 - 8.0 g/dL [facility] Albumin 3.9 3.2 - 5.2 g/dL [facility] Aspartate Aminotransferase 20 0 - 30 unit/L [facility] Alanine Aminotransferase 15 0 - 30 unit/L [facility] Alkaline Phosphatase 69 35 - 105 unit/L [facility] Bilirubin, Total 0.3 0.2 - 1.3 mg/dL [facility] Est Glomerular Filtration Rate 55(L) >=60 mL/min/1. 73 m?? [facility] Comment: This patient's estimated GFR was [...] Agency Comment Spec In Lab Pat Sandoval BREAD AND PASTRY BAKER CHEMISTRY ORDERABL ES [facility] [place] [address] * EKG 12 Lead (07/02/2023 6:34 AM EDT) Ventricular rate 89 BPM MUSE SYSTEM Atrial Rate 89 BPM MUSE SYSTEM P-R Interval 168 ms MUSE SYSTEM QRS Duration 100 ms MUSE SYSTEM Q-T Interval 374 ms MUSE SYSTEM QTC Calculated (Bezet) 455 ms MUSE SYSTEM Calculated P [place] 64 degrees MUSE SYSTEM Calculated R [place] 10 degrees MUSE SYSTEM Calculated T [place] 43 degrees MUSE SYSTEM INTERPRETATION Normal sinus rhythm Minimal voltage criteria for LVH, may be normal variant ( [place] product ) Borderline ECG When compared with ECG of 01-JUL-2023 05:18, (unconfirmed) Left bundle branch block is no longer Present and qrs has shortened I personally reviewed the tracing and edited the fellows interpretation Confirmed by fellow MD Loyda, Minh ([id number]) on 07/02/2023 4:55:22 PM Confirmed by MD Yessi, Jose ([id number]) on 07/02/2023 4:55:46 PM MUSE SYSTEM 07/02/2023 6:34 AM EDT 07/02/2023 4:55 PM EDT Pat Sandoval DELPHINE ECG ORDERABLES MUSE SYSTEM * (ABNORMAL) Hemogram (07/02/2023 2:15 AM EDT) White Blood Cell 9.4 4.0 - 9.5 x10(3)/mc L [facility] Red Blood Cell 2.68(L) 4.00 - 5.21 x10(6)/mc L [facility] Hemoglobin 8.9(L) 11.7 - 15.5 g/dL [facility] Hematocrit 26.4(L) 35.7 - 45.8 % [facility] Mean Cell Volume 98.5(H) 82.6 - 94.4 fL [facility] Mean Cell Hemoglobin 33.2(H) 27.1 - 32.0 pg [facility] Mean Cell Hemoglobin Concentration 33.7 31.7 - 35.0 g/dL [facility] Platelet 80(L) 145 - 357 x10(3)/mc L [facility] RDW Standard Deviation 45.4 37.0 - 46.0 fL [facility] RDW coefficient of variation 12.7 11.5 - 14.1 % [facility] Mean Platelet Volume 10.8 7.6 - 12.9 fL [facility] NRBC% auto 0.0 % [facility] NRBC Absolute 0.000 0.000 - 0.000 x10(3)/mc L [facility] Blood 07/02/2023 2:15 AM EDT 07/02/2023 2:21 AM EDT Narrative Resulting Agency Comment Spec In Lab Pat Sandoval [facility]READ [facility]STRY [place] [address] * (ABNORMAL) Differential, Automated (07/01/2023 2:15 PM EDT) Neutrophil % 72.4 % [facility] Neutrophil Absolute 7.88(H) 1.70 - 6.10 x10(3)/mc L [facility] Lymph % 18.2 % [facility] Lymphocytes Abs 2.0 0.9 - 3.2 x10(3)/mc L [facility] Monocyte % 8.9 % [facility] Monocyte Abs 1.0(H) 0.3 - 0.9 x10(3)/mc L [facility] Eos % 0.1 % [facility] Eosinophils Abs 0.0 0.0 - 0.4 x10(3)/mc L [facility] Basophil % 0.2 % [facility] Baso Absolute 0.0 0.0 - 0.1 x10(3)/mc L [facility] Immature Gran % 0.20 % [facility] Comment: Immature granulocytes(IG's)percentage and absolute count will include metamyelocytes, myelocytes, and promyelocytes. Blood smears from CBCs yielding IG's will be scanned manually for concordance. If this scan disagrees with the automated IG or if promyelocytes are noted, a manual differential will be performed. Immature Gran Absolute 0.02 0.00 - 0.04 x10(3)/mc L [facility] Blood 07/01/2023 2:15 PM EDT 07/01/2023 2:21 PM EDT Narrative Resulting Agency Comment Spec In Lab Pierce Allen BREAD AND PASTRY BAKER HEMATOLOGY ORDERABL ES Performing Organization Address City/[facility]/[place] [address] * (ABNORMAL) Hemogram (07/01/2023 2:15 PM EDT) White Blood Cell 10.9(H) 4.0 - 9.5 x10(3)/mc L [facility] Red Blood Cell 2.91(L) 4.00 - 5.21 x10(6)/mc L [facility] Hemoglobin 9.7(L) 11.7 - 15.5 g/dL [facility] Hematocrit 28.8(L) 35.7 - 45.8 % [facility] Mean Cell Volume 99.0(H) 82.6 - 94.4 fL [facility] Mean Cell Hemoglobin 33.3(H) 27.1 - 32.0 pg [facility] Mean Cell Hemoglobin Concentration 33.7 31.7 - 35.0 g/dL [facility] Platelet 102(L) 145 - 357 x10(3)/mc L [facility] RDW Standard Deviation 45.6 37.0 - 46.0 fL [facility] RDW coefficient of variation 12.6 11.5 - 14.1 % [facility] Mean Platelet Volume 10.3 7.6 - 12.9 fL [facility] NRBC% auto 0.0 % [facility] NRBC Absolute 0.000 0.000 - 0.000 x10(3)/ L [facility] Blood 07/01/2023 2:15 PM EDT 07/01/2023 2:21 PM EDT Narrative Resulting Agency Comment Spec In Lab Pierce Allen APRN HEMATOLOGY ORDERABL ES [facility] [place] [address] * Arterial Duplex Leg, Unil (07/01/2023 7:46 AM EDT) VB Text Report Department: Vascular Surgery Lab Patient: [id number] (ROXANNE POLLACK) CPT: [id number] Referring Physician: PAT SANDOVAL ?? Phone: Indications: s/p tf tavr required Left IA shockwave therapy ?? ? Pseudoaneurysm Findings: Left ?PSV (cm/s) ??EDV ?? Common Femoral Artery, Proximal ?188 ?? 14 ?? Common Femoral Artery, Mid ? 214 ?8 ?? Common femoral artery, Distal ?213 ?8 ?? Profunda Femoris Artery, Proximal ?156 ?? 13 ?? Superficial Femoral Artery, Proximal ? 196 ?5 ?? Interpretation: LEFT: Patent common femoral, proximal superficial femoral, and proximal profunda artery with no evidence of hemodynamically significant stenosis. No evidence of pseudoaneurysm, AV fistula or hematoma in the left groin. Electronically Signed by: CLAY TABARES MD on 2023-07-06 02:57:34 PM [facility] VB Text Report End of Report [facility] 07/01/2023 7:46 AM EDT Pat Jaime MILLERN VASCULAR ORDERABLE S [facility] * (ABNORMAL) Differential, Automated (07/01/2023 5:45 AM EDT) Neutrophil % 76.2 % [facility] Neutrophil Absolute 6.78(H) 1.70 - 6.10 x10(3)/mc L [facility] Lymph % 14.1 % [facility] Lymphocytes Abs 1.3 0.9 - 3.2 x10(3)/mc L [facility] Monocyte % 9.1 % [facility] Monocyte Abs 0.8 0.3 - 0.9 x10(3)/mc L [facility] Eos % 0.1 % [facility] Eosinophils Abs 0.0 0.0 - 0.4 x10(3)/mc L [facility] Basophil % 0.2 % [facility] Baso Absolute 0.0 0.0 - 0.1 x10(3)/mc L [facility] Immature Gran % 0.30 % [facility] Comment: Immature granulocytes(IG's)percentage and absolute count will include metamyelocytes, myelocytes, and promyelocytes. Blood smears from CBCs yielding IG's will be scanned manually for concordance. If this scan disagrees with the automated IG or if promyelocytes are noted, a manual differential will be performed. Immature Gran Absolute 0.03 0.00 - 0.04 x10(3)/mc L [facility] Blood 07/01/2023 5:45 AM EDT 07/01/2023 5:53 AM EDT Narrative Resulting Agency Comment Spec In Lab Christopher SWENSON HEMATOLOGY ORDERABLE S Performing Organization Address City/State/[facility] Co de Phone Number [facility] [place] [address] * (ABNORMAL) Hemogram (07/01/2023 5:45 AM EDT) White Blood Cell 8.9 4.0 - 9.5 x10(3)/mc L [facility] Red Blood Cell 2.22(L) 4.00 - 5.21 x10(6)/ L [facility] Hemoglobin 7.4(L) 11.7 - 15.5 g/dL [facility] Comment: This result has been called to ISAEL MONGE by GINA BLAND on 07 01 2023 at 0634, and has been read back. Hematocrit 21.9(L) 35.7 - 45.8 % [facility] Mean Cell Volume 98.6(H) 82.6 - 94.4 fL [facility] Mean Cell Hemoglobin 33.3(H) 27.1 - 32.0 pg [facility] [facility] Mean Cell Hemoglobin Concentration 33.8 31.7 - 35.0 g/dL [facility] Platelet 110(L) 145 - 357 x10(3)/mc L [facility] RDW Standard Deviation 46.2(H) 37.0 - 46.0 fL [facility] RDW coefficient of variation 13.0 11.5 - 14.1 % [facility] Mean Platelet Volume 11.5 7.6 - 12.9 fL [facility] NRBC% auto 0.0 % [facility] NRBC Absolute 0.000 0.000 - 0.000 x10(3)/mc L [facility] Blood 07/01/2023 5:45 AM EDT 07/01/2023 5:53 AM EDT Narrative Resulting Agency Comment Spec In Lab Christopher SWENSON HEMATOLOGY ORDERABLE S [facility] [place] [id number] * EKG 12 Lead (07/01/2023 5:18 AM EDT) Ventricular rate 78 BPM MUSE SYSTEM Atrial Rate 78 BPM MUSE SYSTEM P-R Interval 160 ms MUSE SYSTEM QRS Duration 140 ms MUSE SYSTEM Q-T Interval 436 ms MUSE SYSTEM QTC Calculated (Bezet) 497 ms MUSE SYSTEM Calculated P [place] 59 degrees MUSE SYSTEM Calculated R [place] -31 degrees MUSE SYSTEM Calculated T [place] 113 degrees MUSE SYSTEM INTERPRETATION Normal sinus rhythm Left axis deviation Left bundle branch block Abnormal ECG When compared with ECG of 30-JUN-2023 11:24, No significant change was found I personally reviewed the tracing and edited the fellows interpretation Confirmed by fellow MD Loyda, [facility] ([id number]) on 07/01/2023 9:59:22 PM Confirmed by MD Yessi, Jose ([id number]) on 07/02/2023 3:17:28 PM MUSE SYSTEM 07/01/2023 5:18 AM EDT 07/02/2023 3:17 PM EDT Hector Machuca MD ECG ORDERABLES MUSE SYSTEM * (ABNORMAL) Basic Metabolic Panel (non-fasting) (07/01/2023 4:20 AM EDT) Glucose 103 65 - 199 mg/dL [facility] Comment:Diabetes: >=200 mg/d L plus symptoms Blood Urea Nitrogen 16 8 - 18 mg/dL [facility] Creatinine 1.04 0.70 - 1.20 mg/dL [facility] Sodium 142 135 - 145 mmol/L [facility] Potassium 4.3 3.5 - 5.0 mmol/L [facility] Comment: Please note: ??Patients with WBC >100,000 may have falsely elevated Potassium levels. ??For accurate Potassium quantification in these patients send serum separator tube (gold top) for subsequent determinations. ??Contact the Clinical Chemistry Laboratory if there are any questions. Chloride 106 98 - 107 mmol/L [facility] Carbon Dioxide 24 22 - 31 mmol/L [facility] Anion Gap 12 5 - 15 mmol/L [facility] Calcium 8.5 8.5 - 10.5 mg/dL [facility] Comment:result rechecked-bz Est Glomerular Filtration Rate 53(L) >=60 mL/min/1. 73 m?? [facility] Comment: This patient's estimated GFR was [...] and symptoms in addition to eGFR. Blood 07/01/2023 4:20 AM EDT 07/01/2023 4:29 AM EDT Narrative Resulting Agency Comment Spec In Lab Hector Machuca MD CHEMISTRY ORDERABLE S [facility] [place] [address] * (ABNORMAL) BLOOD GAS 2 ARTERIAL (06/30/2023 4:17 PM EDT) pH, Arterial 7.36 7.35 - 7.45 [facility] PCO2, Arterial 43 35 - 45 mmHg [facility] PO2, Arterial 107(H) 85 - 104 mmHg [facility] Bicarbonate, Arterial 23.9 20.0 - 26.0 mmol/L [facility] Base Excess, Arterial -1.5 -3.0 - 3.0 mmol/L [facility] Hgb Blood Gas 12.7 11.7 - 15.5 g/dL [facility] Oxyhemoglobin, Arterial 96.2 94.0 - 97.0 % [facility] Carboxyhemoglob in, Arterial 0.3 % [facility] Comment: Nonsmokers: 0.5-1.5% COHB Smokers: Variable, but usually less than 10% Toxic: 20-30% COHB Lethal: Greater than 60% COHB Methemoglobin, Arterial 0.6 <=1.5 % [facility] Na Whole Blood 142 135 - 145 mmol/L [facility] K Whole Blood 3.9 3.5 - 5.0 mmol/L [facility] Comment: Please note: Patients with WBC >100,000 may have falsely elevated Potassium levels. Contact the Clinical Chemistry Laboratory if there are any questions. ICa Whole Blood 1.23 1.15 - 1.33 mmol/L [facility] Comment: Note: ??Total bilirubin higher than 20 mg/dL may lead to falsely low ionized calcium. CL Whole Blood 108(H) 98 - 107 mmol/L [facility] Gluc Whole Bld 121 65 - 199 mg/dL [facility] Comment:Diabetes: >=200 mg/d L plus symptoms. Lactate WB 0.9 0.5 - 2.2 mmol/L [facility] FIO2 Art 40 % [facility] PF Ratio Art 268 [facility] Blood 06/30/2023 4:17 PM EDT 06/30/2023 4:17 PM EDT Hector Machuca MD POINT OF CARE TEST ORDERABLES [facility] [place] [address] * (ABNORMAL) Hemoglobin (06/30/2023 2:45 PM EDT) Hemoglobin 10.7(L) 11.7 - 15.5 g/dL [facility] Blood 06/30/2023 2:45 PM EDT 06/30/2023 3:17 PM EDT Narrative Resulting Agency Comment Spec In Lab Hector Machuca MD HEMATOLOGY ORDERABL ES Performing Organization Address [facility] Co de Phone Number [facility] [place] [address] * Potassium (06/30/2023 2:45 PM EDT) Potassium 4.3 3.5 - 5.0 mmol/L [facility] Comment: Please note: ??Patients with WBC >100,000 may have falsely elevated Potassium levels. ??For accurate Potassium quantification in these patients send serum separator tube (gold top) for subsequent determinations. ??Contact the Clinical Chemistry Laboratory if there are any questions. Blood 06/30/2023 2:45 PM EDT 06/30/2023 3:17 PM EDT Narrative Resulting Agency Comment Spec In Lab Hector Machuca MD CHEMISTRY ORDERABLE S Performing Organization Address [facility] Co de Phone Number [facility] [place] [address] * (ABNORMAL) BLOOD GAS 2 ARTERIAL (06/30/2023 12:56 PM EDT) pH, Arterial 7.39 7.35 - 7.45 [facility] PCO2, Arterial 38 35 - 45 mmHg [facility] PO2, Arterial 84(L) 85 - 104 mmHg [facility] Bicarbonate, Arterial 22.8 20.0 - 26.0 mmol/L [facility] Base Excess, Arterial -2.2 -3.0 - 3.0 mmol/L [facility] Hgb Blood Gas 11.3(L) 11.7 - 15.5 g/dL [facility] Oxyhemoglobin, Arterial 94.3 94.0 - 97.0 % [facility] Carboxyhemoglob in, Arterial 0.2 % [facility] Comment: Nonsmokers: 0.5-1.5% COHB Smokers: Variable, but usually less than 10% Toxic: 20-30% COHB Lethal: Greater than 60% COHB Methemoglobin, Arterial 0.7 <=1.5 % [facility] Na Whole Blood 140 135 - 145 mmol/L [facility] K Whole Blood 4.2 3.5 - 5.0 mmol/L [facility] Comment: Please note: Patients with WBC >100,000 may have falsely elevated Potassium levels. Contact the Clinical Chemistry Laboratory if there are any questions. ICa Whole Blood 1.21 1.15 - 1.33 mmol/L [facility] Comment: Note: ??Total bilirubin higher than 20 mg/dL may lead to falsely low ionized calcium. CL Whole Blood 108(H) 98 - 107 mmol/L [facility] Gluc Whole Bld 115 65 - 199 mg/dL [facility] Comment:Diabetes: >=200 mg/d L plus symptoms. Lactate WB 1.2 0.5 - 2.2 mmol/L [facility] FIO2 Art 40 % [facility] PF Ratio Art 210 [facility] Blood 06/30/2023 12:5 6 PM EDT 06/30/2023 12:56 PM EDT Hector Machuca MD POINT OF CARE TEST ORDERABLES Performing Organization Address City/State/[facility] Co de Phone Number [facility] [place] [address] * XR Chest One View (06/30/2023 11:54 AM EDT) Anatomical Region Laterality Modality Chest N/A Digital Radiogra phy Impressions 06/30/2023 12:00 PM EDT Pulmonary vascular congestion and interstitial edema. Satisfactory positioning of the endotracheal tube. Thank you for letting us participate in the care of this patient. ??If you are a health care provider and have any questions regarding this report, please contact the number below. ??For patients who have questions please contact the health care information associate that requested your imaging first. ? Narrative 06/30/2023 12:00 PM EDT EXAMINATION: XR CHEST ONE VIEW CLINICAL HISTORY: Post TAVR TECHNIQUE: AP view of the chest COMPARISON: June 08, 2023 FINDINGS: An aortic stent valve has been placed since the prior examination. There is prominence of the pulmonary vasculature and increased interstitial markings relative to the previous study. Both costophrenic angles are sharp. There is no pneumothorax. An endotracheal tube is present and in a satisfactory position. Procedure Note Cisco Lam MD - 06/30/2023 EXAMINATION: XR CHEST ONE VIEW CLINICAL HISTORY: Post TAVR TECHNIQUE: AP view of the chest COMPARISON: June 08, 2023 FINDINGS: An aortic stent valve has been placed since the prior examination. There is prominence of the pulmonary vasculature and increasedinterstitial markings relative to the previous study. Both costophrenic angles are sharp. There is no pneumothorax. An endotracheal tube is present and in a satisfactory position. IMPRESSION Pulmonary vascular congestion and interstitial edema. Satisfactory positioning of the endotracheal tube. Thank you for letting us participate in the care of this patient. If youare a health care provider and have any questions regarding this report,please contact the number below. For patients who have questions please contactthe health care information associate that requested your imaging first. Hector Machuca MD IMG DX ORDERABLES * (ABNORMAL) BLOOD GAS 2 ARTERIAL (06/30/2023 11:25 AM EDT) pH, Arterial 7.33(L) 7.35 - 7.45 [facility] PCO2, Arterial 50(H) 35 - 45 mmHg [facility] PO2, Arterial 285(H) 85 - 104 mmHg [facility] Bicarbonate, Arterial 25.6 20.0 - 26.0 mmol/L [facility] Base Excess, Arterial -0.3 -3.0 - 3.0 mmol/L [facility] Hgb Blood Gas 11.5(L) 11.7 - 15.5 g/dL [facility] Oxyhemoglobin, Arterial 98.1(H) 94.0 - 97.0 % [facility] Carboxyhemoglob in, Arterial 0.2 % [facility] Comment: Nonsmokers: 0.5-1.5% COHB Smokers: Variable, but usually less than 10% Toxic: 20-30% COHB Lethal: Greater than 60% COHB Methemoglobin, Arterial 0.7 <=1.5 % [facility] Na Whole Blood 136 135 - 145 mmol/L [facility] K Whole Blood 4.4 3.5 - 5.0 mmol/L [facility] Comment: Please note: Patients with WBC >100,000 may have falsely elevated Potassium levels. Contact the Clinical Chemistry Laboratory if there are any questions. ICa Whole Blood 1.20 1.15 - 1.33 mmol/L [facility] Comment: Note: ??Total bilirubin higher than 20 mg/dL may lead to falsely low ionized calcium. CL Whole Blood 106 98 - 107 mmol/L [facility] Gluc Whole Bld 140 65 - 199 mg/dL [facility] Comment:Diabetes: >=200 mg/d L plus symptoms. Lactate WB 1.4 0.5 - 2.2 mmol/L [facility] FIO2 Art 100 % [facility] PF Ratio Art 285 [facility] Blood 06/30/2023 11:2 5 AM EDT 06/30/2023 11:25 AM EDT Hector Machuca MD POINT OF CARE TEST ORDERABLES [facility] [place] [address] * EKG 12 Lead (06/30/2023 11:24 AM EDT) Ventricular rate 54 BPM MUSE SYSTEM Atrial Rate 54 BPM MUSE SYSTEM P-R Interval 170 ms MUSE SYSTEM QRS Duration 138 ms MUSE SYSTEM Q-T Interval 550 ms MUSE SYSTEM QTC Calculated (Bezet) 521 ms MUSE SYSTEM Calculated P [place] 62 degrees MUSE SYSTEM Calculated R [place] -52 degrees MUSE SYSTEM Calculated T [place] 83 degrees MUSE SYSTEM INTERPRETATION Sinus bradycardia Left axis deviation Left bundle branch block Abnormal ECG When compared with ECG of 08-JUN-2023 10:21, Left bundle branch block is now Present Confirmed by MD Yessi, Jose ([id number]) on 06/30/2023 2:27:47 PM MUSE SYSTEM 06/30/2023 11:2 4 AM EDT 06/30/2023 2:27 PM EDT Hector Machuca MD ECG ORDERABLES MUSE SYSTEM * ECHO LMTD W/O CONTRAST W LMTD SPEC DOPP COLOR DOPP (06/30/2023 10:49 AM EDT) EF 70 [facility] SYSTEM Anatomical Region Laterality Modality Cardiac Other 06/30/2023 7:25 AM EDT Narrative 06/30/2023 11:03 AM EDT ? Echocardiogram Report Name: ROXANNE POLLACK ?Study Date: 06/30/2023 07:25 AMBP: 165/75 mmHg ? Patient Location: CA^CA06^A : 1940 ? Height: 155 cm ? Account: [id number] Age: 83 yrs ? Weight: 77 kg Gender: Female ?BSA: 1.8 m2 Ordering Physician: JAIR GOMEZ Referring Physician: SOPHIE FREEMAN Performed By: Virginia Hough RDCS Reason For Study: Guidance for TAVR procedure Exam Location: [facility]. Interpretation Summary Pre TAVR: trivial pericardial effusion, severe calcific , at least moderate calcific mitral stenosis with severely calcified mitral annulus. Post TAVR: There is a transcatheter valve in the aortic position (23mm Hernandez Resilia) and is functioning normally. The peak gradient across the prosthesis is 14 mmHg. The mean gradient across the prosthesis is 9 mmHg. Left ventricle is of normal size. Wall thickness is moderately increased. Left ventricular systolic function is normal. Left ventricular ejection fraction is estimated visually at 70%. Procedure Limited - 83380. Doppler - 70818. Color Doppler - 38135. Left Ventricle Left ventricle is of normal size. Wall thickness is moderately increased. There is no left ventricular outflow tract obstruction. Left ventricular systolic function is normal. Left ventricular ejection fraction is estimated visually at 70%. Right Ventricle The right ventricle is of normal size. Right ventricular systolic function is normal. Left Atrium The left atrium is severely dilated. Right Atrium The right atrium is normal. Aortic Valve The aortic prosthetic valve appears to be functioning normally. There is a transcatheter valve in the aortic position. The date or year of insertion is 06/30/2023. 23mm Hernandez Resilia. The peak gradient across the prosthesis is 14 mmHg. The mean gradient across the prosthesis is 9 mmHg. There appears to be no paravalvular regurgitation. There appears to be no intravalvular regurgitation. Mitral Valve The mitral valve leaflets are thickened. There is heavy mitral annular calcification. The estimated mean gradient across the mitral valve is 4.7 mmHg. The mitral valve area calculated using the continuity equation is 1.7 cm2. There is moderate mitral stenosis. There is trace mitral regurgitation. Tricuspid Valve The tricuspid valve is structurally normal. There is trace tricuspid regurgitation. Great Arteries The aortic root is of normal size. No abnormalities are identified. The ascending aorta is not well visualized. Pericardium/Pleural There is a trivial pericardial effusion. Hemodynamics The peak right ventricular systolic pressure is 24 mmHg. Plus RA presssure. ? 2D Measurements ? Volumes ?IVSd: 1.9 cm ? LAV(MOD-bp) Indexed: ?LVIDd: 4.0 cm ?51.3 ml/m2 ?LVIDs: 3.0 cm ?LVPWd: 1.6 cm ?RA A4Cs_phl: 14.3 cm2 ?LV mass(C)d: 309.2 grams ? SV(LVOT): 101.3 ml ? CO(LVOT): 5.5 l/min ?LV mass(C)dI: 175.5 grams/m2 ?? SI(LVOT): 57.5 ml/m2 ?Ao root diam: 3.2 cm ?Ao root diam index: 1.8 ?CI(LVOT): 3.1 l/min/m2 ?LVOT diam: 2.0 cm Doppler TR max fredi: 242.4 cm/sec LV V1 VTI: 31.7 cm LVOT max Velocity: 134.0 cm/sec Ao V2 VTI: 41.7 cm Ao Max: 185.0 cm/sec Ao valve max: 13.7 mmHg Ao valve mean: 9.4 mmHg MV E max fredi: 115.5 cm/sec MV A max fredi: 181.6 cm/sec MV E/A: 0.64 MV dec time: 0.46 sec MVA(P1/2t): 1.7 cm2 GINA(I,D): 2.4 cm2 Dimensionless index Aov: 0.76 MV mean P.7 mmHg I ?WMSI = 1.00 ? % Normal = 100 ?Segments ??Size X - Cannot ?? 1 - Normal ?? 2 - ? 3 - Akinetic 4 - ?1-2 ? small Interpret ? Hypokinetic ?Dyskinetic ?? 3-5 ? moderate 5 - ? 6-14 ?large Aneurysmal ?15-16 ?? diffuse Procedure Note Anselmo Payne MD - 06/30/2023 Echocardiogram Report Name: ROXANNE POLLACK Study Date: 307:25 AMBP: 165/75 mmHg Patient Location:CA^CA06^A : 1940 Height: 155 cm Account: [id number] Age: 83 yrs Weight: 77 kg Gender: Female BSA: 1.8 m2 Ordering Physician: JAIR GOMEZ Referring Physician: SOPHIE FREEMAN Performed By: Virginia Hough RDCS Reason For Study: Guidance for TAVR procedure Exam Location: [facility]. Interpretation Summary Pre TAVR: trivial pericardial effusion, severe calcific , at leastmoderate calcific mitral stenosis with severely calcified mitral annulus. Post TAVR: There is a transcatheter valve in the aortic position (23mmEdwards Resilia) and is functioning normally. The peak gradient across theprosthesis is 14 mmHg. The mean gradient across the prosthesis is 9 mmHg. Left ventricleis of normal size. Wall thickness is moderately increased. Left ventricularsystolic function is normal. Left ventricular ejection fraction is estimatedvisually at 70%. Procedure Limited - 36814. Doppler - 97179. Color Doppler - 84436. Left Ventricle Left ventricle is of normal size. Wall thickness is moderately increased.There is no left ventricular outflow tract obstruction. Left ventricular systolicfunction is normal. Left ventricular ejection fraction is estimated visually at70%. Right Ventricle The right ventricle is of normal size. Right ventricular systolic functionis normal. Left Atrium The left atrium is severely dilated. Right Atrium The right atrium is normal. Aortic Valve The aortic prosthetic valve appears to be functioning normally. There sergio transcatheter valve in the aortic position. The date or year of insertionis 06/30/2023. 23mm Hernandez Resilia. The peak gradient across the prosthesisis 14 mmHg. The mean gradient across the prosthesis is 9 mmHg. There appears tasha no paravalvular regurgitation. There appears to be no intravalvularregurgitation. Mitral Valve The mitral valve leaflets are thickened. There is heavy mitral annular calcification. The estimated mean gradient across the mitral valve is 4.7mmHg. The mitral valve area calculated using the continuity equation is 1.7 cm2.There is moderate mitral stenosis. There is trace mitral regurgitation. Tricuspid Valve The tricuspid valve is structurally normal. There is trace tricuspid regurgitation. Great Arteries The aortic root is of normal size. No abnormalities are identified. Theascending aorta is not well visualized. Pericardium/Pleural There is a trivial pericardial effusion. Hemodynamics The peak right ventricular systolic pressure is 24 mmHg. Plus RApresssure. 2D Measurements Volumes IVSd: 1.9 cm LAV(MOD-bp)Indexed: LVIDd: 4.0 cm 51.3 ml/m2 LVIDs: 3.0 cm LVPWd: 1.6 cm RA A4Cs_phl: 14.3cm2 LV mass(C)d: 309.2 grams SV(LVOT): 101.3ml CO(LVOT): 5.5l/min LV mass(C)dI: 175.5 grams/m2 SI(LVOT): 57.5ml/m2 Ao root diam: 3.2 cm Ao root diam index: 1.8 CI(LVOT): 3.1l/min/m2 LVOT diam: 2.0 cm Doppler TR max fredi: 242.4 cm/sec LV V1 VTI: 31.7 cm LVOT max Velocity: 134.0 cm/sec Ao V2 VTI: 41.7 cm Ao Max: 185.0 cm/sec Ao valve max: 13.7 mmHg Ao valve mean: 9.4 mmHg MV E max fredi: 115.5 cm/sec MV A max fredi: 181.6 cm/sec MV E/A: 0.64 MV dec time: 0.46 sec MVA(P1/2t): 1.7 cm2 GINA(I,D): 2.4 cm2 Dimensionless index Aov: 0.76 MV mean P.7 mmHg I WMSI = 1.00 % Normal = 100 SegmentsSize X - Cannot 1 - Normal 2 - 3 - Akinetic 4 - 1-2small Interpret Hypokinetic Dyskinetic 3-5moderate 5 - 6-14large Aneurysmal 15-16diffuse Jair Gomez MD ECHO ORDERABLES * CARDIAC CATHETERIZATION (06/30/2023 10:45 AM EDT) Anatomical Region Laterality Modality Other Narrative 06/30/2023 5:07 PM EDT ?[facility] ? Cardiac Catheterization/Intervention Report ? Patient Name: Roxanne Pollack ? Procedure Date: 06/30/2023 ? A #: [id number] ? Primary Physician: Jair Gomez ? Case #: [id number] ? File Name: [id number] ? Catheterization Order Number: [id number] ? [facility] ? Final Report [place], [place] ? Patient Name: ? Roxanne Pollack ? ID#: ?[id number] ? : ?1940 ? Procedure Date: ? June 30, 2023 ?Case #: ? [id number] ? Room: ? 6 ? Case Physicians: ?Jair Gomez M.D. ?Start: ?07:43 ?Dr Gongora M.D. ?Admission: ??06/30/2023 ?Hector Machuca M.D. ?Discharge: ??07/05/2023 ?Fellow: ? Emad Daryn Lee ? Procedures: ?* Aortic Root Aortogram ?* Transcatheter Aortic Valve Replacement ?* Vascular Closure Device Deployment ?* Temporary Pacemaker Insertion In Customer Service Analyst ?* Arterial Line / Sheath Insert ?* Access Site Angiography ?* Anesthesia ?* Arterial Blood Gases ?* Transthoracic Echo During Cath ?* Abdominal Aortography ?* Vascular Ultrasound ?* Peripheral Lithotripsy ? History ?Roxanne Pollack is an 83 year old woman. She has hypertension. The ?patient's smoking status is Former. She has hypercholesterolemia managed ?with lipid therapy. The patient also has a history of chronic obstructive ?pulmonary disease. Prior to the initiation of this procedure, the patient ?was designated as ASA Class IV. The [facility] clinical frailty scale is 5: ?Mildly Frail. ? Diagnostic Tests: ?Prior Coronary Angiography: ? LV ejection fraction within 6 months is 55%. ?Electrocardiography: ? EKG was assessed by ECG. EKG was Normal. ?Medications Prior to Procedure: ? Aspirin, Angiotensin II Receptor Luis E and Statin. ? Indications for Diagnostic Cath: ?The priority of the diagnostic procedure was Elective. Chest pain symptom ?assessment was: Non-anginal Chest Pain. One of the indications for cath ?is valvular heart disease. The patient has Severe aortic stenosis. ? Technique: ?A 6 SLFr sheath was inserted in the right radial artery utilizing the ?Seldinger technique. A 14Fr sheath was inserted in the left femoral ?artery utilizing the Seldinger technique. A 6Fr sheath was inserted in ?the right femoral vein utilizing the Seldinger technique. A 6 SLFr sheath ?was inserted in the left radial artery utilizing the Seldinger technique. ?The aortic root was injected utilizing a 6Fr ANGLED PIGTAIL catheter. A ?5Fr Pacel Flow Directed Pacing Cat lead was placed for a temporary pacing ?lead. A 6Fr ANGLED PIGTAIL catheter was used to inject the abdominal ?aorta. 8,000 units of heparin were administered. A total of 200cc of ?Omnipaque were opened, 119cc of Omnipaque were administered and 81cc of ?Omnipaque were wasted. Radiation: Fluoro time was 32.2 minutes, dose area ?product was 131.00 Gy/cm2 and air kerma was 528 mGY. See the case log for ?additional details. ?The patient received the following medications prior to and during the ?procedure: ? Unfractionated Heparin. ? Hemodynamics: ?Left Heart Pressures ? Resting: ? Syst Diast ? EDP ?a ?v ? m ?Ao 184 ?? 75 ?118 ? Stenotic Valve Data: ?Aortic Valve ?Peak Gradient - 66 ?Mean Gradient - 40 ?Area - 1.14 sq. cm. ? Stenotic Valve Data After TAVR: ?Aortic Valve ?Peak Gradient - 14 ?Mean Gradient - 9 ?Area - 2.4 sq. cm. ? Aortography: ?Normal ?Comments: ? There were three aortic cusps. There was evidence of aortic valve ? calcification. ? Indication for Selected Procedures: ?A temporary pacemaker was inserted for pacing. ? Transcatheter Aortic Valve Replacement (TAVR): ?A transcatheter aortic valve replacement was performed. The primary ?indication for the procedure was Primary and the reason for the ?procedure was intermediate risk (4-7% risk of 30 day mortality) surgical ?risk. The etiology of the aortic valve disease was degenerative. The ?valve morphology was tricuspid and there was +1/mild aortic insufficiency ?at baseline. ?The procedure was performed in the hybrid cath suite. The aortic valve ?annular size was 388 sq.mm. as assessed by CTA. At baseline the mean ?trans-valvular gradient was 40.0 mmHg and the aortic valve area was 1.1 ?sq.cm. The calculated STS risk score was 5.4%. ?The procedure was performed under Moderate sedation performed by ?Anesthesia, MErickaDEricka (see anesthesia report for additional details). Hector Pritchett ?Daryn Machuca participated in the case (see Cardiac Surgery report for ?additional details). ?The TAVR sheath was a 14 Fr Hernandez eSheath Introducer and the access ?site was femoral. Rapid ventricular pacing was performed. ?An Hernandez Sarah 3 Ultra RESILIA 23 mm THV (s/x=[id number]) transcatheter ?valve was inserted using standard technique. Protamine was administered ?at the conclusion of the case. ?The post procedure mean trans-valvular gradient was 9.0 mmHg by ?hemodynamic measurement. A post procedure transthoracic echocardiogram ?was performed. There was residual aortic insufficiency as assessed by ?echo-TTE. ?The TAVR procedure was successful. ? Vascular Access: ?Vascular Access Angiogram: ? A selective angiogram at the left femoral artery revealed severe ? diffuse disease. ?Vascular Ultrasound: ? Ultrasound of the left femoral artery was used to guide access and ? showed vessel patent with severe disease. Needle entry was observed. ?Vascular Access Management: ? An 8 Fr AngioSeal was deployed at the left femoral artery access ? site. This device was successful. Manual Compression of the left ? femoral artery access site was performed. ? The right radial artery access was secured in place for monitoring, ? staged procedure or therapy. ? The right femoral vein access was secured in place for monitoring, ? staged procedure or therapy. ? Mechanical Compression of the left radial artery access site was ? performed. ? Point of Care Testing: ?ABG: ? Arterial Blood gasses were performed using the I-Stat analyzer at ? 08:10: pH: 7.38, pCO2: 46.0, pO2: 197.0, sPO2: 100%, HCO3: 27 on ? FIO2: 100. ?I-Stat: ? I-Stat was performed using the I-Stat analyzer at 08:10: Na+: 142, ? K+: 4.1, iCa++: 1.35, Hct: 36%, Hb: 12.2. ? Dual Antiplatelet (DAPT) Recommendations: ?Patient was not on a P2Y12 inhibitor prior to nor was it given in the ?slabber light. ?Recommended anti-platelet/anti-thrombotic regimen: ?Start aspirin 81 mg daily now and continue for indefinitely. ?Start rivaroxaban 15 mg daily now and continue for indefinitely. ?These recommendations are made at the time of the intervention. Patient ?and provider preferences or a changing clinical situation may require ?modification of this regimen. Consult [facility] Interventional Cardiology for ?questions. ? Conclusions: ?* Severe aortic stenosis ?* Successful Transcatheter Aortic Valve Replacement ?* See Dual Antiplatelet (DAPT) Recommendations above ? Complications/Events: ?The patient had no complications during these procedures. ? Post Procedure Fluid Recommendations: ?IV fluid at 231 mL/hr for 4 hours for a total of 924 mL. These ?recommendations are made at the time of the procedure. Patient and ?provider preferences or a changing clinical situation may require ?modification of this regimen. ? Recommendations: ?Based upon the results of this procedure, it was recommended that the ?patient be managed with medical therapy. ? Comments: ?-Significant peripheral arterial disease with heavily calcified left ?ileofemoral calcification. There is a known FORESTRY AID of the RCIA/REIA. ?- We performed lithotripsy with a 7.0 mm shockwave balloon for the left ?femoral and external iliac arteries to help facilitate sheath insertion. ?- For the contralateral pigtail, we first attempted advanced a 6F pigtail ?catheter via the right radial artery, but had tremendous difficulty given ?the tortuosity. ??Therefore, we elected to advance the pigtail catheter ?via the left radial approach. Given the technical challenges above, after ?discussion with cardiac anesthesia, we elected to convert to general ?anesthesia from conscious sedation. ?- Successful implantation of a 23 mm THV. ?- Post-valve abdominal aortography showed no evidence of extravasation or ?large dissection of the left ileofemoral arterial system or infrarenal ?aorta. ??There is a very small dissection of the left common femoral ?artery that is non-flow limiting. ??Dopplers of the left distal pedal ?pulse was intact. ?The attending physician was present for the entire procedure. ?Dr. Jair Gomez M.D. performed the aortic root aortogram, access site ?angiography, vascular ultrasound, temporary pacemaker in slabber light, arterial ?line / sheath insert, vascular closure device, ABG, transthoracic echo , ?TAVR, lithotripsy-peripheral and abdominal aortography. Dr. Parekh Anesthesia, ?Daryn performed the aortic root aortogram, access site angiography, ABG, ?anesthesia and TAVR. Dr. Hcetor Machuca, M.D. performed the aortic root ?aortogram, access site angiography, vascular ultrasound, temporary ?pacemaker in slabber light, arterial line / sheath insert, vascular closure ?device, ABG, transthoracic echo ??and TAVR. ? Jair Gomez M.D. ? Electronically Signed by: Jair Gomez M.D. ? Report Finalized: 06/30/2023 ??17:03 ? Report Last Ammended: 07/22/2023 ??16:17 ? Procedure Note Jair Gomez MD - 07/22/2023 [facility] Cardiac Catheterization/Intervention Report Patient Name: Roxanne Pollack Procedure Date: 06/30/2023 A #: [id number] Primary Physician: Jair Gomez Case #: [id number] File Name: [id number] Catheterization Order Number: [id number] [facility] FinalReport [place], [place] Patient Name: Roxanne Pollack ID#:[id number] Procedure Date: June 30, 2023 Case #: [id number] Room: 6 Case Physicians: Jair Gomez M.D. Start: 07:43 Dr Rolan M.D. Admission:06/30/2023 Hector Machuca M.D. Discharge:07/05/2023 Fellow: Agustin Lee M.D. Procedures: * Aortic Root Aortogram * Transcatheter Aortic Valve Replacement * Vascular Closure Device Deployment * Temporary Pacemaker Insertion In Customer Service Analyst * Arterial Line / Sheath Insert * Access Site Angiography * Anesthesia * Arterial Blood Gases * Transthoracic Echo During Cath * Abdominal Aortography * Vascular Ultrasound * Peripheral Lithotripsy History Roxanne Pollack is an 83 year old woman. She has hypertension.The patient's smoking status is Former. She has hypercholesterolemiamanaged with lipid therapy. The patient also has a history of chronicobstructive pulmonary disease. Prior to the initiation of this procedure, thepatient was designated as ASA Class IV. The [facility] clinical frailty scale is5: Mildly Frail. Diagnostic Tests: Prior Coronary Angiography: LV ejection fraction within 6 months is 55%. Electrocardiography: EKG was assessed by ECG. EKG was Normal. Medications Prior to Procedure: Aspirin, Angiotensin II Receptor Luis E and Statin. Indications for Diagnostic Cath: The priority of the diagnostic procedure was Elective. Chest painsymptom assessment was: Non-anginal Chest Pain. One of the indications forcath is valvular heart disease. The patient has Severe aortic stenosis. Technique: A 6 SLFr sheath was inserted in the right radial artery utilizingthe Seldinger technique. A 14Fr sheath was inserted in the left femoral artery utilizing the Seldinger technique. A 6Fr sheath was insertedin the right femoral vein utilizing the Seldinger technique. A 6 SLFrsheath was inserted in the left radial artery utilizing the Seldingertechnique. The aortic root was injected utilizing a 6Fr ANGLED PIGTAILcatheter. A 5Fr Pacel Flow Directed Pacing Cat lead was placed for a temporarypacing lead. A 6Fr ANGLED PIGTAIL catheter was used to inject the abdominal aorta. 8,000 units of heparin were administered. A total of 200cc of Omnipaque were opened, 119cc of Omnipaque were administered and 81ccof Omnipaque were wasted. Radiation: Fluoro time was 32.2 minutes, dosearea product was 131.00 Gy/cm2 and air kerma was 528 mGY. See the caselog for additional details. The patient received the following medications prior to and duringthe procedure: Unfractionated Heparin. Hemodynamics: Left Heart Pressures Resting: Syst Diast EDP a v m Ao 184 75 118 Stenotic Valve Data: Aortic Valve Peak Gradient - 66 Mean Gradient - 40 Area - 1.14 sq. cm. Stenotic Valve Data After TAVR: Aortic Valve Peak Gradient - 14 Mean Gradient - 9 Area - 2.4 sq. cm. Aortography: Normal Comments: There were three aortic cusps. There was evidence of aorticvalve calcification. Indication for Selected Procedures: A temporary pacemaker was inserted for pacing. Transcatheter Aortic Valve Replacement (TAVR): A transcatheter aortic valve replacement was performed. The primary indication for the procedure was Primary and the reason for the procedure was intermediate risk (4-7% risk of 30 day mortality)surgical risk. The etiology of the aortic valve disease was degenerative. The valve morphology was tricuspid and there was +1/mild aorticinsufficiency at baseline. The procedure was performed in the hybrid cath suite. The aorticvalve annular size was 388 sq.mm. as assessed by CTA. At baseline the mean trans-valvular gradient was 40.0 mmHg and the aortic valve area was1.1 sq.cm. The calculated STS risk score was 5.4%. The procedure was performed under Moderate sedation performed by Dr Rolan M.D. (see anesthesia report for additional details).Hector Machuca M.D. participated in the case (see Cardiac Surgery reportfor additional details). The TAVR sheath was a 14 Fr Hernandez eSheath Introducer and theaccess site was femoral. Rapid ventricular pacing was performed. An Hernandez Sarah 3 Ultra RESILIA 23 mm THV (s/s=[id number])transcatheter valve was inserted using standard technique. Protamine wasadministered at the conclusion of the case. The post procedure mean trans-valvular gradient was 9.0 mmHg by hemodynamic measurement. A post procedure transthoracicechocardiogram was performed. There was residual aortic insufficiency as assessedby echo-TTE. The TAVR procedure was successful. Vascular Access: Vascular Access Angiogram: A selective angiogram at the left femoral artery revealedsevere diffuse disease. Vascular Ultrasound: Ultrasound of the left femoral artery was used to guide accessand showed vessel patent with severe disease. Needle entry wasobserved. Vascular Access Management: An 8 Fr AngioSeal was deployed at the left femoral arteryaccess site. This device was successful. Manual Compression of theleft femoral artery access site was performed. The right radial artery access was secured in place formonitoring, staged procedure or therapy. The right femoral vein access was secured in place formonitoring, staged procedure or therapy. Mechanical Compression of the left radial artery access sitewas performed. Point of Care Testing: ABG: Arterial Blood gasses were performed using the I-Stat analyzerat 08:10: pH: 7.38, pCO2: 46.0, pO2: 197.0, sPO2: 100%, HCO3: 27on FIO2: 100. I-Stat: I-Stat was performed using the I-Stat analyzer at 08:10: Na+:142, K+: 4.1, iCa++: 1.35, Hct: 36%, Hb: 12.2. Dual Antiplatelet (DAPT) Recommendations: Patient was not on a P2Y12 inhibitor prior to nor was it given inthe slabber light. Recommended anti-platelet/anti-thrombotic regimen: Start aspirin 81 mg daily now and continue for indefinitely. Start rivaroxaban 15 mg daily now and continue for indefinitely. These recommendations are made at the time of the intervention.Patient and provider preferences or a changing clinical situation mayrequire modification of this regimen. Consult [facility] Interventional Cardiologyfor questions. Conclusions: * Severe aortic stenosis * Successful Transcatheter Aortic Valve Replacement * See Dual Antiplatelet (DAPT) Recommendations above Complications/Events: The patient had no complications during these procedures. Post Procedure Fluid Recommendations: IV fluid at 231 mL/hr for 4 hours for a total of 924 mL. These recommendations are made at the time of the procedure. Patient and provider preferences or a changing clinical situation may require modification of this regimen. Recommendations: Based upon the results of this procedure, it was recommended thatthe patient be managed with medical therapy. Comments: -Significant peripheral arterial disease with heavily calcified left ileofemoral calcification. There is a known FORESTRY AID of the RCIA/REIA. - We performed lithotripsy with a 7.0 mm shockwave balloon for theleft femoral and external iliac arteries to help facilitate sheathinsertion. - For the contralateral pigtail, we first attempted advanced a 6Fpigtail catheter via the right radial artery, but had tremendous difficultygiven the tortuosity. Therefore, we elected to advance the pigtailcatheter via the left radial approach. Given the technical challenges above,after discussion with cardiac anesthesia, we elected to convert to general anesthesia from conscious sedation. - Successful implantation of a 23 mm THV. - Post-valve abdominal aortography showed no evidence ofextravasation or large dissection of the left ileofemoral arterial system orinfrarenal aorta. There is a very small dissection of the left common femoral artery that is non-flow limiting. Dopplers of the left distal pedal pulse was intact. The attending physician was present for the entire procedure. Dr. Jair Gomez M.D. performed the aortic root aortogram, accesssite angiography, vascular ultrasound, temporary pacemaker in slabber light,arterial line / sheath insert, vascular closure device, ABG, transthoracic echo, TAVR, lithotripsy-peripheral and abdominal aortography. Dr. Mercedes M.D. performed the aortic root aortogram, access site angiography,ABG, anesthesia and TAVR. Dr. Hector Machuca M.D. performed the aorticroot aortogram, access site angiography, vascular ultrasound, temporary pacemaker in slabber light, arterial line / sheath insert, vascular closure device, ABG, transthoracic echo and TAVR. Jair Gomez M.D. Electronically Signed by: Jair Gomez M.D. Report Finalized: 06/30/2023 17:03 Report Last Ammended: 07/22/2023 16:17 Jair Gomez MD CARDIAC CATH ORDERAB LES * (ABNORMAL) Point of Care Blood Gas Historical (06/30/2023 8:00 AM EDT) [facility] pH, POC 7.38 7.35 - 7.45 [facility] pCO2, POC 46(H) 35 - 45 mmHg [facility] pO2, POC 197(H) 85 - 104 mmHg [facility] Base Excess, POC 2.0 -3.0 - 3.0 mmol/L [facility] Bicarbonate, POC 27.4(H) 20.0 - 26.0 mmol/L [facility] Sodium, POC 142 135 - 145 mmol/L [facility] POC Potassium 4.1 3.5 - 5.0 mmol/L [facility] Ionized Calcium, POC 1.35(H) 1.15 - 1.33 mmol/L [facility] POC Hematocrit 36.0 34.0 - 45.0 % [facility] POC Calc Hgb 12.2 11.2 - 15.7 g/dL [facility] Comment:The calculation of h emoglobin from hematocrit assumes a normal MCHC. POC Bgas Loc CC LAB [facility] Blood 06/30/2023 8:00 AM EDT 07/01/2023 12:00 PM EDT Hector Machuca MD CHEMISTRY ORDERABLE S Performing Organization Address City/[facility]/ZIP Co de Phone Number [facility] [place] [address] * POCT Glucose (06/30/2023 7:55 AM EDT) Glucose, POC 97 65 - 199 mg/dL [facility] Comment: Supplemental ranges: <140 mg/dL before meals <180 mg/dL all other times of the day Blood 06/30/2023 7:55 AM EDT 06/30/2023 7:55 AM EDT Jair Gomez MD POINT OF CARE TEST O RDERABLES Performing Organization Address [facility]/ZIP Co de Phone Number [facility] [place] [address] * Type and Screen Validity (06/30/2023 7:52 AM EDT) T&S only valid at [facility] Comment:This Type and Screen result is only valid at the [facility] Blood 06/30/2023 7:52 AM EDT 06/30/2023 8:11 AM EDT Narrative Resulting Agency Comment Spec In Lab Triny [facility] ORDER CHRISTOPHE Performing Organization Address City/[facility]/ZIP Co de Phone Number [facility] [place] [address] * ABORH Recheck Status (06/30/2023 7:52 AM EDT) ABORH Type Recheck Completed [facility] Blood 06/30/2023 7:52 AM EDT 06/30/2023 8:11 AM EDT Narrative Resulting Agency Comment Spec In Lab Trinykiah [facility] ORDER CHRISTOPHE [facility] [place] [address] * Antibody screen (06/30/2023 7:52 AM EDT) [facility] Ab Screen Interp Negative [facility] Expires at [id number] on: 07/03/2023 [facility] Blood 06/30/2023 7:52 AM EDT 06/30/2023 8:11 AM EDT Narrative Resulting Agency Comment Spec In Lab Triny [facility] ORDER CHRISTOPHE [facility] [place] [address] * ABO/Rh Typing (06/30/2023 7:52 AM EDT) Pathologist [facility] ABORH Type A Pos [facility] Blood 06/30/2023 7:52 AM EDT 06/30/2023 8:11 AM EDT Narrative Resulting Agency Comment Spec In Lab Triny [facility] ORDER CHRISTOPHE [facility] [place] [address] * Differential, Automated (06/30/2023 7:52 AM EDT) Neutrophil % 58.2 % [facility] Neutrophil Absolute 3.59 1.70 - 6.10 x10(3)/[facility] Lymph % 31.8 % [facility] Lymphocytes Abs 2.0 0.9 - 3.2 x10(3)/[facility] Monocyte % 6.8 % [facility] Monocyte Abs 0.4 0.3 - 0.9 x10(3)/[facility] Eos % 2.4 % [facility] Eosinophils Abs 0.2 0.0 - 0.4 x10(3)/[facility] Basophil % 0.5 % [facility] Baso Absolute 0.0 0.0 - 0.1 x10(3)/[facility] Immature Gran % 0.30 % [facility] Comment: Immature granulocytes(IG's)percentage and absolute count will include metamyelocytes, myelocytes, and promyelocytes. Blood smears from CBCs yielding IG's will be scanned manually for concordance. If this scan disagrees with the automated IG or if promyelocytes are noted, a manual differential will be performed. Immature Gran Absolute 0.02 0.00 - 0.04 x10(3)/[facility] Blood 06/30/2023 7:52 AM EDT 06/30/2023 8:07 AM EDT Narrative Resulting Agency Comment Spec In Lab Triny [facility] ORDERABLE S [facility] [place] [address] * (ABNORMAL) Hemogram (06/30/2023 7:52 AM EDT) White Blood Cell 6.2 4.0 - 9.5 x10(3)/mc L [facility] Red Blood Cell 3.92(L) 4.00 - 5.21 x10(6)/mc L [facility] Hemoglobin 12.7 11.7 - 15.5 g/dL [facility] Hematocrit 37.8 35.7 - 45.8 % [facility] Mean Cell Volume 96.4(H) 82.6 - 94.4 fL [facility] Mean Cell Hemoglobin 32.4(H) 27.1 - 32.0 pg [facility] Mean Cell Hemoglobin Concentration 33.6 31.7 - 35.0 g/dL [facility] Platelet 163 145 - 357 x10(3)/mc L [facility] RDW Standard Deviation 43.5 37.0 - 46.0 fL [facility] RDW coefficient of variation 12.5 11.5 - 14.1 % [facility] Mean Platelet Volume 10.3 7.6 - 12.9 fL [facility] NRBC% auto 0.0 % [facility] NRBC Absolute 0.000 0.000 - 0.000 x10(3)/mc L [facility] Blood 06/30/2023 7:52 AM EDT 06/30/2023 8:07 AM EDT Narrative Resulting Agency Comment Spec In Lab Triny [facility] ORDERABLE S [facility] [place] [address] * (ABNORMAL) Basic Metabolic Panel (non-fasting) (06/30/2023 7:52 AM EDT) Glucose 99 65 - 199 mg/dL [facility] Comment:Diabetes: >=200 mg/d L plus symptoms Blood Urea Nitrogen 14 8 - 18 mg/dL [facility] Creatinine 1.01 0.70 - 1.20 mg/dL [facility] Sodium 143 135 - 145 mmol/L [facility] Potassium 4.2 3.5 - 5.0 mmol/L [facility] Comment: Please note: ??Patients with WBC >100,000 may have falsely elevated Potassium levels. ??For accurate Potassium quantification in these patients send serum separator tube (gold top) for subsequent determinations. ??Contact the Clinical Chemistry Laboratory if there are any questions. Chloride 107 98 - 107 mmol/L [facility] Carbon Dioxide 26 22 - 31 mmol/L [facility] Anion Gap 10 5 - 15 mmol/L [facility] Calcium 10.0 8.5 - 10.5 mg/dL [facility] Est Glomerular Filtration Rate 55(L) >=60 mL/min/1. 73 m?? [facility] Comment: This patient's estimated GFR was [...] and symptoms in addition to eGFR. Blood 06/30/2023 7:52 AM EDT 06/30/2023 8:07 AM EDT Narrative Resulting Agency Comment Spec In Lab Jair Gomez MD CHEMISTRY ORDERABLES Performing Organization Address City/State/[facility] [place] [address] * Prepare RBC (06/30/2023 7:40 AM EDT) Dispensed? Yes [facility] Blood 06/30/2023 7:40 AM EDT 06/30/2023 7:36 AM EDT Hector Machuca MD BLOOD BANK PRODUCT ORDERABLES Performing Organization Address [facility] [place] [address] documented in this encounter Visit Diagnoses Diagnosis Aortic stenosis- Primary Aortic valve disorders Aortic valve stenosis, etiology of cardiac valve disease unspecified S/P TAVR (transcatheter aortic valve replacement) Aortic valve stenosis, etiology of cardiac valve disease unspecified S/P TAVR (transcatheter aortic valve replacement) documented in this encounter Admitting Diagnoses Diagnosis Aortic stenosis Aortic valve disorders documented in this encounter Administered Medications Inactive Administered Medications - up to 3 most recent administrations Medication Order MAR Action Action Date Dose Rate Site acetaminophen (Tylenol) tablet 975 mg 975 mg, Oral, EVERY 6 HOURS PRN, Starting on Wed06/30/23 at 1059, Until Wed07/05/23 at 1714, Pain, For pain when taking by mouth Maximum dose of acetaminophen is 4,000 mg from all sources in 24 hours. When ordered for pain, acetaminophen should be given even when other ordered pain medications are indicated. , Routine Given 06/30/2023 8:06 PM EDT 975 mg albuteroL 90 mcg/actuation inhaler 2 puff 2 puff, Inhalation, EVERY 4 HOURS PRN, Starting on Wed06/30/23 at 1630, Until Wed07/05/23 at 1714, Wheezing, While INtubated. , Routine, Is there a contraindication to the patient receiving this medication as a nebulizer? Yes albuteroL 90 mcg/actuation inhaler 6 puff 6 puff, Inhalation, EVERY 4 HOURS, First dose on Wed06/30/23 at 1145, Until Discontinued, While INtubated. , Routine, Is there a contraindication to the patient receiving this medication as a nebulizer? Yes Given 06/30/2023 3:36 PM EDT 6 puffs aspirin chewable tablet 81 mg 81 mg, Oral, DAILY, First dose on Wed06/30/23 at 1145, Until Discontinued, Start on post-op day 1 in the AM., Routine Given 07/05/2023 8:04 AM EDT 81 mg Given 07/04/2023 8:16 AM EDT 81 mg Given 07/03/2023 8:35 AM EDT 81 mg chlorhexidine (Peridex) 0.12 % oral solution 15 mL 15 mL, Oral, EVERY 12 HOURS SCHEDULED (2 times per day), First dose on Wed06/30/23 at 1145, Until Discontinued, [place] teeth, Routine Given 07/02/2023 8:50 AM EDT 15 mLs Given 07/01/2023 9:00 PM EDT 15 mLs Given 06/30/2023 8:06 PM EDT 15 mLs fentaNYL (PF) (50 mcg/mL) infusion syringe 50 mL 0-100 mcg/hr (0-2 mL/hr), Intravenous, CONTINUOUS, Starting on Wed06/30/23 at 1145, Until Wed07/02/23 at 2108, Titrate to patient comfort, pain scale 1-3. Start at 25 mcg/hr. Increase/decrease by 25 mcg/hr every 15 minutes. Do not exceed 100 mcg/hour., Routine Rate/Dose Verify 06/30/2023 2:00 PM EDT 25 mcg/hr 0.5 mL/hr Rate/Dose Verify 06/30/2023 12:00 PM EDT 25 mcg/hr 0.5 mL /hr New Bag 06/30/2023 11:39 AM EDT 25 mcg/hr 0.5 mL/hr hydrALAZINE (Apresoline) (20 mg/mL) injection 10-20 mg 10-20 mg, Intravenous, EVERY 4 HOURS PRN, Starting on Wed06/30/23 at 1725, Until Wed07/05/23 at 1714, High Blood Pressure, give for SBP >150, Give 10mg. If desired SBP not achieved after 20-30 minutes give additional 10mg. Given 07/04/2023 6:12 PM EDT 20 mg Given 07/03/2023 11:35 AM EDT 10 mg Given 07/02/2023 6:20 AM EDT 10 mg levothyroxine (Synthroid) tablet 112 mcg 112 mcg, Oral, DAILY, First dose on Wed06/30/23 at 1145, Until Discontinued, Routine Given 07/05/2023 8:04 AM EDT 112 mcg Given 07/04/2023 8:17 AM EDT 112 mcg Given 07/03/2023 8:42 AM EDT 112 mcg losartan (Cozaar) tablet 50 mg 50 mg, Oral, DAILY, First dose on Wed06/30/23 at 1815, Until Discontinued, Routine Given 07/05/2023 8:03 AM EDT 50 mg Given 07/04/2023 8:25 AM EDT 50 mg Given 07/03/2023 8:35 AM EDT 50 mg magnesium sulfate 2 g in sterile water 50 mL infusion 2 g, Intravenous, ONCE, 1 dose, On Wed07/01/23 at 1500, Administer over 120 Minutes Rate/Dose Verify 07/01/2023 4:00 PM EDT 25 mL/hr New Bag 07/01/2023 2:08 PM EDT 2 g 25 mL/hr magnesium Sulfate 2 gram/50 mL (4 %) infusion Piggyback 1 dose, Starting on Wed07/01/23 at 1402, Until Wed07/01/23 at 1608, Kierra Reyes: cabinet override mirabegron ER (Myrbetriq) tablet 25 mg 25 mg, Oral, DAILY, First dose on Wed07/01/23 at 0900, Until Discontinued, Do not crush, Routine, This product is restricted for continuation of outpatient regimen only. Is this a home medication? Yes Given 07/05/2023 8:04 AM EDT 25 mg Given 07/04/2023 8:18 AM EDT 25 mg Given 07/03/2023 8:35 AM EDT 25 mg niCARdipine (Cardene) (0.2 mg/mL) in sodium chloride 200 mL infusion 0-15 mg/hr (0-75 mL/hr), Intravenous, CONTINUOUS, Starting on Wed06/30/23 at 1145, Until Wed07/02/23 at 2108, Initiate if nitroGLYcerin ineffective at maintaining target systolic BP. Titrate to SBP less than 120 mmHg. Start at 5 mg/hr. Increase/decrease by 2.5 mg/hr every 5 minutes until goal reached. Do not exceed 15 mg/hr. Rotate IV site every 12 hours., Routine Rate/Dose Change 06/30/2023 6:30 PM EDT 2.5 mg/hr 12.5 mL/hr Rate/Dose Change 06/30/2023 6:20 PM EDT 5 mg/hr 25 mL/h r Rate/Dose Change 06/30/2023 6:10 PM EDT 7.5 mg/hr 37.5 mL /hr NORepinephrine (Levophed) (16 mcg/mL) in dextrose 5% 250 mL infusion 0-30 mcg/min (0-112.5 mL/hr), Intravenous, CONTINUOUS, Starting on Wed06/30/23 at 1145, Until Wed07/02/23 at 2108, Begin if PHENYLephrine and/or vasopressin ineffective. Call TAVR team if initiated. Titrate to keep systolic blood pressure greater than 90 mmHg. Start at 2 mcg/min. Increase/decrease by 2 mcg/min every 3 minutes until goal reached. Do not exceed 30 mcg/min. Warning Vesicant/Irritant Medication, Routine New Bag 06/30/2023 11:12 AM EDT 2 mcg/min 7.5 mL/hr ondansetron (pf) (Zofran) (2 mg/mL) injection 4 mg 4 mg, Intravenous, EVERY 8 HOURS PRN, Starting on Wed06/30/23 at 1059, Until Wed07/05/23 at 1714, Nausea, Routine Given 06/30/2023 5:46 PM EDT 4 mg pantoprazole (Protonix) injection 40 mg 40 mg, Intravenous, DAILY, First dose on Wed06/30/23 at 1145, Until Discontinued, Reconstitute with 10 mL of normal saline to a concentration of 4 mg/mL and inject slowly over 2 minutes. Reconstitute with 10 mL of normal saline to a concentration of 4 mg/mL and inject slowly over 2 minutes., Routine Given 06/30/2023 11:31 AM EDT 40 mg pantoprazole EC (Protonix) tablet 40 mg 40 mg, Oral, DAILY, First dose on Wed06/30/23 at 1145, Until Discontinued, DO NOT CRUSH OR OPEN, Routine Given 07/05/2023 8:04 AM EDT 40 mg Given 07/04/2023 8:17 AM EDT 40 mg Given 07/03/2023 8:35 AM EDT 40 mg pravastatin (Pravachol) tablet 40 mg 40 mg, Oral, EVERY EVENING, First dose on Wed06/30/23 at 1700, Until Discontinued Given 07/04/2023 5:40 PM EDT 40 mg Given 07/03/2023 5:08 PM EDT 40 mg Given 07/02/2023 5:38 PM EDT 40 mg propofoL (Diprivan) (10 mg/mL) infusion 0-50 mcg/kg/min ? 77.3 kg (0-23.19 mL/hr, rounded to 0-23.2 mL/hr), Intravenous, CONTINUOUS, Starting on Wed06/30/23 at 1145, Until Wed06/30/23 at 1624, Titrate to sedation level of RASS Goal (-1). Start at 10 mcg/kg/min. Increase/decrease by 5 mcg/kg/min every 3 minutes until goal reached. Once stable, reassess patient every 30 minutes. Do not exceed 50 mcg/kg/minute. Discontinue upon extubation., Routine Rate/Dose Verify 06/30/2023 2:00 PM EDT 40 mcg/kg/min 18.6 mL/hr Rate/Dose Verify 06/30/2023 12:00 PM EDT 40 mcg/kg/min 18. 6 mL/hr Rate/Dose Change 06/30/2023 11:27 AM EDT 40 mcg/kg/min 18. 6 mL/hr rivaroxaban (Xarelto) tablet 15 mg 15 mg, Oral, EVERY 12 HOURS SCHEDULED (2 times per day), 8 doses, First dose on Wed07/02/23 at 0900, Last dose on Wed07/05/23 at 2100, Must be administered with food., Routine, Restricted anticoagulant, choose the most appropriate response: Treatment of DVT Given 07/05/2023 8:04 AM EDT 15 mg Given 07/04/2023 8:14 PM EDT 15 mg Given 07/04/2023 8:17 AM EDT 15 mg rivaroxaban (Xarelto) tablet 20 mg 20 mg, Oral, DAILY WITH DINNER, First dose on Wed07/06/23 at 1700, Until Discontinued, Must be administered with food., Routine, Restricted anticoagulant, choose the most appropriate response: Treatment of DVT senna-docusate (Pericolace) 8.6-50 mg per tablet 2 tablet 2 tablet, Oral, DAILY, First dose on Wed07/01/23 at 2100, Until Discontinued, Post-op day 1, Routine Given 07/04/2023 8:14 PM EDT 2 tablets Given 07/03/2023 8:17 PM EDT 2 tablets Given 07/02/2023 8:03 PM EDT 2 tablets sodium chloride 0.9 % (flush) (BD PosiFlush Normal Saline 0.9) flush 5 mL 5 mL, Intravenous, 2 TIMES DAILY, First dose on Wed06/30/23 at 1145, Until Discontinued, Routine Given 07/02/2023 9:00 PM EDT 5 mLs Given 07/02/2023 8:54 AM EDT 5 mLs Given 07/01/2023 9:00 PM EDT 5 mLs sodium chloride 0.9 % (flush) (BD PosiFlush Normal Saline 0.9) flush 5 mL 5 mL, Intravenous, EVERY 8 HOURS, First dose on Wed07/02/23 at 2200, Until Discontinued, Routine Given 07/05/2023 5:01 AM EDT 5 mLs Given 07/04/2023 8:15 PM EDT 5 mLs Given 07/04/2023 8:14 PM EDT 5 mLs tiotropium bromide (Spiriva Respimat) 2.5 mcg/actuation inhaler 2 puff 2 puff, Inhalation, DAILY, First dose on Wed07/01/23 at 0800, Until Discontinued, Must be primed prior to first administration, Routine Given 07/05/2023 8:04 AM EDT 2 puffs Given 07/04/2023 8:18 AM EDT 2 puffs Given 07/03/2023 8:39 AM EDT 2 puffs documented in this encounter Active and Recently Administered Medications Times are shown in EDT. Scheduled Medication Order 07/03/2023 07/04/2023 07/05/2023 aspirin chewable tablet 81 mg(Linked Group 1) 81 mg, Oral, DAILY, First dose on Wed06/30/23 at 1145, Until Discontinued, Start on post-op day 1 in the AM., Routine 0835 (Given - Provider: Syed Patricia RN) 0816 (Given - Provider: Richard Ashford RN) 0804 (Given - Provider: Danette Boyce RN) levothyroxine (Synthroid) tablet 112 mcg 112 mcg, Oral, DAILY, First dose on Wed06/30/23 at 1145, Until Discontinued, Routine 0842 (Given - Provider: Syed Patricia RN) 0817 (Given - Provider: Richard Ashford RN) 0804 (Given - Provider: Danette Boyce RN) losartan (Cozaar) tablet 50 mg 50 mg, Oral, DAILY, First dose on Wed06/30/23 at 1815, Until Discontinued, Routine 0835 (Given - Provider: Syed Patricia RN) 0825 (Given - Provider: Richard Ashford RN) 0803 (Given - Provider: Danetet Boyce RN) mirabegron ER (Myrbetriq) tablet 25 mg 25 mg, Oral, DAILY, First dose on Emily 07/01/23 at 0900, Until Discontinued, Do not crush, Routine, This product is restricted for continuation of outpatient regimen only. Is this a home medication? Yes 0835 (Given - Provider: Syed Patricia RN) 0818 (Given - Provider: Richard Ashford RN) 0804 (Given - Provider: Danette Boyce RN) pantoprazole EC (Protonix) tablet 40 mg(Linked Group 2) 40 mg, Oral, DAILY, First dose on Wed06/30/23 at 1145, Until Discontinued, DO NOT CRUSH OR OPEN, Routine 0835 (Given - Provider: Syed Patricia RN) 0817 (Given - Provider: Richard Ashford RN) 0804 (Given - Provider: Danette Boyce RN) pravastatin (Pravachol) tablet 40 mg 40 mg, Oral, EVERY EVENING, First dose on Wed06/30/23 at 1700, Until Discontinued 1708 (Given - Provider: Syed Patricia RN) 1740 (Given - Provider: Kierra Reyes RN) rivaroxaban (Xarelto) tablet 15 mg(Linked Group 3) 15 mg, Oral, EVERY 12 HOURS SCHEDULED (2 times per day), 8 doses, First dose on Wed07/02/23 at 0900, Last dose on Wed07/05/23 at 2100, Must be administered with food., Routine, Restricted anticoagulant, choose the most appropriate response: Treatment of DVT 0839 (Given - Provider: Syed Patricia RN)2016 (Given - Provider: Oneal Bedoya RN) 0817 (Given - Provider: Richard Ashford RN)2013 (Given - Provider: Aviva Win RN) 0804 (Given - Provider: Danette Boyce RN) rivaroxaban (Xarelto) tablet 20 mg(Linked Group 3) 20 mg, Oral, DAILY WITH DINNER, First dose on Wed07/06/23 at 1700, Until Discontinued, Must be administered with food., Routine, Restricted anticoagulant, choose the most appropriate response: Treatment of DVT senna-docusate (Pericolace) 8.6-50 mg per tablet 2 tablet 2 tablet, Oral, DAILY, First dose on Wed07/01/23 at 2100, Until Discontinued, Post-op day 1, Routine 2016 (Given - Provider: Oneal Bedoya RN) 2013 (Given - Provider: Aviva Win RN) sodium chloride 0.9 % (flush) (BD PosiFlush Normal Saline 0.9) flush 5 mL 5 mL, Intravenous, EVERY 8 HOURS, First dose on Wed07/02/23 at 2200, Until Discontinued, Routine 0836 (Given - Provider: Syed Patricia RN)1400 (Given - Provider: Syed Patricia RN)2200 (Not Given - Provider: Oneal Bedoya RN - Reason: See comment - Comment: flushedwith assessment) 0600 (Not Given - Provider: Oneal Bedoya RN - Reason: Order parameters not met)1402 (Given - Provider: Richard Ashford RN)2013 (Given - Provider: Aviva Win RN)2014 (Given - Provider: Aviva Win, MELANIE) 0501 (Given - Provider: Aviva Win RN)1400 (Not Given - Provider: Danette Boyce, MELANIE - Reason: Order parameters not met) tiotropium bromide (Spiriva Respimat) 2.5 mcg/actuation inhaler 2 puff 2 puff, Inhalation, DAILY, First dose on Emily 07/01/23 at 0800, Until Discontinued, Must be primed prior to first administration, Routine 0839 (Given - Provider: Syed Patricia RN) 0818 (Given - Provider: Richard Ashford RN) 0804 (Given - Provider: Danette Boyce, MELANIE) PRN Medication Order 07/03/2023 07/04/2023 07/05/2023 acetaminophen (Tylenol) tablet 975 mg 975 mg, Oral, EVERY 6 HOURS PRN, Starting on Wed06/30/23 at 1059, Until Wed07/05/23 at 1714, Pain, For pain when taking by mouth Maximum dose of acetaminophen is 4,000 mg from all sources in 24 hours. When ordered for pain, acetaminophen should be given even when other ordered pain medications are indicated. , Routine albuteroL 90 mcg/actuation inhaler 2 puff 2 puff, Inhalation, EVERY 4 HOURS PRN, Starting on Wed06/30/23 at 1630, Until Wed07/05/23 at 1714, Wheezing, While INtubated. , Routine, Is there a contraindication to the patient receiving this medication as a nebulizer? Yes bisacodyL (Dulcolax) suppository 10 mg 10 mg, Rectal, DAILY PRN, Starting on 07/03/23 at 0000, Until 07/05/23 at 1714, Constipation, Starting post-op day 3., Routine hydrALAZINE (Apresoline) (20 mg/mL) injection 10-20 mg 10-20 mg, Intravenous, EVERY 4 HOURS PRN, Starting on Wed06/30/23 at 1725, Until Wed07/05/23 at 1714, High Blood Pressure, give for SBP >150, Give 10mg. If desired SBP not achieved after 20-30 minutes give additional 10mg. 1135 (Given - Provider: Syed Patricia RN) 1812 (Given - Provider: Kierra Reyes RN) lidocaine (Xylocaine) 1% (10 mg/mL) injection 3 mg 3 mg (0.3 mL), Subcutaneous, ONCE PRN, 1 dose, Starting on Wed06/30/23 at 1059, Until Wed07/05/23 at 1714, for discomfort with PIV insertion, Routine magnesium hydroxide (Milk of Magnesia) (80mg/mL) oral liquid 30 mL 30 mL, Oral, DAILY PRN, Starting on Wed06/30/23 at 1059, Until Wed07/05/23 at 1714, Constipation, 30 mL regular (400 mg/5 mL) = 10 mL concentrate (2400 mg/10 mL), Routine ondansetron (pf) (Zofran) (2 mg/mL) injection 4 mg 4 mg, Intravenous, EVERY 8 HOURS PRN, Starting on Wed06/30/23 at 1059, Until Wed07/05/23 at 1714, Nausea, Routine Linked Groups Order Group 1: aspirin chewable tablet 81 mgJump to med 81 mg, Oral, DAILY, First dose on Wed06/30/23 at 1145, Until Discontinued, Start on post-op day 1 in the AM., Routine Or aspirin suppository 300 mg (CANCELED) 300 mg, Rectal, DAILY, First dose on Wed06/30/23 at 1145, Until Discontinued, Start on post-op day 1 in the AM Give MN if unable to take PO, Routine Group 2: pantoprazole EC (Protonix) tablet 40 mgJump to med 40 mg, Oral, DAILY, First dose on Wed06/30/23 at 1145, Until Discontinued, DO NOT CRUSH OR OPEN, Routine Or pantoprazole (Protonix) injection 40 mg (CANCELED) 40 mg, Intravenous, DAILY, First dose on Wed06/30/23 at 1145, Until Discontinued, Reconstitute with 10 mL of normal saline to a concentration of 4 mg/mL and inject slowly over 2 minutes. Reconstitute with 10 mL of normal saline to a concentration of 4 mg/mL and inject slowly over 2 minutes., Routine Group 3: rivaroxaban (Xarelto) tablet 15 mgJump to med 15 mg, Oral, EVERY 12 HOURS SCHEDULED (2 times per day), 8 doses, First dose on Wed07/02/23 at 0900, Last dose on Wed07/05/23 at 2100, Must be administered with food., Routine, Restricted anticoagulant, choose the most appropriate response: Treatment of DVT Followed by rivaroxaban (Xarelto) tablet 20 mgJump to med 20 mg, Oral, DAILY WITH DINNER, First dose on Wed07/06/23 at 1700, Until Discontinued, Must be administered with food., Routine, Restricted anticoagulant, choose the most appropriate response: Treatment of DVT documented in this encounter Care Teams Software Tools Engineer Relationship Specialty Start Date End Date Gideon Becerra MD [address] [place] [id number] PCP - General Family Medicine 03/31/23 documented as of this encounter
--- OUTSIDE RECORDS SUMMARY | 2024-06-23 16:24 | XMS_ITS | Encounter Summary ---
Author Organization [facility] [place] [address] Care Team Providers Care Sled Maker Name Role Phone Gideon Becerra MD Primary Care Provider [phone] Reason for Visit * Auth/Cert (Routine) Specialty [...] ECHO DURING CATH/EP PROCEDURE Jair Gomez MD [facility] [place] [address] [facility] Referral ID Status Reason Start Date Expiration Date Visits Re quested Visits Authorized [id number] 1 1 Encounter Details Date Type Department Care Team (Late st Contact Info) Description 06/30/2023 7:30 AM EDT - 06/30/2023 9:08 AM EDT [place] [address] Jair Gomez MD [facility] [place] [address] CARDIAC CATHETERIZATION Social History Tobacco Use Types Packs/Day Years [...] Sign Reading Time Taken Comments Blood Pressure 178/80 06/30/2023 6:32 AM EDT Pulse 65 06/30/2023 6:32 AM EDT Temperature 36.8 ??C (98.2 ??F) 06/30/2023 6:32 AM ED T Respiratory Rate 18 06/30/2023 6:32 AM EDT Oxygen Saturation 94% 06/30/2023 6:32 AM EDT Inhaled Oxygen Concentration - - Weight - - Height - - Body Mass Index - - documented in this encounter Discharge Summaries * Jaime Pat, DELPHINE - 07/05/2023 12:16 PM EDT Images from the original note were not included. Inpatient - Discharge Summary Patient Name: Roxanne Pollack Patient Age: 83 y.o. Birthdate: 1940 Language: Rwandan Race: White Ethnicity: Not nor Admit Date: 06/30/2023 Discharge Date: 07/05/2023 Attending Physician: Hector Machuca MD Follow-up Recommendations for Providers: Please continue routine management of cardiovascular risk factors including blood pressure, lipids,glucose, etc. Please note any medication changes. Patient to follow up with PCP, Gideon Becerra MD,in ~ 7-10 days. Patient to follow up with Jig And Fixture Maker, Dr. Jair Gomez, in 1 month with an EKG, Echo, CBC, and CMP. Rqed-Esvylm-to interval: After initial 30 day follow-up appointment , all TAVR patients will follow-up again in one year with an echo. Inpatient Provider Contact Information: [facility] Section of Cardiac Surgery [facility] [address] FAX [phone] Discharge Diagnoses (Hospital Problems) Primary Diagnoses: Aortic [...] STRIPPING performed by Mitch Rios MD at [facility] MAIN OR PRO VITRECTOMY,MECHANICAL 08/28/2013 VITRECTOMY, MECHANICAL PARS PLANA APPROACH performed by Mitch Rois MD at [facility] MAIN OR RETINOPATHY SURGERY Prior To [...] Take 5 mg by mouth daily. 06/29/2023 [id number]-[id number]-WGRU ORAL Take 2 capsules by mouth daily. [...] TF TAVR Roxanne Pollack was admitted to [facility] on 06/30/2023 via the Same Day Program. She was brought to the geoscience laboratory technician where Drs. Hector Machuca and Jair Gomez [...] by mouth daily. 5 mg Refills: 0 [id number] ORAL Take 2 capsules by mouth daily. [...] if you have questions. Please call your Jig And Fixture Maker's office if you have any discharge or drainage from your procedural sites. Your Jig And Fixture Maker, Dr. Jair Gomez and/or the Aircraft Restorer may be reached at . Antibiotic prophylaxis: You will need to take antibiotics prior to many invasive tests and treatments, such as dental cleaning, which should be done every 6 months. Your primary care physician or your dentist can prescribe this medication. Any future refills should go through your PCP or Dentist. Please refer to the card with the [employer] Heart Association Guidelines for more information. You have been provided with a copy of this card. Please refer to the [employer] Heart Association Guidelines for more information. Good [...] friends, go to a movie, go to mandaen, etc. Heavy activities: No hunting, skiing, jogging, [...] should resume a low fat, low cholesterol, Finnish Heart Association Diet Driving: No driving for 3 days. Shower/Bath: You may shower daily. No baths, soaking, or swimming for the first week. Wound care: Please remove your dressings 48 hours after your procedure. Wash the sites daily with soap and rinse well, pat dry. Assess for any signs of infection such as increased redness, pain, warmth or drainage. Please call your scale expert's office if you have any discharge or [...] \You have a follow-up appointment with your Jig And Fixture Maker, Dr. Jair Gomez, in 1 month with an EKG, Echo, and labs prior to your appointment. Ovnv-Pegeyp-ee interval: After initial 30 day follow-up appointment , all TAVR patients will follow-up again in one year with an echo. Cardiac Rehabilitation: you will be contacted Future Appointments and Orders Future Appointments and Orders Future Appointments Provider Department Dept Phone 08/13/2023 9:45 AM LAB, THREE L Lab [address] [place] [address] Arrive at: [facility] [phone] 08/13/2023 10:30 AM ECHO REGULAR 2; ECHO REGULAR Non-Invasive Cardiology Lab [facility] Arrive at: [facility] [phone] [facility] 08/13/2023 12:30 PM NURSE, CARDIOLOGY Cardiology at [facility] Arrive at: [facility] [phone] 08/13/2023 1:00 PM Pierce Allen APRN Cardiology at [facility] Arrive at: [facility] [phone] Future Orders Complete By Expires CBC (with Diff) [[id number] Custom] 07/02/2023 09/30/2023 Process Instructions: INCLUDES: WBC, RBC, Hgb, Hct, Platelets, RBC Indices and Differential Scheduling Instructions: Comments: Questions: Comprehensive metabolic panel (non-fasting) [LAB17 Custom] 07/02/2023 09/30/2023 Process Instructions: INCLUDES: Calcium, T Protein, Albumin, AST, ALT, Alk Phos, T Bili, BUN, Creat, GFR, Glucose, Lytes. Scheduling Instructions: Comments: Questions: Echocardiogram Transthoracic [72767 CPT(R)] 07/03/2023 07/02/2024 Process Instructions: Scheduling Instructions: Comments: Questions: Where will study be performed?: [facility] Clinics Does the patient have Congenital Heart Disease?: Does patient require sedation?: GA rationale: EKG 12 Lead [44041 CPT(R)] 07/03/2023 07/02/2024 Process Instructions: Scheduling Instructions: Questions: Which location will this be performed?: [place] Is a rhythm strip needed?: No XR Chest PA & Lateral (Generic) [32974 61986 Custom] 07/03/2023 07/02/2024 Process Instructions: Scheduling Instructions: Questions: Where will study be performed?: [facility] Radiology Portable exam?: Reason for exam [...] for admission to Home Health. [address] [facility] [address] Phone Number: [phone] (home) Date of : 1940 Inpatient DOCUMENTATION FOR VNA SERVICES (INCLUDING THOSE PATIENTS WITH MEDICARE COVERAGE REQUIRING HOME VNA SERVICES AND/OR HOSPICE SERVICES) PATIENT'S LOCATION: Roxanne Pollack [address] [place] [address] [phone] (home) Telephone Information: Platform Power Technician's Name: self In discussion with the attending physician, it is certified that this patient is under their care and that they, or a Nurse Practitioner, or Physician Mill Laborer who is working directly with them, hada [...] for services as follows: HOME HEALTH AGENCY: [facility] [address] [place] [id number] PT ORDERS: Continue rehab for endurance, gait stability and strength with mobility and transfers. Home safety evaluation. Home exercise program if appropriate. OT ORDERS: Assess and continue rehab for managing ADLs. Start of Care Date: 24-48 hours of discharge for start of care SPECIAL INSTRUCTIONS: For any follow up questions, needs, or issues please call the Cardiology Office at [phone] FOR MEDICARE ONLY: (please delete this section [...] Discharge References/Attachments None Signed: PAT SANDOVAL APRN [facility] Section of Cardiac Surgery Date: 07/05/2023 CC: MD Lydia Lane, Sophie Montanez, PA [address] [place] [address] documented in this encounter Discharge Instructions * Patient Instructions* Pat Sandoval, DELPHINE - 07/02/2023 9:07 AM EDT TAVR Discharge Instructions: Call your doctor if: You have a fever of greater than 101 degrees, shaking chills, if you develop redness or drainage from your procedure sites, or if you have questions. Please call your Jig And Fixture Maker's office if you have any discharge or drainage from your procedural sites. Your Jig And Fixture Maker, Dr. Jair Gomez and/or the Aircraft Restorer may be reached at . Antibiotic prophylaxis: You will need to take antibiotics prior to many invasive tests and treatments, such as dental cleaning, which should be done every 6 months. Your primary care physician or your dentist can prescribe this medication. Any future refills should go through your PCP or Dentist. Please refer to the card with the [employer] Heart Association Guidelines for more information. You have been provided with a copy of this card. Please refer to the Finnish Heart Association Guidelines for more information. Good [...] friends, go to a movie, go to mandaen, etc. Heavy activities: No hunting, skiing, jogging, [...] should resume a low fat, low cholesterol, Finnish Heart Association Diet Driving: No driving for 3 days. Shower/Bath: You may shower daily. No baths, soaking, or swimming for the first week. Wound care: Please remove your dressings 48 hours after your procedure. Wash the sites daily with soap and rinse well, pat dry. Assess for any signs of infection such as increased redness, pain, warmth or drainage. Please call your scale expert's office if you have any discharge or [...] \You have a follow-up appointment with your Jig And Fixture Maker, Dr. Jair Gomez, in 1 month with an EKG, Echo, and labs prior to your appointment. Syrt-Gqvifm-gu interval: After initial 30 day follow-up appointment [...] capsule Take 5 mg by mouth daily. [id number] ORAL Take 2 capsules by mouth daily. [...] stronger Social History: Pt lives alone in [facility]. Pt reports her apartment is on the second floor and she has a flight of stairs to manage to enter/exit. Pt was indep without a device SAFETY EQUIPMENT TESTER. She was indep with her ADL's, meals, [...] alert, willing to mobilize. Pt stood from and transferred to bed with supervision, no [...] help with this. Ready for d/c from [facility] from a PT standpoint. Anticipated Discharge Disposition [...] PT needs arise. Time IN / OUT: 4687-6011 Total Minutes, Physical Therapy: 23 Billing Code: [id number] JOLANTA MATTHEWS PT Pager: [phone] Physical Therapy Inpatient Rehabilitation Department * Reynold Malhotra RN - 07/05/2023 11:15 AM EDT I have met with the patient to: discuss discharge planning needs. provide the [facility], Office of Care Management letter from the Home Attendant pertaining to rehab referrals. provide a letter describing our affiliations within the [facility] and educate about their right to choose where referrals are sent. provide a list of Home Health Agencies / Durable Medical Equipment vendors which serve their preferred geographic area. provided patient with [facility] Star Quality Rating handout. They [facility] [address] [place] [address] Ortho Care Located @ [place], [place] Note routed to a Hotel Or Motel Receptionist who will communicate referrals to facilities and [...] STRIPPING performed by Mitch Rios MD at [facility] MAIN OR PRO VITRECTOMY,MECHANICAL 08/28/2013 VITRECTOMY, MECHANICAL PARS PLANA APPROACH performed by Mitch Rios MD at [facility] MAIN OR RETINOPATHY SURGERY Social History: Patient lives alone in an apartment in [place], [place], but reports her son plans to [...] has been affected since an episode in 2019. Objective: Seen today for OT evaluation. Cognitive [...] w/ FWW Vision & Perception: corrective lenses rink rat-bifocals Some difficulty with reading a line of print on handout, though reports more r/t her speech Communication: effortful, stuttering speech-reports affected since 2019 ; wears hearing aids but only 1 [...] Dressing: Difficulty donning socks Issued sockaid and instrument maker and repairer and educated in use Reports she has [...] from a FWW, communication deficits (reports present [id number]), and compromised mobility status. Dee is demonstrating [...] and measurable assessment of functional outcome. Pager: [phone] SHE RAMIREZ OT 07/05/2023 Occupational Therapy Rehabilitation Department * Pat Sandoval, ROTARY BAR OPERATOR - 07/04/2023 7:56 AM EDT Cardiac Surgery [...] attending surgeon on rounds this morning. PAT SANDOVAL, DELPHINE 07/04/2023 Between the hours of 1800 - 0600 and on the weekends please page [phone]. * Juliocesar Fuentes MD - 07/03/2023 9:22 [...] Rate from SpO2: [77 bpm-97 bpm] 07/02 07 - 07/03 07 In: 0 Out: 1000 [Urine:1000] Admit weight: [...] medically ready for discharge [facility] #new LBBB - resolved #acute post op blood loss anemia - stabilized Dispo: full code, cvcc status Discussed with attending surgeon on rounds this morning. Juliocesar Fuentes MD 07/03/2023 Between the hours of 1800 - 0600 and on the weekends please page [phone]. * Espinoza Gomez PT - 07/02/2023 2:23 PM EDT Physical [...] restarted Social History: Pt lives alone in [facility]. Pt reports her apartment is on the second floor and she has a flight of stairs to manage to enter/exit. Pt was indep without a device SAFETY EQUIPMENT TESTER. She was indep with her ADL's, meals, [...] don't fall. Objective: Pt seen in the CC for initial evaluation. Pt in chair at [...] outlined inthis evaluation. ESPINOZA GOMEZ, PT Pager: [phone] Physical Therapy Inpatient Rehabilitation Department Time IN [...] 1256 06/30/23 1125 PHART 7.36 7.39 7.33* ZPG4GPK 43 38 50* PO2ART 107* 84* 285* VDT8XQH 23.9 22.8 25.6 LACTATEVEN 0.9 1.2 1.4 AVJ3BLO 40 40 100 PFRATIOART2 268 210 285 VBG (Venous Blood Gas) Recent Labs 06/30/23 1617 06/30/23 1256 06/30/23 1125 LACTATEVEN 0.9 1.2 1.4 Mixed Venous Sat No results for input(s): O0QEGP6 in the last 168 hours. Vitals Last [...] 1256 06/30/23 1125 PHART 7.36 7.39 7.33* LHE1OXF 43 38 50* PO2ART 107* 84* 285* VCD6DPP 23.9 22.8 25.6 LACTATEVEN 0.9 1.2 1.4 XLR1QBR 40 40 100 PFRATIOART2 268 210 285 VBG (Venous Blood Gas) Recent Labs 06/30/23 1617 06/30/23 1256 06/30/23 1125 LACTATEVEN 0.9 1.2 1.4 Mixed Venous Sat No results for input(s): Z5EZRO4 in the last 168 hours. Diagnostics: Echocardiogram: [...] Pierce Allen APRN Structural Heart Team Pager [phone] I have seen the patient in person and reviewed Pierce Allen APRN's above history and I agree with the details as written. The assessment and plan were formulated in discussion with me and I agree with them as documented. Jair Gomez MD Pager [phone] * Rosita Hood RCP - 07/01/2023 3:58 [...] well Will continue to monitor pt * Faustino Brown MD - 07/01/2023 2:50 PM EDT [...] treat/prevent multiple vital organfailure/deterioration? No * Pat Sandoval APRN - 07/01/2023 9:37 AM EDT Cardiac Surgery [...] SpO2: [52 bpm-85 bpm] 06/30 701 - 07/01 700 In: 1910.8 [P.O.:600; I.V.:1310.8] Out: 1745 [Urine:1545] [...] 0600 and on the weekends please page [phone]. * Jair Gomez MD - 07/01/2023 7:10 AM EDT Images from the original note were not included. Structural Heart Progress Note Patient info: Name: Roxanne Roberto Pollack : 1940 Date of Admission: 06/30/2023 [...] pressor and angioseal utilized - Transferred to [facility] 06/30 post-TAVR - Extubated 1630 on 06/30 [...] 1256 06/30/23 1125 PHART 7.36 7.39 7.33* RLQ5YFY 43 38 50* PO2ART 107* 84* 285* ZBV9EZQ 23.9 22.8 25.6 LACTATEVEN 0.9 1.2 1.4 TYI7GQN 40 40 100 PFRATIOART2 268 210 285 VBG (Venous Blood Gas) Recent Labs 06/30/23 1617 06/30/23 1256 06/30/23 1125 LACTATEVEN 0.9 1.2 1.4 Mixed Venous Sat No results for input(s): F2QDQG0 in the last 168 hours. Vitals Last value Range last 24 hrs Temperature Temp: 36.7 ??C (98 ??F) Temp: [36.2 ??C (97.2 ??F)-36.8 ??C (98.2 ??F)] Heart Rate Heart Rate: 80 Heart Rate: [52-85] Blood Pressure BP: 123/64 BP: (96-167)/(52-85) Art Line BP BP (Arterial Line): 78/68 BP (Arterial Line): (78-141)/(49-83) MAP (NBP): [65 mmHg-90 mmHg] Respiratory Rate Resp: 26 Resp: [12-26] SpO2 SpO2: 96 % SpO2: [94 %-100 [...] 1256 06/30/23 1125 PHART 7.36 7.39 7.33* CAA5WFJ 43 38 50* PO2ART 107* 84* 285* BXH6LMR 23.9 22.8 25.6 LACTATEVEN 0.9 1.2 1.4 AKA6KJG 40 40 100 PFRATIOART2 268 210 285 VBG (Venous Blood Gas) Recent Labs 06/30/23 1617 06/30/23 1256 06/30/23 1125 LACTATEVEN 0.9 1.2 1.4 Mixed Venous Sat No results for input(s): I5XRHZ0 in the last 168 hours. Diagnostics: Echocardiogram: [...] up with CBC, BMP and echo Pierce Deven DELPHINE Allen Structural Heart Team Pager [phone] I have seen the patient in person and reviewed Pierce Allen APRN's above history and I agree with the details as written. The assessment and plan were formulated in discussion with me and I agree with them as documented. Jair Gomez MD Pager [phone] * Rosita Hood RCP - 06/30/2023 4:27 PM EDT 06/30/23 1626 Oxygen Therapy O2 Device (S) NC O2 Flow Rate (L/min) 4 L/min SpO2 100 % Resp 19 Pt passed SBT Pt extubated per DR perkins Faiza well No Stridor and able to [...] capsule Take 5 mg by mouth daily. [id number]-[id number]-XBLN ORAL Take 2 capsules by mouth daily. [...] for follow-up [facility], [facility] [address] [place] [phone] This CM confirmed with [place]IL[facility] that they will see the patient within [...] Tran RN - 07/02/2023 2:13 PM EDT [facility] CARDIAC REHABILITATION Roxanne Pollack was seen today [...] DME: N/A [address] [facility] [address] Social & Family Supports: All names listed [...] to: discuss discharge planning needs. provide the [facility], Office of Care Management letter from the Home Attendant pertaining to rehab referrals. provide a letter describing our affiliations within the [facility] and educate about their right to choose where referrals are sent. provide the CMS Star Quality Rating handout. review the different levels of rehab including SNF, swing, and acute. provide a list of facilities within their preferred geographic area. request that they provide at least three choices for referral. They have requested referrals to: [facility] ([facility]) [address] [place] [address] [facility]) [address] [place] [address] Does patient have COVID vaccine card: Yes; Copy obtained: No Note routed to a Hotel Or Motel Receptionist who will communicate referrals to facilities and provide any required information. Plan: Patient to discharge to rehab pending placement and bed availability. Registered Nurse Wire Cutter / Ad Writer will continue to follow patient???s progress and [...] Operative Note Patient Name: Roxanne Pollack : [id number] MR#: [id number] Case Date: 06/30/2023 Surgeon: Surgeon(s) and Role: [...] procedure Note: Patient Name: Roxanne Pollack : [id number] MR#: [id number] Case Date: 06/30/2023 Operators Surgeon: Surgeon(s) and [...] MD, M.Sc. Structural Heart Disease Fellow Pager :[phone] * Op Note - Hector Machuca MD - 06/30/2023 7:40 AM EDT Preop Diagnosis: Severe aortic stenosis, symptomatic. Postop Diagnosis: Same. Procedure: Transfemoral TAVR procedure with 23mm S3 valve. Surgeon: Hector Machuca M.D. Cardiology: Jason NEWMAN Procedure: The patient was taken to the geoscience laboratory technician. The patient had monitored anesthesia care. After [...] unspecified TYPE AND SCREEN, SDP (FUTURE SURGERY, [facility] SAME DAY PROGRAM ONLY) Routine 06/30/2023 7:52 [...] Heart Cath W/Inj L Ventriculography, Img S&I (67994) 06/30/2023 7:40 AM EDT Aortic valve stenosis, [...] (Bezet) 442 ms MUSE SYSTEM Calculated P Ellsworth 53 degrees MUSE SYSTEM Calculated R Ellsworth -12 degrees MUSE SYSTEM Calculated T Ellsworth 38 degrees MUSE SYSTEM INTERPRETATION Normal sinus rhythm Inferior infarct , age undetermined Anteroseptal infarct , age undetermined Abnormal ECG When compared with ECG of 02-JUL-2023 06:34, Inferior infarct is now Present Confirmed by MD Ni, [place] ([id number]) on 08/14/2023 9:27:06 AM MUSE SYSTEM 08/13/2023 1:06 PM EDT 08/14/2023 9:27 AM EDT Pat Buckfield ROTARY BAR OPERATOR ECG ORDERABLES MUSE SYSTEM * ECHO LMTD W/O CONTRAST W LMTD SPEC DOPP COLOR DOPP (08/13/2023 11:10 AM EDT) EF 75 HEARTLAB SYSTEM Anatomical Region Laterality Modality Cardiac Other 08/13/2023 10:2 0 AM EDT Narrative 08/13/2023 1:08 PM EDT ? Echocardiogram Report Name: ROXANNE POLLACK ?Study Date: 08/13/2023 10:20 AMBP: 182/76 mmHg ? Patient Location: 4A : 1940 ? Height: 155 cm ? Account: [id number] Age: 83 yrs ? Weight: 77 kg Gender: Female ?BSA: 1.8 m2 Ordering Physician: PAT SANDOVAL Referring Physician: PAT SANDOVAL Performed By: TA Crawford Reason For Study: s/p TAVR Exam Location: [facility]. Interpretation Summary Left ventricle is of normal [...] is trace mitral regurgitation. Procedure Limited - 92929. Satisfactory quality. There is normal sinus rhythm. [...] Location: : 1940 Height: 155 cm Account: [id number] Age: 83 yrs Weight: 77 kg Gender: Female BSA: 1.8 m2 Ordering Physician: PAT SANDOVAL Referring Physician: PAT SANDOVAL Performed By: TA Crawford Reason For Study: s/p TAVR Exam Location: [facility]. Interpretation Summary Left ventricle is of normal [...] is trace mitral regurgitation. Procedure Limited - 68033. Satisfactory quality. There is normal sinus rhythm. [...] Dyskinetic 3-5moderate 5 - 6-14large Aneurysmal 15-16diffuse Pat Sandoval APRN ECHO ORDERABLES * (ABNORMAL) Comprehensive metabolic panel (non-fasting) (08/13/2023 9:34 AM EDT) Glucose 105 65 - 199 mg/dL [facility] Comment:Diabetes: >=200 mg/d L plus symptoms Blood Urea Nitrogen 13 8 - 18 mg/dL [facility] Creatinine 1.00 0.70 - 1.20 mg/dL [facility] Sodium 142 135 - 145 mmol/L [facility] Potassium 4.2 3.5 - 5.0 mmol/L [facility] Comment: Please note: ??Patients with WBC >100,000 may have falsely elevated Potassium levels. ??For accurate Potassium quantification in these patients send serum separator tube (gold top) for subsequent determinations. ??Contact the Clinical Chemistry Laboratory if there are any questions. Chloride 102 98 - 107 mmol/L [facility] Carbon Dioxide 29 22 - 31 mmol/L [facility] Anion Gap 11 5 - 15 mmol/L [facility] Calcium 10.0 8.5 - 10.5 mg/dL [facility] Protein, Total 6.7 6.1 - 8.0 g/dL [facility] Albumin 3.9 3.2 - 5.2 g/dL [facility] Aspartate Aminotransferase 20 0 - 30 unit/L [facility] Alanine Aminotransferase 15 0 - 30 unit/L [facility] Alkaline Phosphatase 69 35 - 105 unit/L [facility] Bilirubin, Total 0.3 0.2 - 1.3 mg/dL [facility] Est Glomerular Filtration Rate 55(L) >=60 mL/min/1. 73 m?? [facility] Comment: This patient's estimated GFR was [...] Agency Comment Spec In Lab Pat Jaime ROTARY BAR OPERATOR CHEMISTRY ORDERABL ES [facility] [place] [address] * EKG 12 Lead (07/02/2023 6:34 AM EDT) Ventricular rate 89 BPM MUSE SYSTEM Atrial Rate 89 BPM MUSE SYSTEM P-R Interval 168 ms MUSE SYSTEM QRS Duration 100 ms MUSE SYSTEM Q-T Interval 374 ms MUSE SYSTEM QTC Calculated (Bezet) 455 ms MUSE SYSTEM Calculated P Ellsworth 64 degrees MUSE SYSTEM Calculated R Ellsworth 10 degrees MUSE SYSTEM Calculated T Ellsworth 43 degrees MUSE SYSTEM INTERPRETATION Normal sinus rhythm Minimal voltage criteria for LVH, may be normal variant ( Mani product ) Borderline ECG When compared with ECG of 01-JUL-2023 05:18, (unconfirmed) Left bundle branch block is no longer Present and qrs has shortened I personally reviewed the tracing and edited the fellows interpretation Confirmed by fellow MD Loyda, Minh ([id number]) on 07/02/2023 4:55:22 PM Confirmed by MD Yessi, Jose ([id number]) on 07/02/2023 4:55:46 PM MUSE SYSTEM 07/02/2023 6:34 AM EDT 07/02/2023 4:55 PM EDT [facility] MUSE SYSTEM * (ABNORMAL) Hemogram (07/02/2023 2:15 AM EDT) Pathologist [facility] White Blood Cell 9.4 4.0 - 9.5 x10(3)/mc L [facility] Red Blood Cell 2.68(L) 4.00 - 5.21 x10(6)/mc L [facility] Hemoglobin 8.9(L) 11.7 - 15.5 g/dL [facility] Hematocrit 26.4(L) 35.7 - 45.8 % [facility] Mean Cell Volume 98.5(H) 82.6 - 94.4 fL [facility] Mean Cell Hemoglobin 33.2(H) 27.1 - 32.0 pg [facility] Mean Cell Hemoglobin Concentration 33.7 31.7 - 35.0 g/dL [facility] Platelet 80(L) 145 - 357 x10(3)/mc L [facility] RDW Standard Deviation 45.4 37.0 - 46.0 fL [facility] RDW coefficient of variation 12.7 11.5 - 14.1 % [facility] Mean Platelet Volume 10.8 7.6 - 12.9 fL [facility] NRBC% auto 0.0 % [facility] NRBC Absolute 0.000 0.000 - 0.000 x10(3)/mc L [facility] Blood 07/02/2023 2:15 AM EDT 07/02/2023 2:21 AM EDT Narrative Resulting Agency Comment Spec In Lab Pat Buckfield ROTARY BAR OPERATOR HEMATOLOGY ORDERAB LES [facility] [place] [address] * (ABNORMAL) Differential, Automated (07/01/2023 2:15 PM EDT) Neutrophil % 72.4 % [facility] Neutrophil Absolute 7.88(H) 1.70 - 6.10 x10(3)/mc L [facility] Lymph % 18.2 % [facility] Lymphocytes Abs 2.0 0.9 - 3.2 x10(3)/mc L [facility] Monocyte % 8.9 % [facility] Monocyte Abs 1.0(H) 0.3 - 0.9 x10(3)/mc L [facility] Eos % 0.1 % [facility] Eosinophils Abs 0.0 0.0 - 0.4 x10(3)/mc L [facility] Basophil % 0.2 % [facility] Baso Absolute 0.0 0.0 - 0.1 x10(3)/mc L [facility] Immature Gran % 0.20 % [facility] Comment: Immature granulocytes(IG's)percentage and absolute count will include metamyelocytes, myelocytes, and promyelocytes. Blood smears from CBCs yielding IG's will be scanned manually for concordance. If this scan disagrees with the automated IG or if promyelocytes are noted, a manual differential will be performed. Immature Gran Absolute 0.02 0.00 - 0.04 x10(3)/mc L [facility] Blood 07/01/2023 2:15 PM EDT 07/01/2023 2:21 PM EDT Narrative Resulting Agency Comment Spec In Lab Pierce Allen ROTARY BAR OPERATOR HEMATOLOGY ORDERABL ES Performing Organization Address City/[facility]/ZIP Co de Phone Number [facility] [place] [address] * (ABNORMAL) Hemogram (07/01/2023 2:15 PM EDT) White Blood Cell 10.9(H) 4.0 - 9.5 x10(3)/ L [facility] Red Blood Cell 2.91(L) 4.00 - 5.21 x10(6)/ L [facility] Hemoglobin 9.7(L) 11.7 - 15.5 g/dL [facility] Hematocrit 28.8(L) 35.7 - 45.8 % [facility] Mean Cell Volume 99.0(H) 82.6 - 94.4 fL [facility] Mean Cell Hemoglobin 33.3(H) 27.1 - 32.0 pg [facility] Mean Cell Hemoglobin Concentration 33.7 31.7 - 35.0 g/dL [facility] Platelet 102(L) 145 - 357 x10(3)/mc L [facility] RDW Standard Deviation 45.6 37.0 - 46.0 fL [facility] RDW coefficient of variation 12.6 11.5 - 14.1 % [facility] Mean Platelet Volume 10.3 7.6 - 12.9 fL [facility] NRBC% auto 0.0 % [facility] NRBC Absolute 0.000 0.000 - 0.000 x10(3)/mc L [facility] Blood 07/01/2023 2:15 PM EDT 07/01/2023 2:21 PM EDT Narrative Resulting Agency Comment Spec In Lab Pierce Allen ROTARY BAR OPERATOR HEMATOLOGY ORDERABL ES Performing Organization Address [facility]/ZIP Co de Phone Number [facility] [place] [address] * Arterial Duplex Leg, Unil (07/01/2023 7:46 AM EDT) VB Text Report Department: Vascular Surgery Lab Patient: [id number] (ROXANNE POLLACK) CPT: [id number] Referring Physician: PAT SANDOVAL ?? Phone: Indications: [...] Report VASCU[facility] 07/01/2023 7:46 AM EDT Pat Sandoval ROTARY BAR OPERATOR VASCULAR ORDERABLE S [facility] * (ABNORMAL) Differential, Automated (07/01/2023 5:45 AM EDT) Neutrophil % 76.2 % [facility] Neutrophil Absolute 6.78(H) 1.70 - 6.10 x10(3)/mc L [facility] Lymph % 14.1 % [facility] Lymphocytes Abs 1.3 0.9 - 3.2 x10(3)/mc L [facility] Monocyte % 9.1 % [facility] Monocyte Abs 0.8 0.3 - 0.9 x10(3)/ L [facility] Eos % 0.1 % [facility] Eosinophils Abs 0.0 0.0 - 0.4 x10(3)/[facility] Basophil % 0.2 % [facility] Baso Absolute 0.0 0.0 - 0.1 x10(3)/ L [facility] Immature Gran % 0.30 % [facility] Comment: Immature granulocytes(IG's)percentage and absolute count will include metamyelocytes, myelocytes, and promyelocytes. Blood smears from CBCs yielding IG's will be scanned manually for concordance. If this scan disagrees with the automated IG or if promyelocytes are noted, a manual differential will be performed. Immature Gran Absolute 0.03 0.00 - 0.04 x10(3)/ L [facility] Blood 07/01/2023 5:45 AM EDT 07/01/2023 5:53 AM EDT Narrative Resulting Agency Comment Spec In Lab Christopher SWENSON HEMATOLOGY ORDERABLE S [facility] [place] [address] * (ABNORMAL) Hemogram (07/01/2023 5:45 AM EDT) White Blood Cell 8.9 4.0 - 9.5 x10(3)/mc L [facility] Red Blood Cell 2.22(L) 4.00 - 5.21 x10(6)/ L [facility] Hemoglobin 7.4(L) 11.7 - 15.5 g/dL [facility] Comment: This result has been called to ISAEL MONGE by GINA BLAND on 07 01 2023 at 0634, and has been read back. Hematocrit 21.9(L) 35.7 - 45.8 % [facility] Mean Cell Volume 98.6(H) 82.6 - 94.4 fL [facility] Mean Cell Hemoglobin 33.3(H) 27.1 - 32.0 pg [facility] Mean Cell Hemoglobin Concentration 33.8 31.7 - 35.0 g/dL [facility] Platelet 110(L) 145 - 357 x10(3)/mc L [facility] RDW Standard Deviation 46.2(H) 37.0 - 46.0 fL [facility] RDW coefficient of variation 13.0 11.5 - 14.1 % [facility] Mean Platelet Volume 11.5 7.6 - 12.9 fL [facility] NRBC% auto 0.0 % [facility] NRBC Absolute 0.000 0.000 - 0.000 x10(3)/mc L [facility] Blood 07/01/2023 5:45 AM EDT 07/01/2023 5:53 AM EDT Narrative Resulting Agency Comment Spec In Lab Christopher SWENSON HEMATOLOGY ORDERABLE S Performing Organization Address City/State/[facility] Co de Phone Number [facility] [place] [address] * EKG 12 Lead (07/01/2023 5:18 AM EDT) Ventricular rate 78 BPM MUSE SYSTEM Atrial Rate 78 BPM MUSE SYSTEM P-R Interval 160 ms MUSE SYSTEM QRS Duration 140 ms MUSE SYSTEM Q-T Interval 436 ms MUSE SYSTEM QTC Calculated (Bezet) 497 ms MUSE SYSTEM Calculated P Ellsworth 59 degrees MUSE SYSTEM Calculated R Ellsworth -31 degrees MUSE SYSTEM Calculated T Ellsworth 113 degrees MUSE SYSTEM INTERPRETATION Normal sinus rhythm Left axis deviation Left bundle branch block Abnormal ECG When compared with ECG of 30-JUN-2023 11:24, No significant change was found I personally reviewed the tracing and edited the fellows interpretation Confirmed by fellow MD Loyda, Minh ([id number]) on 07/01/2023 9:59:22 PM Confirmed by MD Yessi, Jose ([id number]) on 07/02/2023 3:17:28 PM MUSE SYSTEM 07/01/2023 5:18 AM EDT 07/02/2023 3:17 PM EDT Hector Machuca MD ECG ORDERABLES MUSE SYSTEM * (ABNORMAL) Basic Metabolic Panel (non-fasting) (07/01/2023 4:20 AM EDT) Glucose 103 65 - 199 mg/dL [facility] Comment:Diabetes: >=200 mg/d L plus symptoms Blood Urea Nitrogen 16 8 - 18 mg/dL [facility] Creatinine 1.04 0.70 - 1.20 mg/dL [facility] Sodium 142 135 - 145 mmol/L [facility] Potassium 4.3 3.5 - 5.0 mmol/L [facility] Comment: Please note: ??Patients with WBC >100,000 may have falsely elevated Potassium levels. ??For accurate Potassium quantification in these patients send serum separator tube (gold top) for subsequent determinations. ??Contact the Clinical Chemistry Laboratory if there are any questions. Chloride 106 98 - 107 mmol/L [facility] Carbon Dioxide 24 22 - 31 mmol/L [facility] Anion Gap 12 5 - 15 mmol/L [facility] Calcium 8.5 8.5 - 10.5 mg/dL [facility] Comment:result [id number] Est Glomerular Filtration Rate 53(L) >=60 mL/min/1. 73 m?? [facility] Comment: This patient's estimated GFR was [...] Lab Hector Machuca MD CHEMISTRY ORDERABLE S [facility] [place] [address] * (ABNORMAL) BLOOD GAS 2 ARTERIAL (06/30/2023 4:17 PM EDT) pH, Arterial 7.36 7.35 - 7.45 [facility] PCO2, Arterial 43 35 - 45 mmHg [facility] PO2, Arterial 107(H) 85 - 104 mmHg [facility] Bicarbonate, Arterial 23.9 20.0 - 26.0 mmol/L [facility] Base Excess, Arterial -1.5 -3.0 - 3.0 mmol/L [facility] Hgb Blood Gas 12.7 11.7 - 15.5 g/dL [facility] Oxyhemoglobin, Arterial 96.2 94.0 - 97.0 % [facility] Carboxyhemoglob in, Arterial 0.3 % [facility] Comment: Nonsmokers: 0.5-1.5% COHB Smokers: Variable, but usually less than 10% Toxic: 20-30% COHB Lethal: Greater than 60% COHB Methemoglobin, Arterial 0.6 <=1.5 % [facility] Na Whole Blood 142 135 - 145 mmol/L [facility] K Whole Blood 3.9 3.5 - 5.0 mmol/L [facility] Comment: Please note: Patients with WBC >100,000 may have falsely elevated Potassium levels. Contact the Clinical Chemistry Laboratory if there are any questions. ICa Whole Blood 1.23 1.15 - 1.33 mmol/L [facility] Comment: Note: ??Total bilirubin higher than 20 mg/dL may lead to falsely low ionized calcium. CL Whole Blood 108(H) 98 - 107 mmol/L [facility] Gluc Whole Bld 121 65 - 199 mg/dL [facility] Comment:Diabetes: >=200 mg/d L plus symptoms. Lactate WB 0.9 0.5 - 2.2 mmol/L [facility] FIO2 Art 40 % [facility] PF Ratio Art 268 [facility] Blood 06/30/2023 4:17 PM EDT 06/30/2023 4:17 PM EDT Hector Machuca MD POINT OF CARE TEST ORDERABLES [facility] [place] [address] * (ABNORMAL) Hemoglobin (06/30/2023 2:45 PM EDT) Hemoglobin 10.7(L) 11.7 - 15.5 g/dL [facility] Blood 06/30/2023 2:45 PM EDT 06/30/2023 3:17 PM EDT Narrative Resulting Agency Comment Spec In Lab Hector Machuca MD HEMATOLOGY ORDERABL ES Performing Organization Address [facility] Co de Phone Number [facility] [place] [address] * Potassium (06/30/2023 2:45 PM EDT) Pathologist [facility] Potassium 4.3 3.5 - 5.0 mmol/L [facility] Comment: Please note: ??Patients with WBC [...] MD CHEMISTRY ORDERABLE S Performing Organization Address [facility] Co de Phone Number [facility] [place] [address] * (ABNORMAL) BLOOD GAS 2 ARTERIAL (06/30/2023 12:56 PM EDT) pH, Arterial 7.39 7.35 - 7.45 [facility] PCO2, Arterial 38 35 - 45 mmHg [facility] PO2, Arterial 84(L) 85 - 104 mmHg [facility] Bicarbonate, Arterial 22.8 20.0 - 26.0 mmol/L [facility] Base Excess, Arterial -2.2 -3.0 - 3.0 mmol/L [facility] Hgb Blood Gas 11.3(L) 11.7 - 15.5 g/dL [facility] Oxyhemoglobin, Arterial 94.3 94.0 - 97.0 % [facility] Carboxyhemoglob in, Arterial 0.2 % [facility] Comment: Nonsmokers: 0.5-1.5% COHB Smokers: Variable, but usually less than 10% Toxic: 20-30% COHB Lethal: Greater than 60% COHB Methemoglobin, Arterial 0.7 <=1.5 % [facility] Na Whole Blood 140 135 - 145 mmol/L [facility] K Whole Blood 4.2 3.5 - 5.0 mmol/L [facility] Comment: Please note: Patients with WBC >100,000 may have falsely elevated Potassium levels. Contact the Clinical Chemistry Laboratory if there are any questions. ICa Whole Blood 1.21 1.15 - 1.33 mmol/L [facility] Comment: Note: ??Total bilirubin higher than 20 mg/dL may lead to falsely low ionized calcium. CL Whole Blood 108(H) 98 - 107 mmol/L [facility] Gluc Whole Bld 115 65 - 199 mg/dL [facility] Comment:Diabetes: >=200 mg/d L plus symptoms. Lactate WB 1.2 0.5 - 2.2 mmol/L [facility] FIO2 Art 40 % [facility] PF Ratio Art 210 [facility] Blood 06/30/2023 12:5 6 PM EDT 06/30/2023 12:56 PM EDT Hector Machuca MD POINT OF CARE TEST ORDERABLES [facility] [place] [address] * XR Chest One View (06/30/2023 11:54 [...] who have questions please contact the health personal care attendant that requested your imaging first. ? Narrative [...] patients who have questions please contactthe health personal care attendant that requested your imaging first. Hector Machuca MD IMG DX ORDERABLES * (ABNORMAL) BLOOD GAS 2 ARTERIAL (06/30/2023 11:25 AM EDT) pH, Arterial 7.33(L) 7.35 - 7.45 [facility] PCO2, Arterial 50(H) 35 - 45 mmHg [facility] PO2, Arterial 285(H) 85 - 104 mmHg [facility] Bicarbonate, Arterial 25.6 20.0 - 26.0 mmol/L [facility] Base Excess, Arterial -0.3 -3.0 - 3.0 mmol/L [facility] Hgb Blood Gas 11.5(L) 11.7 - 15.5 g/dL [facility] Oxyhemoglobin, Arterial 98.1(H) 94.0 - 97.0 % [facility] Carboxyhemoglob in, Arterial 0.2 % [facility] Comment: Nonsmokers: 0.5-1.5% COHB Smokers: Variable, but usually less than 10% Toxic: 20-30% COHB Lethal: Greater than 60% COHB Methemoglobin, Arterial 0.7 <=1.5 % [facility] Na Whole Blood 136 135 - 145 mmol/L [facility] K Whole Blood 4.4 3.5 - 5.0 mmol/L [facility] Comment: Please note: Patients with WBC >100,000 may have falsely elevated Potassium levels. Contact the Clinical Chemistry Laboratory if there are any questions. ICa Whole Blood 1.20 1.15 - 1.33 mmol/L [facility] Comment: Note: ??Total bilirubin higher than 20 mg/dL may lead to falsely low ionized calcium. CL Whole Blood 106 98 - 107 mmol/L [facility] Gluc Whole Bld 140 65 - 199 mg/dL [facility] Comment:Diabetes: >=200 mg/d L plus symptoms. Lactate WB 1.4 0.5 - 2.2 mmol/L [facility] FIO2 Art 100 % [facility] PF Ratio Art 285 [facility] Blood 06/30/2023 11:2 5 AM EDT 06/30/2023 11:25 AM EDT Hector Machuca MD POINT OF CARE TEST ORDERABLES [facility] [place] [address] * EKG 12 Lead (06/30/2023 11:24 AM EDT) Ventricular rate 54 BPM MUSE SYSTEM Atrial Rate 54 BPM MUSE SYSTEM P-R Interval 170 ms MUSE SYSTEM QRS Duration 138 ms MUSE SYSTEM Q-T Interval 550 ms MUSE SYSTEM QTC Calculated (Bezet) 521 ms MUSE SYSTEM Calculated P Ellsworth 62 degrees MUSE SYSTEM Calculated R Ellsworth -52 degrees MUSE SYSTEM Calculated T Ellsworth 83 degrees MUSE SYSTEM INTERPRETATION Sinus bradycardia [...] 1940 ? Height: 155 cm ? Account: [id number] Age: 83 yrs ? Weight: 77 kg Gender: Female ?BSA: 1.8 m2 Ordering Physician: JAIR GOMEZ Referring Physician: SOPHIE FREEMAN Performed By: Virginia Hough RDCS Reason For Study: Guidance for TAVR procedure Exam Location: [facility]. Interpretation Summary Pre TAVR: trivial pericardial effusion, [...] estimated visually at 70%. Procedure Limited - 69850. Doppler - 53853. Color Doppler - 13110. Left Ventricle Left ventricle is of normal [...] Study Date: 307:25 AMBP: 165/75 mmHg Patient Location:SC^SC06^A : 1940 Height: 155 cm Account: [id number] Age: 83 yrs Weight: 77 kg Gender: Female BSA: 1.8 m2 Ordering Physician: JAIR GOMEZ Referring Physician: SOPHIE FREEMAN Performed By: Virginia Hough RDCS Reason For Study: Guidance for TAVR procedure Exam Location: [facility]. Interpretation Summary Pre TAVR: trivial pericardial effusion, [...] is estimatedvisually at 70%. Procedure Limited - 42866. Doppler - 99453. Color Doppler - 17429. Left Ventricle Left ventricle is of normal [...] Modality Other Narrative 06/30/2023 5:07 PM EDT ?[facility] ? Cardiac Catheterization/Intervention Report ? Patient Name: RanjeetRoxanne ? Procedure Date: 06/30/2023 ? A #: [id number] ? Primary Physician: Jason, Jair Mejia ? Case #: [id number] ? File Name: [id number] ? Catheterization Order Number: [id number] ? [facility] ? Final Report [place], [place] ? Patient Name: ? Roxanne Mejia. Ranjeet ? ID#: ?[id number] ? : ?1940 ? Procedure Date: ? June 30, 2023 ?Case #: ? [id number] ? Room: ? 6 ? Case Physicians: ?Jair Gomez M.D. ?Start: ?07:43 ?Dr Rolan M.D. ?Admission: ??06/30/2023 ?Hector Machuca M.D. ?Discharge: ??07/05/2023 ?Fellow: ? Emad Daryn Lee ? Procedures: ?* Aortic Root Aortogram ?* Transcatheter Aortic Valve Replacement ?* Vascular Closure Device Deployment ?* Temporary Pacemaker Insertion In Pattern Data Operator ?* Arterial Line / Sheath Insert ?* [...] ?was designated as ASA Class IV. The [facility] clinical frailty scale is 5: ?Mildly [...] was performed under Moderate sedation performed by ?Daryn Gongora (see anesthesia report for additional details). Hector Pritchett ?Daryn Machuca participated in the case (see Cardiac Surgery report for ?additional details). ?The TAVR sheath was a 14 Fr Hernandez eSheath Introducer and the access ?site was femoral. Rapid ventricular pacing was performed. ?An Hernandez Sarah 3 Ultra RESILIA 23 mm THV (s/v=[id number]) transcatheter ?valve was inserted using standard technique. [...] to nor was it given in the ?geoscience laboratory technician. ?Recommended anti-platelet/anti-thrombotic regimen: ?Start aspirin 81 mg daily now and continue for indefinitely. ?Start rivaroxaban 15 mg daily now and continue for indefinitely. ?These recommendations are made at the time of the intervention. Patient ?and provider preferences or a changing clinical situation may require ?modification of this regimen. Consult [facility] Interventional Cardiology for ?questions. ? Conclusions: ?* [...] left ?ileofemoral calcification. There is a known ASSIGNMENT DESK ASSISTANT of the RCIA/REIA. ?- We performed lithotripsy [...] site ?angiography, vascular ultrasound, temporary pacemaker in geoscience laboratory technician, arterial ?line / sheath insert, vascular closure device, ABG, transthoracic echo , ?TAVR, lithotripsy-peripheral and abdominal aortography. Dr. Parekh Anesthesia, ?MChristopher performed the aortic root aortogram, access site angiography, ABG, ?anesthesia and TAVR. Dr. Hectro Machuca M.D. performed the aortic root ?aortogram, access site angiography, vascular ultrasound, temporary ?pacemaker in geoscience laboratory technician, arterial line / sheath insert, vascular closure ?device, ABG, transthoracic echo ??and TAVR. ? Jair Gomez M.D. ? Electronically Signed by: Jair Gomez M.D. ? Report Finalized: 06/30/2023 ??17:03 ? Report Last Ammended: 07/22/2023 ??16:17 ? Procedure Note Jair Gomez MD - 07/22/2023 [facility] Cardiac Catheterization/Intervention Report Patient Name: Roxanne Pollack Procedure Date: 06/30/2023 A #: [id number] Primary Physician: Jair Gomez Case #: [id number] File Name: [id number] Catheterization Order Number: [id number] [facility] FinalReport [place], [place] Patient Name: Roxanne RobertoEricka Ranjeet ID#:[id number] :1940 Procedure Date: June 30, 2023 Case #: [id number] Room: 6 Case Physicians: Jair Gomez M.D. Start: 07:43 Dr Rolan M.D. Admission:06/30/2023 Hector Machuca M.D. Discharge:07/05/2023 Fellow: Agustin Lee M.D. Procedures: * Aortic Root Aortogram * Transcatheter Aortic Valve Replacement * Vascular Closure Device Deployment * Temporary Pacemaker Insertion In Pattern Data Operator * Arterial Line / Sheath Insert * [...] was designated as ASA Class IV. The [facility] clinical frailty scale is5: Mildly Frail. [...] Sarah 3 Ultra RESILIA 23 mm THV (s/b=[id number])transcatheter valve was inserted using standard technique. Protamine [...] prior to nor was it given inthe geoscience laboratory technician. Recommended anti-platelet/anti-thrombotic regimen: Start aspirin 81 mg daily now and continue for indefinitely. Start rivaroxaban 15 mg daily now and continue for indefinitely. These recommendations are made at the time of the intervention.Patient and provider preferences or a changing clinical situation mayrequire modification of this regimen. Consult [facility] Interventional Cardiologyfor questions. Conclusions: * Severe aortic [...] left ileofemoral calcification. There is a known ASSIGNMENT DESK ASSISTANT of the [employer]/REIA. - We performed lithotripsy [...] accesssite angiography, vascular ultrasound, temporary pacemaker in geoscience laboratory technician,arterial line / sheath insert, vascular closure device, ABG, transthoracic echo, TAVR, lithotripsy-peripheral and abdominal aortography. Dr. Mercedes M.D. performed the aortic root aortogram, access site angiography,ABG, anesthesia and TAVR. Dr. Hector Machuca M.D. performed the aorticroot aortogram, access site angiography, vascular ultrasound, temporary pacemaker in geoscience laboratory technician, arterial line / sheath insert, vascular closure device, ABG, transthoracic echo and TAVR. Jair Gomez M.D. Electronically Signed by: Jair Gomez M.D. Report Finalized: 06/30/2023 17:03 Report Last Ammended: 07/22/2023 16:17 Jair Gomez MD CARDIAC CATH ORDERAB LES * (ABNORMAL) Point of Care Blood Gas Historical (06/30/2023 8:00 AM EDT) pH, POC 7.38 7.35 - 7.45 [facility] pCO2, POC 46(H) 35 - 45 mmHg [facility] pO2, POC 197(H) 85 - 104 mmHg [facility] Base Excess, POC 2.0 -3.0 - 3.0 mmol/L [facility] Bicarbonate, POC 27.4(H) 20.0 - 26.0 mmol/L [facility] Sodium, POC 142 135 - 145 mmol/L [facility] POC Potassium 4.1 3.5 - 5.0 mmol/L [facility] Ionized Calcium, POC 1.35(H) 1.15 - 1.33 mmol/L [facility] POC Hematocrit 36.0 34.0 - 45.0 % [facility] POC Calc Hgb 12.2 11.2 - 15.7 g/dL [facility] Comment:The calculation of h emoglobin from hematocrit assumes a normal MCHC. POC Bgas Loc CC LAB [facility] Blood 06/30/2023 8:00 AM EDT 07/01/2023 12:00 PM EDT Hector Machuca MD CHEMISTRY ORDERABLE S [facility] [place] [address] * POCT Glucose (06/30/2023 7:55 AM EDT) Glucose, POC 97 65 - 199 mg/dL [facility] Comment: Supplemental ranges: <140 mg/dL before meals <180 mg/dL all other times of the day Blood 06/30/2023 7:55 AM EDT 06/30/2023 7:55 AM EDT Jair Gomez MD POINT OF CARE TEST O RDERABLES [facility] [place] [address] * Type and Screen Validity (06/30/2023 7:52 AM EDT) T&S only valid at [facility] Comment:This Type and Screen result is only valid at the [facility] Blood 06/30/2023 7:52 AM EDT 06/30/2023 8:11 AM EDT Narrative Resulting Agency Comment Spec In Lab Triny [facility] ORDER CHRISTOPHE [facility] [place] [address] * ABORH Recheck Status (06/30/2023 7:52 AM EDT) ABORH Type Recheck Completed [facility] Blood 06/30/2023 7:52 AM EDT 06/30/2023 8:11 AM EDT Narrative Resulting Agency Comment Spec In Lab Triny [facility] ORDER CHRISTOPHE [facility] [place] [address] * Antibody screen (06/30/2023 7:52 AM EDT) Ab Screen Interp Negative [facility] Expires at 2359 on: 07/03/2023 [facility] Blood 06/30/2023 7:52 AM EDT 06/30/2023 8:11 AM EDT Narrative Resulting Agency Comment Spec In Lab Triny [facility] ORDER CHRISTOPHE [facility] [place] [address] * ABO/Rh Typing (06/30/2023 7:52 AM EDT) ABORH Type A Pos [facility] Blood 06/30/2023 7:52 AM EDT 06/30/2023 8:11 AM EDT Narrative Resulting Agency Comment Spec In Lab Triny [facility] ORDER CHRISTOPHE [facility] [place] [address] * Differential, Automated (06/30/2023 7:52 AM EDT) Neutrophil % 58.2 % [facility] Neutrophil Absolute 3.59 1.70 - 6.10 x10(3)/[facility] Lymph % 31.8 % [facility] Lymphocytes Abs 2.0 0.9 - 3.2 x10(3)/[facility] Monocyte % 6.8 % [facility] Monocyte Abs 0.4 0.3 - 0.9 x10(3)/[facility] Eos % 2.4 % [facility] Eosinophils Abs 0.2 0.0 - 0.4 x10(3)/[facility] Basophil % 0.5 % [facility] Baso Absolute 0.0 0.0 - 0.1 x10(3)/[facility] Immature Gran % 0.30 % [facility] Comment: Immature granulocytes(IG's)percentage and absolute count will include metamyelocytes, myelocytes, and promyelocytes. Blood smears from CBCs yielding IG's will be scanned manually for concordance. If this scan disagrees with the automated IG or if promyelocytes are noted, a manual differential will be performed. Immature Gran Absolute 0.02 0.00 - 0.04 x10(3)/[facility] Blood 06/30/2023 7:52 AM EDT 06/30/2023 8:07 AM EDT Narrative Resulting Agency Comment Spec In Lab Triny [facility] HEMAT[facility] ORDERABLE S [facility] [place] [address] * (ABNORMAL) Hemogram (06/30/2023 7:52 AM EDT) White Blood Cell 6.2 4.0 - 9.5 x10(3)/mc L [facility] Red Blood Cell 3.92(L) 4.00 - 5.21 x10(6)/mc L [facility] Hemoglobin 12.7 11.7 - 15.5 g/dL [facility] Hematocrit 37.8 35.7 - 45.8 % [facility] Mean Cell Volume 96.4(H) 82.6 - 94.4 fL [facility] Mean Cell Hemoglobin 32.4(H) 27.1 - 32.0 pg [facility] Mean Cell Hemoglobin Concentration 33.6 31.7 - 35.0 g/dL [facility] Platelet 163 145 - 357 x10(3)/mc L [facility] RDW Standard Deviation 43.5 37.0 - 46.0 fL [facility] RDW coefficient of variation 12.5 11.5 - 14.1 % [facility] Mean Platelet Volume 10.3 7.6 - 12.9 fL [facility] NRBC% auto 0.0 % [facility] NRBC Absolute 0.000 0.000 - 0.000 x10(3)/mc L [facility] Blood 06/30/2023 7:52 AM EDT 06/30/2023 8:07 AM EDT Narrative Resulting Agency Comment Spec In Lab Triny [facility] H[facility]AT[facility] ORDERABLE S [facility] [place] [address] * (ABNORMAL) Basic Metabolic Panel (non-fasting) (06/30/2023 7:52 AM EDT) Glucose 99 65 - 199 mg/dL [facility] Comment:Diabetes: >=200 mg/d L plus symptoms Blood Urea Nitrogen 14 8 - 18 mg/dL [facility] Creatinine 1.01 0.70 - 1.20 mg/dL [facility] Sodium 143 135 - 145 mmol/L [facility] Potassium 4.2 3.5 - 5.0 mmol/L [facility] Comment: Please note: ??Patients with WBC >100,000 may have falsely elevated Potassium levels. ??For accurate Potassium quantification in these patients send serum separator tube (gold top) for subsequent determinations. ??Contact the Clinical Chemistry Laboratory if there are any questions. Chloride 107 98 - 107 mmol/L [facility] Carbon Dioxide 26 22 - 31 mmol/L [facility] Anion Gap 10 5 - 15 mmol/L [facility] Calcium 10.0 8.5 - 10.5 mg/dL [facility] Est Glomerular Filtration Rate 55(L) >=60 mL/min/1. 73 m?? [facility] Comment: This patient's estimated GFR was [...] Gomez MD CHEMISTRY ORDERABLES Performing Organization Address City/[facility] Co de Phone Number [facility] [place] [address] * Prepare RBC (06/30/2023 7:40 AM EDT) Dispensed? Yes [facility] Blood 06/30/2023 7:40 AM EDT 06/30/2023 7:36 AM EDT Hector Machuca MD BLOOD BANK PRODUCT ORDERABLES Performing Organization Address City/[facility] [place] [address] documented in this encounter Visit Diagnoses Diagnosis Aortic valve stenosis, etiology of cardiac valve [...] receiving this medication as a nebulizer? Yes aspirin chewable tablet 81 mg 81 mg, Oral, DAILY, First dose on Wed06/30/23 at 1145, Until Discontinued, Start on post-op day 1 in the AM., Routine Given 07/05/2023 8:04 AM EDT 81 mg Given 07/04/2023 8:16 AM EDT 81 mg Given 07/03/2023 8:35 AM EDT 81 mg hydrALAZINE (Apresoline) (20 mg/mL) injection 10-20 mg [...] Given 07/02/2023 6:20 AM EDT 10 mg iohexoL (Omnipaque) (350 mg/mL) solution PRN, Starting on Wed06/30/23 at 1014, Until Wed06/30/23 at 1037, Intra-Operative (Intra-Procedure), Routine Given 06/30/2023 10:14 AM EDT 119 mLs levothyroxine (Synthroid) tablet 112 mcg 112 mcg, [...] Given 07/03/2023 8:35 AM EDT 50 mg mirabegron ER (Myrbetriq) tablet 25 mg 25 mg, Oral, DAILY, First dose on Wed07/01/23 at 0900, Until Discontinued, Do not crush, Routine, This product is restricted for continuation of outpatient regimen only. Is this a home medication? Yes Given 07/05/2023 8:04 AM EDT 25 mg Given 07/04/2023 8:18 AM EDT 25 mg Given 07/03/2023 8:35 AM EDT 25 mg ondansetron (pf) (Zofran) (2 mg/mL) injection 4 mg 4 mg, Intravenous, EVERY 8 HOURS PRN, Starting on Wed06/30/23 at 1059, Until Wed07/05/23 at 1714, Nausea, Routine Given 06/30/2023 5:46 PM EDT 4 mg pantoprazole EC (Protonix) tablet 40 mg [...] Given 07/02/2023 5:38 PM EDT 40 mg rivaroxaban (Xarelto) tablet 15 mg 15 mg, [...] Richard Ashford RN) 0803 (Given - Provider: Danette Boyce RN) mirabegron ER (Myrbetriq) tablet 25 [...] Aviva Win RN)2014 (Given - Provider: Aviva Win RN) 0501 (Given - Provider: Aviva Win RN)1400 (Not Given - Provider: Danette Boyce RN - Reason: Order parameters not met) tiotropium bromide (Spiriva Respimat) 2.5 mcg/actuation inhaler 2 puff 2 puff, Inhalation, DAILY, First dose on Wed07/01/23 at 0800, Until Discontinued, Must be primed prior to first administration, Routine 0839 (Given - Provider: Syed Patricia, RN) 0818 (Given - Provider: Richard Ashford, RN) 0804 (Given - Provider: Danette Boyce, [...] PRN, Starting on 07/03/23 at 0000, Until Wed07/05/23 at 1714, Constipation, Starting post-op day 3., Routine hydrALAZINE (Apresoline) (20 mg/mL) injection 10-20 mg 10-20 mg, Intravenous, EVERY 4 HOURS PRN, Starting on Wed06/30/23 at 1725, Until Wed07/05/23 at 1714, High Blood Pressure, give for SBP >150, Give 10mg. If desired SBP not achieved after 20-30 minutes give additional 10mg. 1135 (Given - Provider: Syed Patricia, RN) 1812 (Given - Provider: Kierra Reyes [...] post-op day 1 in the AM Give NE if unable to take PO, Routine Group [...] DVT documented in this encounter Care Teams Sled Maker Relationship Specialty Start Date End Date Gideon Becerra MD [address] [place] [address] PCP - General Family Medicine 03/31/23 documented as of this encounter
--- OUTSIDE RECORDS SUMMARY | 2024-06-23 16:24 | XMS_ITS | Clinical Summary ---
Author Organization [facility] Address [facility] [place] [address] Care Team Providers Care Slot Floor Supervisor Name Role Phone Gideon Becerra MD Primary Care Provider [phone] Allergies Active Allergy Reactions Criticality Noted Date Comments Anastrozole Other (See Comments) High 06/02/2023 Pt doesn't remember reaction. Oncology marked allergy. Meperidine Other (See Comments) 06/29/2023 Sleepy for 16 hours Gabapentin Other (See Comments) Low 06/08/2023 Pt felt drunk. When they were taking it. Lisinopril Other (See Comments) Medium 06/02/2023 Cough Propoxyphene Hcl Nausea And Vomiting Medium CIS - Nausea/Vomiting Tamoxifen Other (See Comments) High 06/02/2023 Pt doesn't remember reaction. Oncology marked allergy. Umeclidinium High 06/02/2023 Other Reaction(s): body aches Medications Medication Sig Dispensed Refills Start Date End Date Status b complex vitamins (VITAMIN B COMPLEX) tablet 03/06/2010 Active levothyroxine (SYNTHROID) 112 mcg tablet Take 112 mcg by mouth daily. Active simvastatin (ZOCOR) 20 mg tablet Take 20 mg by mouth nightly. Active Magnesium 500 mg Tab Take 600 mg by mouth. Active multivitamin (THERAGRAN) tablet Take 1 tablet by mouth daily. Active peg 400-propylene glycol 0.4-0.3 % Drops, Gel Apply 1 drop to eye daily. Active acetaminophen (Tylenol) 500 mg tablet Take 500 mg by mouth every 6 hours as needed. 04/06/2018 Active albuteroL 90 mcg/actuation HFA Aerosol Inhaler Inhale 2 puffs into the lungs every 4 hours as needed for Shortness of Breath or Wheezing. 10/06/2021 Active ginkgo biloba leaf extract 60 mg Tablet Take 60 mg by mouth daily. 06/14/2014 Active meclizine (Antivert) 25 mg tablet Take 25 mg by mouth 3 times daily as needed for Dizziness. 08/18/2021 Active mirabegron ER (Myrbetriq) 25 mg ER 24 hr tablet Take 25 mg by mouth daily. 05/06/2022 Active ondansetron ODT (Zofran-ODT) 4 mg disintegrating tablet Take 4 mg by mouth every 8 hours as needed for Nausea. 08/18/2021 Active Spiriva Respimat 2.5 mcg/actuation Mist Inhale 2 puffs into the lungs daily. Active Biotin 5 mg capsule Take 5 mg by mouth daily. Active QRVFEIE-[id number]-TYV C ORAL Take 2 capsules by mouth daily. Active rivaroxaban (Xarelto) 20 mg tablet Take 1 tablet by mouth daily. Starting 07/06 30 tablet 3 07/06/2023 Active aspirin 81 mg chewable tablet Take 81 mg by mouth daily. 30 tablet 3 07/03/2023 Active rivaroxaban (Xarelto) 15 mg tablet Take 1 tablet by mouth 2 times daily. Until 07/06 then switch to 20mg po daily 07/02/2023 Active Additional Information Patient not taking.Reported on 08/13/2023 amoxicillin (Amoxil) 500 mg tablet Take 4 tablets by mouth once as needed (one hour prior to dental procedure) for up to 1 dose. 4 tablet 07/02/2023 Active losartan (Cozaar) 50 mg tabletIndications:Hyp ertension, unspecified type Take 1.5 tablets by mouth daily. 90 tablet 2 08/13/2023 Active Active Problems Problem Noted Date Diagnosed Date Aortic stenosis 06/30/2023 Severe calcific aortic valve stenosis 06/08/2023 Psoriasis 10/11/2017 Macular pucker, left eye 01/24/2013 Nuclear sclerosis 01/24/2013 Blepharitis 01/24/2013 Family History Medical History Relation Comments Cancer Maternal Grandfather Amblyopia Neg Hx Cataracts Neg Hx Diabetes Neg Hx Glaucoma Neg Hx Heart Disease Neg Hx Hypertension Neg Hx Macular Degeneration Neg Hx Retinal Detachment Neg Hx Strabismus Neg Hx Thyroid Disease Neg Hx Relation Status Comments Maternal Grandfather Social History Tobacco Use Types Packs/Day Years Used Date Smoking Tobacco: Former Cigarettes Q uit: 1975 Smokeless Tobacco: Never Tobacco Cessation:Counseling Given: Not Answered Alcohol Use Standard Drinks/Week Comments No 0 [...] on file Sexual Orientation Not on file Last Filed Vital Signs Vital Sign Reading Time Taken Comments Blood Pressure 192/97 08/13/2023 12:38 PM EDT Pulse 80 08/13/2023 12:38 PM EDT Temperature 36.6 ??C (97.8 ??F) 07/05/2023 8:00 AM ED T Respiratory Rate 21 08/13/2023 12:38 PM EDT Oxygen Saturation 100% 08/13/2023 12:38 PM EDT Inhaled Oxygen Concentration - - Weight 76.7 kg (169 lb 3.2 oz) 08/13/2023 12:38 PM EDT Height 154.9 cm (5' 1) 06/30/2023 4:26 PM EDT Body Mass Index 31.97 06/30/2023 4:26 PM EDT Plan of Treatment Health Maintenance Due Date Last Done Comments Tdap adult 1957 Tetanus vaccine 1957 Zoster vaccine (1 of 2) 01/30/1988 Advance Directive 1993 Bone Density Scan 2003 Pneumoccocal Vaccine: 65+ (1 of 1 - PCV) 2003 Covid-19 Vaccine (1 - 2022- season) 2023 Influenza (Flu) vaccine (1 o f 1 - Influenza standard series) 06/25/2024 Medical Devices Implanted Type Area Sand Operator Device Identifier Shelf Expiration Date Model / Serial / Lot Hernandez Sarah 3 Ultra Resilia Transcatheter Heart Valve-06/30/2023 Implanted:Qty: 1 on 06/30/2023 by Magdiel Gomez MD Other Heart [id number] / [id number] / Advance Directives * Attempt Cardiopulmonary Resuscitation - Inpatient (Latest Code Status on File) Date Activated Date Inactivated Comments 06/30/2023 6:47 AM 07/05/2023 5:14 PM Question Answer Comments Code Status decision made by: Patient Care Teams Slot Floor Supervisor Relationship Specialty Start Date End Date Gideon Becerra MD [address] [place] [address] PCP - General Family Medicine 03/31/23
--- OUTSIDE RECORDS SUMMARY | 2024-06-23 16:24 | XMS_ITS | Encounter Summary ---
Author Organization Count Includes [facility] [place] [address] Care Team Providers Care Electron Tube Assembler Name Role Phone Gideon Becerra MD Primary Care Provider [phone] Reason for Referral * Diagnostic Test (Routine) - Closed Specialty Diagnoses / Procedures Referred By Contac t Referred To Contact Cardiology Diagnoses Aortic valve stenosis, etiology of cardiac valve disease unspecified Procedures Echocardiogram Transthoracic Transesophageal Echocardiogram (SHAVON) Magdiel Gomez MD [facility] [place] [address] [place] [address] [facility] [place] [address] Referral ID Status Reason Start Date Expiration Date V isits Requested Visits Authorized [id number] Closed Specialty Service Requested 06/10/2023 06/09/2024 1 1 Encounter Details Date Type Department Care Team (Late st Contact Info) Description 06/10/2023 Orders Only Cardiology at [address] [phone] Magdiel Gomez MD [facility] [place] [address] Aortic valve stenosis, etiology of cardiac valve disease unspecified (Primary Dx) Social History Tobacco Use Types Packs/Day Years Used Date Smoking Tobacco: Former Cigarettes Q uit: 1975 Smokeless Tobacco: Never Alcohol Use Standard Drinks/Week Comments No 0 (1 standard drink = 0.6 oz pur e alcohol) Not since 1974 Sex and Gender Information Value Date Recorded Sex Assigned at Not on file Gender Identity Not on file Sexual Orientation Not on file documented as of this encounter Progress Notes * Triny Gao PA - 06/10/2023 9:01 AM EDT Attempted to call patient 06/09 re: unexpected finding on CT imaging. Unable to recah patient, LVM. documented in this encounter Plan of Treatment Not on file documented as of this encounter Results * ECHO LMTD W/O CONTRAST W LMTD SPEC DOPP COLOR DOPP (06/30/2023 10:49 AM EDT) EF 70 HEARTLAB SYSTEM Anatomical Region Laterality Modality Cardiac Other 06/30/2023 7:25 AM EDT Narrative 06/30/2023 11:03 AM EDT ? Echocardiogram Report Name: YVES POLLACK ?Study Date: 06/30/2023 07:25 AMBP: 165/75 mmHg ? Patient Location: CA^CA06^A : 1940 ? Height: 155 cm ? Account: [id number] Age: 83 yrs ? Weight: 77 kg Gender: Female ?BSA: 1.8 m2 Ordering Physician: MAGDIEL GOMEZ Referring Physician: CANDE RODRIGUEZ Performed By: Virginia Hough RDCS Reason For Study: Guidance for TAVR procedure Exam Location: [facility]. Interpretation Summary Pre TAVR: trivial pericardial [...] estimated visually at 70%. Procedure Limited - 40665. Doppler - 90894. Color Doppler - 17534. Left Ventricle Left ventricle is of normal [...] Payne MD - 06/30/2023 Echocardiogram Report Name: YVES POLLACK Study Date: 307:25 AMBP: 165/75 mmHg Patient Location:CA^CA06^A : 1940 Height: 155 cm Account: [id number] Age: 83 yrs Weight: 77 kg Gender: Female BSA: 1.8 m2 Ordering Physician: MAGDIEL GOMEZ Referring Physician: CANDE RODRIGUEZ Performed By: Virginia Hough RDCS Reason For Study: Guidance for TAVR procedure Exam Location: [facility]. Interpretation Summary Pre TAVR: trivial pericardial [...] is estimatedvisually at 70%. Procedure Limited - 09125. Doppler - 67785. Color Doppler - 86100. Left Ventricle Left ventricle is of normal [...] Dyskinetic 3-5moderate 5 - 6-14large Aneurysmal 15-16diffuse Magdiel Gomez MD ECHO ORDERABLES documented in this encounter Visit Diagnoses Diagnosis Aortic valve stenosis, etiology of cardiac valve disease unspecified- Primary documented in this encounter Care Teams Electron Tube Assembler Relationship Specialty Start Date End Date Gideon Becerra MD [address] [place] [id number] PCP - General Family Medicine 03/31/23 documented as of this encounter
--- OUTSIDE RECORDS SUMMARY | 2024-06-23 16:24 | XMS_ITS | Encounter Summary ---
Author Organization [facility] [place] [address] Care Team Providers Care Solar Sales Associate Name Role Phone Gideon Becerra MD Primary Care Provider [phone] Reason for Visit * Auth/Cert (Routine) Specialty [...] (WRVU 22.47) TRANSESOPHAGEAL ECHO DURING CATH/EP PROCEDURE Magdiel Gomez MD [facility] [place] [address] [facility] Referral ID Status Reason Start Date Expiration Date Visits Re quested Visits Authorized [id number] 1 1 Encounter Details Date Type Department Care Team (Late st Contact Info) Description 06/30/2023 7:33 AM EDT Anesthesia Event [place] [phone] Elizabeth Christie MD [facility] [place] [address] Aylin Darby MD [facility] [place] [address] Anesthesia Record Procedure Summary Procedure Name Responsible Anesthesiologist Anesthesia Start Time Anesthesia Stop Time CARDIAC CATHETERIZATION Elizabeth Christie MD 3 0733 06/30/23 1054 Events Date Time Event Comment 06/30/2023 0728 0733 AN Verify 0733 Start 0733 An Start Data 0742 Anesthesia Ready 0848 Quick Note mattress and foundation sewer utilizing our original left radial arterial line, slaving our ABP numbers to cath lab manager monitor 0935 Test Transvenous Pacing 0940 Rapid Ventricular Pacing 0940 Ao Balloon Valvuloplasty 0940 Rapid Ventricular Pacing 0940 Ao Valve Deployment 0957 An Induction 0959 An Intubation 1047 Transport 1054 an stop data 1054 Recovery or ICU Handoff Maranda ent care was transferred to the destination unit staff after review of the patient's medical history, current anesthetic/surgical status and plan, according to the Provider Handoff Checklist. Patient transported to CVICU bed 25 on monitor and ambu bag at 15L. Vital signs remained stable throughout transfer, report given to ICU team at bedside, all questions and concerns addressed. Patient remains intubated in stable, but critical condition. 1054 Stop Meds Name Total fentaNYL 75 mcg Heparin 8,000 Units Protamine 50 mg Ondansetron 4 mg cefTRIAXone 2 g Dexmedetomidine INF 119.56 mcg Vancomycin 1 g niCARdipine 0.6 mg niCARdipine INF 2.08 mg Propofol 150 mg Rocuronium 60 mg Propofol INF 53.34 mg Sodium Chloride 0.9% 1,000 mL * Agents Name O2 Air N2O Sevoflurane (et) O2 Auxiliary Flowmeter 1 * Blood No blood administrations on file. Lines, Drains, and Airways Type Details Placement Removal (RETIRED) Peripheral IV Line - Single Lumen 06/30/23; 0737; dorsal arch vein (top of hand), right; [id number] catheter system; Anatomical Landmarks; 22 gauge; Pratik NEWMAN; intradermal injection, distraction, appears comfortable; catheter/device intact, site care per policy/procedure, site symptomatic, removed per policy/procedure; 07/01/23; 0545 06/30/23 0737 by Kathi Caicedo, HORSE STUD MANAGER 07/01/23 0545 by Modesto Cohen RN Arterial Line 06/30/23; 0748; axillary artery, left; 20 gauge; Anatomical Landmarks; continuous blood pressure monitoring, frequent blood gas measurement; Amy Caicedo HORSE STUD MANAGER; Sterile Gloves, Sterile Prep; 06/30/23; 0845 (upsized to 6 Fr SL sheath from TAVR) 06/30/23 0748 by Kathi Caicedo, HORSE STUD MANAGER 06/30/23 0845 by Sheree Ledbetter RN LDA Cath/EP Sheath 06/30/23; 0800; 6 Cypriot (Fr); Right; Femoral; Venous 06/30/23 0800 by Sheree Ledbetter RN 06/30/23 1745 by Kierra Reyes RN LDA Cath/EP Sheath 06/30/23; 0800; 14 Cypriot (Fr) (upsized from 7 Fr sheath); Left; Femoral; Arterial 06/30/23 0800 by Sheree Ledbetter RN 06/30/23 0949 by Sheree Ledbetter RN LDA Cath/EP Sheath 06/30/23; 0845; 6 Cypriot (Fr); Left; Wrist; Arterial 06/30/23 0845 by Sheree Ledbetter RN 06/30/23 1033 by Sheree Ledbetter RN LDA Cath/EP Sheath 06/30/23; 0912; 6 Cypriot (Fr) (upsized from exsisting A-line); Right; Wrist; Arterial 06/30/23 0912 by Sheree Ledbetter RN 06/30/23 1033 by Sheree Ledbetter RN ETT Mask Ventilation: No t Attempted (0); ETT Type: Cuffed, Oral; ETT Size: 7.5 mm; Mac Blade: 3; Notes: Asleep, Pre-O2, Stylette; Attempts: 1; Laryngoscopy Grade: 1; ETT Placement Verified By: Auscultation, Capnometry, Visual; Secured at Teeth: 22 cm; Inserted by: Amy caicedo CRNA; Removal Date: 06/30/23; Removal Time: 16206/30/23 0959 by Kathi Caicedo, HORSE STUD MANAGER 06/30/23 1626 by Rosita Hood RCP Arterial Line 06/30/23; 1033; 14 gauge (converted from 6 SL sheath to 14g Radial Art line); Anatomical Landmarks; continuous blood pressure monitoring; 06/30/23; 229906/30/23 1033 by Sheree Ledbetter RN 06/30/23 2300 by Adilson Amanda RN documented in this encounter Social History Tobacco Use Types Packs/Day Years [...] on file documented as of this encounter OR Notes * Anesthesia Postprocedure Evaluation - Elizabeth Christie MD - 07/01/2023 3:56 PM EDT Department of Anesthesiology Post-procedure Note Patient: Roxanne Pollack Procedure Summary Date: 06/30/23 Room / Location: [facility] [address] [place] [address] CATH LABS Anesthesia Start: 732 Anesthesia Stop: 1053 Procedures: CARDIAC CATHETERIZATION COMBINED RIGHT & LEFT HEART CATH,INC INJ FOR L VENTRICULOGRAPHY (WRVU 5.99) @TRANSCATHETER AORTIC VALVE REPLACEMENT (TAVR), PERCUTANEOUS FEMORAL (WRVU 22.47) TRANSESOPHAGEAL ECHO DURING CATH/EP PROCEDURE Diagnosis: Aortic valve stenosis, etiology of cardiac valve disease unspecified (Aortic valve stenosis, etiology of cardiac valve disease unspecified [I35.0]) Providers: Magdiel Gomez MD; Nelson Holm MD; Agueda Delcid MD Responsible Provider:Elizabeth Christie MD Anesthesia Type: MAC ASA Status: 4 All Anesthesia Providers: Anesthesiologist: Elizabeth Christie MD HORSE STUD MANAGER: Kathi Caicedo CRNA Vitals Value Taken Time BP 114/51 07/01/23 1500 Temp 36.8 ??C (98.2 ??F) 07/01/23 1400 Pulse 82 07/01/23 1555 Resp 25 07/01/23 1555 SpO2 94 % 07/01/23 1555 Pain Level 0 07/01/23 1400 Vitals shown include unvalidated device data. Patient Location: [facility] Level of Consciousness: Sedated (Pharmacologic/Intentional) Pain Management: Satisfactory Analgesia PONV: None Cardiovascular Status: Hypotension (received treatment) and At Baseline Respiratory Status: Intubated/Ventilated Postoperative Fluid Status: Possible Anesthetic Complications: NONE apparent at time of evaluation Final Primary Anesthesia Type: General (The anesthetic type performed was the same as planned.) Comments: * Anesthesia Preprocedure Evaluation - Elizabeth Christie MD - 06/29/2023 3:04 PM EDT Pre-Anesthesia Evaluation for: Roxanne mg 83 y.o. female. Procedure(s): CARDIAC CATHETERIZATION COMBINED RIGHT & LEFT HEART CATH,INC INJ FOR L VENTRICULOGRAPHY (WRVU 5.99) @TRANSCATHETER AORTIC VALVE REPLACEMENT (TAVR), PERCUTANEOUS FEMORAL (WRVU 22.47) TRANSESOPHAGEAL ECHO DURING CATH/EP PROCEDURE Patient Active Problem List Diagnosis Date Noted Severe calcific aortic valve stenosis 06/08/2023 Psoriasis 10/11/2017 Macular pucker, left eye 01/24/2013 Nuclear sclerosis 01/24/2013 Blepharitis 01/24/2013 Past Medical History: Diagnosis Date Arthritis Cancer 2000 Breast Cancer Cataract Hyperlipidemia Hypertension Hypothyroidism Psoriasis 10/11/2017 Severe calcific aortic valve stenosis 06/08/2023 Thyroid disease Past Surgical History: Procedure Laterality Date CATARACT REMOVAL Left Dr. Vilalrreal PRO VITRECTOMY PARS PLANA REMOVE PRERETINAL MEMBRANE 08/28/2013 VITRECTOMY, W/ MEMBRANE STRIPPING performed by Mitch Rios MD at [facility] MAIN OR PRO VITRECTOMY,MECHANICAL 08/28/2013 VITRECTOMY, MECHANICAL PARS PLANA APPROACH performed by Mitch Rios MD at [facility] MAIN OR RETINOPATHY SURGERY Social History Tobacco Use Smoking status: Former Types: Cigarettes Quit date: 1974 Years since quittin.7 Smokeless tobacco: Never Substance Use Topics Alcohol use: No Comment: Not since 1974 Social History Substance and Sexual Activity Drug Use No Allergies Allergen Reactions Anastrozole Other (See Comments) [...] felt drunk. When they were taking it. Medications: MAR and/or home medications have been reviewed. Physical Exam: Preprocedure Vitals Current as of 06/29/23 1504 No BP, pulse, respiration, SpO2, or temperature recorded. Height: Weight: BMI: IBW: Airway Assessment: Mallampati: II TM distance: >3 FB Neck ROM: full Cardiovascular Assessment: Rhythm: regular Rate: normal (+) murmur Pulmonary Assessment: pulmonary exam normal Dental Assessment: Misc Assessment: Patient is wearing No contact(s). IV access: Peripheral line Last Filed Perioperative Cognitive Screening None Anesthesia Plan: ASA 4 MAC, with a(n) intravenous induction 83yoF with PMHx of HTN, HLD, COPD, OPAL on CPAP, hypothyroidism, psoriasis, arthritis, and severe progressive symptomatic aortic stenosis s/f TAVR. AnesHx: Previous GA without complication. Airway: LMA iGel #3 CVHx: EKG: NSR at 68 bpm ECHO: LVEF 50-55%/ Severe aortic stenosis. Peak/Mean gradient 66/40 mmHg. GINA 1.14 cm2. Mild AI. Plan: MAC with GA as backup pending symptom discussion Standard ASA monitors + arterial line Adequate PIV access Region - Intrathoracic Cardiac Informed Consent: Anesthetic plan and risks discussed with patient. Use of blood products discussed with patient who. Plan discussed with HORSE STUD MANAGER and attending. Anesthesia Screening documented in this encounter Plan of Treatment Not on file documented as of this encounter Visit Diagnoses Not on filedocumented in this encounter Administered Medications Inactive Administered Medications - up to 3 most recent administrations Medication Order MAR Action Action Date Dose Rate Site cefTRIAXone (Rocephin) injection Intravenous, PRN, Starting on Wed06/30/23 at 0804, Until Wed06/30/23 at 1054, Anesthesia Intra-op, Routine Given 06/30/2023 8:04 AM EDT 2 g dexmedeTOMIDine (Precedex) (4 mcg/mL) in sodium chloride 0.9% 50 mL infusion Intravenous, CONTINUOUS PRN, Starting on Wed06/30/23 at 0746, Until Wed06/30/23 at 1054, Anesthesia Intra-op Rate/Dose Change 06/30/2023 9:30 AM EDT 0.6 mcg/kg/hr 11.595 mL/hr New Bag 06/30/2023 7:46 AM EDT 0.8 mcg/kg/hr 15.46 mL/h r fentaNYL (pf) (50 mcg/mL) multi-dose injection Intravenous, PRN, Starting on Wed06/30/23 at 0742, Until Wed06/30/23 at 1054, Anesthesia Intra-op, Routine Given 06/30/2023 9:07 AM EDT 25 mcg Given 06/30/2023 7:59 AM EDT 25 mcg Given 06/30/2023 7:42 AM EDT 25 mcg heparin (porcine) (1,000 units/mL) injection Intravenous, PRN, Starting on Wed06/30/23 at 0834, Until Wed06/30/23 at 1054, Anesthesia Intra-op, Routine Given 06/30/2023 9:33 AM EDT 2,000 Units Given 06/30/2023 9:11 AM EDT 3,000 Units Given 06/30/2023 8:34 AM EDT 3,000 Units niCARdipine (Cardene) (0.5 mg/mL) infusion (Anesthesia) Intravenous, CONTINUOUS PRN, Starting on Wed06/30/23 at 0946, Until Wed06/30/23 at 1054, Anesthesia Intra-op Rate/Dose Change 06/30/2023 10:02 AM EDT 10 mg/hr 20 mL/hr Restarted 06/30/2023 10:00 AM EDT 5 mg/hr 10 mL/hr New Bag 06/30/2023 9:46 AM EDT 5 mg/hr 10 mL/hr niCARdipine (Cardene) injection Intravenous, PRN, Starting on Wed06/30/23 at 0940, Until Wed06/30/23 at 1054, Anesthesia Intra-op, Routine Given 06/30/2023 9:46 AM EDT 0.2 mg Given 06/30/2023 9:43 AM EDT 0.2 mg Given 06/30/2023 9:40 AM EDT 0.2 mg ondansetron (pf) (Zofran) (2 mg/mL) injection Intravenous, PRN, Starting on Wed06/30/23 at 0824, Until Wed06/30/23 at 1054, Anesthesia Intra-op, Routine Given 06/30/2023 8:24 AM EDT 4 mg propofoL (Diprivan) (10 mg/mL) infusion Intravenous, CONTINUOUS PRN, Starting on Wed06/30/23 at 1031, Until Wed06/30/23 at 1054, Anesthesia Intra-op, Routine New Bag 06/30/2023 10:31 AM EDT 30 mcg/kg/min 13.914 mL/hr propofoL (Diprivan) 10 mg/mL bolus injection (Anesthesia) Intravenous, PRN, Starting on Wed06/30/23 at 0957, Until Wed06/30/23 at 1054, Anesthesia Intra-op Given 06/30/2023 9:57 AM EDT 150 mg protamine (10 mg/mL) injection Intravenous, PRN, Starting on Wed06/30/23 at 0943, Until Wed06/30/23 at 1054, Anesthesia Intra-op, Routine Given 06/30/2023 9:46 AM EDT 20 mg Given 06/30/2023 9:45 AM EDT 20 mg Given 06/30/2023 9:43 AM EDT 10 mg rocuronium (Zemuron) 10 mg/mL injection Intravenous, PRN, Starting on Wed06/30/23 at 0958, Until Wed06/30/23 at 1054, Anesthesia Intra-op, Routine Given 06/30/2023 9:58 AM EDT 60 mg sodium chloride 0.9% infusion Intravenous, CONTINUOUS PRN, Starting on Wed06/30/23 at 0733, Until Wed06/30/23 at 1054, Anesthesia Intra-op New Bag 06/30/2023 7:33 AM EDT vancomycin (Vancocin) injection Intravenous, PRN, Starting on Wed06/30/23 at 0808, Until Wed06/30/23 at 1054, Anesthesia Intra-op, Routine Given 06/30/2023 8:08 AM EDT 1 g documented in this encounter Care Teams Solar Sales Associate Relationship Specialty Start Date End Date Dege, Gideon E, MD [address] [place] [address] PCP - General Family Medicine 03/31/23 documented as of this encounter
--- OUTSIDE RECORDS SUMMARY | 2024-06-23 16:24 | XMS_ITS | Encounter Summary ---
Author Organization [facility] [place] [address] Care Team Providers Care Academic Support Director Name Role Phone Gideon Becerra MD Primary Care Provider [phone] Encounter Details Date Type Department Care Team (Late st Contact Info) Description 08/13/2023 12:30 PM EDT Office Visit Cardiology at [address] [phone] Social History Tobacco Use Types Packs/Day Years Used Date Smoking Tobacco: Former Cigarettes Q uit: 1975 Smokeless Tobacco: Never Alcohol Use Standard Drinks/Week Comments No 0 (1 standard drink = 0.6 oz pur e alcohol) Not since 1974 [facility] Inpatient Questions Answer Date Recorded Does Anyone [...] on filedocumented in this encounter Care Teams Academic Support Director Relationship Specialty Start Date End Date Gideon Becerra MD [address] [place] [address] PCP - General Family Medicine 03/31/23 documented as of this encounter
--- OUTSIDE RECORDS SUMMARY | 2024-06-23 16:24 | XMS_ITS | Encounter Summary ---
Author Organization [facility] Address [facility] [address] Care Team Providers Care Grand Scribe Name Role Phone Gideon Becerra MD Primary Care Provider [phone] Encounter Details Date Type Department Care Team (Late st Contact Info) Description 08/13/2023 1:00 PM EDT Office Visit Cardiology at [address] [phone] Pierce Allen APRN [facility] [place] [address] S/P TAVR (transcatheter aortic valve replacement) (Primary Dx); Severe aortic stenosis; Bilateral femoral artery stenosis; Hypertension, unspecified type Social History Tobacco Use Types Packs/Day Years Used Date Smoking Tobacco: Former Cigarettes Q uit: 1974 Smokeless Tobacco: Never Alcohol Use Standard Drinks/Week Comments No 0 (1 standard drink = 0.6 oz pur e alcohol) Not since 1974 [facility] Inpatient Questions Answer Date Recorded Does Anyone [...] Pulse 80 08/13/2023 12:38 PM EDT Temperature - - Respiratory Rate 21 08/13/2023 12:38 PM EDT Oxygen Saturation 100% 08/13/2023 12:38 PM EDT Inhaled Oxygen Concentration - - Weight 76.7 kg (169 lb 3.2 oz) 08/13/2023 12:38 PM EDT Height - - Body Mass Index 31.97 06/30/2023 4:26 PM EDT documented in this encounter Progress Notes * Tiffany Pierce S, MANUFACTURING MAINTENANCE MECHANIC - 08/13/2023 1:00 PM EDT Images from the original note were not included. [facility] [place] [address] [place] [address] Structural Heart Follow Up Subjective: HPI: Roxanne Pollack is a 83 y.o. female with past medical history of Roxanne Pollack is a 83 y.o. female w/ PMH of COPD, HTN, HLD, CPAP nightly, hypothyroidism, PE of RLL (incidental finding forTAVR CT work up 06/08/23), severe aortic stenosis now status post right transfemoral TAVR with a 23 mm Sarah 3 THV 06/30/[address] Gomez. She returns today for 30 day post-TAVR follow up visit. She was ultimately discharged with ASA 81 mg daily and continued with Xarelto for PE, which was an incidental finding on 06/08/2023. She continues tolerating her AC without concerns. She notes since TAVR feeling relatively similar to previous symptomology. She notes overall feelingfoggy, that she attributes to previous COVID infection within the last year. She denies lightheadedness, dizziness, presyncope, or syncope. She denies chest pain, chest pressure, chest tightness, or palpitations. She denies pronounced shortness of breath, PND, or orthopnea; however, she is slightly disappointed with how deconditioned she remains. She is able to maintain the inside and outside of her home and occasionally take walks outside without particular anginal or heart failure symptoms.Though trivial with her answers, there is concern that she experiences claudication while walking. S he denies concerns of chronic limb ischemia while at rest, denying ulcerations, poor healing, loss of sensation, or pain while at rest. She religiously checks her blood pressures throughout the day after taking losartan 50 mg daily, noting systolic blood pressures ranging from 150s to 210 mmHg. She denies changes in vision, mentationor any acute neurologic changes with these elevated pressures. Echocardiogram 08/13/2023 Interpretation Summary Left ventricle is of normal [...] per minute. There is trace mitral regurgitation. 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 Medications: Current Outpatient Medications Medication Sig Note Dispense Refill rivaroxaban (Xarelto) 20 mg tablet Take 1 tablet by mouth daily. Starting 07/06 30 tablet 3 aspirin 81 mg chewable tablet Take 81 mg by mouth daily. 30 tablet 3 amoxicillin (Amoxil) 500 mg tablet Take 4 tablets by mouth once as needed (one hour prior to dentalprocedure) for up to 1 dose. 4 tablet 0 acetaminophen (Tylenol) 500 mg tablet Take 500 mg by mouth every 6 hours as needed. albuteroL 90 mcg/actuation HFA Aerosol Inhaler Inhale 2 puffs into the lungs every 4 hours as needed for Shortness of Breath or Wheezing. ginkgo biloba leaf extract 60 mg Tablet Take 60 mg by mouth daily. meclizine (Antivert) 25 mg tablet Take 25 mg by mouth 3 times daily as needed for Dizziness. mirabegron ER (Myrbetriq) 25 mg ER 24 hr tablet Take 25 mg by mouth daily. ondansetron ODT (Zofran-ODT) 4 mg disintegrating tablet Take 4 mg by mouth every 8 hours as needed for Nausea. Spiriva Respimat 2.5 mcg/actuation Mist Inhale 2 puffs into the lungs daily. HCBWDVP-EDYBYFKPS-VZTC ORAL Take 2 capsules by mouth daily. levothyroxine (SYNTHROID) 112 mcg tablet Take 112 mcg by mouth daily. simvastatin (ZOCOR) 20 mg tablet Take 20 mg by mouth nightly. losartan (COZAAR) 50 mg tablet Take 50 mg by mouth daily. Magnesium 500 mg Tab Take 600 mg by mouth. multivitamin (THERAGRAN) tablet Take 1 tablet by mouth daily. b complex vitamins (VITAMIN B COMPLEX) tablet rivaroxaban (Xarelto) 15 mg tablet Take 1 tablet by mouth 2 times daily. Until 07/06 then switch to 20mg po daily (Patient not taking: Reported on 08/13/2023) Biotin 5 mg capsule Take 5 mg by mouth daily. peg 400-propylene glycol 0.4-0.3 % Drops, Gel Apply 1 drop to eye daily. 06/08/2023: PRN. Objective: Vitals: Vitals: 08/13/23 1238 BP: (!) 192/97 BP Location (NBP): Right arm Patient Position: Sitting BP Cuff Sizes: Adult (25-34 cm) Pulse: 80 Resp: 21 SpO2: 100% Weight: 76.7 kg (169 lb 3.2 oz) Physical Exam: General: Pleasant female, no acute distress HEENT: Normocephalic, atraumatic, benign NECK: Supple, no masses, FROM CV: Normal rate, regular rhythm, no m/r/g, no ventricular heaves RESP: CTAB, moving air well, symmetric chest excursion GI: Soft, nd, nttp EXT: No cyanosis/clubbing, no edema, preserved distal pulses, + bilateral doppler pulses NEURO: No gross focal deficits, gait assistance with cane PSYC: Appropriate mood and affect, alert and oriented DERM: No rash, wwp, no wounds Diagnostics: Recent Results (from the past 72 hour(s)) Comprehensive metabolic panel (non-fasting) Result Value Glucose Lvl 105 BUN 13 Creatinine 1.00 Sodium 142 Potassium 4.2 Chloride 102 CO2 29 Anion Gap 11 Calcium 10.0 Total Protein 6.7 Albumin 3.9 AST 20 ALT 15 Alk Phos 69 Total Bilirubin 0.3 Estimated GFR 55 (L) Hemogram Result Value WBC 7.0 RBC 3.91 (L) Hemoglobin 12.6 Hematocrit 38.5 MCV 98.5 (H) MCH 32.2 (H) MCHC 32.7 Platelets 154 RDWSD 48.5 (H) RDWCV 13.4 MPV 10.1 nRBC % Auto 0.0 nRBC Abs Auto 0.000 Differential, Automated Result Value Neutrophils % 61.0 Neutr Abs (ANC) 4.26 Lymphocytes % 28.3 Lymphocytes Abs 2.0 Monocytes % 7.2 Monocyte Abs 0.5 Eosinophils % 2.6 Eosinophils Abs 0.2 Basophils % 0.6 Basophils Abs 0.0 Immature Gran % 0.30 Cathy Gran Abs 0.02 Echocardiogram Transthoracic Result Value EF 75 EKG 12 Lead Result Value Ventricular rate 75 Atrial Rate 75 P-R Interval 182 QRS Duration 88 Q-T Interval 396 QTC Calculated (Bezet) 442 Calculated P [place] 53 Calculated R [place] -12 Calculated T [place] 38 INTERPRETATION Normal sinus rhythm Inferior infarct , age undetermined Anteroseptal infarct , age undetermined Abnormal ECG When compared with ECG of 02-JUL-2023 06:34, Inferior infarct is now Present Assessment and Plan: Roxanne Pollack is a 83 y.o. female w/ PMH of COPD, HTN, HLD, CPAP nightly, hypothyroidism, PE ofRLL (incidental finding for TAVR CT work up 06/08/23), severe aortic stenosis now status post right transfemoral TAVR with a 23 mm Sarah 3 THV 06/30/[address] Gomez. She returns today for 30 day post-TAVR follow up visit. Severe Aortic Stenosis S/p TAVR NYHA Class 2, CCS Class 0. She continues tolerating aspirin 81 mg daily. It is reassuring that she denies heart failure or anginal symptoms, with overall improveme in functional capacity status post TAVR. Considering her mean gradient of her aortic valve is13 with preserved LV function, we will plan to continue aspirin 81 mgdaily. Her moderate mitral stenosis (today mean gradient 6.8 mmHg) likely slightly elevated in the c ontext of significant hypertension compared to previous carmencita-- TAVR echo. We will continue surveillance for this. I think given the incidental nature of her PE noted on routine TAVR CTAs, will continue Xarelto for total of 6 months. This was started ~June 08, 2023, so termination of Xarelto will be December 09, 2023. In review of TAVR CTAs, there is significant lower extremity vascular disease with maintained distal flow. It is concerning that she potentially is experiencing claudication of her lower extremities. Clinically, there is no evidence of lower extremity limb ischemia on exam. I considered obtaining ABIs here, but the patient would prefer this closer to home. We will ask her PCP, Dr. Card who she is scheduled and follow-up with this next week, to obtain local ABIs. Could consider additional diagnostics and vascular surgery consultation in the future. Given her pronounced uncontrolled hypertension, will increase losartan from 50->75 mg daily. She is instructed to take additional 25 mg losartan this evening to achieve total 75 mg today. She will check her pressures this evening to ensure her systolic remains less than 150 mmHg. If systolic pressures remain greater than 150 over the weekend, she will present for urgent evaluation and up titration of antihypertensives. Red flags reviewed . Will ask her PCP to check BMP next week and up titrate ARB as appropriate. PCP could consider general cardiology referral locally for additional optimization. Patient currently lives on a second floor apartment and would prefer living on the first floor due to lower extremity pain and challenging lifting groceries upstairs. Will provide letter to her manager billing recommending first-floor living status. Follow up: 12 months with echo Pierce Allen APRN Structural Heart Disease Pager [phone] Thank you for the opportunity to participate in this patient's cardiovascular care. 45 minutes were spent on this patient encounter. We spent more than 50% of the time in counseling about the patient's condition and addressing questions regarding natural course history and treatmentoptions. documented in this encounter Plan of Treatment Scheduled Orders Name Type Priority Associated Diagnoses Orde r Schedule EKG 12 Lead ECG Routine Severe aortic stenosis Expected: 08/13/2023 (Approximate), Expires: 09/13/2023 documented as of this encounter Procedures Procedure Name Priority Date/Time Associated Diagnosis Comments EKG 12-LEAD Routine 08/13/2023 1:06 PM EDT S/P TAVR (transcatheter aortic valve replacement) documented in this encounter Results * EKG 12 Lead (08/13/2023 1:06 PM EDT) Ventricular rate 75 BPM MUSE SYSTEM Atrial Rate 75 BPM MUSE SYSTEM P-R Interval 182 ms MUSE SYSTEM QRS Duration 88 ms MUSE SYSTEM Q-T Interval 396 ms MUSE SYSTEM QTC Calculated (Bezet) 442 ms MUSE SYSTEM Calculated P [place] 53 degrees MUSE SYSTEM Calculated R [place] -12 degrees MUSE SYSTEM Calculated T [place] 38 degrees MUSE SYSTEM INTERPRETATION Normal sinus rhythm Inferior infarct , age undetermined Anteroseptal infarct , age undetermined Abnormal ECG When compared with ECG of 02-JUL-2023 06:34, Inferior infarct is now Present Confirmed by MD Ni, Isha ([id number]) on 08/14/2023 9:27:06 AM MUSE SYSTEM 08/13/2023 1:06 PM EDT 08/14/2023 9:27 AM EDT Pat Sandoval MANUFACTURING MAINTENANCE MECHANIC ECG ORDERABLES MUSE SYSTEM documented in this encounter Visit Diagnoses Diagnosis S/P TAVR (transcatheter aortic valve replacement)- Primary Severe aortic stenosis Aortic valve disorders 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
--- OUTSIDE RECORDS SUMMARY | 2024-06-23 16:24 | XMS_ITS | Encounter Summary ---
Author Organization [facility] Address [address] [place] [address] Care Team Providers Care Brand Advocate Name Role Phone Unavailable Primary Care Provider Unavailabl e Encounter Details Date Type Department Care Team (Late st Contact Info) Description 11/28/1999 Results Only [facility] - Map conversion [address] [place] [address] Phan Onofre MD [address] [place] [phone] Social History Tobacco Use Types Packs/Day Years Used Date Smoking Tobacco: Never Assessed Sex and Gender Information Value Date Recorded Sex Assigned at Not on file Gender Identity Not on file Sexual Orientation Not on file documented as of this encounter Plan of Treatment Not on file documented as of this encounter Procedures Procedure Name Priority Date/Time Associated Diagnosis Comments SURGICAL PATHOLOGY Routine 11/28/1999 16 :17 EST documented in this encounter Results * SURGICAL PATHOLOGY (11/28/1999 16:17 EST) Pathology Report: SURGICAL PATHOLOGY REPORT Reports generated via electronic interface contain original data; however they are lacking the format of the original report. Caution should be taken when reading/interpreting unformatted reports. Name: ? YVES POLLACK ? Accession #: ? [id number] ? : ? 1940 (Age: 59) ??F ? Collect Date: ? 11/28/1999 ? Location: ?Receive Date: ? 11/28/1999 ? Provider: PHAN ONOFRE MD Copy to: PHAN BLACK DNONFA [facility] ? Addendum ? Date Ordered: ? 12/05/1999 ? Status: Signed Out ? Date Complete: ? 12/05/1999 ? By: Conversion ? Date Reported: ? 12/05/1999 ? Addendum Comment ? SURGICAL PATHOLOGY REPORT NAME: YVES POLLACK ? : ??1940 ?? AGE/SEX: ??59Y F ? SS#: ??[id number] ?DATE RECEIVED: 11/28/1999 PT LOCATION: ??[facility] ORDERING PHYSICIAN: ??JEMIMA NEWMAN, PHAN ?? COPY TO PHYSICIAN: ?? MARILOU CARRASCO MD ? SOFIA WARNER MD ? --- TISSUE SUBMITTED: ?IMMUNOHISTOCHEMICAL ASSAY FOR ? ESTROGEN AND PROGESTERONE RECEPTORS REPORT ? An immunohistochemical assay for estrogen receptors (ER1D5, ? Immunotech) and progesterone receptors (PR88, Biogenex) has been ? performed on this specimen. Standard heat activated antigen ? retrieval protocol (citrate buffer at pH 7.6 and 98 C x 15 ? minutes) was employed followed by automated immunostaining. ? Intranuclear receptor complexes were visualized on tissue ? sections using a streptavidin biotin immunohistochemical ? technique. ? Results are reported as negative (no nuclear staining) or ? positive with the proportion of positive cells ??noted. ??Estrogen ? receptor expression in <5% of tumor cells ??may not have a strong ? interaction with estrogen receptor modulators such as Tamoxifen. ? RESULT: ? 1. ??Breast, left, 1 o'clock, ultrasound guided needle core ? biopsies: ? 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 ? A. ??Positive for estrogen receptors (in 70% of tumor ? cells). ? B. ??Negative for progesterone receptors. ? 2. ??Breast, left, 2 o'clock, ultrasound guided needle core ? biopsies: ? 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 ? - Positive for estrogen receptors (in 50% of tumor cells). ? - Positive for progesterone receptors (in 20% of tumor ? cells). ? Document Reviewed and Electronically Signed by: Shannan Fisher M.D. Date Finalled: ??12/05/1999 By the signature above, the attending physician certifies that he/she has personally conducted a gross and/or microscopic examination of the described specimens and rendered or confirmed the above diagnoses. Document reviewed and electronically signed by: ? Conversion for SHANNAN FISHER. ? Report date: 12/05/1999 By the signature above, the attending physician certifies that he/she has personally conducted a gross and/or microscopic examination of the described specimens and rendered or confirmed the above diagnosis. Final Pathologic Diagnosis: MICROSCOPIC DIAGNOSIS: ? 1. ??Breast, left, 1 o'clock, ultrasound guided needle core ? biopsies: ? 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 ??See comment. ? - Fibrocystic changes including: ? - Apocrine metaplasia. ? 2. ??Breast, left, 2 o'clock, ultrasound guided needle core ? biopsies: ? 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 ??See comment. ? Comment: COMMENT: ? Immunoperoxidase stains for estrogen and progesterone receptors ? have been ordered and the results will be issued in a separate ? report. ??(Dr. Aguilar)/rome Document reviewed and electronically signed by: Conversion for SOFIA CARTY. Report ??Date: 12/05/1999 00:00 By the signature above, the attending physician certifies that he/she has personally conducted a gross and/or microscopic examination of the described specimens and rendered or confirmed the above diagnosis. Specimen(s) Received: TISSUE SUBMITTED: ? #1 L breast 3 cm from areola 1:00 ? #2 L breast 3 cm from areola 2:00 CLINICAL DATA: ? CA; Palp thickening [place]. 2 lesions indeterminate, probably ? malignant Gross Description: GROSS: ? Received in formalin labelled Rnajeet and #1 1:00 br bx L are ? five, cylindrical, white and yellow, soft tissue biopsies each ? measuring 0.1 cm in thickness and ranging in length from 0.6 to ? 1.0 cm. ??The specimens are submitted entirely as (A). ? Received in formalin labelled Ranjeet and #2 2:00 L br bx are ? multiple, yellow and white, focally hemorrhagic, cylindrical to ? irregular, soft tissues ranging from 0.2 x 0.2 x 0.1 cm to 1.2 x ? 0.1 x 0.1 cm. ??The specimen is submitted entirely as (B) through ? (D). ??(Dr. Aguilar)/paulina ? End of Report ROSY KRAMER 11/28/1999 16:1 7 EST 11/28/1999 16:18 EST Phan Onofre MD PATHOLOGY ORDERABLE S ROSY KRAMER [address] [place] [address] documented in this encounter Visit Diagnoses Not on filedocumented in this encounter
--- OUTSIDE RECORDS SUMMARY | 2024-06-23 16:25 | XMS_ITS | Encounter Summary ---
Author Organization [facility] [place] [address] Care Team Providers Care Shiatsu Therapist Name Role Phone Gideon Becerra MD Primary Care Provider [phone] Encounter Details Date Type Department Care Team (Late st Contact Info) Description 06/10/2023 Notes Only Cardiology at [address] [phone] Neha Camargo RN Social History Tobacco Use Types Packs/Day Years [...] as of this encounter Progress Notes * Neha Camargo RN - 06/10/2023 8:55 AM EDT Spoke with Ms. Pollack in regard to scheduling for TAVR. She accepted 06/30 as procedural date . Pre and post education was reviewed and she verbalized understanding. She did state that she was on Xarelto which is not documented, she was instructed to stop taking 2 days prior last does being 06/27. documented in this encounter Plan of Treatment Not on file documented as of this encounter Visit Diagnoses Not on filedocumented in this encounter Care Teams Shiatsu Therapist Relationship Specialty Start Date End Date Gideon Becerra MD [address] [place], [place] [id number] PCP - General Family Medicine 03/31/23 documented as of this encounter
--- OUTSIDE RECORDS SUMMARY | 2024-06-23 16:25 | XMS_ITS | Encounter Summary ---
Author Organization [facility] Address [facility] [place] [address] Care Team Providers Care Cash Applications Analyst Name Role Phone Gill Murphy MD Primary Care Provider [phone] Encounter Details Date Type Department Care Team (Late st Contact Info) Description 08/28/2013 7:46 AM EST Anesthesia Event [place] [id number] Alex Matthews MD [facility] [place] [address] Rafi Sanabria CRNA ANESTHESIA Anesthesia Record Procedure Summary Procedure Name Responsible Anesthesiologist Anesthesia Start Time Anesthesia Stop Time VITRECTOMY, MECHANICAL PARS PLANA APPROACH (WRVU 12.13) (Left: Eye) Alex Matthews MD 08/28/13 0746 08/28/13 0848 Events Date Time Event Comment 08/28/2013 0723 0743 AN Verify 0746 Start 0746 An Start Data 0748 An Induction 0750 An Intubation 0752 Anesthesia Ready 0800 Procedure Start 0841 Extubation/LMA Out 0847 an stop data 0848 Stop Meds Name Total fentaNYL 50 mcg propofol 170 mg PHENYLephrine 200 mcg lactated ringers 400 mL * Agents Name O2 Air Sevoflurane (et) * Blood No blood administrations on file. Lines, Drains, and Airways Type Details Placement Removal Incision 08/28/13; eye; 06/22/22 (LDA cleanup utility RA#[id number]); 1715 (LDA cleanup utility RA#[id number]) 08/28/13 0000 by Dory Leigh RN 06/22/22 1715 by Jeanie Biggs (RETIRED) Peripheral IV Line - Single Lumen 08/28/13; 0649; 08/28/13; 0951 08/28/13 0649 by Abimael Shirley RN 08/28/13 0951 by Zoe Hernandez (RETIRED) Non-Surgical Airway Mask Ventilation: Easy (1); LMA Size: 3; Oral Airway: 80 mm (3); Removal Date: 08/28/13; Removal Time: 84008/28/13 0748 by Rafi Sanabria CRNA 08/28/13 0841 by Rafi Sanabria CRNA documented in this encounter Social History Tobacco Use Types Packs/Day Years Used Date Smoking Tobacco: Former Alcohol Use Standard Drinks/Week Comments No 0 (1 standard drink = 0.6 oz pur e alcohol) Not since 1974 Sex and Gender Information Value Date Recorded Sex Assigned at Not on file Gender Identity Not on file Sexual Orientation Not on file documented as of this encounter OR Notes * Anesthesia Postprocedure Evaluation - Alex Matthews MD - 08/28/2013 12:44 PM EST Patient: Roxanne Pollack Procedure(s) Performed: Procedure(s): VITRECTOMY, MECHANICAL PARS PLANA APPROACH VITRECTOMY, W/ MEMBRANE STRIPPING Actual Anesthetic: general Patient location: PACU Post-op pain: Adequate analgesia Post-op nausea: no nausea or vomiting Last Vitals: Filed Vitals: 08/28/13 0919 BP: 169/93 Pulse: 62 Temp: Resp: 16 Post-op cardiovascular and respiratory status: is stable Level of consciousness: awake, alert and oriented Complications: no apparent complications and tolerated the procedure well Fluid Status: normal * Anesthesia Preprocedure Evaluation - Alex Matthews MD - 08/28/2013 7:17 AM EST Pre-Anesthesia Evaluation for: Roxanne Pollack a 73 y.o. female. Procedure(s): VITRECTOMY, MECHANICAL PARS PLANA APPROACH Patient Active Problem List Diagnosis ??? Macular pucker, left eye ??? Nuclear sclerosis ??? Blepharitis Past Medical History Diagnosis Date ??? Arthritis ??? Cancer 2000 Breast Cancer ??? Cataract ??? Hyperlipidemia ??? Hypertension ??? Thyroid disease ??? Hypothyroidism No past surgical history on file. History Substance Use Topics ??? Smoking status: Former Smoker ??? Smokeless tobacco: Not on file ??? Alcohol Use: No Not since 1974 History Drug Use No Allergies Allergen Reactions ??? Propoxyphene Hcl CIS - Nausea/Vomiting Medications: MAR and/or home medications have been reviewed. Physical Exam: There were no vitals filed for this visit. There is no height or weight on file to calculate BMI. Airway Assessment: Mallampati: II TM distance: >3 FB Neck ROM: full Cardiovascular Assessment: Pulmonary Assessment: Dental Assessment: (+) upper dentures and lower dentures [facility] Assessment: IV access: Peripheral line Other exam findings: Walks mile and a half twice a day. Anesthesia Plan: ASA 2 general, with a(n) intravenous induction Plan MAC vs GA for vitrectomy. No other active medical issues. 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 Chemo. 3 cycles. No trouble with hypoventilation with this surgery. Region - Other Informed Consent: Anesthetic plan and risks discussed with patient. Use of blood products discussed with patient whom. Plan discussed with TELEVISION NEWS VIDEO EDITOR. [facility]. Assessment: documented in this encounter Plan of Treatment Not on file documented as of this encounter Visit Diagnoses Not on filedocumented in this encounter Administered Medications Inactive Administered Medications - up to 3 most recent administrations Medication Order MAR Action Action Date Dose Rate Site fentaNYL 50mcg/mL injection PRN, Starting on Wed08/28/13 at 0755, Until Wed08/28/13 at 0848, Pain, Anesthesia Intra-op, Routine Given 08/28/2013 8:30 AM EST 25 mcg Given 08/28/2013 7:55 AM EST 25 mcg lactated ringers infusion CONTINUOUS PRN, Starting on Wed08/28/13 at 0743, Until Wed10/23/13 at 1055, Anesthesia Intra-op New Bag 08/28/2013 7:43 AM EST mL PHENYLephrine HCl in NS (PF) (CHRISTIAN-SYNEPHRINE) 0.8 mg/10 mL (80 mcg/mL) injection Syrg PRN, Starting on Wed08/28/13 at 0805, Until Wed08/28/13 at 0848, Anesthesia Intra-op, Routine Given 08/28/2013 8:30 AM EST 40 mcg Given 08/28/2013 8:20 AM EST 40 mcg Given 08/28/2013 8:10 AM EST 40 mcg propofol (DIPRIVAN) 10 mg/mL bolus injection (Anesthesia) PRN, Starting on Wed08/28/13 at 0745, Until Wed08/28/13 at 0848, Anesthesia Intra-op Given 08/28/2013 7:50 AM EST 20 mg Given 08/28/2013 7:45 AM EST 150 mg documented in this encounter Care Teams Cash Applications Analyst Relationship Specialty Start Date End Date Gill Murphy MD [address] [place] [id number] PCP - General 09/16/10 03/30/23 documented as of this encounter
--- OUTSIDE RECORDS SUMMARY | 2024-06-23 16:25 | XMS_ITS | Encounter Summary ---
Author Organization [facility] [place] [address] Care Team Providers Care Traffic Operations Manager Name Role Phone Gideon Becerra MD Primary Care Provider Reason for Referral * Diagnostic Test (Routine) - Closed Specialty Diagnoses / Procedures Referred By Contac t Referred To Contact Radiology Diagnoses Aortic valve stenosis, etiology of cardiac valve disease unspecified Procedures CT Angiogram Abdomen & Pelvis w Contrast (Generic) Magdiel Gomez MD [facility] [place] [address] [facility] [place] [address] Referral ID Status Reason Start Date Expiration Date V isits Requested Visits Authorized [id number] Closed Specialty Service Requested 04/06/2023 10/06/2024 1 1 * Diagnostic Test (Routine) - Closed Specialty Diagnoses / Procedures Referred By Contac t Referred To Contact Radiology Diagnoses Aortic valve stenosis, etiology of cardiac valve disease unspecified Procedures CT Cardiac for Morphology & Function Magdiel Gomez MD [facility] [place] [address] [facility] [place] [address] Referral ID Status Reason Start Date Expiration Date V isits Requested Visits Authorized [id number] Closed Specialty Service Requested 04/06/2023 10/06/2024 1 1 Reason for Visit * Diagnostic Test (Routine) - Closed Specialty Diagnoses / Procedures Referred By Contac t Referred To Contact Radiology Diagnoses Aortic valve stenosis, etiology of cardiac valve disease unspecified Procedures CT Cardiac for Morphology & Function Magdiel Gomez MD [facility] [place] [address] [facility] [place] [address] Referral ID Status Reason Start Date Expiration Date V isits Requested Visits Authorized [id number] Closed Specialty Service Requested 04/06/2023 10/06/2024 1 1 Encounter Details Date Type Department Care Team (Latest Contact Info) Description 06/08/2023 8:33 AM EDT - 06/08/2023 11:18 AM EDT Hospital [place] [address] Magdiel Gomez MD [facility] [place] [address] Aortic valve stenosis, etiology of cardiac valve disease unspecified Discharge Disposition: Home Social History Tobacco Use [...] Sig Dispensed Refills Start Date End Date acetaminophen (Tylenol) 500 mg tablet Take 500 [...] capsule Take 5 mg by mouth daily. JZAIFAC-KOTPGLEXZ-DCLA ORAL Take 2 capsules by mouth daily. [...] Take 50 mg by mouth daily. 08/13/2023 lactobacillus (BACID) Capsule Take 1 tablet by mouth daily. 06/29/2023 aspirin 325 mg tablet 03/06/20102022 verapamil (CALAN) 120 mg tablet 03/06/2010 07/05/2023 documented as of this encounter Plan of Treatment Not on file documented as of this encounter Procedures Procedure Name Priority Date/Time Associated Diagnosis Comments CT HEART FOR FUNCTION (NON-CORONARY) W CONTRAST Routine 06/08/2023 8:47 AM EDT Aortic valve stenosis, etiology of cardiac valve disease unspecified CT ANGIOGRAM ABDOMEN AND PELVIS W CONTRAST Routine 06/08/2023 8:47 AM EDT Aortic valve stenosis, etiology of cardiac valve disease unspecified documented in this encounter Results * (ABNORMAL) CT Angiogram Abdomen & Pelvis w Contrast (Generic) (06/08/2023 8:47 AM EDT) Anatomical Region Laterality Modality Abdomen, Pelvis Computed Tomogra phy Addenda Addendum by Lianne Liu MD on 06/08/2023 4:48 PM EDT --------ADDENDUM #1-------- Nonvisualization of the inferior mesenteric artery, 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 No CT evidence of bowel ischemia. Remaining impression items are unchanged. Unexpected finding. Thank you for letting us participate in the care of this patient. ??If you are a health care provider and have any questions regarding this report, please contact the number below. ??For patients who have questions please contact the health managed care nurse that requested your imaging first. ? Electronically signed by: Lianne Liu MD, [facility] ([phone]), at 06/08/2023 4:43 PM --------ORIGINAL REPORT -------- EXAMINATION: CT ANGIOGRAM ABDOMEN AND PELVIS W CONTRAST (GENERIC) CLINICAL: TAVR screening, iliac and bifurcation sizing and calcification TECHNIQUE: Helical CTA of the abdomen and pelvis after intravenous administration of contrast. 97 cc of Omnipaque 350. Coronal and sagittal reconstructions were generated. Three-dimensional volume reconstructions were created on an independent computer workstation. COMPARISON: None FINDINGS: VASCULAR Abdominal aorta: No aneurysm. Posterior noncalcified plaque at the suprarenal abdominal aorta resulting in approximately 25% luminal narrowing. (Minimum bidimensional) Suprarenal aorta: 19.1 x 8.9 mm Juxtarenal aorta: 17.8 x 10.4 mm Infrarenal aorta: 16.7 x 11.3 mm Degree of calcification at aortic bifurcation: Moderate Branch vessels: Celiac: No significant stenosis. SMA: Mild ostial stenosis. Right renal artery: Severe ostial stenosis. Left renal artery: Severe ostial stenosis. ENID: Not visualized. Iliac/Femoral Arteries: No aneurysm. Occluded right common iliac artery with noncalcified plaque, and distal filling of the internal iliac artery and external iliac artery. (Smallest luminal diameter) Right common iliac: Occluded Right external iliac: 3.9 mm Right common femoral: 2.9 mm Left common iliac: 4.4 mm Left external iliac: 1.7 mm Left common femoral: 2.4 mm Tortuosity on the right: 20 degrees/cm Tortuosity on the left: 21 degrees/cm NON-VASCULAR FINDINGS Liver: Normal size and attenuation without lesions. Bile ducts: Nondilated. Gallbladder: Status post cholecystectomy. Pancreas: Normal attenuation without ductal dilatation. Spleen: Splenules at the superior aspect of the spleen. Otherwise normal. Adrenals: Normal. Kidneys: Normal. Urinary Bladder: Normal. Lymph Nodes: No enlarged lymph nodes. Bowel: Nondilated, no wall thickening. ?? Peritoneum and retroperitoneum: No hemorrhage. No pneumoperitoneum. No fluid collection or mesenteric inflammation. Abdominal wall: Normal. Reproductive organs: Normal contours. Osseous structures: No suspicious lesions. IMPRESSION: No abdominal aortic aneurysm. Luminal measurements as detailed. Occluded right common iliac artery with distal filling of the right internal and external iliac arteries. Thank you for letting us participate in the care of this patient. ??If you are a health care provider and have any questions regarding this report, please contact the number below. ??For patients who have questions please contact the health managed care nurse that requested your imaging first. ? Electronically signed by: Lianne Liu MD, [facility] ([phone]), at 06/08/2023 2:46 PM Impressions 06/08/2023 2:46 PM EDT No abdominal aortic aneurysm. Luminal measurements as detailed. Occluded right common iliac artery with distal filling of the right internal and external iliac arteries. Thank you for letting us participate in the care of this patient. ??If you are a health care provider and have any questions regarding this report, please contact the number below. ??For patients who have questions please contact the health managed care nurse that requested your imaging first. ? Electronically signed by: Lianne Liu MD, [facility] ([phone]), at 06/08/2023 2:46 PM Narrative 06/08/2023 2:46 PM EDT EXAMINATION: CT ANGIOGRAM ABDOMEN AND PELVIS W CONTRAST (GENERIC) CLINICAL: TAVR screening, iliac and bifurcation sizing and calcification TECHNIQUE: Helical CTA of the abdomen and pelvis after intravenous administration of contrast. 97 cc of Omnipaque 350. Coronal and sagittal reconstructions were generated. Three-dimensional volume reconstructions were created on an independent computer workstation. COMPARISON: None FINDINGS: VASCULAR Abdominal aorta: No aneurysm. Posterior noncalcified plaque at the suprarenal abdominal aorta resulting in approximately 25% luminal narrowing. (Minimum bidimensional) Suprarenal aorta: 19.1 x 8.9 mm Juxtarenal aorta: 17.8 x 10.4 mm Infrarenal aorta: 16.7 x 11.3 mm Degree of calcification at aortic bifurcation: Moderate Branch vessels: Celiac: No significant stenosis. SMA: Mild ostial stenosis. Right renal artery: Severe ostial stenosis. Left renal artery: Severe ostial stenosis. ENID: Not visualized. Iliac/Femoral Arteries: No aneurysm. Occluded right common iliac artery with noncalcified plaque, and distal filling of the internal iliac artery and external iliac artery. (Smallest luminal diameter) Right common iliac: Occluded Right external iliac: 3.9 mm Right common femoral: 2.9 mm Left common iliac: 4.4 mm Left external iliac: 1.7 mm Left common femoral: 2.4 mm Tortuosity on the right: 20 degrees/cm Tortuosity on the left: 21 degrees/cm NON-VASCULAR FINDINGS Liver: Normal size and attenuation without lesions. Bile ducts: Nondilated. Gallbladder: Status post cholecystectomy. Pancreas: Normal attenuation without ductal dilatation. Spleen: Splenules at the superior aspect of the spleen. Otherwise normal. Adrenals: Normal. Kidneys: Normal. Urinary Bladder: Normal. Lymph Nodes: No enlarged lymph nodes. Bowel: Nondilated, no wall thickening. ?? Peritoneum and retroperitoneum: No hemorrhage. No pneumoperitoneum. No fluid collection or mesenteric inflammation. Abdominal wall: Normal. Reproductive organs: Normal contours. Osseous structures: No suspicious lesions. Resulting Agency Comment Unexpected Finding Magdiel Gomez MD IMG CT ORDERABLES * (ABNORMAL) CT Cardiac for Morphology & Function (06/08/2023 8:47 AM EDT) Anatomical Region Laterality Modality Chest, Cardiac Computed Tomogra phy Impressions 06/08/2023 12:49 PM EDT Pre-TAVR measurements as above. UNEXPECTED FINDING of a pulmonary embolus in a right lower lobe subsegmental pulmonary artery. Findings called by Dr. Otoniel Valenzuela and discussed with MESSI Gandhi at 06/08/2023 12:42 PM. I verified that she understood these results. Excessive dynamic airway collapse and mosaic pattern throughout both lungs consistent with diffuse air trapping. I have personally reviewed the image(s) and the resident's interpretation and agree with the findings, Alesia Valenzuela MD at 06/08/2023 12:49 PM Thank you for letting us participate in the care of this patient. ??If you are a health care provider and have any questions regarding this report, please contact the number below. ??For patients who have questions please contact the health managed care nurse that requested your imaging first. ? Electronically signed by: Alesia Valenzuela MD, [facility] ([phone]), at 06/08/2023 12:49 PM Narrative 06/08/2023 12:49 PM EDT EXAMINATION: CT CARDIAC FOR MORPHOLOGY & FUNCTION CLINICAL HISTORY: TAVR screening, aortic annular sizing and calcification COMPARISON: 02/25/2010 TECHNIQUE: After timing bolus, 0.6 mm thick axial contiguous sections were obtained through the heart via ECG-gated helical acquisition during intravenous administration of 96.8 cc Omnipaque 350. (CTA abdomen and pelvis is reported separately.) 3D post-processing was performed on an independent computer workstation including multiplanar MIP reconstructions. FINDINGS: Aortic valve: Imaging phase: 35% Calcification of leaflets: Tricuspid, trileaflet aortic valve. Aortic valve leaflet calcium score of 3034. Annulus: Imaging phase: 35% Diameters: 19.1 mm x 26.4 mm Area: 400 mm2 Circumference: 73 mm Calcification: Focal coarse calcification at the junction between the left and the noncoronary aspect. Sinotubular junction: Imaging phase: 35% Effacement: Not effaced. Diameters: 30.3 mm x 32.5 mm Area: 768 mm2 Circumference: 99 mm Calcification: Moderate calcification at the right and left coronary aspect. Sinus of Valsalva Width: Imaging phase: 35% Width: 39.0 mm Uzyikde-vy-buttnycr height: Imaging phase: 95% Left: 12.5 mm Right: 13.1 mm Max ascending aortic diameter: 45.9 mm Suggested fluoroscopic angulation based on line extending through the nadirs of the three sinuses of Valsalva, set equidistant: ?? Anterior oblique plane: KIRSTIN Anterior oblique angulation: 10 Craniocaudal plane: CAU Craniocaudal angulation: 4 Other cardiovascular structures: Severe calcifications at the mitral annulus. Moderate coronary artery atherosclerotic calcifications. There is a pulmonary arterial embolus in a right lower lobe subsegmental pulmonary artery (series 7 image 119). Pulmonary parenchyma, airways, pleura: Mosaic pattern throughout both lungs consistent with areas of air trapping. Note is made of a slitlike narrowing of the right bronchus as well as narrowing of the left bronchus. This indicates excessive dynamic airway collapse. Upper abdomen: See separately reported CTA abdomen and pelvis. Body wall soft tissues: Sequela of left mastectomy. Skeletal structures: No significant findings. Resulting Agency Comment Unexpected Finding Magdiel Gomez MD IMG CT ORDERABLES documented in this encounter Visit Diagnoses Diagnosis Aortic valve stenosis, etiology of cardiac valve disease unspecified documented in this encounter Administered Medications Inactive Administered Medications - up to 3 most recent administrations Medication Order MAR Action Action Date Dose Rate Site iohexoL (Omnipaque) (350 mg/mL) solution 0-200 mL 0-200 mL, Intravenous, ONCE PRN, 1 dose, Starting on Wed06/08/23 at 0855, Until Wed06/08/23 at 0855, Per Protocol, Warning Vesicant/Irritant Medication , Radiology Contrast, Routine Given 06/08/2023 8:55 AM EDT 97 mLs documented in this encounter Care Teams Traffic Operations Manager Relationship Specialty Start Date End Date Giedon Becerra MD [address] [place] [id number] PCP - General Family Medicine 03/31/23 documented as of this encounter
--- OUTSIDE RECORDS SUMMARY | 2024-06-23 16:25 | XMS_ITS | Encounter Summary ---
Author Organization [facility] Address [facility] [place] [address] Care Team Providers Care Fowl Blood Tester Name Role Phone Gill Murphy MD Primary Care Provider [phone] Reason for Visit * Reason Comments Skin Check Encounter Details Date Type Department Care Team (Late st Contact Info) Description 10/11/2017 1:15 PM EST Office Visit Dermatology at [address] [place] [address] Lopez Drummond MD [address] [facility] [place] [address] Psoriasis Social History Tobacco Use Types Packs/Day Years Used Date Smoking Tobacco: Former Smokeless Tobacco: Never Alcohol Use Standard Drinks/Week Comments No 0 (1 standard drink = 0.6 oz pur e alcohol) Not since 1974 Sex and Gender Information Value Date Recorded Sex Assigned at Not on file Gender Identity Not on file Sexual Orientation Not on file documented as of this encounter Progress Notes * Lopez Drummond MD - 10/11/2017 1:15 PM EST PROBLEM: Scalp dermatitis. Roxanne is a 77-year-old woman, who since January has had an itchy spot on the left supra-auricular temporal scalp. She states that she was given ketoconazole shampoo, which she would put on and leave on for extended periods of time, but with no benefit. She was seen by Dr. Murphy, who referred her today for further evaluation and treatment. Patient states that she has no dermatitis elsewhere. There is no family history of psoriasis. She has no lesions in the elbows or knees. Physical examination reveals a pleasant 77-year-old woman who has thickened plaque of psoriasis, perhaps quarter-sized, above and behind her left ear, in the temporal scalp. She has patchy erythema and very mild scaling throughout the scalp, and a small erythematous patch on the left nasal sidewall, consistent with mild sebopsoriasis. She has not had any involvement in the glabella and the conchal bowls of the ears nor along the nasolabial folds or nasal ala creases/berlin. She has no pitting of her nails. ASSESSMENT AND PLAN: 1. Psoriasis, localized. a. Reviewed patient's medications, and the most recent medication is losartan. I do not suspect it is a trigger for psoriasis, nor would her other medications of longstanding be likely triggers for her psoriasis. b. Recommend that we begin topical treatment with fluocinonide cream 0.05%, apply to affected areas of scalp on a b.i.d. basis. c. As dermatitis begins to clear, may taper down and often just use on a p.r.n. basis. Fifteen grams will be called into [facility] in [place], [place]. d. Patient had initially used ketoconazole shampoo, and then has been using Head and Shoulders, with good control of her scalp itching. Continue this, but have a second shampoo, perhaps Selsun Blue with which to alternate every 2 weeks with her Head and Shoulders. e. I have asked the patient to contact me with her progress in about a month or so. May need to increase strength of topical corticosteroid if not seeing improvement with scalp psoriasis. cc: Gill Murphy MD documented in this encounter Plan of Treatment Not on file documented as of this encounter Visit Diagnoses Diagnosis Psoriasis Other psoriasis documented in this encounter Care Teams Fowl Blood Tester Relationship Specialty Start Date End Date Gill Murphy MD [address] [place] [address] PCP - General 09/16/10 03/30/23 documented as of this encounter
--- OUTSIDE RECORDS SUMMARY | 2024-06-23 16:25 | XMS_ITS | Encounter Summary ---
Author Organization [facility] [place] [address] Care Team Providers Care Chainstitch Hemmer Name Role Phone Gideon Becerra MD Primary Care Provider [phone] Reason for Referral * Consultation (Urgent) - Closed Specialty Diagnoses / Procedures Referred By Contac t Referred To Contact Cardiology Diagnoses Aortic valve stenosis, etiology of cardiac valve disease unspecified STRUCTURAL CARD TAVR w/up Gideon Becerra MD [address] [place] [address] [facility] Cardiology [address] [place] [phone] Referral ID Status Reason Start Date Expiration Date V isits Requested Visits Authorized [id number] Closed Consult, Test & Treat PCP Updated and/or Approved 03/31/2023 03/30/2024 6 6 Encounter Details Date Type Department Care Team (Latest Contact Info) Description 03/31/2023 Transcribe Orders eDH Incoming Referrals [phone] Gideon Becerra MD [address] [place] [address] Aortic valve stenosis, etiology of cardiac valve disease unspecified Social History Tobacco Use Types Packs/Day Years [...] as of this encounter Plan of Treatment Scheduled Referrals Name Type Priority Associated Diagnoses Orde r Schedule Amb Ref To Thoracic Surgery Outpatient Referral Urgent Aortic valve stenosis, etiology of cardiac valve disease unspecified Ordered: 03/31/2023 documented as of this encounter Visit Diagnoses Diagnosis Aortic valve stenosis, etiology of cardiac valve disease unspecified documented in this encounter Care Teams Chainstitch Hemmer Relationship Specialty Start Date End Date Gideon Becerra MD [address] [place] [id number] PCP - General Family Medicine 03/31/23 documented as of this encounter
--- OUTSIDE RECORDS SUMMARY | 2024-06-23 16:25 | XMS_ITS | Encounter Summary ---
[place] [address] Care Team Providers Care Radius Grinder Name Role Phone Gideon Becerra MD Primary Care Provider [phone] Encounter Details Date Type Department Care Team (Latest Contact Info) Description 06/08/2023 Travel Social History Tobacco Use Types Packs/Day [...] on filedocumented in this encounter Care Teams Radius Grinder Relationship Specialty Start Date End Date Gideon Becerra MD [address] [place] [address] PCP - General Family Medicine 03/31/23 documented as of this encounter
--- OUTSIDE RECORDS SUMMARY | 2024-06-23 16:25 | XMS_ITS | Encounter Summary ---
Author Organization [facility] Address [facility] [place] [address] Care Team Providers Care Damage Inside Adjuster Name Role Phone Gill Murphy MD Primary Care Provider [phone] Reason for Visit * Reason Comments Spots and/or Floaters The patient presen ts for consultation regarding an epiretinal membrane in the left eye. CBC M.DEricka Eye Problem sent by dr. prashant bowles Encounter Details Date Type Department Care Team (Late st Contact Info) Description 01/24/2013 1:30 PM EDT Office [place] [address] Mitch Rios MD [facility] [address] [place] [address] Macular pucker, left eye. No evidence of vitreal macular traction syndrome. (Primary Dx); Nuclear sclerosis; Blepharitis Discharge Disposition: Home Social History Tobacco Use [...] as of this encounter Progress Notes * Mitch Rios MD - 01/24/2013 8:09 PM EDT January 24, 2013 Mukesh De La Rosa OD Bass Viol Repairer [address] [facility], [address] [place] [address] RE: Roxanne Pollack A#: [id number] De La Rosa: Thank you for asking me to provide consultation for your patient, Roxanne Pollack, whom I saw on 01/24/2013. As you know, she is a delightful 72-year-old patient in whom you detected an epiretinal membrane in the left eye. You secured consultation given these findings and for possible management. The patient presents with a chief complaint of the scotoma involving the left side of her temporal field in the left eye. This is a small area associated with metamorphopsia. Apart from this, she indicates that she is able to perform her activities of daily living safely and there are no other significant concerns. Her past ophthalmic history is notable for horizontal binocular diplopia beginning eight years ago. Roxanne presented today measuring 20/20 in the right eye. In the left eye, she measured 20/50 -2 at distance and 20/40 +2 at near. Intraoperative pressures were 15 right eye and 14 left eye. Slit-lamp examination revealed early nuclear sclerosis. Posterior segment examination of the right eye was unremarkable. In the left eye, she has a mild epiretinal membrane without signs of vitreomacular traction or aldo macular hole formation. Very importantly, the peripheral examination did not reveal any holes, tears, or other high-risk pathology which would account for the presence of this epiretinal membrane. Ocular coherence tomography. The patient left prior to undergoing scanning. Impression: 1. 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 2. Early nuclear sclerosis. 3. Mild blepharitis. I discussed with Roxanne all of my findings and concerns today. She is in agreement to return to see me in six months or sooner should she notice any rapid decrease in vision. Importantly, I did not see any peripheral pathology to account for the presence of this membrane and hence it is idiopathic. If, however, she has any safety concerns or her vision becomes significantly worse, then I would like to see her sooner. I have asked Roxanne to be sure to see you as scheduled for continuity of care later in the year as well. Thank you kindly for asking me to provide consultation for this nice patient. Respectfully, Mitch Rios M.D. ADDENDUM Please note also that an educational brochure detailing macular pucker as well as its natural history and surgical indications for repair were carefully and thoroughly reviewed. documented in this encounter Plan of Treatment Not on file documented as of this encounter Visit Diagnoses Diagnosis Macular pucker, left eye. No evidence of vitreal macular traction syndrome.- Primary Macular puckering of retina Nuclear sclerosis Senile nuclear sclerosis Blepharitis Blepharitis, unspecified documented in this encounter Care Teams Damage Inside Adjuster Relationship Specialty Start Date End Date Gill Murphy MD [address] [place] [id number] PCP - General 09/16/10 03/30/23 documented as of this encounter
--- OUTSIDE RECORDS SUMMARY | 2024-06-23 16:25 | XMS_ITS | Encounter Summary ---
Author Organization [facility] [place] [address] Care Team Providers Care Media Developer Name Role Phone Gideon Becerra MD Primary Care Provider Encounter Details Date Type Department Care Team (Late st Contact Info) Description 06/08/2023 10:00 AM EDT Office Visit Cardiology at [address] [phone] Aortic valve stenosis, etiology of cardiac valve disease unspecified Social History Tobacco Use Types Packs/Day Years Used Date Smoking Tobacco: Former Cigarettes Q uit: 1974 Smokeless Tobacco: Never Alcohol Use Standard Drinks/Week Comments No 0 (1 standard drink = 0.6 oz pur e alcohol) Not since 1974 [facility] Inpatient Questions Answer Date Recorded Does [...] Date/Time Associated Diagnosis Comments EKG 12-LEAD Routine 06/08/2023 10:21 AM EDT Aortic valve stenosis, etiology of cardiac valve disease unspecified documented in this encounter Results * EKG 12 Lead (06/08/2023 10:21 AM EDT) Ventricular rate 68 BPM MUSE SYSTEM Atrial Rate 68 BPM MUSE SYSTEM P-R Interval 166 ms MUSE SYSTEM QRS Duration 98 ms MUSE SYSTEM Q-T Interval 408 ms MUSE SYSTEM QTC Calculated (Bezet) 433 ms MUSE SYSTEM Calculated P [place] 56 degrees MUSE SYSTEM Calculated R [place] 14 degrees MUSE SYSTEM Calculated T [place] 10 degrees MUSE SYSTEM INTERPRETATION Normal sinus rhythm Minimal voltage criteria for LVH, may be normal variant ( [place]i product ) Borderline ECG No previous ECGs available I personally reviewed the tracing and edited the fellows interpretation Confirmed by fellow Terry Weiner ([id number]) on 06/08/2023 3:04:40 PM Confirmed by MD Ni, Isha ([id number]) on 06/08/2023 4:56:30 PM MUSE SYSTEM 06/08/2023 10:2 1 AM EDT 06/08/2023 4:56 PM EDT Magdiel Gomez MD ECG ORDERABLES MUSE SYSTEM documented in this encounter Visit Diagnoses Diagnosis Aortic valve stenosis, etiology of cardiac valve disease unspecified documented in this encounter Care Teams Media Developer Relationship Specialty Start Date End Date Gideon Becerra MD [address] [place] [address] PCP - General Family Medicine 03/31/23 documented as of this encounter
--- OUTSIDE RECORDS SUMMARY | 2024-06-23 16:25 | XMS_ITS | Encounter Summary ---
Author Organization [facility] Address [facility] [place] [address] Care Team Providers Care Veterinarian Small Animal Name Role Phone Gill Murphy MD Primary Care Provider [phone] Reason for Visit * Reason Comments Epiretinal Membrane The patient returned for followup consultation regarding macular pucker in the left eye. TRAVIS Stearns Encounter Details Date Type Department Care Team ([facility] st Contact Info) Description 08/01/2013 2:00 PM EDT [place] [address] Mitch Rios MD [facility] [place] [address] Macular pucker, left eye; Blepharitis; Nuclear sclerosis Discharge Disposition: Home Social History Tobacco Use [...] Progress Notes * Mitch Rios MD - 08/01/2013 11:33 PM EDT After review of the risks and benefits of surgery as well as the patient's visual symptoms and the OCT scan, we have collectively decided to strongly consider vitrectomy membrane peeling in the left eye. We will call the patient to review of the risks and benefits of surgery and schedule surgery sometime in the next several weeks. The patient understands that she may very well need cataract surgery after macular pucker removal CLARIFICATION NEEDED: PLEASE CHECK DICTATED REMINDER AND 1 BLANK The patient to be called with imaging studies and to discuss risks and benefits of surgery. Once the patient contacted, we will inform <___> Rj, regarding final plans for this patient. documented in this encounter Plan of Treatment Not on file documented as of this encounter Procedures Procedure Name Priority Date/Time Associated Diagnosis Comments OCT RETINA - OS - LEFT EYE Routine 08/01/2013 11:33 PM EDT Macular pucker, left eye documented in this encounter Results * OCT Searhv-PU-ACFW EYE (08/01/2013 11:33 PM EDT) Anatomical Region Laterality Modality Other Mitch Rios MD OPHTHALMOLOGY S [facility] ORDERABLES documented in this encounter Visit Diagnoses Diagnosis Macular pucker, left eye Macular puckering of retina Blepharitis Blepharitis, unspecified Nuclear sclerosis Senile nuclear sclerosis documented in this encounter Care Teams Veterinarian Small Animal Relationship Specialty Start Date End Date Gill Murphy MD [address] [place] [address] PCP - General 09/16/10 03/30/23 documented as of this encounter
--- OUTSIDE RECORDS SUMMARY | 2024-06-23 16:25 | XMS_ITS | Encounter Summary ---
Author Organization [facility] Address [facility] [place] [address] Care Team Providers Care Remote Sensing Surveyor Name Role Phone Gideon Becerra MD Primary Care Provider [phone] Encounter Details Date Type Department Care Team (Late st Contact Info) Description 01/07/2004 [place] [address] Madai Ridley MD [facility] DIAGNOST[place] [address] Social History Tobacco Use Types Packs/Day Years Used Date Smoking Tobacco: Never Assessed [facility] Inpatient Questions Answer Date Recorded [...] Priority Date/Time Associated Diagnosis Comments SURGICAL PATHOLOGY REPORT Routine 01/07/2004 12:18 PM EST documented in this encounter Results * Surgical Pathology Report (01/07/2004 12:18 PM EST) Surgical Pathology Report [id number] ? Location: OPW The signing pathologist has (i) examined the relevant preparation(s) for the specimen(s) and (ii) rendered or confirmed the diagnosis(es). . ?Pathology Surgical Pathology Final Report Clinical Information Specimen Submitted: A - Rt breast, breast biopsy. Clinical History: Calcs, lows susp. CD: Adenosis, FCD, DCIS. Report to: Phan Hardin MD [facility] [address] [place] [address] Gross Description Specimen: ?Received in two containers. 1 - Labeled/Fixativ e: ??Right breast with calcifications, formalin. Qty/Size/Weight : ? Multiple needle core biopsies, 0.4 x 0.3 cm to ? 2.3 x 0.3 cm. ??Soft, martin-yellow to red, hemorrhagic, ? fibrofatty tissue. Sections/Proces sing: ?? Submitted in (1-2). 2 - Labeled/Fixativ e: ??Right breast no calcs, formalin. Qty/Size/Weight : ? Three needle core biopsies, 0.4 x 0.2 cm to ? 1 x 0.2 cm. ??Soft, martin-yellow to red, hemorrhagic, ? fibrofatty tissue. Sections/Proces sing: ?? Submitted in (3). ??(T3) ??aje/SNS Microscopic Description Slides reviewed, microscopic description not recorded. Diagnosis Needle biopsies: ?Right breast. Diagnosis: ?Fat and atrophic breast tissue Microcalcificat ions: ??Identified in benign ducts CR-0 01/08/04 VAM 01/08/04 Verified by: ? Chong Black MD ?Pathologist ?(Electronic Signature) The attending pathologist whose signature appears on this report has reviewed all diagnostic slides and has edited the gross and/or microscopic portion of the report in rendering the final pathologic diagnosis. Comment Multiple deeper levels are performed and reviewed on block A1. DAPHNEY AVALOS 01/07/2004 12:1 8 PM EST Maadi Ridley MD PATHOLOGY/CYTOLOGY O RDERABLES DAPHNEY AVALOS documented in this encounter Visit Diagnoses Not on filedocumented in this encounter Care Teams Remote Sensing Surveyor Relationship Specialty Start Date End Date Gideon Becerra MD [address] [place] [address] PCP - General Family Medicine 03/31/23 documented as of this encounter
--- OUTSIDE RECORDS SUMMARY | 2024-06-23 16:25 | XMS_ITS | Encounter Summary ---
Author Organization [facility] Address [facility] [place] [address] Care Team Providers Care Electrical Engineering Draftsperson Name Role Phone Gill Murphy MD Primary Care Provider [phone] Reason for Referral * Consultation (Routine) - Closed Specialty Diagnoses / Procedures Referred By Contac t Referred To Contact Cardiology Diagnoses Nonrheumatic aortic (valve) stenosis Nonrheumatic aortic (valve) stenosis STRUCTURAL CARD Severe , would like to be considered for valve replacement. OPAL-on CPAP, mod COPD that is well controlled. SAUCEDA fatigue, feeling lightheaded w/ exertion. Echo 03/25/23 shows severe , severe mitral annular calcification, preserved EF 50-55%, mildly dilated L atrium, RVSP 28mmHg. Sophie Freeman PA [address] [place] [address] Magdiel Gomez MD [facility] [place] [address] Referral ID Status Reason Start Date Expiration Date V isits Requested Visits Authorized [id number] Closed Consult, Test & Treat PCP Updated and/or Approved 03/26/2023 03/25/2024 1 1 Encounter Details Date Type Department Care Team (Latest Contact Info) Description 03/26/2023 Transcribe Orders eDH Incoming Referrals [phone] Sophie Freeman PA [address] [place], [place] [id number] Severe aortic stenosis; Nonrheumatic aortic (valve) stenosis Social History Tobacco Use Types Packs/Day Years [...] Scheduled Referrals Name Type Priority Associated Diagnoses Order Schedule Amb Referral to Structural Heart Outpatient Referral Routine Nonrheumatic Aortic (Valve) Stenosis Ordered: 03/26/2023 documented as of this encounter Visit Diagnoses Diagnosis Severe aortic stenosis Aortic valve disorders Nonrheumatic aortic (valve) stenosis documented in this encounter Care Teams Electrical Engineering Draftsperson Relationship Specialty Start Date End Date Gill Murphy MD [address] [place] [address] PCP - General 09/16/10 03/30/23 documented as of this encounter
--- OUTSIDE RECORDS SUMMARY | 2024-06-23 16:25 | XMS_ITS | Encounter Summary ---
Author Organization [facility] Address [facility] [place] [address] Care Team Providers Care Logging Assistant Name Role Phone Gill Murphy MD Primary Care Provider [phone] Reason for Visit * Reason Comments Post Op 1 day s/ p PPV/MP OS 08/28/2013 Encounter Details Date Type Department Care Team (Late st Contact Info) Description 08/29/2013 10:30 AM EST [place] [address] Mitch Rios MD [facility] DR [place] [address] Nuclear sclerosis; Macular pucker, left eye Discharge Disposition: Home Social History Tobacco Use [...] Progress Notes * Mitch Rios MD - 09/24/2013 10:58 AM EST Stable POD1 1 week or aminata prn PF and Vigamox qid. Cosopt bid documented in this encounter Plan of Treatment Not on file documented as of this encounter Visit Diagnoses Diagnosis Nuclear sclerosis Senile nuclear sclerosis Macular pucker, left eye Macular puckering of retina documented in this encounter Care Teams Logging Assistant Relationship Specialty Start Date End Date Gill Murphy MD [address] [place] [address] PCP - General 09/16/10 03/30/23 documented as of this encounter
--- OUTSIDE RECORDS SUMMARY | 2024-06-23 16:25 | XMS_ITS | Encounter Summary ---
Author Organization [facility] [place] [address] Care Team Providers Care Principal Architect Name Role Phone Gideon Becerra MD Primary Care Provider [phone] Reason for Referral * Diagnostic Test (Routine) - Closed Specialty Diagnoses / Procedures Referred By Contac t Referred To Contact Radiology Diagnoses Aortic valve stenosis, etiology of cardiac valve disease unspecified Procedures CT Angiogram Abdomen & Pelvis w Contrast (Generic) Magdiel Gomez MD [facility] [place] [address] [facility] [place] [address] Referral ID Status Reason Start Date Expiration Date V isits Requested Visits Authorized [id number] Closed Specialty Service Requested 04/06/2023 10/06/2024 1 1 * Diagnostic Test (Routine) - Closed Specialty Diagnoses / Procedures Referred By Contac t Referred To Contact Radiology Diagnoses Aortic valve stenosis, etiology of cardiac valve disease unspecified Procedures CT Cardiac for Morphology & Function Magdiel Gomez MD [facility] [place] [address] [facility] [place] [address] Referral ID Status Reason Start Date Expiration Date V isits Requested Visits Authorized [id number] Closed Specialty Service Requested 04/06/2023 10/06/2024 1 1 Encounter Details Date Type Department Care Team (Late st Contact Info) Description 04/06/2023 Orders Only Cardiology at [address] [address] Magdiel Gomez MD [facility] [place] [address] Aortic valve stenosis, etiology of cardiac valve [...] documented as of this encounter Results * XR Chest PA & Lateral (Generic) (06/08/2023 11:29 AM EDT) Anatomical Region Laterality Modality Chest N/A Digital Radiogra phy Impressions 06/08/2023 11:49 AM EDT Clear lungs Dilated/aneurysmal ascending aorta I have personally reviewed the image(s) and the resident's interpretation and agree with the findings, Lito Mcdermott MD at 06/08/2023 11:49 AM Thank you for letting us participate in the care of this patient. ??If you are a health care provider and have any questions regarding this report, please contact the number below. ??For patients who have questions please contact the health respiratory care faculty that requested your imaging first. ? Electronically signed by: Lito Mcdermott MD, Radiology [place] ??([phone]), at 06/08/2023 11:49 AM Narrative 06/08/2023 11:49 AM EDT EXAMINATION: XR CHEST PA AND LATERAL (GENERIC) CLINICAL HISTORY: TAVR screening TECHNIQUE: PA and lateral views of the chest, 2 images COMPARISON: CT chest 06/08/2023 FINDINGS: The cardiac silhouette is normal in size however the descending aorta is dilated/aneurysmal. The lungs are clear. No pleural effusion or pneumothorax. Procedure Note Lito Mcdermott MD - 06/08/2023 EXAMINATION: XR CHEST PA AND LATERAL (GENERIC) CLINICAL HISTORY: TAVR screening TECHNIQUE: PA and lateral views of the chest, 2 images COMPARISON: CT chest 06/08/2023 FINDINGS: The cardiac silhouette is normal in size however the descending aorta is dilated/aneurysmal. The lungs are clear. No pleural effusion or pneumothorax. IMPRESSION Clear lungs Dilated/aneurysmal ascending aorta I have personally reviewed the image(s) and the resident's interpretationand agree with the findings, Lito Mcdermott MD at 06/08/2023 11:49 AM Thank you for letting us participate in the care of this patient. If youare a health care provider and have any questions regarding this report,please contact the number below. For patients who have questions please contactthe health respiratory care faculty that requested your imaging first. Electronically signed by: Lito Mcdermott MD, [facility]([phone]), at 06/08/2023 11:49 AM Magdiel Gomez MD IMG DX ORDERABLES * EKG 12 Lead (06/08/2023 10:21 AM EDT) Ventricular rate 68 BPM MUSE SYSTEM Atrial Rate 68 BPM MUSE SYSTEM P-R Interval 166 ms MUSE SYSTEM QRS Duration 98 ms MUSE SYSTEM Q-T Interval 408 ms MUSE SYSTEM QTC Calculated (Bezet) 433 ms MUSE SYSTEM Calculated P [place] 56 degrees MUSE SYSTEM Calculated R [place] 14 degrees MUSE SYSTEM Calculated T [place] 10 degrees MUSE SYSTEM INTERPRETATION Normal sinus rhythm Minimal voltage criteria for LVH, may be normal variant ( [place] product ) Borderline ECG No previous ECGs available I personally reviewed the tracing and edited the fellows interpretation Confirmed by fellow Terry Weiner ([id number]) on 06/08/2023 3:04:40 PM Confirmed by MD Ni, [place] ([id number]) on 06/08/2023 4:56:30 PM MUSE SYSTEM 06/08/2023 10:2 1 AM EDT 06/08/2023 4:56 PM EDT Magdiel Gomez MD ECG ORDERABLES MUSE SYSTEM * (ABNORMAL) CT Angiogram Abdomen & Pelvis [...] who have questions please contact the health respiratory care faculty that requested your imaging first. ? Electronically signed by: Lianne Liu MD, [facility] ([phone]), at 06/08/2023 4:43 PM --------ORIGINAL REPORT -------- [...] who have questions please contact the health respiratory care faculty that requested your imaging first. ? Electronically signed by: Lianne Liu MD, [facility] ([phone]), at 06/08/2023 2:46 PM Impressions 06/08/2023 2:46 [...] who have questions please contact the health respiratory care faculty that requested your imaging first. ? Electronically signed by: Lianne Liu MD, [facility] ([phone]), at 06/08/2023 2:46 PM Narrative 06/08/2023 2:46 [...] who have questions please contact the health respiratory care faculty that requested your imaging first. ? Electronically signed by: Alesia Valenzuela MD, [facility] ([phone]), at 06/08/2023 12:49 PM Narrative 06/08/2023 12:49 [...] Width: Imaging phase: 35% Width: 39.0 mm [id number] height: Imaging phase: 95% Left: 12.5 mm [...] etiology of cardiac valve disease unspecified- Primary Aortic valve stenosis, etiology of cardiac valve disease unspecified Aortic valve stenosis, etiology of cardiac valve disease unspecified documented in this encounter Care Teams Principal Architect Relationship Specialty Start Date End Date Gideon Becerra MD [address] [place] [address] PCP - General Family Medicine 03/31/23 documented as of this encounter
--- OUTSIDE RECORDS SUMMARY | 2024-06-23 16:25 | XMS_ITS | Encounter Summary ---
Author Organization [facility] Address [place] [address] Care Team Providers Care Pharmacy Clinical Specialist Name Role Phone Gill Murphy MD Primary Care Provider [phone] Encounter Details Date Type Department Care Team (Late st Contact Info) Description 10/11/2017 Refill Dermatology at [address] [place] [address] Karolina Zacarias, WRISTER Social History Tobacco Use Types Packs/Day Years [...] on filedocumented in this encounter Care Teams Pharmacy Clinical Specialist Relationship Specialty Start Date End Date Gill Murphy MD [address] [place], [place] [id number] PCP - General 09/16/10 03/30/23 documented as of this encounter
--- OUTSIDE RECORDS SUMMARY | 2024-06-23 16:25 | XMS_ITS | Encounter Summary ---
Author Organization [facility] Address [facility] [place] [address] Care Team Providers Care Knot Tying Operator Name Role Phone Gill Murphy MD Primary Care Provider [phone] Reason for Visit * Reason Comments Macular Pucker 4-mon s/p PPV/MP VTX /CE-IOL-OS CBC Encounter Details Date Type Department Care Team (Late st Contact Info) Description 01/25/2015 2:30 PM EDT [place] [address] Mitch Rios MD [facility] [address] [place] [address] Macular pucker, left eye Discharge Disposition: Home [...] Progress Notes * Mitch Rios MD - 01/25/2015 3:01 PM EDT Status post vitrectomy membrane peeling left eye. Small recurrent or persistent membrane of centralmacula Patient has respectable vision in the left eye. However, persistent or recurrent hemorrhage especially seen in vertical meridians on spectral domain imaging. Still retinal thickening. Return 8-10 weeks. If decrease in vision or progression or other features, then we may wish to consider repeat vitrectomy membrane peeling Call if decrease in vision or other changes. Please note the patient expresses decreased vision despite cataract surgery in the left eye. This has been progressive loss. documented in this encounter Plan of Treatment Not on file documented as of this encounter Procedures Procedure Name Priority Date/Time Associated Diagnosis Comments OCT RETINA - OS - LEFT EYE Routine 01/25/2015 3:03 PM EDT Macular pucker, left eye documented in this encounter Results * OCT Otgfql-QL-QRQX EYE (01/25/2015 3:03 PM EDT) Anatomical Region Laterality Modality Other Narrative 01/25/2015 3:03 PM EDT This imaging study is indicated by virtue the patient's epiretinal membrane in the left eye and to evaluate postsurgical changes. Patient noted decrease in vision as well. Examination reveals persistence or recurrent epiretinal membrane which is mild but still with retinal thickening. Correlation advised. Mitch Rios M.D. Mitch Rios MD OPHTHALMOLOGY S ERVIC ORDERABLES documented in this encounter Visit Diagnoses Diagnosis Macular pucker, left eye Macular puckering of retina documented in this encounter Care Teams Knot Tying Operator Relationship Specialty Start Date End Date Gill Murphy MD [address] [place] [address] PCP - General 09/16/10 03/30/23 documented as of this encounter
--- OUTSIDE RECORDS SUMMARY | 2024-06-23 16:25 | XMS_ITS | Encounter Summary ---
Author Organization [facility] Address [facility] [place] [address] Care Team Providers Care Bank Advisor Name Role Phone Gideon Becerra MD Primary Care Provider [phone] Encounter Details Date Type Department Care Team (Late st Contact Info) Description 04/06/2023 Notes Only Cardiology at [address] [place] [address] Brooks Cortez RN Social History Tobacco Use Types Packs/Day [...] as of this encounter Progress Notes * Brooks Cortez RN - 04/06/2023 8:58 AM EDT Ms. Pollack is referred by Sophie SWENSON for consideration of treatment options for severe, symptomatic, aortic stenosis; please refer to notes in media section for detailed history and assessment. In brief, the patient has been followed for known aortic stenosis which by echo is now severe. She isexperiencing fatigue, lightheadedness and dyspnea on exertion. Her history includes the following: ; HTN; HLD; COPD; OPAL on CPAP; Left breast Cancer s/p mastectomy; Hypothyroidism and Obesity. Echo 03/25/2023: EF 55%; GINA 1.1; Gr 66/40; Mild AR; Trace TR Labs: No records available STS: 5.40 Plan: Schedule SDM clinic, diagnostics and frailty assessment. documented in this encounter Plan of Treatment Not on file documented as of this encounter Visit Diagnoses Not on filedocumented in this encounter Care Teams Bank Advisor Relationship Specialty Start Date End Date Gideon Becerra MD [address] [place] [address] PCP - General Family Medicine 03/31/23 documented as of this encounter
--- OUTSIDE RECORDS SUMMARY | 2024-06-23 16:25 | XMS_ITS | Encounter Summary ---
Author Organization [facility] Address [facility] [place] [address] Care Team Providers Care Central Office Operator Supervisor Name Role Phone Gill Murphy MD Primary Care Provider [phone] Encounter Details Date Type Department Care Team (Late st Contact Info) Description 08/28/2013 5:52 AM EST - 08/28/2013 9:54 AM EST Hospital Encounter [place] [id number] Mitch Carballo MD [facility] [place] [address] Discharge Disposition: Home Social History Tobacco Use [...] Sign Reading Time Taken Comments Blood Pressure 169/93 08/28/2013 9:19 AM EST Pulse 62 08/28/2013 9:19 AM EST Temperature 36.6 ??C (97.9 ??F) 08/28/2013 8:53 AM ES T Respiratory Rate 16 08/28/2013 9:19 AM EST Oxygen Saturation 95% 08/28/2013 9:19 AM EST Inhaled Oxygen Concentration - - Weight 78.9 kg (174 lb) 08/28/2013 6:05 AM EST Height 154.9 cm (5' 1) 08/28/2013 6:05 AM EST Body Mass Index 32.88 08/28/2013 6:05 AM EST documented in this encounter Discharge Instructions * Discharge Instructions* Bria Gray RN - 08/28/2013 9:26 AM EST Images from the original note were not included. POST ANESTHESIA INSTRUCTIONS Go home, rest, use caution on stairs. Change positions slowly. Do not smoke if you are alone. Diet light to regular as tolerated today. If nausea occurs start with clear liquids and progress slowly. No driving, operating machinery, alcoholic beverages and no important decisions for 24 hours. Monitor IV site for signs and symptoms of infection: increasing redness, swelling, foul drainage, if occurs contact M.D. Patients who have had endotrachial tubes (this tube, used by anesthesia department, is passed down your throat after you are asleep, to ensure safe air passage during your operation). A sore throat is normal due to the tube. Cold liquids or soothing lozenges will help ease the discomfort. The generalized muscle aches are due to the medication given to you just before the tube is inserted. As the medication wears off, you may develop muscle soreness, which usually goes away in 12-24 hours. SAME DAY PROGRAM POST-OPERATIVE INSTRUCTIONS CARE OF THE EYE 1. Do not remove eye patch or shield, unless instructed to do so. 2. Take it easy today. Avoid strenuous activities. 3. Bring your eye drops and the Eye Care Kit with you to each visit after your surgery. 4. Resume all your regular medications unless told otherwise 5. It is normal to have a scratchy sensation or mild pain in your eye. If you develop vomiting or severe pain not relieved with pain medication please call. 6. If you are having any problems or have additional concerns or questions please call [phone] ask for your surgeon or the doctor stamp redemption clerk. [address] ??? [place] [address] ??? [phone] ??? [email or web address] [employer] ?[facility] ??? [place], [place] documented in this encounter Medications at Time of Discharge Medication Sig Dispensed Refills Start Date End Date levothyroxine (SYNTHROID) 112 mcg tablet Take 112 [...] 03/06/2010 07/05/2023 documented as of this encounter Progress Notes * Bria Gray RN - 08/28/2013 9:35 AM EST Same day program - 929 - Dr. Carballo in to talk with patient and son. Patient and son voice good understanding of discharge instructions. 0954 - patient discharged to home left eye dressing and shield d/i. documented in this encounter H&P Notes * Mitch Carballo MD - 08/28/2013 7:17 AM EST Update. No changes in health status including pain,SOB,chest pain. Alert oriented CV. Gr III/ murmur abd Nl Spime,MK neuro fully intact Vitrectomy OS Mitch Carballo MD documented in this encounter Miscellaneous Notes * Miscellaneous - Provider, Scanning - 08/28/2013 1:16 PM EST * Op Note - Mitch Carballo MD - 08/28/2013 8:37 AM EST [facility] Operative Note Patient Name: Roxanne Pollack : [id number] MR#: [id number] Case Date: 08/28/2013 Surgeon: Surgeon(s) and Role: * Mitch Carballo MD - Primary PREOPERATIVE DIAGNOSIS: Macular pucker, left eye. POSTOPERATIVE DIAGNOSIS: Macular pucker, left eye. SURGEON: Mitch Carballo MD ANESTHESIA: General. COMPLICATIONS: None. OPERATION PERFORMED: 1. Membrane peeling. 2. Pars plana vitrectomy. 3. Indirect laser photocoagulation of attenuated retina at 10 o'clock and 2 o'clock. OPERATIVE INDICATION: The patient is a lady with reduced visual acuity in the left eye owing to an epiretinal membrane. After careful review of the risks, benefits, precautions, alternatives, and indications, she has given informed consent recognizing possibility of retinal detachment, blindness, poor visual outcome, worsening of cataract, need for further surgery, and other complications such as glaucoma, cystoid macular edema, regrowth of the membrane, and other considerations. The patient understands that despite anatomic and careful and complete removal of the membrane that there may be chronic changes involving the underlying retina for which no therapy can be prescribed. OPERATIVE TECHNIQUE: The patient was ushered into the operating room, general anesthesia was safely established. The patient was prepped and draped in usual sterile manner using Betadine solution and sterile field technique, and the left eye was addressed. A time out was then performed collectively by the surgical and anesthesia teams and with side verification of the left eye. We divided three-port pars plana vitrectomy. Setup was accomplished, and the vitreous and hyaloid were specifically disengaged. Using a bent MVR blade. the membrane was elevated. This was then removed circumferentially and tangentially by a factor of at least three to four disk diameters away from the fovea without undue traction to the central macula or fovea. No secondary or other residual membranes were ascertained. The periphery was inspected 360 degrees. Few dark hemorrhages were noted superotemporally and treated with laser in the event that there was a small break or any traction in this area. Superonasally, an area of attenuation was also treated with indirect laser. Careful inspection 360 degrees did not reveal any other holes, tears, or other high risk pathology. The eye was then closed with 7-0 Vicryl suture, and the pressure titrated between 10 and 12 mm. The conjunctiva and Tenons were coapted followed by subconjunctival injection of Ancef and dexamethasone. Supplemental sub-Tenon anesthetic was administered at the time of closure as well as at the beginning of the case. Cosopt was placed followed by Maxitrol ointment and placement of a sterile eye patch and shield. The patient is now being gently extubated, would be discharged to recovery room for observation. She will be seen postoperative day 1. Most importantly, she is to call to me if there are any problems or questions in the postoperative period. Airway safety and venous thrombosis prevention measures will also be reviewed prior to discharge. She is to call the eye physician stamp redemption clerk if there are any problems in the overnight period. General Estimated Blood Loss: 0 Drains: 0 Disposition: awakened from anesthesia, extubated and taken to the recovery room in a stable condition, having suffered no apparent untoward event. Condition: doing well without problems (Please see the Surgical Encounter Summary for any Implant and Specimen details pertinent to this patient.) * OR Attestation - Mitch Carballo MD - 08/28/2013 8:36 AM EST Attestation: Case Date: 08/28/2013 I performed this procedure without the involvement of a resident. MITCH CARBALLO MD 08/28/2013 * Brief Op Note - Mitch Carballo MD - 08/28/2013 8:35 AM EST Brief Operative Note Patient Name: Roxanne Pollack : [id number] MR#: [id number] Case Date: 08/28/2013 Surgeon: Surgeon(s) and Role: * Mitch Carballo MD - Primary Preoperative diagnosis: MACULAR PUCKER Postoperative diagnosis: MACULAR PUCKER OS Procedure(s): VITRECTOMY, MECHANICAL PARS PLANA APPROACH Anesthesia: General Findings: ERM Complications: 0 Fluids: LR Estimated Blood Loss:0 Drains: 0 Disposition: awakened from anesthesia, extubated and taken to the recovery room in a stable condition, having suffered no apparent untoward event. Condition: doing well without problems (Please see the Surgical Encounter Summary for any Implant and Specimen details pertinent to this patient.) documented in this encounter Plan of Treatment Not on file documented as of this encounter Procedures Procedure Name Priority Date/Time Associated Diagnosis Comments VITRECTOMY, W/ MEMBRANE STRIPPING (WRVU 16.33) Yes 08/28/2013 7:31 AM EST MACULAR PUCKER VITRECTOMY, MECHANICAL PARS PLANA APPROACH (WRVU 12.13) Yes 08/28/2013 7:31 AM EST MACULAR PUCKER documented in this encounter Visit Diagnoses Not on filedocumented in this encounter Administered Medications Inactive Administered Medications - up to 3 most recent administrations Medication Order MAR Action Action Date Dose Rate Site atropine 1 % ophthalmic solution 1 drop 1 drop, Left Eye, EVERY 5 MIN, 3 doses, First dose on Wed08/28/13 at 0745, Last dose on Wed08/28/13 at 0755, Day of Surgery (Day of Procedure), Routine Given 08/28/2013 7:55 AM EST 1 drop Given 08/28/2013 7:32 AM EST 1 drop Given 08/28/2013 7:26 AM EST 1 drop moxifloxacin (VIGAMOX) 0.5 % ophthalmic solution 1 drop 1 drop, Left Eye, EVERY 5 MIN, 3 doses, First dose on Wed08/28/13 at 0745, Last dose on Wed08/28/13 at 0755, Day of Surgery (Day of Procedure), Routine Given 08/28/2013 7:55 AM EST 1 drop Given 08/28/2013 7:33 AM EST 1 drop Given 08/28/2013 7:27 AM EST 1 drop PHENYLephrine (MYDFRIN) 2.5 % ophthalmic solution 1 drop 1 drop, Left Eye, EVERY 5 MIN, 3 doses, First dose on Wed08/28/13 at 0745, Last dose on Wed08/28/13 at 0755, Day of Surgery (Day of Procedure), Routine Given 08/28/2013 7:38 AM EST 1 drop Given 08/28/2013 7:34 AM EST 1 drop Given 08/28/2013 7:30 AM EST 1 drop PHENYLephrine (MYDFRIN) 2.5 % ophthalmic solution 1 dose, Starting on Wed08/28/13 at 0720, Until Wed08/28/13 at 0723, LENKA TRAN: henriettainet override prednisoLONE acetate (PRED FORTE) 1 % ophthalmic suspension 1 drop 1 drop, Left Eye, ONCE, 1 dose, On Wed08/28/13 at 0745, Day of Surgery (Day of Procedure), Routine Given 08/28/2013 7:24 AM EST 1 drop documented in this encounter Active and Recently Administered Medications Due to Daylight Saving Time, this section may contain times in both EDT and EST. Scheduled Medication Order 08/26/2013 08/27/2013 08/28/2013 atropine 1 % ophthalmic solution 1 drop (COMPLETED) 1 drop, Left Eye, EVERY 5 MIN, 3 doses, First dose on Wed08/28/13 at 0745, Last dose on Wed08/28/13 at 0755, Day of Surgery (Day of Procedure), Routine 07 (Given - Provid er: Lenka Tran RN)0732 (Given - Provider: Lenka Tran RN)0755 (Given - Provider: Lenka Tran RN) moxifloxacin (VIGAMOX) 0.5 % ophthalmic solution 1 drop (COMPLETED) 1 drop, Left Eye, EVERY 5 MIN, 3 doses, First dose on Wed08/28/13 at 0745, Last dose on Wed08/28/13 at 0755, Day of Surgery (Day of Procedure), Routine 07 (Given - Provid er: Lenka Tran RN)0733 (Given - Provider: Lenka Tran RN)0755 (Given - Provider: Lenka Tran RN) PHENYLephrine (MYDFRIN) 2.5 % ophthalmic solution 1 drop (COMPLETED) 1 drop, Left Eye, EVERY 5 MIN, 3 doses, First dose on Wed08/28/13 at 0745, Last dose on Wed08/28/13 at 0755, Day of Surgery (Day of Procedure), Routine 0730 (Given - Provid er: Lenka Tran RN)0734 (Given - Provider: Lenka Tran RN)0738 (Given - Provider: Lenka Tran RN)0755 (Due) prednisoLONE acetate (PRED FORTE) 1 % ophthalmic suspension 1 drop (COMPLETED) 1 drop, Left Eye, ONCE, 1 dose, On Wed08/28/13 at 0745, Day of Surgery (Day of Procedure), Routine 0724 (Given - Provid er: Lneka Tran RN) PRN Medication Order 08/26/2013 08/27/2013 08/28/2013 balanced salt (BSS PLUS) irrigation solution (CANCELED) ONCE PRN, Starting on Wed08/28/13 at 0727, Until Wed08/28/13 at 1201, Intra-Operative (Intra-Procedure), Routine 08 (Given - Provid er: Mitch Carballo MD) balanced salt (BSS) irrigation solution (CANCELED) ONCE PRN, Starting on Wed08/28/13 at 0728, Until Wed08/28/13 at 1201, Intra-Operative (Intra-Procedure), Routine 08 (Given - Provid er: Mitch Carballo MD) balanced salt (BSS) irrigation solution (CANCELED) ONCE PRN, Starting on Wed08/28/13 at 0728, Until Wed08/28/13 at 1201, Intra-Operative (Intra-Procedure), Routine 08 (Given - Provid er: Mitch Carballo MD) BUpivacaine (PF) (MARCAINE) 0.75 % (7.5 mg/mL) injection (CANCELED) ONCE PRN, Starting on Wed08/28/13 at 0805, Until Wed08/28/13 at 1201, Intra-Operative (Intra-Procedure), Routine 08 (Given - Provid er: Mitch Carballo MD - Comment: retrobulbar block) ceFAZolin (ANCEF) injection (CANCELED) ONCE PRN, Starting on Wed08/28/13 at 0728, Until Wed08/28/13 at 1201, Intra-Operative (Intra-Procedure), Routine 0835 (Given - Provid er: Mitch Carballo MD - Comment: post op subconjunctival injection) dexamethasone (DECADRON) injection (CANCELED) ONCE PRN, Starting on Wed08/28/13 at 0729, Until Wed08/28/13 at 1201, Intra-Operative (Intra-Procedure), Routine 0835 (Given - Provid er: Mitch Carballo MD - Comment: post op subconjunctival injection) dorzolamide-timolol (COSOPT) 2-0.5 % ophthalmic solution (CANCELED) ONCE PRN, Starting on Wed08/28/13 at 0729, Until Wed08/28/13 at 1201, Intra-Operative (Intra-Procedure), Routine 0835 (Given - Provid er: Mitch Carballo MD - Comment: post op) epiNEPHrine (PF) injection Soln (CANCELED) ONCE PRN, Starting on Wed08/28/13 at 0729, Until Wed08/28/13 at 1201, Intra-Operative (Intra-Procedure), Routine 0807 (Given - Provid er: Mitch Carballo MD - Comment: mixed with 5ooml BSS Plus) Lidocaine (PF) 20 mg/mL (2 %) (CANCELED) ONCE PRN, Starting on Wed08/28/13 at 0805, Until Wed08/28/13 at 1201, Intra-Operative (Intra-Procedure), Routine 0805 (Given - Provid er: Mitch Carballo MD) sxtagmzy-tyqdsuvyq-yqlbgqqbff one (DEXACINE) 3.5-10,000-0.1 mg-unit/g-% ophthalmic ointment (CANCELED) ONCE PRN, Starting on Wed08/28/13 at 0730, Until Wed08/28/13 at 1201, Intra-Operative (Intra-Procedure), Routine 0835 (Given - Provid er: Mitch Carballo MD - Comment: post op) povidone-iodine 5 % ophthalmic solution (CANCELED) ONCE PRN, Starting on Wed08/28/13 at 0730, Until Wed08/28/13 at 1201, Irritation, Intra-Operative (Intra-Procedure), Routine 0755 (Given - Provid er: Mitch Carballo MD - Comment: prep) sterile water injection (CANCELED) ONCE PRN, Starting on Wed08/28/13 at 0731, Until Wed08/28/13 at 1201, Intra-Operative (Intra-Procedure), Routine 0731 (Given - Provid er: Mitch Carballo MD - Comment: mixed with Cefazolin) documented in this encounter Care Teams Central Office Operator Supervisor Relationship Specialty Start Date End Date Gill Murphy MD [address] [place] [address] PCP - General 09/16/10 03/30/23 documented as of this encounter
--- OUTSIDE RECORDS SUMMARY | 2024-06-23 16:25 | XMS_ITS | Encounter Summary ---
Author Organization [facility] Address [facility] [place] [address] Care Team Providers Care Molder Inflated Ball Name Role Phone Gideon Becerra MD Primary Care Provider [phone] Encounter Details Date Type Department Care Team (Late st Contact Info) Description 06/08/2023 Telephone Cardiology at [address] [address] Agustin Lee MD [facility] [place] [address] Social History Tobacco Use Types Packs/Day Years Used Date Smoking Tobacco: Former Cigarettes Q uit: 1974 Smokeless Tobacco: Never Alcohol Use Standard Drinks/Week Comments No 0 (1 standard drink = 0.6 oz pur e alcohol) Not since 1974 [facility] Inpatient Questions Answer Date Recorded Does Anyone [...] on file documented as of this encounter Miscellaneous Notes * Telephone Encounter - Agustin Lee MD - 06/08/2023 5:53 PM EDT I called the patient with the available phone number in chart that was directed to [employer]. I left a message for the patient that I will try to call her again tomorrow and also will communicate the incidental CT findings with her PCP. CT 06/08/2023 done as part of TAVR work up UNEXPECTED FINDING of a pulmonary embolus in a right lower lobe subsegmental pulmonary artery. - Consider starting oral anticoagulation if no contraindication - Results will be conveyed to listed PCP Dr. Becerra. Agutsin Lee MD Structural Heart Disease Fellow documented in this encounter Plan of Treatment Not on file documented as of this encounter Visit Diagnoses Not on filedocumented in this encounter Care Teams Molder Inflated Ball Relationship Specialty Start Date End Date Gideon Becerra MD [address] [place] [id number] PCP - General Family Medicine 03/31/23 documented as of this encounter
--- OUTSIDE RECORDS SUMMARY | 2024-06-23 16:25 | XMS_ITS | Encounter Summary ---
Author Organization [facility] Address [facility] [place] [address] Care Team Providers Care Culinary Art Teacher Name Role Phone Gill Murphy MD Primary Care Provider [phone] Reason for Visit * Reason Comments Macular Pucker cbc md:Pt is s/p Vit rectomy with membrane peel in 08/2013 OS with recurrent small central ERM OS Encounter Details Date Type Department Care Team (Late st Contact Info) Description 04/08/2015 12:30 PM EDT [place] [address] Mitch Rios MD [facility] [place] [address] Macular pucker, left eye Discharge Disposition: Home [...] Progress Notes * Mitch Rios MD - 04/08/2015 8:18 AM EDT Stable status post vitrectomy membrane peeling with improved visual acuity left eye Small recurrent or persistent membrane along vertical axis. No significant retinal edema, no macular cyst or traction. Dear Dr. De La Rosa; I had the pleasure seeing Roxanne here today on April 08, 2015. In brief summary, she has excellent visual acuity. There is a small patch of either residual epiretinal membrane formation or regrowth, but this does not appear to be clinically significant. If this progresses and there is reduced visual acuity, then I would have a low threshold for considering additional vitrectomy membrane peeling. For now, all looks good. I've asked Roxanne to return to see you as scheduled or certainly sometime in the next 4-6 months. I would be delighted to see this patient ATR any time for your request or hers. Respectfully Mitch documented in this encounter Plan of Treatment Not on file documented as of this encounter Procedures Procedure Name Priority Date/Time Associated Diagnosis Comments OCT RETINA - OS - LEFT EYE Routine 04/08/2015 1:25 PM EDT Macular pucker, left eye documented in this encounter Results * OCT [id number] (04/08/2015 1:25 PM EDT) Anatomical Region Laterality Modality Other Narrative 04/08/2015 1:25 PM EDT Residual membrane or regrowth suggested in vertical meridians only but otherwise good central macular architecture Mitch Rios MD OPHTHALMOLOGY S ERVICES ORDERABLES documented in this encounter Visit Diagnoses Diagnosis Macular pucker, left eye Macular puckering of retina documented in this encounter Care Teams Culinary Art Teacher Relationship Specialty Start Date End Date Gill Murphy MD [address] [place] [address] PCP - General 09/16/10 03/30/23 documented as of this encounter
--- OUTSIDE RECORDS SUMMARY | 2024-06-23 16:25 | XMS_ITS | Encounter Summary ---
Author Organization [facility] Address [facility] [place] [address] Care Team Providers Care Ct Scan Technician Name Role Phone Gideon Becerra MD Primary Care Provider [phone] Encounter Details Date Type Department Care Team (Latest Contact Info) Description 06/08/2023 11:19 AM EDT - 06/08/2023 11:59 PM EDT Hospital Encounter XRay at [address] [place] [address] Magdiel Gomez MD [facility] [place] [address] Aortic valve stenosis, etiology of cardiac valve [...] capsule Take 5 mg by mouth daily. [id number]-[id number] ORAL Take 2 capsules by mouth daily. [...] Procedure Name Priority Date/Time Associated Diagnosis Comments XR CHEST PA AND LATERAL Routine 06/08/2023 11:29 AM EDT Aortic valve stenosis, etiology of cardiac valve disease unspecified documented in this encounter Results * XR Chest PA [...] who have questions please contact the health adult live in caregiver that requested your imaging first. ? Electronically signed by: Lito Mcdermott MD, [facility] ??([phone]), at 06/08/2023 11:49 AM Narrative 06/08/2023 11:49 [...] patients who have questions please contactthe health adult live in caregiver that requested your imaging first. Electronically signed by: Lito Mcdermott MD, [facility]([phone]), at 06/08/2023 11:49 AM Magdiel Gomez MD IMG DX ORDERABLES documented in this encounter Visit Diagnoses Diagnosis Aortic valve stenosis, etiology of cardiac valve disease unspecified documented in this encounter Care Teams Ct Scan Technician Relationship Specialty Start Date End Date Gideon Becerra MD [address] [place] [address] PCP - General Family Medicine 03/31/23 documented as of this encounter
--- OUTSIDE RECORDS SUMMARY | 2024-06-23 16:25 | XMS_ITS | Encounter Summary ---
Author Organization [facility] [place] [address] Care Team Providers Care Tip Puncher Name Role Phone Gideon Becerra MD Primary Care Provider [phone] Reason for Visit * Consultation (Urgent) - Closed Specialty Diagnoses / Procedures Referred By Contac t Referred To Contact Cardiology Diagnoses Aortic valve stenosis, etiology of cardiac valve disease unspecified STRUCTURAL CARD TAVR w/up Gideon Becerra MD [address] [place] [address] [facility] [address] [address] [place] [id number] Referral ID Status Reason Start Date Expiration Date V isits Requested Visits Authorized [id number] Closed Consult, Test & Treat PCP Updated and/or Approved 03/31/2023 03/30/2024 6 6 Encounter Details Date Type Department Care Team (Late st Contact Info) Description 06/08/2023 11:00 AM EDT Office [place] [id number] Hector Machuca MD Aortic valve stenosis, etiology [...] as of this encounter Progress Notes * Hector Machuca MD - 06/08/2023 11:00 AM EDT Cardiothoracic Surgery Consultation Roxanne Pollack is seen at the request of Dr. Gomez for the evaluation of . HPI: Roxanne Pollack is a 83 y.o. year old female with increasing cruz and no angina. Problem List: Patient Active Problem List Diagnosis Severe calcific aortic valve stenosis Psoriasis Macular pucker, left eye Nuclear sclerosis Blepharitis Past Medical History: Past Medical History: Diagnosis Date Arthritis Cancer 1999 Breast Cancer Cataract Hyperlipidemia Hypertension Hypothyroidism Psoriasis 10/11/2017 Severe calcific aortic valve stenosis 06/08/2023 Thyroid disease Past Surgical History: Past Surgical History: Procedure Laterality Date CATARACT REMOVAL Left Dr. Villarreal PRO VITRECTOMY PARS PLANA REMOVE PRERETINAL MEMBRANE 08/28/2013 VITRECTOMY, W/ MEMBRANE STRIPPING performed by Mitch Rios MD at [facility] MA[facility] OR PRO VITRECTOMY,MECHANICAL 08/28/2013 VITRECTOMY, MECHANICAL PARS PLANA APPROACH performed by Mitch Rios MD at [facility] MA[facility] OR RETINOPATHY SURGERY Family History: Family History Problem Relation Age of Onset Cancer Maternal Grandfather Glaucoma Neg Hx Macular Degeneration Neg Hx Diabetes Neg Hx Amblyopia Neg Hx Cataracts Neg Hx Hypertension Neg Hx Retinal Detachment Neg Hx Strabismus Neg Hx Thyroid Disease Neg Hx Heart Disease Neg Hx Social History: Social History Socioeconomic History Marital status: Spouse name: Not on file Number of children: Not on file Years of education: Not on file Highest education level: Not on file Occupational History Not on file Tobacco Use Smoking status: Former Types: Cigarettes Quit date: 1974 Years since quittin.6 Smokeless tobacco: Never Vaping Use Vaping Use: Never used Substance and Sexual Activity Alcohol use: No Comment: Not since 1974 Drug use: No Sexual activity: Not on file Other Topics Concern Not on file Social History Narrative Not on file Social Determinants of Health Financial Resource Strain: Not on file Food Insecurity: Not on file Transportation Needs: Not on file Physical Activity: Not on file Housing Stability: Not on file Review of Systems: Constitutional - no weakness, fatigue, fevers HEENT - no visual changes; no hearing changes; no recent URI sx Neck - no new pain, limitation of motion Cardiovascular - no angina Pulmonary - yes dyspnea, cough, bronchitis, pneumonias GI - no abdominal pain, constipation, diarrhea - no frequency, nocturia, dysuria Musculoskeletal - no muscle pain, new limitation of motion Extremities - no edema Neuro - no confusion, weakness, syncope, paresthesias Hematologic - no bruising, excessive bleeding Allergies: Allergies Allergen Reactions Anastrozole Other (See Comments) Pt doesn't remember reaction. Oncology marked allergy. Tamoxifen Other (See Comments) Pt doesn't remember reaction. Oncology marked allergy. Umeclidinium Other Reaction(s): body aches Lisinopril Other (See Comments) Cough Propoxyphene Hcl Nausea And Vomiting CIS - Nausea/Vomiting Gabapentin Other (See Comments) Pt felt drunk. When they were taking it. Meds: No outpatient medications have been marked as taking for the 06/08/23 encounter (Office Visit) with Hector Machuca MD. Physical Exam: No data found. Constitutional:Well appearing in no acute distress. Skin: Warm, well perfused. HEENT: within normal limits. NC/AT EOMI Neck: supple, no JVD, no bruit. Heart: regular rate and rhythm, without murmurs. Lungs: clear bilaterally. Abdomen: soft, nontender, active bowel sounds, no masses noted. Extremities: full range of motion; no clubbing, cyanosis, or edema. Neuro exam: Alert and oriented x 3. Strength grossly normal. Diagnositcs: No results for input(s): WBC, NA, K, CL, CO2, GLUCOSE in the last 72 hours. Invalid input(s): HBG, HCT, PLATELETS, , BUN, CREATININE, TROP CATH: none ECHO: severe , I have seen the images, please see the emr for detailed report Assessment and Plan: Roxanne Pollack is an 83 yo female with severe with symptoms We had a long discussion regarding the risks and benefits of surgery vs TAVR. The risks include butare not limited to stroke, damage to any organ (heart, lung, liver, kidneys, brain, etc.), infection, need for blood transfusion with the concomitant risks of AIDS and hepatitis, renal failure resulting in dialysis, prolonged respiratory failure requiring mechanical ventilation, graft failure, and the possibility of . She seems to understand and wishes to proceed. She has been clear that she wants everything done which includes emergency open heart surgery. We plan TAVR. documented in this encounter Plan of Treatment Scheduled Referrals Name Type Priority Associated Diagnoses Orde r Schedule Amb Ref To Thoracic Surgery Outpatient Referral Urgent Aortic valve stenosis, etiology of cardiac valve disease unspecified Ordered: 03/31/2023 documented as of this encounter Visit Diagnoses Diagnosis Aortic valve stenosis, etiology of cardiac valve disease unspecified documented in this encounter Care Teams Tip Puncher Relationship Specialty Start Date End Date Gideon Becerra MD [address] [place] [address] PCP - General Family Medicine 03/31/23 documented as of this encounter
--- OUTSIDE RECORDS SUMMARY | 2024-06-23 16:25 | XMS_ITS | Encounter Summary ---
Author Organization [facility] Address [facility] [place] [address] Care Team Providers Care Floriculture Teacher Name Role Phone Gill Murphy MD Primary Care Provider [phone] Encounter Details Date Type Department Care Team (Late st Contact Info) Description 08/28/2013 7:30 AM EST - 08/28/2013 8:58 AM EST Surgery [place] [address] Mitch Carballo MD [facility] [place] [address] VITRECTOMY, MECHANICAL PARS PLANA APPROACH (WRVU 12.13) Social History Tobacco Use Types Packs/Day Years [...] Sign Reading Time Taken Comments Blood Pressure 159/95 08/28/2013 8:53 AM EST Pulse 65 08/28/2013 8:53 AM EST Temperature 36.6 ??C (97.9 ??F) 08/28/2013 8:53 AM ES T Respiratory Rate 15 08/28/2013 8:53 AM EST Oxygen Saturation 100% 08/28/2013 8:53 AM EST Inhaled Oxygen Concentration - - [...] have additional concerns or questions please call [phone] ask for your surgeon or the doctor carton gluing machine operator. [address] ??? [place] [address] ??? [phone] ??? [email or web address] [employer] ??? [facility] ??? [facility] ??? [place], [place] documented in this encounter Medications at [...] Carballo MD - 08/28/2013 8:37 AM EST [facility] Operative Note Patient Name: Roxanne Pollack DOB: [id number] MR#: [id number] Case Date: 08/28/2013 Surgeon: Surgeon(s) and Role: [...] She is to call the eye physician carton gluing machine operator if there are any problems in the [...] Operative Note Patient Name: Roxanne Pollack : [id number] MR#: [id number] Case Date: 08/28/2013 Surgeon: Surgeon(s) and Role: [...] Given 08/28/2013 7:26 AM EST 1 drop balanced salt (BSS PLUS) irrigation solution ONCE PRN, Starting on Wed08/28/13 at 0727, Until Wed08/28/13 at 1201, Intra-Operative (Intra-Procedure), Routine Given 08/28/2013 8:07 AM EST 500 mLs 19- Surgical Site balanced salt (BSS) irrigation solution ONCE PRN, Starting on Wed08/28/13 at 0728, Until Wed08/28/13 at 1201, Intra-Operative (Intra-Procedure), Routine Given 08/28/2013 8:07 AM EST 45 mLs 19- Surgical Site balanced salt (BSS) irrigation solution ONCE PRN, Starting on Wed08/28/13 at 0728, Until Wed08/28/13 at 1201, Intra-Operative (Intra-Procedure), Routine Given 08/28/2013 8:07 AM EST 500 mLs 19- Surgical Site BUpivacaine (PF) (MARCAINE) 0.75 % (7.5 mg/mL) injection ONCE PRN, Starting on Wed08/28/13 at 0805, Until Wed08/28/13 at 1201, Intra-Operative (Intra-Procedure), Routine Given 08/28/2013 8:05 AM EST 3 mLs 19- Surgical Site ceFAZolin (ANCEF) injection ONCE PRN, Starting on Wed08/28/13 at 0728, Until Wed08/28/13 at 1201, Intra-Operative (Intra-Procedure), Routine Given 08/28/2013 8:35 AM EST 100 mg 19- Surgical Site dexamethasone (DECADRON) injection ONCE PRN, Starting on Wed08/28/13 at 0729, Until Wed08/28/13 at 1201, Intra-Operative (Intra-Procedure), Routine Given 08/28/2013 8:35 AM EST 2 mg 19- Surgical Site dorzolamide-timolol (COSOPT) 2-0.5 % ophthalmic solution ONCE PRN, Starting on Wed08/28/13 at 0729, Until Wed08/28/13 at 1201, Intra-Operative (Intra-Procedure), Routine Given 08/28/2013 8:35 AM EST 1 drop 19- Surgical Site epiNEPHrine (PF) injection Soln ONCE PRN, Starting on Wed08/28/13 at 0729, Until Wed08/28/13 at 1201, Intra-Operative (Intra-Procedure), Routine Given 08/28/2013 8:07 AM EST 0.5 mg 19- Surgical Site Lidocaine (PF) 20 mg/mL (2 %) ONCE PRN, Starting on Wed08/28/13 at 0805, Until Wed08/28/13 at 1201, Intra-Operative (Intra-Procedure), Routine Given 08/28/2013 8:05 AM EST 60 mg 19- Surgical Site moxifloxacin (VIGAMOX) 0.5 % ophthalmic solution 1 drop 1 drop, Left Eye, EVERY 5 MIN, 3 doses, First dose on Wed08/28/13 at 0745, Last dose on Wed08/28/13 at 0755, Day of Surgery (Day of Procedure), Routine Given 08/28/2013 7:55 AM EST 1 drop Given 08/28/2013 7:33 AM EST 1 drop Given 08/28/2013 7:27 AM EST 1 drop cruyynfy-invnfwwlz-ktgqidrotumzc (DEXACINE) 3.5-10,000-0.1 mg-unit/g-% ophthalmic ointment ONCE PRN, Starting on Wed08/28/13 at 0730, Until Wed08/28/13 at 1201, Intra-Operative (Intra-Procedure), Routine Given 08/28/2013 8:35 AM EST 1 Tube Left Eye PHENYLephrine (MYDFRIN) 2.5 % ophthalmic solution 1 [...] 0720, Until Wed08/28/13 at 0723, LENKA TRAN: cabinet override povidone-iodine 5 % ophthalmic solution ONCE PRN, Starting on Wed08/28/13 at 0730, Until Wed08/28/13 at 1201, Irritation, Intra-Operative (Intra-Procedure), Routine Given 08/28/2013 7:55 AM EST 30 mLs 19- Surgical Site prednisoLONE acetate (PRED FORTE) 1 % ophthalmic suspension 1 drop 1 drop, Left Eye, ONCE, 1 dose, On Wed08/28/13 at 0745, Day of Surgery (Day of Procedure), Routine Given 08/28/2013 7:24 AM EST 1 drop sterile water injection ONCE PRN, Starting on Wed08/28/13 at 0731, Until Wed08/28/13 at 1201, Intra-Operative (Intra-Procedure), Routine Given 08/28/2013 7:31 AM EST 2.5 mLs 20-Other (document i n comment section) documented in this encounter Active and Recently [...] Day of Surgery (Day of Procedure), Routine 0727 (Given - Provid er: Lenka Tran RN)[id number] [...] Procedure), Routine 0724 (Given - Provid er: Lenka Tran RN) PRN Medication Order 08/26/2013 08/27/2013 08/28/2013 balanced salt (BSS PLUS) irrigation solution (CANCELED) ONCE PRN, Starting on Wed08/28/13 at 0727, Until Wed08/28/13 at 1201, Intra-Operative (Intra-Procedure), Routine 0807 (Given - Provid er: Mitch Carballo MD) balanced salt (BSS) irrigation solution (CANCELED) ONCE PRN, Starting on Wed08/28/13 at 0728, Until Wed08/28/13 at 1201, Intra-Operative (Intra-Procedure), Routine 0807 (Given - Provid er: Mitch Carballo MD) [...] (Given - Provid er: Mitch Carballo MD) xbqvvnbb-ruwcicipp-lfbbkfsamw one (DEXACINE) 3.5-10,000-0.1 mg-unit/g-% ophthalmic ointment (CANCELED) [...] Cefazolin) documented in this encounter Care Teams Floriculture Teacher Relationship Specialty Start Date End Date Gill Murphy MD [address] [place] [address] PCP - General 09/16/10 03/30/23 documented as of this encounter
--- OUTSIDE RECORDS SUMMARY | 2024-06-23 16:25 | XMS_ITS | Encounter Summary ---
Author Organization Formerly [facility] Address [facility] [place] [address] Care Team Providers Care Airport Shuttle Driver Name Role Phone Gideon Becerra MD Primary Care Provider [phone] Reason for Visit * Consultation (Routine) - Closed Specialty Diagnoses / Procedures Referred By Contgeorgette t Referred To Contact Cardiology Diagnoses Nonrheumatic aortic (valve) stenosis Nonrheumatic aortic (valve) stenosis STRUCTURAL CARD Severe , would like to be considered for valve replacement. OPAL-on CPAP, mod COPD that is well controlled. SAUCEDA fatigue, feeling lightheaded w/ exertion. Echo 03/25/23 shows severe , severe mitral annular calcification, preserved EF 50-55%, mildly dilated L atrium, RVSP 28mmHg. Sophie Freeman PA [address] [place] [address] [place] [address] Magdiel Gomez MD [facility] [place] [address] [place] [address] Referral ID Status Reason Start Date Expiration Date V isits Requested Visits Authorized [id number] Closed Consult, Test & Treat PCP Updated and/or Approved 03/26/2023 03/25/2024 1 1 Encounter Details Date Type Department Care Team (Late st Contact Info) Description 06/08/2023 10:20 AM EDT Office Visit Cardiology at [facility] [address] [place] [address] Magdiel Gomez MD [facility] [place] [address] Severe calcific aortic valve stenosis Social History Tobacco Use Types Packs/Day Years Used Date Smoking Tobacco: Former Cigarettes Q uit: 1974 Smokeless Tobacco: Never Tobacco Cessation:Counseling Given: Not [...] Sign Reading Time Taken Comments Blood Pressure 189/89 06/08/2023 10:09 AM EDT Pulse 70 06/08/2023 10:09 AM EDT Temperature - - Respiratory Rate - - Oxygen Saturation 96% 06/08/2023 10:09 AM EDT Inhaled Oxygen Concentration - - Weight 77.3 kg (170 lb 6.4 oz) 06/08/2023 10:09 AM EDT Height 154.9 cm (5' 1) 06/08/2023 10:09 AM EDT Body Mass Index 32.2 06/08/2023 10:09 AM EDT documented in this encounter Progress Notes * Agustin Lee MD - 06/08/2023 10:20 AM EDT Images from the original note were not included. Formerly [facility] [place] [address] [place] [address] [facility] New Patient Consultation Roxanne Pollack 06/08/2023 Referring Providers: MD Lydia Lane, MESSI Schmid [address] [place] [address] Reason for Referral: Severe Aortic Stenosis HPI: Roxanne Pollack is a 83 y.o. [...] : well controlled, no O2 at home Symptoms: No Paroxsymal nocturnal dyspnea Yes Orthopnea Yes Dyspnea on exertion No Angina No Peripheral edema No Syncope Yes Fatigue Past Medical History: Diagnosis Date Arthritis Cancer 2000 Breast Cancer Cataract Hyperlipidemia Hypertension Hypothyroidism Psoriasis 10/11/2017 Thyroid disease Past Surgical History: Procedure Laterality Date CATARACT REMOVAL Left Dr. Villarreal PRO VITRECTOMY PARS PLANA REMOVE PRERETINAL MEMBRANE 08/28/2013 VITRECTOMY, W/ MEMBRANE STRIPPING performed by Mitch Rios MD at [facility] MAIN OR PRO VITRECTOMY,MECHANICAL 08/28/2013 VITRECTOMY, MECHANICAL PARS PLANA APPROACH performed by Mitch Rios MD at [facility] MAIN OR RETINOPATHY SURGERY Allergies Allergen Reactions Anastrozole Other (See Comments) Pt doesn't remember reaction. Oncology marked allergy. Tamoxifen Other (See Comments) Pt doesn't remember reaction. Oncology marked allergy. Umeclidinium Other Reaction(s): body aches Lisinopril Other (See Comments) Cough Propoxyphene Hcl Nausea And Vomiting CIS - Nausea/Vomiting Gabapentin Other (See Comments) Pt felt drunk. When they were taking it. Out-Patient Medications: Current Outpatient Medications: acetaminophen (Tylenol) 500 mg tablet, Take 500 mg by mouth every 6 hours as needed., Disp: , Rfl: albuteroL 90 mcg/actuation HFA Aerosol Inhaler, Inhale 2 puffs into the lungs every 4 hours as needed for Shortness of Breath or Wheezing., Disp: , Rfl: ginkgo biloba leaf extract 60 mg Tablet, Take 60 mg by mouth daily., Disp: , Rfl: meclizine (Antivert) 25 mg tablet, Take 25 mg by mouth 3 times daily as needed for Dizziness., Disp: , Rfl: mirabegron ER (Myrbetriq) 25 mg ER 24 hr tablet, Take 25 mg by mouth daily., Disp: , Rfl: ondansetron ODT (Zofran-ODT) 4 mg disintegrating tablet, Take 4 mg by mouth every 8 hours as neededfor Nausea., Disp: , Rfl: Spiriva Respimat 2.5 mcg/actuation Mist, Inhale 2 puffs into the lungs daily., Disp: , Rfl: Biotin 5 mg capsule, Take 5 mg by mouth daily., Disp: , Rfl: TZQAUPY-RTJFAGTER-RPXX ORAL, Take 2 capsules by mouth daily., Disp: , Rfl: peg 400-propylene glycol 0.4-0.3 % Drops, Gel, Apply 1 drop to eye daily., Disp: , Rfl: levothyroxine (SYNTHROID) 112 mcg tablet, Take 112 mcg by mouth daily. , Disp: , Rfl: simvastatin (ZOCOR) 20 mg tablet, Take 20 mg by mouth nightly. , Disp: , Rfl: losartan (COZAAR) 50 mg tablet, Take 50 mg by mouth daily. , Disp: , Rfl: Magnesium 500 mg Tab, Take 600 mg by mouth. , Disp: , Rfl: multivitamin (THERAGRAN) tablet, Take 1 tablet by mouth daily. , Disp: , Rfl: aspirin 325 mg tablet, , Disp: , Rfl: b complex vitamins (VITAMIN B COMPLEX) tablet, , Disp: , Rfl: verapamil (CALAN) 120 mg tablet, , Disp: , Rfl: fluocinonide (LIDEX) 0.05 % Cream, Apply to area of psoriasis in scalp twice daily (Patient not taking: Reported on 06/08/2023), Disp: 15 g, Rfl: 3 lactobacillus (BACID) Capsule, Take 1 tablet by mouth daily. , Disp: , Rfl: No current facility-administered medications for this visit. 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 preserved distal pulses NEURO: No gross focal deficits ECG - Sinus rhythm , HR 68 bpm ECHO - Assessment/Recommendations: Roxanne Pollack is a 83 y.o. female with a pertinent history significant for COPD, HTN, HLD, CPAPnightly, hypothyroidism who has been referred for consideration of SAVR vs. TAVR for management of their severe . Patient has an NYHA class II. CCS class 0 2019 ACC/AHA Guideline Recommendation Scenarios for SAVR vs. ILIANA - class A recommendations: For patients with severe and indication for AVR who are <65 years of age or have a life expectancy >20 years, SAVR is recommended. For symptomatic patients with severe who are 65 to 80 years of age with no anatomic contraindication to transfemoral ILIANA, either SAVR or transfemoral ILIANA is recommended after shared decision-making. For symptomatic patients with severe who are >80 years of age or younger patients with life expectancy <10 years and no anatomic contraindication to transfemoral ILIANA, transfemoral ILIANA is recommended over SAVR. We discussed the natural history of aortic valve stenosis and reviewed the treatment options including medical therapy, surgical aortic valve replacement( SAVR) , transcatheter aortic valve replacement (TAVR) and lastly palliation. The pros and the cons and the rationale for considering one versus another were discussed. We also reviewed the data suggesting equipoise between a surgical approach and a transcatheter approach in most patients, with differing risks between the two procedures, We reviewed the recent data suggesting lower risk patients may have improved short and intermediate outcomes with TAVR when compared to surgery, at the cost of higher pacemaker rates and unknown retirement (>7 year) valve durability. We reviewed that medical therapy has been proven to be inferior to TAVR and surgery in terms of overall survival. Shared decision making was undertaken regarding the above options. The risks of a transcatheter aortic valve [...] answered to their satisfaction, and informed consent was provided. Patients' questions were answered. We reviewed the results of testing from today's visit and previous visits related to aortic valve disease. Recommendations: -Surgical Consultation: As part of a heart team approach, a surgical consultation is required. We will discuss the pros and cons of TAVR vs. SAVR with our surgical colleagues. -Further evaluation needed: - TAVR CT (Chest, abdomen/pelvis) - Schedule TAVR on earliest available date via Please see addendum by Dr. Gomze for final recommendations. Agustin Lee MD, M.Sc. Structural Heart Disease Fellow Pager :[phone] 06/08/2023 The visit included shared decision making, in which the patient (along with their friends and family if present) and I had a discussion that included an explanation of shared decision making, a review of the available choices, details of the pros and cons of the available choices,the expression of the patient's values and preferences as they relate to the trade-offs described above and a recommendation for therapy that incorporated the patient's values and preferences. This decision can be revisited in the future if desired. I have seen the patient in person and reviewed the fellow's above history and I agree with the details as written. The assessment and plan were formulated in discussion with me and I agree with them as documented. 83 year old female with severe symptomatic , thus meeting a class I indication for AVR. At her advanced age, I would recommend TAVR. We also discussed conservative management/surveillance as an alternative, though she is keen on moving forward. I did discuss her case with my CT surgery partner, Dr. Machuca. Preliminary review of her CT imaging shows an ileofemoral system conducive to large bore access. We will discuss at next HT meeting and likely proceed with TAVR. Notably, final report of her cardiac CT returned after our visit. This shows an unexpected finding of RLL subsegmental PE and excessive dynamic airway collapse, meriting consideration of OAC. I will ask our teammembers to reach out to the patient and patient's PCP to update. Magdiel Gomez MD Pager [phone] documented in this encounter Plan of Treatment Not on file documented as of this encounter Visit Diagnoses Diagnosis Severe calcific aortic valve stenosis Aortic valve disorders documented in this encounter Care Teams Airport Shuttle Driver Relationship Specialty Start Date End Date Gideon Becerra MD [address] [place] [address] PCP - General Family Medicine 03/31/23 documented as of this encounter
--- OUTSIDE RECORDS SUMMARY | 2024-06-23 16:25 | XMS_ITS | Encounter Summary ---
Author Organization [facility] Address [facility] [place] [address] Care Team Providers Care Gig Tender Name Role Phone Gill Murphy MD Primary Care Provider [phone] Encounter Details Date Type Department Care Team (Late st Contact Info) Description 11/28/2012 [place] [address] Mitch Rios MD [facility] [address] [place] [address] Social History Tobacco Use Types Packs/Day Years [...] on filedocumented in this encounter Care Teams Gig Tender Relationship Specialty Start Date End Date Gill Murphy MD [address] [place] [address] PCP - General 09/16/10 03/30/23 documented as of this encounter
[2024-06-23 16:50] LABS: Abs Immature Grans 0.02 10^3/uL (0.0-0.06); Absolute Basophil Count 0.03 10^3/uL (0.0-0.2); Absolute Eosinophil Count 0.16 10^3/uL (0.0-0.7); Absolute Lymphocyte Count 1.93 10^3/uL (1.2-3.4); Absolute Monocyte Count 0.52 10^3/uL (0.1-0.8); Absolute Neutrophil Count 3.68 10^3/uL (1.2-6.7); Basophils % 0.5 %; Eosinophils % 2.5 %; HCT 38.1 % (36.0-46.0); HGB 12.9 g/dL (11.2-15.7); Immature Grans % 0.3 %; Lymphocytes % 30.4 %; MCHC 33.9 % (32.0-36.0); MCV 97 fL (80-95); Monocytes % 8.2 %; Neutrophils % 58.1 %; Platelet Count 141 10^3/uL (130-400); RBC 3.91 10^6/uL (3.93-5.22); RDW 12.5 % (11.7-14.6); RDW-SD 44.3 fL; WBC 6.34 10^3/uL (4.4-10.8)
[2024-06-23 16:54] LABS: COVID-19 PCR Negative (Negative); Influenza A PCR Negative (Negative); Influenza B PCR Negative (Negative); RSV PCR Negative (Negative)
[2024-06-23 16:55] LABS: Source Nasopharynx
[2024-06-23 17:13] LABS: ALT 19 U/L (14-59); AST 19 U/L (15-37); Albumin 3.5 g/dL (3.4-5.0); Alkaline Phosphatase 60 U/L (46-116); Anion Gap 7.3 mmol/L (3-11); BUN 13 mg/dL (7-18); Bilirubin, Total 0.46 mg/dL (0.2-1.0); CO2 29.7 mmol/L (21.0-32.0); Calcium 9.9 mg/dL (8.5-10.1); Chloride 102 mmol/L (98-107); Estimated GFR 54.87 (mL/min/1.73m2); Glucose 92 mg/dL (74-106); Magnesium 2.1 mg/dL (1.8-2.4); NT-proBNP 468 pg/mL (<300); Potassium 3.7 mmol/L (3.5-5.1); Sodium 139 mmol/L (136-145); Total Protein 6.9 g/dL (6.4-8.2); Troponin I < 50 ng/L (< or =60)
[2024-06-23] MEDS: Albuterol/Ipratropium 3 ML UPD VIAL UPD (17:38)
[2024-06-23 18:24] LABS: Bilirubin Negative (Negative); Blood Negative (Negative); Clarity Clear (Clear); Glucose Negative (Negative); Ketones Negative (Negative); Leukocyte Esterase Negative (Negative); Nitrite Negative (Negative); Specific Gravity 1.015 (1.005-1.025); Urobilinogen 0.2 mg/dL (Up to 0.2)
== END 2024-06-23 18:47 | disposition home or self-care (01) ==
PROVIDERS: Emergency Provider Registered Nurse Emergency; PCP Family Medicine
DX: R53.83 Other fatigue (principal); R06.09 Other forms of dyspnea; I10 Essential (primary) hypertension; E78.5 Hyperlipidemia, unspecified; J44.9 Chronic obstructive pulmonary disease, unspecified; Z95.2 Presence of prosthetic heart valve; Z87.891 Personal history of nicotine dependence
CPT/HCPCS: 36415; 80053; 87637; 93005; 94640; 99285; 71045; 81003; 83735; 83880; 84484; 85025; 93010; 99284; J7620

== ENCOUNTER 2024-06-29 16:17 | Outpatient (REF) | payer MEDICARE, MEDICAID, SELFPAY ==
[2024-06-29 23:43] LABS: TSH 1.65 uIU/Ml (0.36-3.74)
== END 2024-06-29 16:18 | disposition home or self-care (01) ==
LOC: NCHCN 16:17
PROVIDERS: PCP Family Medicine; Visit Provider Family Medicine
DX: R53.83 Other fatigue (principal)
CPT/HCPCS: 84443

== ENCOUNTER → 2024-08-24 10:34 | Outpatient (BNVA) | payer MEDICARE, MEDICAID, SELFPAY | PROVIDERS: PCP Family Medicine; Referring Provider Family Medicine; Visit Provider Podiatrist | DX: B35.1 Tinea unguium (principal); I73.9 Peripheral vascular disease, unspecified; L60.3 Nail dystrophy; G62.9 Polyneuropathy, unspecified; I73.89 Other specified peripheral vascular diseases; R60.0 Localized edema; R20.8 Other disturbances of skin sensation | CPT/HCPCS: 11721; 99214 ==

== ENCOUNTER 2024-09-12 09:46 | Outpatient (CLI) | payer MEDICARE, MEDICAID, SELFPAY ==
[2024-09-12 10:02] VITALS: BP 137/67; PULSE 73; RESP 18; TEMP 36.7; O2SAT 97
--- NOTE | 2024-09-12 10:07 | PDOC.PAIN ---
Date of service: 09/12/24 Time of Service: 10:37 Pain Managment Procedure Note Procedure Note Procedure Note: Lumbar Interlaminar Epidural Steroid Injection ? Location: L5-S1 ? Pre-procedure Diagnosis: M54.16- Radiculopathy, LUMBAR region ? Post-procedure Diagnosis:? The same as above ? Sedation:? ? None ? Medication: Depo-Medrol 80 mg, Omnipaque 1 mL ? Estimated blood loss:? less than 2 cc ? Surgeon:? Sam Carrington MD COMMENT: L4-5: Moderate concentric disc bulging. Facet degenerative changes and ligamentous hypertrophy. Mild central canal stenosis. Moderate neural foraminal narrowing on the right. Mild neural foraminal narrowing on the left. Previous lumbar epidural steroid injection December 2023 with good relief yeah just fine here about 6 months changing PE headache dizziness ? Procedure Detail:? The procedure and potential risks were explained to the patient and informed written consent was obtained. The patient was escorted to the procedure room and placed in the prone position. Pillows were utilized for proper positioning and comfort. Time out was performed in the procedure room with nursing staff confirming the patient's identity, procedure to be performed, allergies, and any blood thinning or anti-platelet medications.? The patient's neck and upper back was prepped with ChloraPrep and draped in a sterile fashion. Sterile technique was maintained throughout the procedure.? Sterile gloves were used, a face mask was worn, and new single dose vials of all medications were used with the top being swabbed with alcohol and given time to dry prior to withdrawal of medication. Lidocane 1% was used to anesthetize the skin.Using a 25-gauge 1.5 inch needle, 1% lidocaine was instilled into the superficial soft tissue overlying the targeted area to provide local anesthesia. With fluoroscopic guidance, a 17 -gauge Tuohy needle was advanced toward the interlaminar space of L5-S1. The needle was then advance through the ligamentum flavum and into the posterior epidural space using the loss of resistance technique. Correct needle placement was confirmed through review of the AP and contralateral oblique fluoroscopic views. A 19-gauge arrow catheter was threaded cephalad to the Left L4 Following negative aspiration, one cc of Omnipaque 240 contrast was injected which confirmed good flow throughout the epidural space and no evidence of vascular flow or flow into adjacent compartments. Next, following negative aspiration, 1 cc's of normal saline and 80mg of Depo-Medrol was injected. The needle was gently removed. The patient tolerated the procedure well and was transported to the recovery area for observation and discharge instructions. Permanent images saved and recorded. PAIN PRE-PROCEDURE 6/10 POST-PROCEDURE 0 /10 Plan:? Follow up prn. COMMENT: repeat prn
[2024-09-12 10:22] VITALS: O2SAT 90
[2024-09-12 10:30] VITALS: O2SAT 93
--- NOTE | 2024-09-12 10:35 | DI.RAD_ITS ---
Exam(s) XR PAIN CLINIC LUMBAR SP 2V EXAM: XR PAIN CLINIC LUMBAR SP 2V CLINICAL HISTORY: DX: Lumbar Radiculopathy. TECHNIQUE: Fluoroscopy was provided for the referring physician for guidance with performing pain cl inic injection procedure. COMPARISON: No exams were available for comparison FINDINGS: Please see procedure note for details. Fluoro time: 18.6 seconds RADIATION DOSE DELIVERED: Ka,r=8.26 mGy
[2024-09-12] MEDS: Normal Saline 20 ML VIAL 10 ML IJ (10:39)
[2024-09-12] MEDS: Omnipaque 240 MG/ML 50 ML BTL IJ (10:39)
[2024-09-12] MEDS: Lidocaine 1% Pres-Free 5 ML VIAL IJ (10:39)
[2024-09-12] MEDS: methylPREDNISolone ACETATE 40 MG/ML VIAL IJ (10:40)
== END 2024-09-12 09:47 | disposition home or self-care (01) ==
LOC: PC 09:46
PROVIDERS: PCP Family Medicine; Visit Provider Anesthesiology Pain Medicine
DX: M54.50 Low back pain, unspecified (principal); M54.16 Radiculopathy, lumbar region
CPT/HCPCS: 00123; 62323; 72100; J1010; J2003; Q9967

== ENCOUNTER 2024-11-01 02:05 | Outpatient (CLI) | payer MEDICARE, MEDICAID, SELFPAY ==
--- NOTE | 2024-11-01 12:03 | DI.US_ITS ---
APPROVED REPORT EXAM: Comprehensive 2D, Doppler, and color-flow Echocardiogram Patient Location: Out-Patient Lot Associate: Soledad Bourne RDCS (AE) Indications: S/P TAVR, AORTIC STENOSIS Other Information Study Quality: Fair. Technically limited study due to body habitus. Conclusion Left ventricular wall thickness chamber size and systolic function appears normal. EF is estimated 5 5 to 60%. No segmental wall motion abnormalities are identified Normal right ventricular size and function Moderately enlarged left atrium. Mildly dilated right atrium Patient is status post transcatheter aortic valve replacement. Mean gradient is 21 mmHg. There is m ild to moderate aortic regurgitation Mitral annular calcification. Mild to moderate mitral regurgitation. Estimated right ventricular systolic pressure is 35 mmHg Wall motion Left Ventricle Technically limited parasternal imaging. The overall left ventricular systolic function appears chari l. Regional wall motion is not well visualized but grossly normal. There is no ventricular septal def ect visualized. LVEF is 55-60%. Right Ventricle The right ventricle is normal size. The right ventricular systolic function is normal. Atria Left atrium is moderately dilated Right atrium is mildly dilated. The interatrial septum is intact wi th no evidence for an atrial septal defect. Aortic Valve TAVR Aortic valve Mean gradient is 21 mmHg Mild to moderate aortic regurgitation. Mitral Valve Moderate mitral annular calcification. No evidence of mitral valve stenosis. Mild to moderate mitral regurgitation. Tricuspid Valve The tricuspid valve is normal in structure. There is no tricuspid valve stenosis. Trace to mild tricu spid regurgitation. The RVSP is 34.7_ mmHg. Pulmonic Valve The pulmonary valve is normal in structure. There is no pulmonic valvular stenosis. Trace pulmonic re gurgitation. Great Vessels The aortic root is normal in size. The ascending aorta is normal Aortic arch is not well visualized. IVC is normal in size and collapses >50% with inspiration. Pericardium There is no pericardial effusion. 2D Dimensions Ao Root d 2.36 cm F: 2.7 - 3.3 Ao Asc Diam d 3.22 cm F: 2.3 - 3.1 M-Mode TAPSE 2.23 cm (M/F) >1.7 Auto EF LV EDV A4C 102.4 mL LV EDV A2C 99.0 mL LV EDV BP 104.9 mL LV ESV A4C 42.1 mL LV ESV A2C 44.2 mL LV ESV BP 42.8 mL LVEF(%) A4C 58.9 % LVEF(%) A2C 55.3 % LVEF(%) BP 59.2 % LV SV A4C 60.3 ml LV SV A2C 54.8 ml LV SV BP 62.1 ml LV CO A4C 4.3 L/min LV CO A2C 3.9 L/min LV CO BP 4.1 L/min HR A4C 71.15 BPM HR A2C 70.87 BPM LV EDV Index (BP) LV Diastology MV E' medial 0.042 (>0.07 m/s) MV E Vmax 1.17 (0.4-1.3 m/s) MV E/E' MED 27.83 (<14) MV A Vmax 1.80 (0.4-1.3 m/s) MV E' lateral 0.067 (>0.1 m/s) E/A Ratio 0.6 MV E/E' LAT 17.43 (<14) MV E' Average 0.054 m/s MV E/E'(average) 21.43 Aortic Valve AoV Vmax 2.91 m/s LVOT Vmax 1.23 m/s AoV Peak Grad 49.2 mmHg LVOT Peak Grad 6.1 mmHg AoV Area (Vmax) 1.16 cm2 LVOT VTI 0.270 m AoV VTI 0.612 m LVOT Mean Grad 2.9 mmHg AoV Mean Simone. 2.20 m/s LVOT SV 73.79 mL AoV Mean Grad 21.1 mmHg LVOT Diam s 1.85 cm AoV Area (VTI) 1.21 cm2 AV Regurg Peak Gr. 33.93 mmHg Velocity Ratio 0.42 AR Decel [place] 2.0m/sec2 AR DT 1994 msec AR PHT 578 msec AR Vmax 4.02 m/s Mitral Valve MV DT 453 (160-240 msec) MV Vmax TIPS 1.74 m/s MV Mean Grad 4.9 (<2mmHg) MV PHT 132 msec MV Area PHT 1.67 cm2 MV VTI 0.529 m Pulmonary Valve PV Vmax 0.81 (0.5-1.5 m/s) RVOT Vmax 0.77 m/s PV Peak Grad 2.6 mmHg RVOT Peak Gr. 2.4 mmHg PV Mean Simone 0.62 m/s RVOT VTI 0.146 m PV Mean Grad 1.7 mmHg RVOT Mean Gr. 1.3 mmHg Tricuspid Valve RA Pressure 3.00 mmHg TR Vmax 2.81 m/s TV S' 0.19 m/s TR Peak Grad 31.6 mmHg RVSP (TR) 34.7 mmHg
== END 2024-11-01 02:25 ==
LOC: DI 02:05
PROVIDERS: PCP Family Medicine; Visit Provider Internal Medicine Cardiovascular Disease
DX: I35.0 Nonrheumatic aortic (valve) stenosis (principal); I34.2 Nonrheumatic mitral (valve) stenosis
CPT/HCPCS: 93306

== ENCOUNTER → 2024-11-06 09:47 | Outpatient (BNVA) | payer MEDICARE, MEDICAID, SELFPAY | PROVIDERS: PCP Family Medicine; Visit Provider Registered Nurse | DX: I35.0 Nonrheumatic aortic (valve) stenosis (principal); R60.9 Edema, unspecified; J44.9 Chronic obstructive pulmonary disease, unspecified; R06.02 Shortness of breath; I10 Essential (primary) hypertension | CPT/HCPCS: 99215 ==

== ENCOUNTER → 2024-11-14 13:56 | Outpatient (BNVA) | payer MEDICARE, MEDICAID, SELFPAY | PROVIDERS: PCP Family Medicine; Visit Provider Nurse Practitioner Gerontology | DX: N39.46 Mixed incontinence (principal) | CPT/HCPCS: 51798; 99213 ==

== ENCOUNTER 2024-11-15 01:58 | Outpatient (CLI) | payer MEDICARE, MEDICAID, SELFPAY ==
[2024-11-15 16:37] LABS: Anion Gap 6.3 mmol/L (3-11); BUN 21 mg/dL (7-18); CO2 34.7 mmol/L (21.0-32.0); CREATININE 1.3 mg/dL (0.55-1.02); Calcium 8.6 mg/dL (8.5-10.1); Chloride 104 mmol/L (98-107); Estimated GFR 40.05 (mL/min/1.73m2); Glucose 116 mg/dL (74-106); Potassium 3.4 mmol/L (3.5-5.1); Sodium 145 mmol/L (136-145)
== END 2024-11-15 01:59 | disposition home or self-care (01) ==
LOC: LBO 01:58
PROVIDERS: PCP Family Medicine; Visit Provider Registered Nurse
DX: R60.9 Edema, unspecified (principal)
CPT/HCPCS: 36415; 80048

== ENCOUNTER 2024-12-06 01:38 | Outpatient (CLI) | payer MEDICARE, MEDICAID, SELFPAY ==
--- NOTE | 2024-12-06 | DI.MAMMO_ITS ---
Exam(s) MG MAMMO SCREENING 60 MIN DUR EXAM: MG MAMMO SCREENING 60 MIN DUR CLINICAL HISTORY: Z12.31 Screening, personal HX of breast cancer. TECHNIQUE: Bilateral full field digital CC and MLO mammographic images were obtained with 3D tomosyn thesis and utilizing computer aided detection (CAD). COMPARISON: Prior outside mammograms were reviewed. There has been prior left mastectomy approximately 20 years ago FINDINGS: There has been no significant change in the appearance and distribution of the fibroglandular tissue of the right breast. No CAD designations. There are no new spiculated masses nor malignant appearing microcalcification groups. There is no significant architectural distortion nor skin thickening-retraction. IMPRESSION: No radiographic evidence of malignancy in the right breast. BI-RADS Category 1 - Negative Breast Density - Category B - Scattered areas of fibroglandular density Breast density Category C or D implies that the patient has dense breast tissue. Dense breast tissue can make it harder to find cancer on a mammogram. Dense breast tissue is also associated with an incr eased risk of breast cancer. This information about the result of the mammogram report was provided to the patient to raise their awareness. Use this report when you speak with the patient about their risks for breast cancer, which includes their family history. At that time, you may recommend additional screening tests (Ultrasoun d or MRI) as these tests may add significant information. A negative radiographic report should not delay biopsy if a dominant or clinically suspicious mass is present. Up to ten percent of cancers are not identified on mammography. A negative report may reinforce clinical impression. Adenosis and dense breasts may obscure an underlying neoplasm. False positive reports average 6 to 10%. Patient will receive a letter notifying them of these results.
== END 2024-12-06 01:58 ==
LOC: DI 01:38
PROVIDERS: PCP Family Medicine; Visit Provider Family Medicine
DX: Z12.31 Encounter for screening mammogram for malignant neoplasm of breast (principal); R92.323 Mammographic fibroglandular density, bilateral breasts
CPT/HCPCS: 77063; 77067

== ENCOUNTER → 2024-12-21 10:52 | Outpatient (BNVA) | payer MEDICARE, MEDICAID, SELFPAY | PROVIDERS: PCP Family Medicine; Referring Provider Family Medicine; Visit Provider Podiatrist | DX: L60.3 Nail dystrophy (principal); B35.1 Tinea unguium; I73.89 Other specified peripheral vascular diseases; G62.9 Polyneuropathy, unspecified; R60.0 Localized edema; L65.9 Nonscarring hair loss, unspecified; R23.8 Other skin changes; L60.2 Onychogryphosis; L60.8 Other nail disorders; M79.671 Pain in right foot; M79.672 Pain in left foot; R20.8 Other disturbances of skin sensation | CPT/HCPCS: 11721 ==

== ENCOUNTER → 2025-01-17 12:52 | Outpatient (BNVA) | payer MEDICARE, MEDICAID, SELFPAY | PROVIDERS: PCP Family Medicine; Referring Provider Podiatrist; Visit Provider Physical Therapy Assistant | DX: I73.9 Peripheral vascular disease, unspecified (principal) | CPT/HCPCS: 93922 ==

== ENCOUNTER → 2025-03-07 09:53 | Outpatient (BNVA) | payer MEDICARE, MEDICAID, SELFPAY | PROVIDERS: PCP Family Medicine; Referring Provider Family Medicine; Visit Provider Registered Nurse | DX: I35.0 Nonrheumatic aortic (valve) stenosis (principal); R60.0 Localized edema; I10 Essential (primary) hypertension | CPT/HCPCS: 99214 ==

== ENCOUNTER → 2025-04-24 10:48 | Outpatient (BNVA) | payer MEDICARE, MEDICAID, SELFPAY | PROVIDERS: PCP Family Medicine; Referring Provider Family Medicine; Visit Provider Podiatrist | DX: L60.3 Nail dystrophy (principal); B35.1 Tinea unguium; I73.89 Other specified peripheral vascular diseases; G62.9 Polyneuropathy, unspecified; R09.89 Other specified symptoms and signs involving the circulatory and respiratory systems; R60.0 Localized edema; I83.93 Asymptomatic varicose veins of bilateral lower extremities; R23.8 Other skin changes; R20.8 Other disturbances of skin sensation; L65.9 Nonscarring hair loss, unspecified; L60.2 Onychogryphosis; L60.8 Other nail disorders | CPT/HCPCS: 11721 ==

== ENCOUNTER → 2025-06-06 13:25 | Outpatient (BNVA) | payer MEDICARE, MEDICAID, SELFPAY | PROVIDERS: PCP Family Medicine; Referring Provider Family Medicine; Visit Provider Nurse Practitioner Gerontology | DX: N39.46 Mixed incontinence (principal) | CPT/HCPCS: 99213; 51798 ==

== ENCOUNTER 2025-07-18 17:03 | Outpatient (REF) | payer MEDICARE, MEDICAID, SELFPAY ==
[2025-07-18 14:40] LABS: Abs Immature Grans 0.02 10^3/uL (0.0-0.06); HCT 39.8 % (36.0-46.0); HGB 13.3 g/dL (11.2-15.7); Immature Grans % 0.3 %; MCH 32.4 pg (27.0-33.0); MCHC 33.4 % (32.0-36.0); MCV 97 fL (80-95); MPV 10.8 fL (8.0-11.0); Platelet Count 201 10^3/uL (130-400); RBC 4.10 10^6/uL (3.93-5.22); RDW 12.3 % (11.7-14.6); RDW-SD 43.8 fL; WBC 7.22 10^3/uL (4.4-10.8)
[2025-07-18 14:56] LABS: ALT 22 U/L (14-59); AST 26 U/L (15-37); Albumin 3.6 g/dL (3.4-5.0); Alkaline Phosphatase 67 U/L (46-116); Anion Gap 8.6 mmol/L (3-11); BUN 11 mg/dL (7-18); Bilirubin, Total 0.4 mg/dL (0.2-1.0); CO2 28.4 mmol/L (21.0-32.0); Calcium 9.6 mg/dL (8.5-10.1); Chloride 104 mmol/L (98-107); Estimated GFR 54.53 (mL/min/1.73m2); Glucose 87 mg/dL (74-106); Potassium 4.2 mmol/L (3.5-5.1); Sodium 141 mmol/L (136-145); TSH 0.45 uIU/mL (0.36-3.74); Total Protein 6.7 g/dL (6.4-8.2)
== END 2025-07-18 17:04 | disposition home or self-care (01) ==
LOC: NCHCN 17:03
PROVIDERS: PCP Family Medicine; Visit Provider Family Medicine
DX: R06.09 Other forms of dyspnea (principal)
CPT/HCPCS: 80053; 84443; 85025

== ENCOUNTER 2025-07-24 02:24 | Outpatient (CLI) | payer MEDICARE, MEDICAID, SELFPAY ==
--- NOTE | 2025-07-24 08:30 | DI.US_ITS ---
APPROVED REPORT EXAM: Comprehensive 2D, Doppler, and color-flow Echocardiogram Patient Location: Out-Patient Security Controls Assessor: Soledad Bourne RDCS (AE) Indications: SAUCEDA, TAVR Other Information Study Quality: Fair. Technically limited study due to body habitus. Conclusion Normal left ventricular wall thickness and chamber size. Ejection fraction is 60%. Wall motion is normal Normal right ventricular size and function Moderately dilated left atrium. Normal right atrial size Patient is status post transcatheter aortic valve replacement. Mean gradient is 21 mmHg. There is no aortic regurgitation Mitral annular calcification, mild to moderate mitral regurgitation Estimated right ventricular systolic pressure is 37 mmHg Dilated ascending aorta measuring 4.46 cm Wall motion Left Ventricle Technically limited parasternal imaging. The overall left ventricular systolic function appears normal. There is normal LV segmental wall motion. There is no ventricular septal defect visualized. LVEF is 60%. Right Ventricle The right ventricle is normal size. The right ventricular systolic function is normal. Atria Left atrium is moderately dilated. The right atrium size is normal. Aortic Valve Mean gradient is 21 mmHg Mild to moderate aortic regurgitation. TAVR aortic valve is present. Mitral Valve Moderate mitral annular calcification. No evidence of mitral valve stenosis. Mild to moderate mitral regurgitation. Tricuspid Valve The tricuspid valve is normal in structure. There is no tricuspid valve stenosis. Mild tricuspid regurgitation. The RVSP is 37.1 mmHg. Pulmonic Valve The pulmonary valve is normal in structure. There is no pulmonic valvular stenosis. There is no pulmonic valvular regurgitation. Great Vessels The aortic root is normal in size. The ascending aorta is severely dilated. Aortic arch is not well visualized. IVC is normal in size and collapses >50% with inspiration. Pericardium There is no pericardial effusion. 2D Dimensions Ao Root d 2.41 cm F: 2.7 - 3.3 Ao Asc Diam d 4.46 cm F: 2.3 - 3.1 M-Mode TAPSE 2.67 cm (M/F) >1.7 Auto EF LV EDV A4C 88.6 mL LV EDV A2C 97.2 mL LV EDV BP 93.6 mL LV ESV A4C 35.7 mL LV ESV A2C 39.7 mL LV ESV BP 37.8 mL LVEF(%) A4C 59.7 % LVEF(%) A2C 59.2 % LVEF(%) BP 59.6 % LV SV A4C 52.9 ml LV SV A2C 57.5 ml LV SV BP 55.8 ml LV CO A4C 3.6 L/min LV CO A2C 3.9 L/min LV CO BP 3.8 L/min HR A4C 68.31 BPM HR A2C 67.80 BPM LV EDV Index (BP) LV Diastology MV E' lateral 0.062 (>0.1 m/s) MV E Vmax 1.19 (0.4-1.3 m/s) MV E/E' LAT 19.31 (<14) MV A Vmax 1.60 (0.4-1.3 m/s) E/A Ratio 0.7 Aortic Valve AoV Vmax 3.00 m/s LVOT Vmax 1.44 m/s AoV Peak Grad 63.8 mmHg LVOT Peak Grad 8.3 mmHg AoV Area (Vmax) 1.45 cm2 LVOT VTI 0.335 m AoV VTI 0.643 m LVOT Mean Grad 5.2 mmHg AoV Mean Simone. 2.18 m/s LVOT SV 101.23 mL AoV Mean Grad 20.9 mmHg LVOT Diam s 1.95 cm AoV Area (VTI) 1.57 cm2 AV Regurg Peak Gr. 36.03 mmHg Velocity Ratio 0.48 AR Decel [place] 1.5m/sec2 AR DT 3220 msec AR PHT 934 msec AR Vmax 4.78 m/s Mitral Valve MV DT 488 (160-240 msec) MV Vmax TIPS 1.75 m/s MV Mean Grad 4.7 (<2mmHg) MV VTI 0.585 m Pulmonary Valve PV Vmax 0.65 (0.5-1.5 m/s) RVOT Vmax 0.62 m/s PV Peak Grad 1.7 mmHg RVOT Peak Gr. 1.6 mmHg PV Mean Simone 0.45 m/s RVOT VTI 0.162 m PV Mean Grad 0.9 mmHg RVOT Mean Gr. 1.0 mmHg Tricuspid Valve RA Pressure 3.00 mmHg TR Vmax 2.92 m/s TV S' 0.15 m/s TR Peak Grad 34.0 mmHg RVSP (TR) 37.1 mmHg
== END 2025-07-24 02:44 ==
PROVIDERS: PCP Family Medicine; Visit Provider Family Medicine
DX: R06.09 Other forms of dyspnea (principal); I34.81 Nonrheumatic mitral (valve) annulus calcification
CPT/HCPCS: 93306

== ENCOUNTER → 2025-08-07 10:17 | Outpatient (BNVA) | payer MEDICARE, MEDICAID, SELFPAY | PROVIDERS: PCP Family Medicine; Referring Provider Family Medicine; Visit Provider Podiatrist | DX: L60.3 Nail dystrophy (principal); B35.1 Tinea unguium; I73.89 Other specified peripheral vascular diseases; G62.9 Polyneuropathy, unspecified; R09.89 Other specified symptoms and signs involving the circulatory and respiratory systems; R60.0 Localized edema; I83.93 Asymptomatic varicose veins of bilateral lower extremities; R23.4 Changes in skin texture; L65.9 Nonscarring hair loss, unspecified; L60.2 Onychogryphosis; L60.8 Other nail disorders; R20.8 Other disturbances of skin sensation | CPT/HCPCS: 11721 ==

== ENCOUNTER → 2025-09-05 09:50 | Outpatient (BNVA) | payer MEDICARE, MEDICAID, SELFPAY | PROVIDERS: PCP Family Medicine; Referring Provider Family Medicine; Visit Provider Registered Nurse | DX: I35.0 Nonrheumatic aortic (valve) stenosis (principal); Z79.01 Long term (current) use of anticoagulants; Z79.899 Other long term (current) drug therapy | CPT/HCPCS: 99214 ==